=== PATIENT | male | born 1960 | race Caucasian/White ===

== ENCOUNTER 2024-10-01 15:05 | Emergency (ER) | payer BC, SELFPAY ==
--- NOTE | ~2024-10-01 | CT_ITS ---
EXAMINATION: CTA chest PE protocol DATE: 10/01/2024 17:08 INDICATION: shortness of breath, tachycardia TECHNIQUE: Computed tomography angiography (CTA) of the chest was performed with intravenous contrast timed to evaluate the pulmonary arteries. Coronal maximum intensity projection 3D-reconstructions we re created by the technologist. The dose-length product (DLP) was 363.64 mGy-cm. Automated exposure c ontrol and iterative reconstruction technique were employed. COMPARISON: None. FINDINGS: Lung parenchyma and airways: Clear. Secretions in the mid trachea. Pleura: Unremarkable. Thoracic inlet, axillae and chest wall: Unremarkable. Thoracic aorta: No significant dilation. No dissection. Mediastinum: Normal. Heart and pericardium: Normal. Coronary artery calcifications: . Upper abdomen: No significant finding. Bones: No acute osseous finding. Pulmonary arteries: Study quality: Adequate. No pulmonary emboli detected. IMPRESSION: No CT evidence of acute pulmonary embolus. Tracheal secretions, otherwise no acute process detected in the chest. Reviewed, dictated and finalized at location K.
--- NOTE | ~2024-10-01 | CT_ITS ---
EXAMINATION: CT soft tissue neck wo con DATE: 10/01/2024 17:10 INDICATION: History of throat cancer, shortness of breath, tachycardia, increased swelling. TECHNIQUE: Computed tomography (CT) of the neck was performed with 75 mL Omnipaque-350 intravenous co ntrast. Automated exposure control and iterative reconstruction technique were employed. The dose-loki gth product was 550.00 mGy-cm. COMPARISON: None FINDINGS: Mucosal thickening and edema involving the subglottis airway, greater on the left, and to lesser exte nt the epiglottis. There is mild airway narrowing at the level of the glottis. Fluid present at the g lottic airway and debris is present in the trachea. Lobulations of soft tissue protruding posteriorly from the base of the tongue. The thyroid gland is unremarkable. The submandibular and parotid glan ds are symmetric. There is no cervical lymphadenopathy. There are no masses identified. The sup erior mediastinum is unremarkable. Subcutaneous stranding of the anterior neck and along the parapha ryngeal spaces. Mild atherosclerotic calcifications at the bilateral carotid bifurcations. The orbit s are unremarkable. Visualized sinuses and mastoid air cells are well aerated. Lung parenchyma is clear. There is cervical spondylosis. IMPRESSION: Lobular soft tissue lesions posterior to the base of the tongue, with associated thickening and edema of the supraglottis airway and epiglottis. Mild airway narrowing at the level of the glottis. Subcut aneous stranding in the anterior neck and parapharyngeal spaces. These findings may represent a combi nation of primary tumor and treatment related change. Comparison to outside studies would be helpful. Minimal glottic and endotracheal fluid/debris. Reviewed, dictated and finalized at location K. IMPRESSION: Lobular soft tissue lesions posterior to the base of the tongue, with associate d thickening and edema of the supraglottis airway and epiglottis. Mild airway n arrowing at the level of the glottis. Subcutaneous stranding in the anterior ne ck and parapharyngeal spaces. These findings may represent a combination of javy tracy tumor and treatment related change. Comparison to outside studies would be helpful. Minimal glottic and endotracheal fluid/debris.
--- OUTSIDE RECORDS SUMMARY | 2024-10-01 15:09 | XMS_ITS | Clinical Summary ---
Author Organization [facility] Address [address] [place] [address] Care Team Providers Care Ham Stripper Name Role Phone Michelle Handy RN Unavailable UnavailNoemí Rea SALES SERVICE TECHNICIAN Unavailable Unavaila Pro Forbes MD Unavailable [phone] Francis Tuttle MD Unavailable [phone] Wilma Groves MD Unavailable [phone] Gia Foss MD Primary Care Provider [phone] Allergies Active Allergy Reactions Criticality Noted Date Comments Penicillin Rash Medium 01/30/2024 Medications amLODIPine (NORVASC) 5 mg tablet Administer per tube 1 tablet (5 mg total) daily 30 tablet 1 06/13/19 25 026 Active polyethylene glycol (MIRALAX) 17 gram/dose bulk powder Administer per tube 17 g daily as needed (constipation) 289 g 1 08/30/19 25 Active senna 1.76 mg/mL syrup Administer 10 mL (17.6 mg total) per feeding tube nightly as needed Active esomeprazole DR (NexIUM) 40 mg granule packet for oral suspension Take 40 mg by mouth 2 (two) times a day as needed (indegestion) 90 packet 08/30/19 25 025 Active scopolamine 1 mg over 3 days patch 3 dayIndications:Mot ion Sickness Place 1 patch on the skin every third day for 72 hours 5 patch 09/18/19 25 Active HYDROcodone-acetam inophen (NORCO) 5-325 mg per tabletIndications: Pain Take 1 tablet by mouth every 8 (eight) hours as needed for pain 90 tablet 09/18/19 25 Active ondansetron ODT (ZOFRAN-ODT) 4 mg disintegrating tabletIndications: nausea and vomiting Take 1 tablet (4 mg total) by mouth every 6 (six) hours as needed for nausea or vomiting 120 tablet 08/14/19 25 025 HYDROcodone-acetam inophen (NORCO) 7.5-325 mg per tabletIndications: Pain Administer per tube 1 tablet every 6 (six) hours as needed for pain (cancer related post radiation throat pain) 120 tablet 08/14/19 25 025 scopolamine 1 mg over 3 days patch 3 dayIndications:Mot ion Sickness Place 1 patch on the skin every third day for 72 hours 5 patch 09/04/19 25 025 Discontinu ed(Reorder ) Active Problems Problem Noted Date Diagnosed Date Hypophosphatemia 08/27/2024 Hypokalemia 08/25/2024 Primary hypertension 08/25/2024 Intractable nausea and vomiting 08/22/2024 Dehydration 08/13/2024 Dislodged gastrostomy tube 07/22/2024 Thrush 07/22/2024 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 Hypertension, essential 07/08/2024 Assessment & Plan (07/08/2024 12:06 PM CDT): Patient takes Amlodipine 5mg a day Alteration in nutrition 07/08/2024 Assessment & Plan (07/08/2024 12:11 PM CDT): Patient to continue protein supplements Encounter for follow-up exam ination after completed treatment for malignant neoplasm 06/20/2024 Personal history of irradiation 06/20/2024 Encounter for feeding tube placement 05/24/2024 Severe malnutrition 05/15/2024 Intractable vomiting with nausea 05/14/2024 Hypotension, unspecified hypotension type 2023 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 Patient to continue Hydrocodone. 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 09/17/2024 11:30 AM CDT Office Visit [facility] Radiation Oncology [address] [place] [phone] Shayna Valencia NP Oropharyngeal cancer (HCC) (Primary Dx) 09/17/2024 Orders Only [facility] Radiation Oncology [address] [place] [phone] Corbin Early MD PhD Oropharyngeal cancer (HCC) (Primary Dx); 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; Dysphagia, unspecified type 09/17/2024 Documentation [facility] [address] [place] [address] [place] [address] 09/12/2024 8:30 AM CDT [address] [place] [address] Oropharyngeal cancer (HCC) (Primary Dx) 09/12/2024 Documentation [facility] [address] [place] [address] [place] [address] 09/12/2024 Orders Only [facility] [address] [place] [phone] Homa Melendez RN 09/05/2024 10:00 AM CDT Infusion [address] [place] [phone] Oropharyngeal cancer (HCC) (Primary Dx) 09/05/2024 Documentation [facility] [address] [place] [phone] 09/05/2024 Orders Only [facility] Radiation Oncology [address] [place] [phone] Corbin Early MD PhD Nausea (Primary Dx); Oropharyngeal cancer (HCC); Severe protein-calorie malnutrition 09/05/2024 Telephone [facility] [address] [place] [phone] Michelle Handy, tube balancer Follow Up 2024 11:15 AM CDT Office Visit [facility] [address] [facility] [address] [place] [phone] Pro Gama MD Oropharyngeal cancer (HCC) (Primary Dx) 09/03/2024 10:30 AM CDT Infusion [address] [phone] Oropharyngeal cancer (HCC) (Primary Dx); Dehydration 09/03/2024 9:00 AM CDT Office Visit [facility] Radiation Oncology [address] [place] [phone] Shayna Valencia NP Oropharyngeal cancer (HCC) (Primary Dx); Nausea; 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; Lymphedema; Odynophagia; Dysphagia, unspecified type 09/03/2024 Documentation [facility] [address] [place] [phone] Leticia Queen, TOBIAS 09/03/2024 Orders Only [facility] [address] [place], [place] [address] [phone] Shayna Valencia NP Dehydration (Primary Dx) 08/31/2024 Telephone [facility] [address] [place] [address] [address] Leticia Queen, TOBIAS 08/22/2024 6:58 PM CDT - 08/29/2024 6:50 PM CDT Hospital Encounter [facility] [address] [place] [address] Cristina Mora MD Brother, Michele, MD Hultgren, Britt Richard, MD Rao, Katie Emery MD Intractable nausea and vomiting (Primary Dx); Dehydration; Hypokalemia; Primary hypertension; Hypophosphatemia; Severe malnutrition; Radiation esophagitis Discharge Disposition: Discharge to home or self care 08/22/2024 Telephone [facility] [place] [phone] Leticia Queen, TOBIAS 08/21/2024 7:53 AM CDT - 08/21/2024 11:59 PM CDT Hospital Encounter [facility] [address] [place] [phone] Oropharyngeal cancer (HCC) Discharge Disposition: Discharge to home or self care 08/21/2024 Telephone [facility] [address] [place] [phone] Homa Melendez RN 08/20/2024 Telephone [facility] [address] [place], [place] [address], [place] [phone] Leticia Queen, TOBIAS 08/16/2024 Telephone [facility] [address] [place], [place] [address] [address] Leticia Queen, TOBIAS 08/16/2024 Orders Only [facility] Radiation [facility]cology [address] [place] [phone] Francis Tuttle MD Personal history of irradiation (Primary Dx); Radiation esophagitis; Encounter for follow-up examination after completed treatment for malignant neoplasm; Severe protein-calorie malnutrition 08/15/2024 Telephone [facility] [place] [address] Leticia Queen, RD 08/14/2024 Telephone [facility] [address] [place] [address] [place] [address] Leticia Queen, RD 08/14/2024 Telephone [facility] [address] [place] [address] Homa Melnedez, KRISTY Reschedule 08/13/2024 1:30 PM CDT Clinical Support [facility] at [address] [place] [phone] Oropharyngeal cancer (HCC) (Primary Dx); Dehydration 08/13/2024 11:00 AM CDT Office Visit [facility] Radiation Oncology [address] [place] [phone] Francis Tuttle MD Oropharyngeal cancer (HCC) (Primary Dx); Personal history of irradiation; Cancer-related pain 08/13/2024 Documentation [facility] [address] [place] [address] [address] Leticia Queen, TOBIAS 08/13/2024 Orders Only [facility] [address] [place] [phone] Francis Tuttle MD 08/13/2024 Orders Only [facility] [address] [place] [phone] Francis Tuttle MD Dehydration (Primary Dx); Intractable vomiting with nausea; Oropharyngeal cancer (HCC) 08/13/2024 Results Follow-Up [facility] - [address] [place] [address] [place] [phone] Gia Foss MD CBC with auto differential, Comprehensive metabolic panel, Differential, auto, Additional followed-up results: 2 08/10/2024 5:39 PM CDT - 08/10/2024 9:35 PM CDT Emergency [facility] Emergency Department [address] [place] [address] Shahbaz Earl MD Nausea and vomiting, unspecified vomiting type (Primary Dx) Discharge Disposition: Discharge to home or self care 08/10/2024 Telephone [facility] [address] [place] [phone] Leticia Queen, TOBIAS 08/09/2024 Telephone [facility] [address] [place] [phone] Leticia Queen, TOBIAS 08/08/2024 Telephone [facility] Radiation Oncology [address] [place] [phone] Yamila Kam RN 07/31/2024 [facility] Post Discharge [place] [address] Tiffany Hernandez, KRISTY 07/30/2024 [facility] Post Discharge Follow up phone call [address] [address] Tiffany Hernandez, KRISTY 07/26/2024 [facility] Post Discharge Follow up phone call [address] [address] Tiffany Hernandez, KRISTY 07/23/2024 Telephone [facility] - [address] [place] [phone] Gia Foss MD MARY Questions 07/22/2024 Results Follow-Up [facility] - [address] [place] [phone] Gia Foss MD CBC with auto differential, Basic metabolic panel, Type and screen, Additional followed-up results: 4 07/21/2024 10:36 PM CDT - 07/23/2024 3:35 PM CDT Hospital Encounter [facility] [address] [place] [address] Eber Dumont MD [place], MD Karina Rosenberg, Henrik Aguirre MD Dislodged gastrostomy tube (Primary Dx) Discharge Disposition: Discharge to home or self care 07/13/2024 11:00 AM CDT Office Visit [facility] Radiation Oncology [address] [place] [phone] Renee Shipman NP Oropharyngeal cancer (HCC) (Primary Dx); Encounter for follow-up examination after completed treatment for malignant neoplasm; Personal history of irradiation 07/13/2024 Telephone [facility] [address] [facility] 7th [address], [place] [address] Aditi Dougherty B.A. 07/11/2024 Telephone [facility] [address] [place] [phone] 07/06/2024 Telephone [facility] [address] [place] [phone] 07/03/2024 Telephone [facility] [address] [facility] 4th [place] [address] Michelle Handy RN Navigator Follow Up; Navigator Treatment End Check In from Last 3 Months Immunizations Immunization Administration Dates Next Due Influenza, Unspecified 06/22/2024(Deferred: Reina ent Refused) Pfizer SARS-CoV-2 Monovalent Vaccination (12+ Yrs) PURPLE 08/24/2020,07/19/2020 Surgical History Surgery Date Site/Laterality Comments US GUIDED BIOPSY LYMPH NODE SUPERFICIAL LEFT 4 N/A NG TUBE PLACEMENT 05/25/2024 N/A IR G TUBE PLACEMENT PERCUTANEOUS 05/25/2024 N/A CHOLECYSTECTOMY TONSILLECTOMY CHANGE G TUBE 07/23/2024 N/A Medical History Medical History Date Comments Primary squamous cell carcinoma of throat (HCC) Hypertension Family History Medical History Relation Name Comments No Known Problems Father No Known Problems Mother Relation Name Status Comments Father Mother Social History Tobacco Use Types Packs/Day Years Used Date Smoking Tobacco: Never Smokeless Tobacco: Never Tobacco Cessation:Counseling Given: Not Answered Alcohol Use Standard Drinks/Week Comments Not Currently 0 (1 standard drink = 0.6 oz pur e alcohol) [facility] Utilities Answer Date Recorded In the past 12 months has th e [employer], gas, oil, or water [employer] threatened to shut off services in your home? No 08/24/2024 Humiliation, Afraid, Rape, and Kick questionnair e Answer Date Recorded Within the last year, have y ou been afraid of your partner or ex-partner? No 08/24/2024 Emotionally Abused Not on file 08/24/2024 Physically Abused Not on file 08/24/2024 Sexually Abused Not on file 08/24/2024 Social Connection and Isolat ion Panel [NHANES] Answer Date Recorded In a typical week, how many times do you talk on the phone with family, friends, or neighbors? More than three times a week 08/24/2024 How often do you get togethe r with friends or relatives? Once a week 08/24/2024 How often do you attend chur ch or mosque services? Never 08/24/2024 Do you belong to any clubs o r organizations such as roman catholic groups, unions, fraternal or athletic groups, or school groups? No 08/24/2024 How often do you attend meet ings of the clubs or organizations you belong to? Never 08/24/2024 Are you , , di vorced, , never , or living with a partner? 08/24/2024 AUDIT-C Answer Date Recorded Q1: How often do you have a drink containing alcohol? Monthly or less 07/22/2024 Q2: How many drinks containi ng alcohol do you have on a typical day when you are drinking? Patient does not drink Q3: How often do you have si x or more drinks on one occasion? Less than monthly 07/22/2024 Overall Financial Resource Strain (CARDIA) Answe r Date Recorded How hard is it for you to pa y for the very basics like food, housing, medical care, and heating? Not hard at all 08/24/2024 PHQ-2 Answer Date Recorded PHQ-2 Total Score (If total score is 3 or more points, staff should administer the PHQ-9) 0 06/22/2024 Hunger Vital Sign Answer Date Recorded Within the past 12 months, y ou worried that your food would run out before you got the money to buy more. Never true 08/25/19 25 Within the past 12 months, t he food you bought just didn't last and you didn't have money to get more. Never true 08/24/2024 PRAPARE - Transportation Answer Date Re corded In the past 12 months, has l ack of transportation kept you from medical appointments or from getting medications? No 08/03 In the past 12 months, has l ack of transportation kept you from meetings, work, or from getting things needed for daily living? No 08/24/2024 Housing Stability Vital Sign Answer Cole e Recorded In the last 12 months, was t here a time when you were not able to pay the mortgage or rent on time? No 08/24/2024 In the past 12 months, how m any times have you moved where you were living? 0 08/24/2024 At any time in the past 12 m [facility], were you homeless or living in a group home (including now)? No 08/24/2024 Personal Safety Answer Date Recorded Have you ever been in or are you currently in a harmful physical or emotional relationship or is someone making you feel afraid or unsafe? 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 file Not on file N ot on file Obstetrics History Last Filed Vital Signs Vital Sign Reading Time Taken Comments Blood Pressure 133/89 09/17/2024 11:45 AM CDT Pulse 113 09/17/2024 11:45 AM CDT Temperature 36.6 C (97.8 F) 09/17/2024 11:45 AM CDT Respiratory Rate 18 09/17/2024 11:45 AM CDT Oxygen Saturation 100% 09/17/2024 11:45 AM CDT Inhaled Oxygen Concentration - - Weight 74.9 kg (165 lb 1.6 oz) 09/17/2024 11:45 AM CDT Height 182.9 cm (6') 08/23/2024 2:07 AM CDT Body Mass Index 22.39 08/23/2024 2:07 AM CDT Plan of Treatment Health Maintenance Due Date Last Done Comments Colon Cancer Screening-Colonoscopy 1960 Hepatitis C Screening 1960 Prostate Cancer Screening-PSA 1960 DTaP/Tdap/Td Vaccine (1 - Tdap) 09/05/1971 Hepatitis B Screening 1978 Pneumococcal vaccine <65 (1 of 2 - PCV) 09/05/1979 Zoster Vaccine (1 of 2) 09/05/1979 Covid-19 Vaccine (3 - Pfizer risk series) 09/21/2020 08/24/2020, 07/19/2020 Influenza Vaccine (Season Ended) 2024 Depression Screening 06/22/2025 06/22/2024, 02/14/20 24 Regular Well Visit/Exam 18-64 06/22/2025 06/22/2024 Procedures Procedure Name Priority Date/Time Associated Diagnosis Comments EGFR Routine 08/29/2024 3:54 AM CDT BASIC METABOLIC PANEL Routine 08/29/2024 3:54 AM CDT PHOSPHORUS Routine 08/29/2024 3:54 AM CDT MAGNESIUM Routine 08/29/2024 3:54 AM CDT EGFR Routine 08/28/2024 4:35 AM CDT BASIC METABOLIC PANEL Routine 08/28/2024 4:35 AM CDT PHOSPHORUS Routine 08/28/2024 4:35 AM CDT MAGNESIUM Routine 08/28/2024 4:35 AM CDT EGFR Routine 08/27/2024 4:13 AM CDT DIFFERENTIAL AUTO Routine 08/27/2024 4:1 3 AM CDT PHOSPHORUS Routine 08/27/2024 4:13 AM CDT MAGNESIUM Routine 08/27/2024 4:13 AM CDT COMPREHENSIVE METABOLIC PANEL Routine 08/27/2024 4:13 AM CDT CBC WITH AUTO DIFFERENTIAL Routine 08/27/2024 4:13 AM CDT POTASSIUM LEVEL Routine 08/26/2024 1:12 PM CDT EGFR Routine 08/26/2024 4:14 AM CDT DIFFERENTIAL AUTO Routine 08/26/2024 4:1 4 AM CDT PHOSPHORUS Routine 08/26/2024 4:14 AM CDT MAGNESIUM Routine 08/26/2024 4:14 AM CDT COMPREHENSIVE METABOLIC PANEL Routine 08/26/2024 4:14 AM CDT CBC WITH AUTO DIFFERENTIAL Routine 08/26/2024 4:14 AM CDT POTASSIUM LEVEL Timed 08/25/2024 11:29 AM CDT EGFR Routine 08/25/2024 4:11 AM CDT DIFFERENTIAL AUTO Routine 08/25/2024 4:1 1 AM CDT PHOSPHORUS Routine 08/25/2024 4:11 AM CDT MAGNESIUM Routine 08/25/2024 4:11 AM CDT COMPREHENSIVE METABOLIC PANEL Routine 08/25/2024 4:11 AM CDT CBC WITH AUTO DIFFERENTIAL Routine 08/25/2024 4:11 AM CDT EGFR Routine 08/24/2024 5:12 AM CDT DIFFERENTIAL AUTO Routine 08/24/2024 5:1 2 AM CDT COMPREHENSIVE METABOLIC PANEL Routine 08/24/2024 5:12 AM CDT CBC WITH AUTO DIFFERENTIAL Routine 08/24/2024 5:12 AM CDT EGFR Routine 08/23/2024 3:55 AM CDT PHOSPHORUS Routine 08/23/2024 3:55 AM CDT MAGNESIUM Routine 08/23/2024 3:55 AM CDT BASIC METABOLIC PANEL Routine 08/23/2024 3:55 AM CDT URINALYSIS AND REFLEX TO MICROSCOPIC AND CULTURE STAT 08/22/2024 9:45 PM CDT XR ABD AP W GASTO INJ 1V ED 08/22/2024 8:23 PM CDT EGFR STAT 08/22/2024 8:09 PM CDT DIFFERENTIAL AUTO STAT 08/22/2024 8:0 9 PM CDT PHOSPHORUS Add-On 08/22/2024 8:09 PM CDT MAGNESIUM Routine 08/22/2024 8:09 PM CDT LIPASE STAT 08/22/2024 8:09 PM CDT COMPREHENSIVE METABOLIC PANEL STAT 08/22/2024 8:09 PM CDT CBC WITH AUTO DIFFERENTIAL STAT 08/22/2024 8:[address] CHEST W CONTRAST Schedule Routine, Read Routine (OP Routine) 08/21/2024 9:04 AM CDT Oropharyngeal cancer (HCC) CT SOFT TISSUE NECK W CONTRAST Schedule Routine, Read Routine (OP Routine) 08/21/2024 9:04 AM CDT Oropharyngeal cancer (HCC) CT ABDOMEN PELVIS W CONTRAST ED 08/10/2024 7:43 PM CDT EGFR STAT 08/10/2024 5:58 PM CDT DIFFERENTIAL AUTO STAT 08/10/2024 5:5 8 PM CDT COMPREHENSIVE METABOLIC PANEL STAT 08/10/2024 5:58 PM CDT CBC WITH AUTO DIFFERENTIAL STAT 08/10/2024 5:58 PM CDT ECG 12-LEAD STAT 08/10/2024 5:22 PM CDT CHANGE G TUBE IP Routine 07/23/2024 10:22 AM CDT EGFR Routine 07/23/2024 3:47 AM CDT DIFFERENTIAL AUTO Routine 07/23/2024 3:4 7 AM CDT PROTIME-INR Routine 07/23/2024 3:47 AM CDT CBC WITH AUTO DIFFERENTIAL Routine 07/23/2024 3:47 AM CDT BASIC METABOLIC PANEL Routine 07/23/2024 3:47 AM CDT B CHECK SAMPLE Routine 07/22/2024 4:14 AM CDT MI PERQ REPLACEMENT GTUBE NOT REQ REVJ GSTRST TRC Routine 07/22/2024 2:55 AM CDT TYPE AND SCREEN STAT 07/22/2024 2:26 AM CDT EGFR STAT 07/21/2024 11:50 PM CDT DIFFERENTIAL AUTO STAT 07/21/2024 11: 50 PM CDT PROTIME-INR STAT 07/21/2024 11:50 PM CDT BASIC METABOLIC PANEL STAT 07/21/2024 11:50 PM CDT CBC WITH AUTO DIFFERENTIAL STAT 07/21/2024 11:50 PM CDT from Last 3 Months Results * eGFR (08/29/2024 3:54 AM CDT) eGFR >90 >=60 mL/min/1. 73 m2 Comment: Interpretive Data Reference Interval Normal >/= 90 mL/min/1.73m2 Mildly decreased* 60 - 89 mL/min/1.73m2 Mildly to moderately decreased 45 - 59 mL/min/1.73m2 Moderately to severely decreased 30 - 44 mL/min/1.73m2 Severely decreased 15 - 29 mL/min/1.73m2 Kidney Failure < 15 mL/min/1.73m2 *Relative to young adult level Estimated glomerular filtration rate is determined by the 2020 CKD-EPI equation recommended by the National Kid[employer] (A Unifying Approach to GFR Estimation: Recommendations of the NKF-ASK Task Force on Reassessing the Inclusion of Race in Diagnosing Kidney Disease, JASN 2020). The CKD-EPI equation should not be used for patients with unstable renal function and has not been validated in children and those over 70. Current interpretive data was last reviewed 2021. Blood 08/29/2024 3:54 AM CDT 08/29/2024 5:46 AM CDT us Katie Mckeon MD LAB BLOOD ORDERABLE S Final Result [facility] [id number] [facility] [place] [address] * Phosphorus (08/29/2024 3:54 AM CDT) Pathologist [facility] Phosphorus, pl 3.3 2.3 - 4.5 mg/dL Blood 08/29/2024 3:54 AM CDT 08/29/2024 5:46 AM CDT Daly Villela MD LAB BLOOD ORDERABLES F inal Result [facility] [place] [address] [facility] [place] [address] * Magnesium (08/29/2024 3:54 AM CDT) Pathologist [facility] Magnesium 2.4 1.4 - 2.5 mg/dL Blood 08/29/2024 3:54 AM CDT 08/29/2024 5:46 AM CDT Daly Villela MD LAB BLOOD ORDERABLES F inal Result Performing Organization Address City/[facility]/ZIP Co de Phone Number [facility] [address] [facility] [place] [address] * (ABNORMAL) Basic metabolic panel (08/29/2024 3:54 AM CDT) Pathologist [facility] Sodium 134(L) 135 - 145 mmol/L Potassium, pl 4.1 3.3 - 4.9 mmol/L [facility] Chloride 95(L) 97 - 110 mmol/L [facility] CO2 31 22 - 32 mmol/L [facility] Anion gap 8 2 - 15 mmol/L [facility] BUN 15 6 - 25 mg/dL [facility] Creatinine 0.63(L) 0.80 - 1.30 mg/dL [facility] Glucose 112 70 - 199 mg/dL [facility] Comment: Interpretive Data Fasting glucose >/= 126 mg/dl is diagnostic for diabetes. Fasting is defined as no caloric intake for at least 8 hours. Fasting glucose between 100 mg/dl to 125 mg/dl is diagnostic of prediabetes. In a patient with classic symptoms of hyperglycemia or hyperglycemic crisis, a random glucose >/= 200 mg/dl is diagnostic for diabetes. In the absence of unequivocal hyperglycemia, results should be confirmed by repeat testing. The classification and Diagnosis of Diabetes Diabetes Care 2021; 46: S19-S40. Current interpretive data was last revised 2022. Calcium 9.6 8.5 - 10.3 mg/dL [facility] Blood 08/29/2024 3:54 AM CDT 08/29/2024 5:46 AM CDT Katie Mckeon MD LAB BLOOD ORDERABLE S Final Result [facility] [place] [address] [facility] [place] [address] * eGFR (08/28/2024 4:35 AM CDT) eGFR >90 >=60 mL/min/1. 73 m2 Comment: Interpretive Data Reference Interval Normal >/= 90 mL/min/1.73m2 Mildly decreased* 60 - 89 mL/min/1.73m2 Mildly to moderately decreased 45 - 59 mL/min/1.73m2 Moderately to severely decreased 30 - 44 mL/min/1.73m2 Severely decreased 15 - 29 mL/min/1.73m2 Kidney Failure < 15 mL/min/1.73m2 *Relative to young adult level Estimated glomerular filtration rate is determined by the 2020 CKD-EPI equation recommended by the National Kidney Foundation (A Unifying Approach to GFR Estimation: Recommendations of the NKF-ASK Task Force on Reassessing the Inclusion of Race in Diagnosing Kidney Disease, JASN 2020). The CKD-EPI equation should not be used for patients with unstable renal function and has not been validated in children and those over 70. Current interpretive data was last reviewed 2021. Blood 08/28/2024 4:35 AM CDT 08/28/2024 4:59 AM CDT Katie Mckeon MD LAB BLOOD ORDERABLE S Final Result Performing Organization Address City/[facility]/ZIP Co de Phone Number [facility] [address] [address] [facility] [employer] [place] [address] * Phosphorus (08/28/2024 4:35 AM CDT) Pathologist [facility] Phosphorus, pl 4.2 2.3 - 4.5 mg/dL Blood 08/28/2024 4:35 AM CDT 08/28/2024 4:59 AM CDT Daly Villela MD LAB BLOOD ORDERABLES F inal Result Performing Organization Address [facility] Co de Phone Number [facility] [address] [address] Department [place] [address] * Magnesium (08/28/2024 4:35 AM CDT) [facility] Magnesium 2.4 1.4 - 2.5 mg/dL Blood 08/28/2024 4:35 AM CDT 08/28/2024 4:59 AM CDT Daly Villela MD LAB BLOOD ORDERABLES F inal Result Performing Organization Address [facility] de Phone Number [place] [address] [address] Department [place] [address] * (ABNORMAL) Basic metabolic panel (08/28/2024 4:35 AM CDT) [facility] Sodium 137 135 - 145 mmol/L Potassium, pl 3.8 3.3 - 4.9 mmol/L [facility] Chloride 98 97 - 110 mmol/L [facility] CO2 31 22 - 32 mmol/L [facility] Anion gap 8 2 - 15 mmol/L [facility] BUN 14 6 - 25 mg/dL [facility] Creatinine 0.57(L) 0.80 - 1.30 mg/dL [facility] Glucose 137 70 - 199 mg/dL [facility] Comment: Interpretive Data Fasting glucose >/= 126 mg/dl is diagnostic for diabetes. Fasting is defined as no caloric intake for at least 8 hours. Fasting glucose between 100 mg/dl to 125 mg/dl is diagnostic of prediabetes. In a patient with classic symptoms of hyperglycemia or hyperglycemic crisis, a random glucose >/= 200 mg/dl is diagnostic for diabetes. In the absence of unequivocal hyperglycemia, results should be confirmed by repeat testing. The classification and Diagnosis of Diabetes Diabetes Care 2021; 46: S19-S40. Current interpretive data was last revised 2022. Calcium 9.6 8.5 - 10.3 mg/dL [facility] Blood 08/28/2024 4:35 AM CDT 08/28/2024 4:59 AM CDT us Katie Mckeon MD LAB BLOOD ORDERABLE S Final Result [facility] [address] [address] Department [place] [address] * eGFR (08/27/2024 4:13 AM CDT) eGFR >90 >=60 mL/min/1. 73 m2 Comment: Interpretive Data Reference Interval Normal >/= 90 mL/min/1.73m2 Mildly decreased* 60 - 89 mL/min/1.73m2 Mildly to moderately decreased 45 - 59 mL/min/1.73m2 Moderately to severely decreased 30 - 44 mL/min/1.73m2 Severely decreased 15 - 29 mL/min/1.73m2 Kidney Failure < 15 mL/min/1.73m2 *Relative to young adult level Estimated glomerular filtration rate is determined by the 2020 CKD-EPI equation recommended by the National Kidney Foundation (A Unifying Approach to GFR Estimation: Recommendations of the NKF-ASK Task Force on Reassessing the Inclusion of Race in Diagnosing Kidney Disease, JASN 202). The CKD-EPI equation should not be used for patients with unstable renal function and has not been validated in children and those over 70. Current interpretive data was last reviewed 2021. Blood 08/27/2024 4:13 AM CDT 08/27/2024 5:01 AM CDT us Daly Villela MD LAB BLOOD ORDERABLES F inal Result [facility] [address] Department [place] [address] * (ABNORMAL) Differential, auto (08/27/2024 4:13 AM CDT) Neutrophil abs 4.64 1.50 - 6.50 K/cumm Imm gran abs 0.01 0.00 - 0.10 K/cumm [facility] Lymphocyte abs 0.53(L) 0.80 - 3.30 K/cumm [facility] Monocyte abs 0.80 0.20 - 0.80 K/cumm [facility] Eosinophil abs 0.04 0.00 - 0.50 K/cumm [facility] Basophil abs 0.02 0.00 - 0.10 K/cumm [facility] Neutrophil pct 76.8 % [facility] Comment: Interpretive Data Percent cell count reference ranges are not reported, since discordance with absolute values may lead to misinterpretation of CBC data. Current Interpretive Data was last revised on 2017. Imm gran pct 0.2 % [facility] Comment: Interpretive Data Percent cell count reference ranges are not reported, since discordance with absolute values may lead to misinterpretation of CBC data. Current Interpretive Data was last revised on 2017. Lymphocyte pct 8.8 % [facility] Comment: Interpretive Data Percent cell count reference ranges are not reported, since discordance with absolute values may lead to misinterpretation of CBC data. Current Interpretive Data was last revised on 2017. Monocyte pct 13.2 % [facility] Comment: Interpretive Data Percent cell count reference ranges are not reported, since discordance with absolute values may lead to misinterpretation of CBC data. Current Interpretive Data was last revised on 2017. Eosinophil pct 0.7 % [facility] Comment: Interpretive Data Percent cell count reference ranges are not reported, since discordance with absolute values may lead to misinterpretation of CBC data. Current Interpretive Data was last revised on 2017. Basophil pct 0.3 % [facility] Comment: Interpretive Data Percent cell count reference ranges are not reported, since discordance with absolute values may lead to misinterpretation of CBC data. Current Interpretive Data was last revised on 2017. Blood 08/27/2024 4:13 AM CDT 08/27/2024 5:01 AM CDT Daly Villela MD LAB BLOOD ORDERABLES F inal Result Performing Organization Address [facility] Co de Phone Number [place]AY [place] [address] [address] [employer] [place] [address] * (ABNORMAL) CBC with auto differential (08/27/2024 4:13 AM CDT) WBC 6.04 3.80 - 9.90 K/cumm Hgb 12.3(L) 13.0 - 17.5 g/dL [facility] Hct 36.6(L) 38.9 - 50.3 % [facility] Plt 302 150 - 400 K/cumm [facility] MPV 10.2 9.1 - 12.3 fL [facility] RBC 3.86(L) 4.30 - 5.80 M/cumm [facility] MCV 94.8 81.3 - 96.4 fL [facility] MCH 31.9 27.1 - 33.3 pg [facility] MCHC 33.6 32.3 - 35.7 g/dL [facility] RDW CV 12.4 11.1 - 14.9 % [facility] RDW SD 42.9 35.7 - 48.1 fL [facility] NRBC abs 0.00 0.00 - 0.01 K/cumm [facility] Blood 08/27/2024 4:13 AM CDT 08/27/2024 5:01 AM CDT Daly Villela MD LAB BLOOD ORDERABLES F inal Result Performing Organization Address [facility] Co de Phone Number [place] [address] [address] Department [place] [address] * (ABNORMAL) Phosphorus (08/27/2024 4:13 AM CDT) Phosphorus, pl 2.1(L) 2.3 - 4.5 mg/dL Blood 08/27/2024 4:13 AM CDT 08/27/2024 5:01 AM CDT us Daly Villela MD LAB BLOOD ORDERABLES F inal Result [facility] [address] [address] [place] [address] * Magnesium (08/27/2024 4:13 AM CDT) Pathologist [facility] Magnesium 2.3 1.4 - 2.5 mg/dL Blood 08/27/2024 4:13 AM CDT 08/27/2024 5:01 AM CDT Daly Villela MD LAB BLOOD ORDERABLES F inal Result Performing Organization Address [facility] Co de Phone Number [facility] [address] [address] [place] [address] * (ABNORMAL) Comprehensive metabolic panel (08/27/2024 4:13 AM CDT) Sodium 136 135 - 145 mmol/L Potassium, pl 3.3 3.3 - 4.9 mmol/L [facility] Chloride 98 97 - 110 mmol/L [facility] CO2 30 22 - 32 mmol/L [facility] Anion gap 8 2 - 15 mmol/L [facility] BUN 11 6 - 25 mg/dL [facility] Creatinine 0.53(L) 0.80 - 1.30 mg/dL [facility] Glucose 153 70 - 199 mg/dL [facility] Comment: Interpretive Data Fasting glucose >/= 126 mg/dl is diagnostic for diabetes. Fasting is defined as no caloric intake for at least 8 hours. Fasting glucose between 100 mg/dl to 125 mg/dl is diagnostic of prediabetes. In a patient with classic symptoms of hyperglycemia or hyperglycemic crisis, a random glucose >/= 200 mg/dl is diagnostic for diabetes. In the absence of unequivocal hyperglycemia, results should be confirmed by repeat testing. The classification and Diagnosis of Diabetes Diabetes Care 2021; 46: S19-S40. Current interpretive data was last revised 2022. Calcium 9.6 8.5 - 10.3 mg/dL [facility] Bilirubin, total 0.3 0.1 - 1.2 mg/dL [facility] Protein, pl 7.0 6.5 - 8.5 g/dL [facility] Albumin 3.4(L) 3.5 - 5.0 g/dL [facility] Alk phos 59 40 - 130 Units/L [facility] ALT 8 7 - 55 Units/L [facility] AST 16 10 - 50 Units/L [facility] Blood 08/27/2024 4:1 3 AM CDT 08/27/2024 5:01 AM CDT Daly Villela MD LAB BLOOD ORDERABLES F inal Result [facility] [address] [address] Department [employer] [place], [place] [id number] * (ABNORMAL) Potassium (08/26/2024 1:12 PM CDT) Pathologist [facility] Potassium, pl 3.0(L) 3.3 - 4.9 mmol/L Blood 08/26/2024 1:12 PM CDT 08/26/2024 1:20 PM CDT Katie Mckeon MD LAB BLOOD ORDERABLE S Final Result Performing Organization Address City/[facility]/ZIP Co de Phone Number [facility] [address] [address] [employer] [place], [place] [id number] * eGFR (08/26/2024 4:14 AM CDT) eGFR >90 >=60 mL/min/1. 73 m2 Comment: Interpretive Data Reference Interval Normal >/= 90 mL/min/1.73m2 Mildly decreased* 60 - 89 mL/min/1.73m2 Mildly to moderately decreased 45 - 59 mL/min/1.73m2 Moderately to severely decreased 30 - 44 mL/min/1.73m2 Severely decreased 15 - 29 mL/min/1.73m2 Kidney Failure < 15 mL/min/1.73m2 *Relative to young adult level Estimated glomerular filtration rate is determined by the 2020 CKD-EPI equation recommended by the National Kidney Foundation (A Unifying Approach to GFR Estimation: Recommendations of the NKF-ASK Task Force on Reassessing the Inclusion of Race in Diagnosing Kidney Disease, JASN 2020). The CKD-EPI equation should not be used for patients with unstable renal function and has not been validated in children and those over 70. Current interpretive data was last reviewed 2021. Blood 08/26/2024 4:14 AM CDT 08/26/2024 5:02 AM CDT us Daly Villela MD LAB BLOOD ORDERABLES F inal Result [facility] [address] [address] Department [place] [address] * (ABNORMAL) Differential, auto (08/26/2024 4:14 AM CDT) Neutrophil abs 3.07 1.50 - 6.50 K/cumm Imm gran abs 0.02 0.00 - 0.10 K/cumm [facility] Lymphocyte abs 0.49(L) 0.80 - 3.30 K/cumm [facility] Monocyte abs 0.73 0.20 - 0.80 K/cumm [facility] Eosinophil abs 0.07 0.00 - 0.50 K/cumm [facility] Basophil abs 0.02 0.00 - 0.10 K/cumm [facility] Neutrophil pct 69.7 % [facility] Comment: Interpretive Data Percent cell count reference ranges are not reported, since discordance with absolute values may lead to misinterpretation of CBC data. Current Interpretive Data was last revised on 2017. Imm gran pct 0.5 % [facility] Comment: Interpretive Data Percent cell count reference ranges are not reported, since discordance with absolute values may lead to misinterpretation of CBC data. Current Interpretive Data was last revised on 2017. Lymphocyte pct 11.1 % [facility] Comment: Interpretive Data Percent cell count reference ranges are not reported, since discordance with absolute values may lead to misinterpretation of CBC data. Current Interpretive Data was last revised on 2017. Monocyte pct 16.6 % [facility] Comment: Interpretive Data Percent cell count reference ranges are not reported, since discordance with absolute values may lead to misinterpretation of CBC data. Current Interpretive Data was last revised on 2017. Eosinophil pct 1.6 % [facility] Comment: Interpretive Data Percent cell count reference ranges are not reported, since discordance with absolute values may lead to misinterpretation of CBC data. Current Interpretive Data was last revised on 2017. Basophil pct 0.5 % [facility] Comment: Interpretive Data Percent cell count reference ranges are not reported, since discordance with absolute values may lead to misinterpretation of CBC data. Current Interpretive Data was last revised on 2017. Blood 08/26/2024 4:14 AM CDT 08/26/2024 5:00 AM CDT Daly Villela MD LAB BLOOD ORDERABLES F inal Result [facility] [address] [address] Department [place] [address] * (ABNORMAL) CBC with auto differential (08/26/2024 4:14 AM CDT) WBC 4.40 3.80 - 9.90 K/cumm Hgb 11.9(L) 13.0 - 17.5 g/dL [facility] Hct 34.8(L) 38.9 - 50.3 % [facility] Plt 302 150 - 400 K/cumm [facility] MPV 10.2 9.1 - 12.[address] [facility] RBC 3.75(L) 4.30 - 5.80 M/cumm [facility] MCV 92.8 81.3 - 96.[address] [facility] MCH 31.7 27.1 - 33.[address] [facility] MCHC 34.2 32.3 - 35.7 g/dL [facility] RDW CV 12.2 11.1 - 14.9 % [facility] RDW SD 41.8 35.7 - 48.[address] [facility] NRBC abs 0.00 0.00 - 0.01 K/cumm [facility] Blood 08/26/2024 4:14 AM CDT 08/26/2024 5:00 AM CDT Daly Villela MD LAB BLOOD ORDERABLES F inal Result Performing Organization Address [facility] de Phone Number [facility]AY [facility] [address] [address] [facility] [place] [address] * Phosphorus (08/26/2024 4:14 AM CDT) Pathologist [facility] Phosphorus, pl 2.8 2.3 - 4.5 mg/dL Blood 08/26/2024 4:14 AM CDT 08/26/2024 5:02 AM CDT Daly Villela MD LAB BLOOD ORDERABLES F inal Result Performing Organization Address [facility] de Phone Number [facility] [address] [address] [place] [address] * Magnesium (08/26/2024 4:14 AM CDT) [facility] Magnesium 2.1 1.4 - 2.5 mg/dL Blood 08/26/2024 4:14 AM CDT 08/26/2024 5:02 AM CDT Daly Villela MD LAB BLOOD ORDERABLES F inal Result Performing Organization Address [facility] de Phone Number [facility] [place] [address] [address] [place] [address] * (ABNORMAL) Comprehensive metabolic panel (08/26/2024 4:14 AM CDT) Pathologist [facility] Sodium 138 135 - 145 mmol/L Potassium, pl 3.0(L) 3.3 - 4.9 mmol/L [facility] Chloride 97 97 - 110 mmol/L [facility] CO2 32 22 - 32 mmol/L [facility] Anion gap 9 2 - 15 mmol/L [facility] BUN 6 6 - 25 mg/dL [facility] Creatinine 0.52(L) 0.80 - 1.30 mg/dL [facility] Glucose 129 70 - 199 mg/dL [facility] Comment: Interpretive Data Fasting glucose >/= 126 mg/dl is diagnostic for diabetes. Fasting is defined as no caloric intake for at least 8 hours. Fasting glucose between 100 mg/dl to 125 mg/dl is diagnostic of prediabetes. In a patient with classic symptoms of hyperglycemia or hyperglycemic crisis, a random glucose >/= 200 mg/dl is diagnostic for diabetes. In the absence of unequivocal hyperglycemia, results should be confirmed by repeat testing. The classification and Diagnosis of Diabetes Diabetes Care 2021; 46: S19-S40. Current interpretive data was last revised 2022. Calcium 9.8 8.5 - 10.3 mg/dL [facility] Bilirubin, total 0.4 0.1 - 1.2 mg/dL [facility] Protein, pl 7.0 6.5 - 8.5 g/dL [facility] Albumin 3.6 3.5 - 5.0 g/dL [facility] Alk phos 57 40 - 130 Units/L [facility] ALT 7 7 - 55 Units/L [facility] AST 15 10 - 50 Units/L [facility] Blood 08/26/2024 4:14 AM CDT 08/26/2024 5:02 AM CDT Daly Villela MD LAB BLOOD ORDERABLES F inal Result Performing Organization Address City/[facility]/ZIP Co de Phone Number [facility] [address] Department [place] [address] * (ABNORMAL) Potassium (08/25/2024 11:29 AM CDT) [facility] Potassium, pl 3.1(L) 3.3 - 4.9 mmol/L Blood 08/25/2024 11:2 9 AM CDT 08/25/2024 12:06 PM CDT Ginna Graves NP LAB BLOOD ORDERABLES Cathie l Result [facility] [address] Department [place] [address] * eGFR (08/25/2024 4:11 AM CDT) eGFR >90 >=60 mL/min/1. 73 m2 Comment: Interpretive Data Reference Interval Normal >/= 90 mL/min/1.73m2 Mildly decreased* 60 - 89 mL/min/1.73m2 Mildly to moderately decreased 45 - 59 mL/min/1.73m2 Moderately to severely decreased 30 - 44 mL/min/1.73m2 Severely decreased 15 - 29 mL/min/1.73m2 Kidney Failure < 15 mL/min/1.73m2 *Relative to young adult level Estimated glomerular filtration rate is determined by the 2020 CKD-EPI equation recommended by the National Kidney Foundation (A Unifying Approach to GFR Estimation: Recommendations of the NKF-ASK Task Force on Reassessing the Inclusion of Race in Diagnosing Kidney Disease, JASN 2020). The CKD-EPI equation should not be used for patients with unstable renal function and has not been validated in children and those over 70. Current interpretive data was last reviewed 2021. Blood 08/25/2024 4:11 AM CDT 08/25/2024 5:24 AM CDT us Daly Villela MD LAB BLOOD ORDERABLES F inal Result [facility] [address] [address] Department [place] [address] * (ABNORMAL) Differential, auto (08/25/2024 4:11 AM CDT) Neutrophil abs 4.49 1.50 - 6.50 K/cumm Imm gran abs 0.02 0.00 - 0.10 K/cumm [facility] Lymphocyte abs 0.63(L) 0.80 - 3.30 K/cumm [facility] Monocyte abs 0.87(H) 0.20 - 0.80 K/cumm [facility] Eosinophil abs 0.02 0.00 - 0.50 K/cumm [facility] Basophil abs 0.02 0.00 - 0.10 K/cumm [facility] Neutrophil pct 74.3 % [facility] Comment: Interpretive Data Percent cell count reference ranges are not reported, since discordance with absolute values may lead to misinterpretation of CBC data. Current Interpretive Data was last revised on 2017. Imm gran pct 0.3 % [facility] Comment: Interpretive Data Percent cell count reference ranges are not reported, since discordance with absolute values may lead to misinterpretation of CBC data. Current Interpretive Data was last revised on 2017. Lymphocyte pct 10.4 % [facility] Comment: Interpretive Data Percent cell count reference ranges are not reported, since discordance with absolute values may lead to misinterpretation of CBC data. Current Interpretive Data was last revised on 2017. Monocyte pct 14.4 % [facility] Comment: Interpretive Data Percent cell count reference ranges are not reported, since discordance with absolute values may lead to misinterpretation of CBC data. Current Interpretive Data was last revised on 2017. Eosinophil pct 0.3 % [facility] Comment: Interpretive Data Percent cell count reference ranges are not reported, since discordance with absolute values may lead to misinterpretation of CBC data. Current Interpretive Data was last revised on 2017. Basophil pct 0.3 % [facility] Comment: Interpretive Data Percent cell count reference ranges are not reported, since discordance with absolute values may lead to misinterpretation of CBC data. Current Interpretive Data was last revised on 2017. Blood 08/25/2024 4:11 AM CDT 08/25/2024 5:26 AM CDT us Daly Villela MD LAB BLOOD ORDERABLES F inal Result [facility] [address] [address] Department [place] [address] * (ABNORMAL) CBC with auto differential (08/25/2024 4:11 AM CDT) WBC 6.05 3.80 - 9.90 K/cumm Hgb 12.0(L) 13.0 - 17.5 g/dL [facility] Hct 35.0(L) 38.9 - 50.3 % [facility] Plt 299 150 - 400 K/cumm [facility] MPV 10.3 9.1 - 12.[address] [facility] RBC 3.80(L) 4.30 - 5.80 M/cumm [facility] MCV 92.1 81.3 - 96.[address] [facility] MCH 31.6 27.1 - 33.[address] [facility] MCHC 34.3 32.3 - 35.7 g/dL [facility] RDW CV 12.2 11.1 - 14.9 % [facility] RDW SD 41.1 35.7 - 48.[address] [facility] NRBC abs 0.00 0.00 - 0.01 K/cumm [facility] Blood 08/25/2024 4:11 AM CDT 08/25/2024 5:26 AM CDT Daly Villela MD LAB BLOOD ORDERABLES F inal Result Performing Organization Address [facility] de Phone Number [facility] [address] [place] [address] * Phosphorus (08/25/2024 4:11 AM CDT) Pathologist [facility] Phosphorus, pl 3.0 2.3 - 4.5 mg/dL Blood 08/25/2024 4:11 AM CDT 08/25/2024 5:24 AM CDT Daly Villela MD LAB BLOOD ORDERABLES F inal Result Performing Organization Address [facility] Co de Phone Number [facility] [address] [address] [place] [address] * Magnesium (08/25/2024 4:11 AM CDT) Pathologist [facility] Magnesium 1.7 1.4 - 2.5 mg/dL Blood 08/25/2024 4:11 AM CDT 08/25/2024 5:24 AM CDT Daly Villela MD LAB BLOOD ORDERABLES F inal Result [facility] [address] [address] Department [place] [address] * (ABNORMAL) Comprehensive metabolic panel (08/25/2024 4:11 AM CDT) Sodium 137 135 - 145 mmol/L Potassium, pl 2.7(C) 3.3 - 4.9 mmol/L [facility] Comment:Critical Result call ed to and read back by rosey vazquez, DATE: 2024-08-25 06:27:08 BY: petty cerentano Chloride 93(L) 97 - 110 mmol/L [facility] CO2 29 22 - 32 mmol/L [facility] Anion gap 15 2 - 15 mmol/L [facility] BUN 4(L) 6 - 25 mg/dL [facility] Creatinine 0.48(L) 0.80 - 1.30 mg/dL [facility] Glucose 113 70 - 199 mg/dL [facility] Comment: Interpretive Data Fasting glucose >/= 126 mg/dl is diagnostic for diabetes. Fasting is defined as no caloric intake for at least 8 hours. Fasting glucose between 100 mg/dl to 125 mg/dl is diagnostic of prediabetes. In a patient with classic symptoms of hyperglycemia or hyperglycemic crisis, a random glucose >/= 200 mg/dl is diagnostic for diabetes. In the absence of unequivocal hyperglycemia, results should be confirmed by repeat testing. The classification and Diagnosis of Diabetes Diabetes Care 2021; 46: S19-S40. Current interpretive data was last revised 2022. Calcium 9.6 8.5 - 10.3 mg/dL [facility] Bilirubin, total 0.5 0.1 - 1.2 mg/dL [facility] Protein, pl 7.2 6.5 - 8.5 g/dL [facility] Albumin 3.6 3.5 - 5.0 g/dL [facility] Alk phos 60 40 - 130 Units/L [facility] ALT 9 7 - 55 Units/L [facility] AST 19 10 - 50 Units/L [facility] Blood 08/25/2024 4:11 AM CDT 08/25/2024 5:24 AM CDT Daly Villela MD LAB BLOOD ORDERABLES F inal Result Performing Organization Address [facility] Co de Phone Number [facility] [address] Department [place] [address] * eGFR (08/24/2024 5:12 AM CDT) eGFR >90 >=60 mL/min/1. 73 m2 Comment: Interpretive Data Reference Interval Normal >/= 90 mL/min/1.73m2 Mildly decreased* 60 - 89 mL/min/1.73m2 Mildly to moderately decreased 45 - 59 mL/min/1.73m2 Moderately to severely decreased 30 - 44 mL/min/1.73m2 Severely decreased 15 - 29 mL/min/1.73m2 Kidney Failure < 15 mL/min/1.73m2 *Relative to young adult level Estimated glomerular filtration rate is determined by the 2020 CKD-EPI equation recommended by the National Kidney [employer] (A Unifying Approach to GFR Estimation: Recommendations of the NKF-ASK Task Force on Reassessing the Inclusion of Race in Diagnosing Kidney Disease, JASN 2020). The CKD-EPI equation should not be used for patients with unstable renal function and has not been validated in children and those over 70. Current interpretive data was last reviewed 2021. Blood 08/24/2024 5:12 AM CDT 08/24/2024 5:47 AM CDT Daly Villela MD LAB BLOOD ORDERABLES F inal Result Performing Organization Address City/[facility]/ZIP Co de Phone Number [place] [address] Department [place] [address] * (ABNORMAL) Differential, auto (08/24/2024 5:12 AM CDT) Neutrophil abs 3.00 1.50 - 6.50 K/cumm Imm gran abs 0.02 0.00 - 0.10 K/cumm [facility] Lymphocyte abs 0.61(L) 0.80 - 3.30 K/cumm [facility] Monocyte abs 0.76 0.20 - 0.80 K/cumm [facility] Eosinophil abs 0.04 0.00 - 0.50 K/cumm [facility] Basophil abs 0.02 0.00 - 0.10 K/cumm [facility] Neutrophil pct 67.5 % [facility] Comment: Interpretive Data Percent cell count reference ranges are not reported, since discordance with absolute values may lead to misinterpretation of CBC data. Current Interpretive Data was last revised on 2017. Imm gran pct 0.4 % [facility] Comment: Interpretive Data Percent cell count reference ranges are not reported, since discordance with absolute values may lead to misinterpretation of CBC data. Current Interpretive Data was last revised on 2017. Lymphocyte pct 13.7 % [facility] Comment: Interpretive Data Percent cell count reference ranges are not reported, since discordance with absolute values may lead to misinterpretation of CBC data. Current Interpretive Data was last revised on 2017. Monocyte pct 17.1 % [facility] Comment: Interpretive Data Percent cell count reference ranges are not reported, since discordance with absolute values may lead to misinterpretation of CBC data. Current Interpretive Data was last revised on 2017. Eosinophil pct 0.9 % [facility] Comment: Interpretive Data Percent cell count reference ranges are not reported, since discordance with absolute values may lead to misinterpretation of CBC data. Current Interpretive Data was last revised on 2017. Basophil pct 0.4 % [facility] Comment: Interpretive Data Percent cell count reference ranges are not reported, since discordance with absolute values may lead to misinterpretation of CBC data. Current Interpretive Data was last revised on 2017. Blood 08/24/2024 5:12 AM CDT 08/24/2024 5:50 AM CDT us Daly Villela MD LAB BLOOD ORDERABLES F inal Result [place] [address] Department [place] [address] * (ABNORMAL) CBC with auto differential (08/24/2024 5:12 AM CDT) [facility] WBC 4.45 3.80 - 9.90 K/cumm Hgb 11.3(L) 13.0 - 17.5 g/dL [facility] Hct 33.7(L) 38.9 - 50.3 % [facility] Plt 291 150 - 400 K/cumm [facility] MPV 10.3 9.1 - 12.[address] [facility] RBC 3.58(L) 4.30 - 5.80 M/cumm [facility] MCV 94.1 81.3 - 96.4 fL [facility] MCH 31.6 27.1 - 33.3 pg [facility] MCHC 33.5 32.3 - 35.7 g/dL [facility] RDW CV 12.0 11.1 - 14.9 % [facility] RDW SD 41.8 35.7 - 48.[address] [facility] NRBC abs 0.00 0.00 - 0.01 K/cumm [facility] Blood 08/24/2024 5:12 AM CDT 08/24/2024 5:50 AM CDT us Daly Villela MD LAB BLOOD ORDERABLES F inal Result [facility] [address] Department of Laboratories [place], [place] [id number] * (ABNORMAL) Comprehensive metabolic panel (08/24/2024 5:12 AM CDT) Pathologist [facility] Sodium 138 135 - 145 mmol/L Potassium, pl 2.8(L) 3.3 - 4.9 mmol/L [facility] Chloride 97 97 - 110 mmol/L [facility] CO2 27 22 - 32 mmol/L [facility] Anion gap 14 2 - 15 mmol/L [facility] BUN 8 6 - 25 mg/dL [facility] Creatinine 0.52(L) 0.80 - 1.30 mg/dL [facility] Glucose 115 70 - 199 mg/dL [facility] Comment: Interpretive Data Fasting glucose >/= 126 mg/dl is diagnostic for diabetes. Fasting is defined as no caloric intake for at least 8 hours. Fasting glucose between 100 mg/dl to 125 mg/dl is diagnostic of prediabetes. In a patient with classic symptoms of hyperglycemia or hyperglycemic crisis, a random glucose >/= 200 mg/dl is diagnostic for diabetes. In the absence of unequivocal hyperglycemia, results should be confirmed by repeat testing. The classification and Diagnosis of Diabetes Diabetes Care 202; 46: S19-S40. Current interpretive data was last revised 2022. Calcium 9.6 8.5 - 10.3 mg/dL [facility] Bilirubin, total 0.5 0.1 - 1.2 mg/dL [facility] Protein, pl 6.9 6.5 - 8.5 g/dL [facility] Albumin 3.5 3.5 - 5.0 g/dL [facility] Alk phos 55 40 - 130 Units/L [facility] ALT 8 7 - 55 Units/L [facility] AST 16 10 - 50 Units/L [facility] Blood 08/24/2024 5:12 AM CDT 08/24/2024 5:47 AM CDT Daly Villela MD LAB BLOOD ORDERABLES F inal Result [facility] [address] Department [place] [address] * eGFR (08/23/2024 3:55 AM CDT) eGFR >90 >=60 mL/min/1. 73 m2 Comment: Interpretive Data Reference Interval Normal >/= 90 mL/min/1.73m2 Mildly decreased* 60 - 89 mL/min/1.73m2 Mildly to moderately decreased 45 - 59 mL/min/1.73m2 Moderately to severely decreased 30 - 44 mL/min/1.73m2 Severely decreased 15 - 29 mL/min/1.73m2 Kidney Failure < 15 mL/min/1.73m2 *Relative to young adult level Estimated glomerular filtration rate is determined by the 2020 CKD-EPI equation recommended by the National Kidney Foundation (A Unifying Approach to GFR Estimation: Recommendations of the NKF-ASK Task Force on Reassessing the Inclusion of Race in Diagnosing Kidney Disease, JASN 2020). The CKD-EPI equation should not be used for patients with unstable renal function and has not been validated in children and those over 70. Current interpretive data was last reviewed 2021. Blood 08/23/2024 3:55 AM CDT 08/23/2024 5:35 AM CDT Wisam Huerta MD LAB BLOOD ORDERABLES Final Re sult Performing Organization Address [facility] Co de Phone Number [place] [address] [facility] [employer] [place] [address] * Phosphorus (08/23/2024 3:55 AM CDT) Pathologist [facility] Phosphorus, pl 2.9 2.3 - 4.5 mg/dL Blood 08/23/2024 3:55 AM CDT 08/23/2024 5:35 AM CDT Wisam Huerta MD LAB BLOOD ORDERABLES Final Re sult Performing Organization Address [facility] Co de Phone Number [place] [address] [facility] [place] [address] * Magnesium (08/23/2024 3:55 AM CDT) Pathologist [facility] Magnesium 1.8 1.4 - 2.5 mg/dL Blood 08/23/2024 3:55 AM CDT 08/23/2024 5:35 AM CDT Wisam Huerta MD LAB BLOOD ORDERABLES Final Re sult Performing Organization Address [facility] Co de Phone Number [place] [address] [place] [address] * (ABNORMAL) Basic metabolic panel (08/23/2024 3:55 AM CDT) Pathologist [facility] Sodium 138 135 - 145 mmol/L Potassium, pl 3.4 3.3 - 4.9 mmol/L [facility] Chloride 97 97 - 110 mmol/L [facility] CO2 24 22 - 32 mmol/L [facility] Anion gap 17(H) 2 - 15 mmol/L [facility] BUN 11 6 - 25 mg/dL [facility] Creatinine 0.55(L) 0.80 - 1.30 mg/dL [facility] Glucose 86 70 - 199 mg/dL [facility] Comment: Interpretive Data Fasting glucose >/= 126 mg/dl is diagnostic for diabetes. Fasting is defined as no caloric intake for at least 8 hours. Fasting glucose between 100 mg/dl to 125 mg/dl is diagnostic of prediabetes. In a patient with classic symptoms of hyperglycemia or hyperglycemic crisis, a random glucose >/= 200 mg/dl is diagnostic for diabetes. In the absence of unequivocal hyperglycemia, results should be confirmed by repeat testing. The classification and Diagnosis of Diabetes Diabetes Care 2021; 46: S19-S40. Current interpretive data was last revised 2022. Calcium 9.8 8.5 - 10.3 mg/dL [facility] Blood 08/23/2024 3:55 AM CDT 08/23/2024 5:35 AM CDT us Wisam Huerta MD LAB BLOOD ORDERABLES Final Re sult [facility] [address] Department [place] [address] * (ABNORMAL) Urinalysis reflex to microscopic and culture Urine (08/22/2024 9:45 PM CDT) Color, ur Yellow Yellow Clarity, ur Clear Clear [facility] Specific gravity, ur 1.012 1.003 - 1.030 [facility] pH, urine 5.5 [facility] Comment: Interpretive Data U rine pH is affected by diet, medications, systemic acid-base disturbances, and renal tubular function. pH may affect urinary stone formation. For example, urine pH below 6.0 may help reduce the tendency for calcium phosphate stones and pH greater than 6.0 may reduce the tendency for uric acid stone formation. Source: [facility] [employer] Current Interpretive Data was last revised on 2017 Protein, ur ql Negative Negative [facility] Glucose, ur ql Negative Negative [facility] Ketones, ur 4+(A) Negative [facility] Bilirubin, ur Negative Negative [facility] Blood, ur Negative Negative [facility] Urobilinogen, ur <2.0 <2.0 mg/dL [facility] Nitrite, ur Negative Negative [facility] Leukocyte esterase, ur Negative Negative [facility] UA reflex comment Reflex conditions for microscopic UA and culture not met. [facility] Urine 08/22/2024 9:45 PM CDT 08/22/2024 10:09 PM CDT Cristina Mora MD LAB MICROBIOLOGY - GEN ERAL ORDERABLES Final Result [place] [address] Department [place] [address] * XR ABD AP WATER SOLUBLE INJ 1V (08/22/2024 8:23 PM CDT) Anatomical Region Laterality Modality Body, Abdomen N/A Computed Radiogr aphy 08/22/2024 10:4 7 PM CDT Impressions 08/22/2024 10:47 PM CDT The G-tube tip is in the stomach lumen. Electronically signed by: Rafael Rodriguez M.D. Narrative 08/22/2024 10:47 PM CDT EXAMINATION: XR ABD AP W GASTRO INJ 1V HISTORY: The patient is a 63-year-old male who is having a G-tube check. TECHNIQUE: Following the instillation of 30 mL Gastroview through the indwelling G-tube, a single portable view of the abdomen was obtained FINDINGS: There is opacification of the fundus of the stomach confirming that the tip of the G-tube is in the stomach lumen. No extravasation. Nonspecific bowel gas pattern. Procedure Note Rafael Rodriguez MD - 08/22/2024 EXAMINATION: XR ABD AP W GASTRO INJ 1V HISTORY: The patient is a 63-year-old male who is having a G-tube check. TECHNIQUE: Following the instillation of 30 mL Gastroview through the indwelling G-tube, a single portable view of the abdomen was obtained FINDINGS: There is opacification of the fundus of the stomach confirming that the tip of the G-tube is in the stomach lumen. No extravasation. Nonspecific bowel gas pattern. IMPRESSION: The G-tube tip is in the stomach lumen. Electronically signed by: Rafael Rodriguez M.D. Cristina Mora MD IMG XR PROCEDURES Cathie l Result * eGFR (08/22/2024 8:09 PM CDT) eGFR >90 >=60 mL/min/1. 73 m2 Comment: Interpretive Data Reference Interval Normal >/= 90 mL/min/1.73m2 Mildly decreased* 60 - 89 mL/min/1.73m2 Mildly to moderately decreased 45 - 59 mL/min/1.73m2 Moderately to severely decreased 30 - 44 mL/min/1.73m2 Severely decreased 15 - 29 mL/min/1.73m2 Kidney Failure < 15 mL/min/1.73m2 *Relative to young adult level Estimated glomerular filtration rate is determined by the 2020 CKD-EPI equation recommended by the National Kidney Foundation (A Unifying Approach to GFR Estimation: Recommendations of the NKF-ASK Task Force on Reassessing the Inclusion of Race in Diagnosing Kidney Disease, JASN 2020). The CKD-EPI equation should not be used for patients with unstable renal function and has not been validated in children and those over 70. Current interpretive data was last reviewed 2021. Blood 08/22/2024 8:09 PM CDT 08/22/2024 8:11 PM CDT Puneet CORNELL LAB BLOOD ORDERABLES Final Result [place] [address] Department [place] [address] * (ABNORMAL) Differential, auto (08/22/2024 8:09 PM CDT) Neutrophil abs 5.80 1.50 - 6.50 K/cumm Imm gran abs 0.02 0.00 - 0.10 K/cumm [facility] Lymphocyte abs 0.59(L) 0.80 - 3.30 K/cumm [facility] Monocyte abs 0.81(H) 0.20 - 0.80 K/cumm [facility] Eosinophil abs 0.01 0.00 - 0.50 K/cumm [facility] Basophil abs 0.02 0.00 - 0.10 K/cumm [facility] Neutrophil pct 80.0 % [facility] Comment: Interpretive Data Percent cell count reference ranges are not reported, since discordance with absolute values may lead to misinterpretation of CBC data. Current Interpretive Data was last revised on 2017. Imm gran pct 0.3 % [facility] Comment: Interpretive Data Percent cell count reference ranges are not reported, since discordance with absolute values may lead to misinterpretation of CBC data. Current Interpretive Data was last revised on 2017. Lymphocyte pct 8.1 % [facility] Comment: Interpretive Data Percent cell count reference ranges are not reported, since discordance with absolute values may lead to misinterpretation of CBC data. Current Interpretive Data was last revised on 2017. Monocyte pct 11.2 % [facility] Comment: Interpretive Data Percent cell count reference ranges are not reported, since discordance with absolute values may lead to misinterpretation of CBC data. Current Interpretive Data was last revised on 2017. Eosinophil pct 0.1 % [facility] Comment: Interpretive Data Percent cell count reference ranges are not reported, since discordance with absolute values may lead to misinterpretation of CBC data. Current Interpretive Data was last revised on 2017. Basophil pct 0.3 % [facility] Comment: Interpretive Data Percent cell count reference ranges are not reported, since discordance with absolute values may lead to misinterpretation of CBC data. Current Interpretive Data was last revised on 2017. Blood 08/22/2024 8:09 PM CDT 08/22/2024 8:11 PM CDT us Puneet CORNELL LAB BLOOD ORDERABLES Final Result [place] [address] Department [place] [address] * (ABNORMAL) CBC with auto differential (08/22/2024 8:09 PM CDT) WBC 7.25 3.80 - 9.90 K/cumm Hgb 13.3 13.0 - 17.5 g/dL [facility] Hct 39.0 38.9 - 50.3 % [facility] Plt 321 150 - 400 K/cumm [facility] MPV 10.2 9.1 - 12.[address] [facility] RBC 4.20(L) 4.30 - 5.80 M/cumm [facility] MCV 92.9 81.3 - 96.[address] [facility] MCH 31.7 27.1 - 33.[address] [facility] MCHC 34.1 32.3 - 35.7 g/dL [facility] RDW CV 12.0 11.1 - 14.9 % [facility] RDW SD 41.1 35.7 - 48.[address] [facility] NRBC abs 0.00 0.00 - 0.01 K/cumm [facility] Blood Venous blood specimen / Unknown 08/22/2024 8:09 PM CDT 08/22/2024 8:11 PM CDT Puneet CORNELL LAB BLOOD ORDERABLES Final Result [place] [address] [facility] [place] [address] * Phosphorus (08/22/2024 8:09 PM CDT) [facility] Phosphorus, pl 3.0 2.3 - 4.5 mg/dL Blood 08/22/2024 8:09 PM CDT 08/22/2024 8:11 PM CDT Puneet CORNELL LAB BLOOD ORDERABLES Final Result [facility] [address] [facility] [employer] [place], [place] [id number] * Magnesium (08/22/2024 8:09 PM CDT) [facility] Magnesium 1.9 1.4 - 2.5 mg/dL Blood 08/22/2024 8:09 PM CDT 08/22/2024 8:11 PM CDT Puneet CORNELL LAB BLOOD ORDERABLES Final Result Performing Organization Address City/[facility]/ZIP Co de Phone Number [place] [address] [facility] [place] [address] * Lipase (08/22/2024 8:09 PM CDT) Lipase 14 10 - 99 Units/L Blood 08/22/2024 8:09 PM CDT 08/22/2024 8:11 PM CDT Puneet CORNELL LAB BLOOD ORDERABLES Final Result Performing Organization Address [facility] Co de Phone Number [place] [address] [address] [facility] [place] [address] * (ABNORMAL) Comprehensive metabolic panel (08/22/2024 8:09 PM CDT) Pathologist [facility] Sodium 135 135 - 145 mmol/L Potassium, pl 3.3 3.3 - 4.9 mmol/L [facility] Chloride 88(L) 97 - 110 mmol/L [facility] CO2 26 22 - 32 mmol/L [facility] Anion gap 21(H) 2 - 15 mmol/L [facility] BUN 13 6 - 25 mg/dL [facility] Creatinine 0.64(L) 0.80 - 1.30 mg/dL [facility] Glucose 100 70 - 199 mg/dL [facility] Comment: Interpretive Data Fasting glucose >/= 126 mg/dl is diagnostic for diabetes. Fasting is defined as no caloric intake for at least 8 hours. Fasting glucose between 100 mg/dl to 125 mg/dl is diagnostic of prediabetes. In a patient with classic symptoms of hyperglycemia or hyperglycemic crisis, a random glucose >/= 200 mg/dl is diagnostic for diabetes. In the absence of unequivocal hyperglycemia, results should be confirmed by repeat testing. The classification and Diagnosis of Diabetes Diabetes Care 2021; 46: S19-S40. Current interpretive data was last revised 2022. Calcium 10.4(H) 8.5 - 10.3 mg/dL [facility] Bilirubin, total 0.6 0.1 - 1.2 mg/dL [facility] Protein, pl 7.9 6.5 - 8.5 g/dL [facility] Albumin 4.0 3.5 - 5.0 g/dL [facility] Alk phos 66 40 - 130 Units/L [facility] ALT 12 7 - 55 Units/L [facility] AST 20 10 - 50 Units/L [facility] Blood 08/22/2024 8:09 PM CDT 08/22/2024 8:11 PM CDT us Puneet CORNELL LAB BLOOD ORDERABLES Final Result [address] Department [place] [address] * CT Chest W Contrast (08/21/2024 9:04 AM CDT) Anatomical Region Laterality Modality Body N/A Computed Tomogra phy 08/21/2024 9:31 AM CDT Impressions 08/21/2024 9:31 AM CDT No evidence of metastatic disease in the chest. Electronically signed by: Sixto Torres M.D. Narrative 08/21/2024 9:31 AM CDT EXAMINATION: Computed tomography of the chest with intravenous contrast HISTORY: Head and neck cancer TECHNIQUE: Transaxial computed tomographic images of the chest were obtained with intravenous contrast according to the standard protocol after the uneventful administration of 71 mL Opti-Ray 350 intravenous contrast. COMPARISON: 01/30/2024 FINDINGS: Trachea is normal caliber. No pericardial effusion. There are no pathologically enlarged axillary, mediastinal, or hilar lymph nodes. Percutaneous gastrostomy tube noted. The imaged upper abdomen is unremarkable. No aggressive bone lesion. No pleural effusion or pneumothorax. No consolidation or groundglass. No suspicious pulmonary nodule. Procedure Note Sixto Torres MD - 08/21/2024 EXAMINATION: Computed tomography of the chest with intravenous contrast HISTORY: Head and neck cancer TECHNIQUE: Transaxial computed tomographic images of the chest were obtained with intravenous contrast according to the standard protocol after the uneventful administration of 71 mL Opti-Ray 350 intravenous contrast. COMPARISON: 01/30/2024 FINDINGS: Trachea is normal caliber. No pericardial effusion. There are no pathologically enlarged axillary, mediastinal, or hilar lymph nodes. Percutaneous gastrostomy tube noted. The imaged upper abdomen is unremarkable. No aggressive bone lesion. No pleural effusion or pneumothorax. No consolidation or groundglass. No suspicious pulmonary nodule. IMPRESSION: No evidence of metastatic disease in the chest. Electronically signed by: Sixto Torres M.D. Pro Gama MD IMG CT PROCEDURES Final Res ult * CT Neck Soft Tissue W Contrast (08/21/2024 9:04 AM CDT) Anatomical Region Laterality Modality Head and Neck N/A Computed Tomogra phy 08/21/2024 1:32 PM CDT Impressions 08/21/2024 1:32 PM CDT Marked interval decrease in size of infiltrative left supraglottic mass with near complete resolution of metastatic lymphadenopathy in the bilateral cervical nodes and left supraclavicular region. No discrete CT evidence of disease progression. Electronically signed by: Ermias Cook MD Narrative 08/21/2024 1:32 PM CDT EXAMINATION: CT of the neck with contrast HISTORY: head and neck cancer monitor. TECHNIQUE: CT of the neck was performed according to standard protocol after the uneventful administration of intravenous contrast. Contrast information: 71 mL Optiray-350 COMPARISON: 02/10/2024, 01/10/2024. FINDINGS: Diffuse postradiation changes are noted in the left ventral soft tissues of the neck with marked interval decrease in size of the left supraglottic mass and bilateral cervical and left supraclavicular metastatic lymphadenopathy. A few scattered mildly prominent nodes in the left level 2 juan francisco station are noted without substantial internal necrosis. For reference, the largest node in this region appears to measure up to 0.9 cm in short axis (series 2, image 73). No new suspicious cervical lymphadenopathy is seen by CT size criteria. There is persistent mild narrowing of the supraglottic airway secondary to the presence of the residual mass. The major arterial vessels of the neck demonstrate normal course and caliber. Fascial planes are preserved and the deep spaces of the neck are normal. The base of the skull and the temporal bones are normal. Limited views of the brain including the cerebellum and brainstem are normal. The visualized portions of the orbits are normal. The visualized portions of the mastoids are normal. The visualized portions of the paranasal sinuses are normal. Unremarkable thyroid gland. Multilevel degenerative disc/facet/uncovertebral disease is present. Varying levels of up to mild spinal canal stenosis are noted. Varying levels of up to mild foraminal stenoses are noted. Findings in the upper thorax are detailed in the report for the concurrently acquired CT of the chest. Procedure Note Ermias Cook MD - 08/21/2024 EXAMINATION: CT of the neck with contrast HISTORY: head and neck cancer monitor. TECHNIQUE: CT of the neck was performed according to standard protocol after the uneventful administration of intravenous contrast. Contrast information: 71 mL Optiray-350 COMPARISON: 02/10/2024, 01/10/2024. FINDINGS: Diffuse postradiation changes are noted in the left ventral soft tissues of the neck with marked interval decrease in size of the left supraglottic mass and bilateral cervical and left supraclavicular metastatic lymphadenopathy. A few scattered mildly prominent nodes in the left level 2 juan francisco station are noted without substantial internal necrosis. For reference, the largest node in this region appears to measure up to 0.9 cm in short axis (series 2, image 73). No new suspicious cervical lymphadenopathy is seen by CT size criteria. There is persistent mild narrowing of the supraglottic airway secondary to the presence of the residual mass. The major arterial vessels of the neck demonstrate normal course and caliber. Fascial planes are preserved and the deep spaces of the neck are normal. The base of the skull and the temporal bones are normal. Limited views of the brain including the cerebellum and brainstem are normal. The visualized portions of the orbits are normal. The visualized portions of the mastoids are normal. The visualized portions of the paranasal sinuses are normal. Unremarkable thyroid gland. Multilevel degenerative disc/facet/uncovertebral disease is present. Varying levels of up to mild spinal canal stenosis are noted. Varying levels of up to mild foraminal stenoses are noted. Findings in the upper thorax are detailed in the report for the concurrently acquired CT of the chest. IMPRESSION: Marked interval decrease in size of infiltrative left supraglottic mass with near complete resolution of metastatic lymphadenopathy in the bilateral cervical nodes and left supraclavicular region. No discrete CT evidence of disease progression. Electronically signed by: Ermias Cook MD Pro Gama MD IMG CT PROCEDURES Final Res ult * CT Abdomen Pelvis W Contrast (08/10/2024 7:43 PM CDT) Anatomical Region Laterality Modality Body N/A Computed Tomogra phy 08/10/2024 7:40 PM CDT Impressions 08/11/2024 6:24 AM CDT No acute intra-abdominal abnormality. Electronically signed by: Jase Mcgee M.D. Narrative 08/11/2024 6:24 AM CDT EXAMINATION: CT ABDOMEN PELVIS W CONTRAST DATE: 08/10/2024 7:25 PM HISTORY: Intractable vomiting, recent gastric tube placement TECHNIQUE: Images through the abdomen and pelvis were obtained following intravenous contrast administration. FINDINGS: The lung bases are clear. Gastrostomy tube ends in the stomach. The patient is status post cholecystectomy. The liver, spleen, pancreas, kidneys and adrenal glands are normal. 19 mm right lower pole renal cyst is present. 8 mm cortical calcification is noted in the lower pole of the left kidney. There is no hydronephrosis, hydroureter, free intraperitoneal air or fluid. There is no bowel obstruction. The appendix is normal. The abdominal aorta enhances normally. There is no adenopathy. Procedure Note Jase Mcgee MD - 08/11/2024 EXAMINATION: CT ABDOMEN PELVIS W CONTRAST DATE: 08/10/2024 7:25 PM HISTORY: Intractable vomiting, recent gastric tube placement TECHNIQUE: Images through the abdomen and pelvis were obtained following intravenous contrast administration. FINDINGS: The lung bases are clear. Gastrostomy tube ends in the stomach. The patient is status post cholecystectomy. The liver, spleen, pancreas, kidneys and adrenal glands are normal. 19 mm right lower pole renal cyst is present. 8 mm cortical calcification is noted in the lower pole of the left kidney. There is no hydronephrosis, hydroureter, free intraperitoneal air or fluid. There is no bowel obstruction. The appendix is normal. The abdominal aorta enhances normally. There is no adenopathy. IMPRESSION: No acute intra-abdominal abnormality. Electronically signed by: Jase Mcgee M.D. us Shahbaz Earl MD IMG CT PROCEDURES Final Result * eGFR (08/10/2024 5:58 PM CDT) eGFR >90 >=60 mL/min/1. 73 m2 Comment: Interpretive Data Reference Interval Normal >/= 90 mL/min/1.73m2 Mildly decreased* 60 - 89 mL/min/1.73m2 Mildly to moderately decreased 45 - 59 mL/min/1.73m2 Moderately to severely decreased 30 - 44 mL/min/1.73m2 Severely decreased 15 - 29 mL/min/1.73m2 Kidney Failure < 15 mL/min/1.73m2 *Relative to young adult level Estimated glomerular filtration rate is determined by the 2020 CKD-EPI equation recommended by the National Kidney Foundation (A Unifying Approach to GFR Estimation: Recommendations of the NKF-ASK Task Force on Reassessing the Inclusion of Race in Diagnosing Kidney Disease, JASN 2020). The CKD-EPI equation should not be used for patients with unstable renal function and has not been validated in children and those over 70. Current interpretive data was last reviewed 2021. Blood 08/10/2024 5:58 PM CDT 08/10/2024 6:04 PM CDT Cm CORNELL LAB BLOOD ORDERA BLES Final Result [facility] [address] Department [place] [address] * (ABNORMAL) Differential, auto (08/10/2024 5:58 PM CDT) Neutrophil abs 4.49 1.50 - 6.50 K/cumm Imm gran abs 0.02 0.00 - 0.10 K/cumm [facility] Lymphocyte abs 0.79(L) 0.80 - 3.30 K/cumm [facility] Monocyte abs 0.71 0.20 - 0.80 K/cumm [facility] Eosinophil abs 0.01 0.00 - 0.50 K/cumm [facility] Basophil abs 0.02 0.00 - 0.10 K/cumm [facility] Neutrophil pct 74.3 % [facility] Comment: Interpretive Data Percent cell count reference ranges are not reported, since discordance with absolute values may lead to misinterpretation of CBC data. Current Interpretive Data was last revised on 2017. Imm gran pct 0.3 % [facility] Comment: Interpretive Data Percent cell count reference ranges are not reported, since discordance with absolute values may lead to misinterpretation of CBC data. Current Interpretive Data was last revised on 2017. Lymphocyte pct 13.1 % [facility] Comment: Interpretive Data Percent cell count reference ranges are not reported, since discordance with absolute values may lead to misinterpretation of CBC data. Current Interpretive Data was last revised on 2017. Monocyte pct 11.8 % [facility] Comment: Interpretive Data Percent cell count reference ranges are not reported, since discordance with absolute values may lead to misinterpretation of CBC data. Current Interpretive Data was last revised on 2017. Eosinophil pct 0.2 % [facility] Comment: Interpretive Data Percent cell count reference ranges are not reported, since discordance with absolute values may lead to misinterpretation of CBC data. Current Interpretive Data was last revised on 2017. Basophil pct 0.3 % [facility] Comment: Interpretive Data Percent cell count reference ranges are not reported, since discordance with absolute values may lead to misinterpretation of CBC data. Current Interpretive Data was last revised on 2017. Blood 08/10/2024 5:58 PM CDT 08/10/2024 6:04 PM CDT Cm CORNELL LAB BLOOD ORDERA BLES Final Result [facility] [address] Department [place] [address] * (ABNORMAL) CBC with auto differential (08/10/2024 5:58 PM CDT) WBC 6.04 3.80 - 9.90 K/cumm Hgb 13.8 13.0 - 17.5 g/dL [facility] Hct 41.6 38.9 - 50.3 % [facility] Plt 332 150 - 400 K/cumm [facility] MPV 9.8 9.1 - 12.3 fL [facility] RBC 4.31 4.30 - 5.80 M/cumm [facility] MCV 96.5(H) 81.3 - 96.[address] [facility] MCH 32.0 27.1 - 33.3 pg [facility] MCHC 33.2 32.3 - 35.7 g/dL [facility] RDW CV 11.9 11.1 - 14.9 % [facility] RDW SD 42.6 35.7 - 48.[address] [facility] NRBC abs 0.00 0.00 - 0.01 K/cumm [facility] Blood Venous blood specimen / Unknown 08/10/2024 5:58 PM CDT 08/10/2024 6:04 PM CDT us Shahbaz Delgado Earl MD LAB BLOOD ORDERABLES Fin al Result [facility] [address] Department [place] [address] * (ABNORMAL) Comprehensive metabolic panel (08/10/2024 5:58 PM CDT) Sodium 136 135 - 145 mmol/L Potassium, pl 3.8 3.3 - 4.9 mmol/L [facility] Chloride 93(L) 97 - 110 mmol/L [facility] CO2 32 22 - 32 mmol/L [facility] Anion gap 11 2 - 15 mmol/L [facility] BUN 21 6 - 25 mg/dL [facility] Creatinine 0.84 0.80 - 1.30 mg/dL [facility] Glucose 125 70 - 199 mg/dL [facility] Comment: Interpretive Data Fasting glucose >/= 126 mg/dl is diagnostic for diabetes. Fasting is defined as no caloric intake for at least 8 hours. Fasting glucose between 100 mg/dl to 125 mg/dl is diagnostic of prediabetes. In a patient with classic symptoms of hyperglycemia or hyperglycemic crisis, a random glucose >/= 200 mg/dl is diagnostic for diabetes. In the absence of unequivocal hyperglycemia, results should be confirmed by repeat testing. The classification and Diagnosis of Diabetes Diabetes Care 2021; 46: S19-S40. Current interpretive data was last revised 2022. Calcium 10.6(H) 8.5 - 10.3 mg/dL [facility] Bilirubin, total 0.5 0.1 - 1.2 mg/dL [facility] Protein, pl 8.5 6.5 - 8.5 g/dL [facility] Albumin 4.3 3.5 - 5.0 g/dL [facility] Alk phos 72 40 - 130 Units/L [facility] ALT 19 7 - 55 Units/L [facility] AST 28 10 - 50 Units/L [facility] Blood Venous blood specimen / Unknown 08/10/2024 5:58 PM CDT 08/10/2024 6:04 PM CDT Shahbaz Earl MD LAB BLOOD ORDERABLES Fin al Result Performing Organization Address City/[facility] Co de Phone Number [facility] [address] Department [place] [address] * ECG 12 lead (08/10/2024 5:22 PM CDT) 08/10/2024 5:22 PM CDT Narrative [facility] [employer] - 08/12/2024 9:25 PM CDT Vent Rate: 116 bpm RR Interval: 514 msec MI Interval: 186 msec QRS Duration: 89 msec QT Interval: 324 msec QTC Interval: 393 msec P-R-T Galt: 78 - 63 - 54 degrees IMPRESSION: SINUS TACHYCARDIA WITH OCCASIONAL SUPRAVENTRICULAR PREMATURE COMPLEXES Electronically Signed By: Bill Terrazas MD, [facility] Shahbaz Earl MD ECG ORDERABLES Final Re sult Performing Organization Address [facility] Co de Phone Number [facility] [employer] [facility] * IR Change G Tube (07/23/2024 10:22 AM CDT) Anatomical Region Laterality Modality Body N/A X-Ray Angiograph y 07/23/2024 11:0 1 AM CDT Impressions 07/23/2024 11:01 AM CDT Successful gastrostomy tube placement through existing tract. Electronically signed by: Demetrius Mccullough 07/23/2024 11:01 AM CDT EXAMINATION: IR CHANGE G TUBE DATE: 07/23/2024 9:15 AM HISTORY: His G-tube came out TECHNIQUE: Risks and benefits of the procedure were discussed with the patient and informed consent was obtained. The patient was placed on the fluoroscopy table in the supine position. The patient's anterior abdominal wall was prepped and draped in the usual sterile fashion. Under fluoroscopic guidance, guidewire was advanced through the existing gastrostomy tract into the stomach. Lidocaine was used to anesthetize the skin and subcutaneous tissues. Over the guidewire, the skin and subcutaneous tissues were dilated to 22-Wallisian. Over the guidewire, a new 18-Wallisian gastrostomy tube was advanced into the stomach. The balloon was inflated with 10 mL of sterile water. Contrast was injected to verify and document appropriate placement. The gastrostomy tube was flushed with saline and a dressing was applied. The patient tolerated the procedure well with no immediate complications. Procedure Note Jase Mcgee MD - 07/23/2024 EXAMINATION: IR CHANGE G TUBE DATE: 07/23/2024 9:15 AM HISTORY: His G-tube came out TECHNIQUE: Risks and benefits of the procedure were discussed with the patient and informed consent was obtained. The patient was placed on the fluoroscopy table in the supine position. The patient's anterior abdominal wall was prepped and draped in the usual sterile fashion. Under fluoroscopic guidance, guidewire was advanced through the existing gastrostomy tract into the stomach. Lidocaine was used to anesthetize the skin and subcutaneous tissues. Over the guidewire, the skin and subcutaneous tissues were dilated to 22-Wallisian. Over the guidewire, a new 18-Wallisian gastrostomy tube was advanced into the stomach. The balloon was inflated with 10 mL of sterile water. Contrast was injected to verify and document appropriate placement. The gastrostomy tube was flushed with saline and a dressing was applied. The patient tolerated the procedure well with no immediate complications. IMPRESSION: Successful gastrostomy tube placement through existing tract. Electronically signed by: Jase Mcgee M.D. us Sushil Merritt MD IMG IR PROCEDURES Cathie l Result * eGFR (07/23/2024 3:47 AM CDT) eGFR >90 >=60 mL/min/1. 73 m2 Comment: Interpretive Data Reference Interval Normal >/= 90 mL/min/1.73m2 Mildly decreased* 60 - 89 mL/min/1.73m2 Mildly to moderately decreased 45 - 59 mL/min/1.73m2 Moderately to severely decreased 30 - 44 mL/min/1.73m2 Severely decreased 15 - 29 mL/min/1.73m2 Kidney Failure < 15 mL/min/1.73m2 *Relative to young adult level Estimated glomerular filtration rate is determined by the 2020 CKD-EPI equation recommended by the National Kidney Foundation (A Unifying Approach to GFR Estimation: Recommendations of the NKF-ASK Task Force on Reassessing the Inclusion of Race in Diagnosing Kidney Disease, JASN 2020). The CKD-EPI equation should not be used for patients with unstable renal function and has not been validated in children and those over 70. Current interpretive data was last reviewed 2021. Blood 07/23/2024 3:47 AM CDT 07/23/2024 5:13 AM CDT Sushil Merritt MD LAB BLOOD ORDERABLES F inal Result [facility] [address] Department [place] [address] * (ABNORMAL) Differential, auto (07/23/2024 3:47 AM CDT) Neutrophil abs 1.97 1.50 - 6.50 K/cumm Imm gran abs 0.01 0.00 - 0.10 K/cumm [facility] Lymphocyte abs 0.66(L) 0.80 - 3.30 K/cumm [facility] Monocyte abs 0.64 0.20 - 0.80 K/cumm [facility] Eosinophil abs 0.09 0.00 - 0.50 K/cumm [facility] Basophil abs 0.02 0.00 - 0.10 K/cumm [facility] Neutrophil pct 58.0 % [facility] Comment: Interpretive Data Percent cell count reference ranges are not reported, since discordance with absolute values may lead to misinterpretation of CBC data. Current Interpretive Data was last revised on 2017. Imm gran pct 0.3 % [facility] Comment: Interpretive Data Percent cell count reference ranges are not reported, since discordance with absolute values may lead to misinterpretation of CBC data. Current Interpretive Data was last revised on 2017. Lymphocyte pct 19.5 % [facility] Comment: Interpretive Data Percent cell count reference ranges are not reported, since discordance with absolute values may lead to misinterpretation of CBC data. Current Interpretive Data was last revised on 2017. Monocyte pct 18.9 % [facility] Comment: Interpretive Data Percent cell count reference ranges are not reported, since discordance with absolute values may lead to misinterpretation of CBC data. Current Interpretive Data was last revised on 2017. Eosinophil pct 2.7 % [facility] Comment: Interpretive Data Percent cell count reference ranges are not reported, since discordance with absolute values may lead to misinterpretation of CBC data. Current Interpretive Data was last revised on 2017. Basophil pct 0.6 % [facility] Comment: Interpretive Data Percent cell count reference ranges are not reported, since discordance with absolute values may lead to misinterpretation of CBC data. Current Interpretive Data was last revised on 2017. Blood 07/23/2024 3:47 AM CDT 07/23/2024 5:13 AM CDT us Sushil Merritt MD LAB BLOOD ORDERABLES F inal Result [facility] [address] Department [place] [address] * (ABNORMAL) CBC with auto differential (07/23/2024 3:47 AM CDT) WBC 3.39(L) 3.80 - 9.90 K/cumm Hgb 10.7(L) 13.0 - 17.5 g/dL [facility] Hct 34.0(L) 38.9 - 50.3 % [facility] Plt 294 150 - 400 K/cumm [facility] MPV 10.7 9.1 - 12.[address] [facility] RBC 3.29(L) 4.30 - 5.80 M/cumm [facility] MCV 103.3(H) 81.3 - 96.[address] [facility] MCH 32.5 27.1 - 33.[address] [facility] MCHC 31.5(L) 32.3 - 35.7 g/dL [facility] RDW CV 12.9 11.1 - 14.9 % [facility] RDW SD 49.0(H) 35.7 - 48.[address] [facility] NRBC abs 0.00 0.00 - 0.01 K/cumm [facility] Blood 07/23/2024 3:47 AM CDT 07/23/2024 5:13 AM CDT Sushil Merritt MD LAB BLOOD ORDERABLES F inal Result [facility] [address] Department [place] [address] * (ABNORMAL) Protime-INR (07/23/2024 3:47 AM CDT) PT 13.3(H) 9.7 - 13.0 sec INR 1.23(H) 0.90 - 1.[address] [facility] Comment: Interpretive data Oral anticoagulant therapeutic ranges: Venous thromboembolism prophylaxis or treatment: 2.0-3.0 CARDIOLOGY Standard range: 2.0-3.0 High-intensity range: 2.5-3.5 Refer to indication-specific guidelines for appropriate target ranges for prosthetic heart valve replacement. Current interpretive data was last revised on 2019. Blood 07/23/2024 3:47 AM CDT 07/23/2024 5:14 AM CDT Henrik Collins MD LAB BLOOD ORDER[place] [address] [address] Department [place] [address] * (ABNORMAL) Basic metabolic panel (07/23/2024 3:47 AM CDT) Sodium 138 135 - 145 mmol/L Potassium, pl 4.1 3.3 - 4.9 mmol/L [facility] Chloride 102 97 - 110 mmol/L [facility] CO2 28 22 - 32 mmol/L [facility] Anion gap 8 2 - 15 mmol/L [facility] BUN 18 6 - 25 mg/dL [facility] Creatinine 0.76(L) 0.80 - 1.30 mg/dL [facility] Glucose 93 70 - 199 mg/dL [facility] Comment: Interpretive Data Fasting glucose >/= 126 mg/dl is diagnostic for diabetes. Fasting is defined as no caloric intake for at least 8 hours. Fasting glucose between 100 mg/dl to 125 mg/dl is diagnostic of prediabetes. In a patient with classic symptoms of hyperglycemia or hyperglycemic crisis, a random glucose >/= 200 mg/dl is diagnostic for diabetes. In the absence of unequivocal hyperglycemia, results should be confirmed by repeat testing. The classification and Diagnosis of Diabetes Diabetes Care 2021; 46: S19-S40. Current interpretive data was last revised 2022. Calcium 9.5 8.5 - 10.3 mg/dL [facility] Blood 07/23/2024 3:47 AM CDT 07/23/2024 5:13 AM CDT Sushil Merritt MD LAB BLOOD ORDERABLES F inal Result Performing Organization Address City/[facility]/[place] [address] [address] Department [place] [address] * Check Sample (07/22/2024 4:14 AM CDT) ABO Rh A Positive [facility] OTHER 07/22/2024 4:14 AM CDT 07/22/2024 4:48 AM CDT us Sushil Merritt MD LAB BLOOD ORDERABLES F inal Result [facility] [address] Department [place] [address] CH * MI PERQ REPLACEMENT GTUBE NOT REQ REVJ GSTRST TRC (07/22/2024 2:55 AM CDT) Narrative Eber Dumont MD - 07/22/2024 2:55 AM CDT Eber Dumont MD 07/22/2024 2:57 AM Gtube/Jtube/Feeding Tube Replacement Date/Time: 07/22/2024 2:55 AM Performed by: Eber Dumont MD Authorized by: Eber Dumont MD Old tube type: Gastrostomy Old tube size: 18 Fr Sedation used: no Anesthesia method: None Patient position: Supine Procedure type: Replacement Tube type: Gastrostomy Tube size: 18 Fr Bleeding: Minimal Patient tolerance of procedure: Tolerated well, no immediate complications Procedure and successful secondary to closure of the gastrostomy site Eber Dumont MD IN CLINIC/BEDSIDE ORDERABL ES Final Result * Type and screen (07/22/2024 2:26 AM CDT) Pathologist [facility] Perico, indirect Negative ABO Rh A Positive [facility] Blood 07/22/2024 2:26 AM CDT 07/22/2024 3:18 AM CDT Narrative [facility] - 07/22/2024 4:05 AM CDT Has the patient had Daratumumab or Isatuximab in the past 6 months?->Unknown us Eber Dumont MD LAB BLOOD BANK TEST ORDERA BLES Final Result [facility] [address] [facility] [place] [address] * eGFR (07/21/2024 11:50 PM CDT) Pathologist [facility] eGFR >90 >=60 mL/min/1. 73 m2 Comment: Interpretive Data Reference Interval Normal >/= 90 mL/min/1.73m2 Mildly decreased* 60 - 89 mL/min/1.73m2 Mildly to moderately decreased 45 - 59 mL/min/1.73m2 Moderately to severely decreased 30 - 44 mL/min/1.73m2 Severely decreased 15 - 29 mL/min/1.73m2 Kidney Failure < 15 mL/min/1.73m2 *Relative to young adult level Estimated glomerular filtration rate is determined by the 2020 CKD-EPI equation recommended by the National Kidney Foundation (A Unifying Approach to GFR Estimation: Recommendations of the NKF-ASK Task Force on Reassessing the Inclusion of Race in Diagnosing Kidney Disease, JASN 202). The CKD-EPI equation should not be used for patients with unstable renal function and has not been validated in children and those over 70. Current interpretive data was last reviewed 2021. Blood 07/21/2024 11:5 0 PM CDT 07/21/2024 11:55 PM CDT us Eber Dumont MD LAB BLOOD ORDERABLES Final Result [facility] [address] Department [place] [address] * (ABNORMAL) Differential, auto (07/21/2024 11:50 PM CDT) Neutrophil abs 4.43 1.50 - 6.50 K/cumm Imm gran abs 0.03 0.00 - 0.10 K/cumm [facility] Lymphocyte abs 0.53(L) 0.80 - 3.30 K/cumm [facility] Monocyte abs 0.67 0.20 - 0.80 K/cumm [facility] Eosinophil abs 0.02 0.00 - 0.50 K/cumm [facility] Basophil abs 0.03 0.00 - 0.10 K/cumm [facility] Neutrophil pct 77.6 % [facility] Comment: Interpretive Data Percent cell count reference ranges are not reported, since discordance with absolute values may lead to misinterpretation of CBC data. Current Interpretive Data was last revised on 2017. Imm gran pct 0.5 % [facility] Comment: Interpretive Data Percent cell count reference ranges are not reported, since discordance with absolute values may lead to misinterpretation of CBC data. Current Interpretive Data was last revised on 2017. Lymphocyte pct 9.3 % [facility] Comment: Interpretive Data Percent cell count reference ranges are not reported, since discordance with absolute values may lead to misinterpretation of CBC data. Current Interpretive Data was last revised on 2017. Monocyte pct 11.7 % [facility] Comment: Interpretive Data Percent cell count reference ranges are not reported, since discordance with absolute values may lead to misinterpretation of CBC data. Current Interpretive Data was last revised on 2017. Eosinophil pct 0.4 % [facility] Comment: Interpretive Data Percent cell count reference ranges are not reported, since discordance with absolute values may lead to misinterpretation of CBC data. Current Interpretive Data was last revised on 2017. Basophil pct 0.5 % [facility] Comment: Interpretive Data Percent cell count reference ranges are not reported, since discordance with absolute values may lead to misinterpretation of CBC data. Current Interpretive Data was last revised on 2017. Blood 07/21/2024 11:5 0 PM CDT 07/21/2024 11:53 PM CDT us Eber Dumont MD LAB BLOOD ORDERABLES Final Result [facility] [address] Department [place] [address] * (ABNORMAL) CBC with auto differential (07/21/2024 11:50 PM CDT) WBC 5.71 3.80 - 9.90 K/cumm Hgb 11.9(L) 13.0 - 17.5 g/dL [facility] Hct 35.8(L) 38.9 - 50.3 % [facility] Plt 309 150 - 400 K/cumm [facility] MPV 9.6 9.1 - 12.[address] [facility] RBC 3.57(L) 4.30 - 5.80 M/cumm [facility] MCV 100.3(H) 81.3 - 96.[address] [facility] MCH 33.3 27.1 - 33.[address] [facility] MCHC 33.2 32.3 - 35.7 g/dL [facility] RDW CV 12.6 11.1 - 14.9 % [facility] RDW SD 46.8 35.7 - 48.[address] [facility] NRBC abs 0.00 0.00 - 0.01 K/cumm [facility] Blood Venous blood specimen / Unknown 07/21/2024 11:50 PM CDT 07/21/2024 11:53 PM CDT Eber Dumont MD LAB BLOOD ORDERABLES Final Result Performing Organization Address [facility] de Phone Number [facility] [place] [address] * Protime-INR (07/21/2024 11:50 PM CDT) PT 12.1 9.7 - 13.0 sec INR 1.12 0.90 - 1.[address] [facility] Comment: Interpretive data Oral anticoagulant therapeutic ranges: Venous thromboembolism prophylaxis or treatment: 2.0-3.0 CARDIOLOGY Standard range: 2.0-3.0 High-intensity range: 2.5-3.5 Refer to indication-specific guidelines for appropriate target ranges for prosthetic heart valve replacement. Current interpretive data was last revised on 2019. Blood 07/21/2024 11:5 0 PM CDT 07/21/2024 11:53 PM CDT Eber Dumont MD LAB BLOOD ORDERABLES Final Result Performing Organization Address City/[facility] Co de Phone Number LAY [address] [address] Department [place] [address] * (ABNORMAL) Basic metabolic panel (07/21/2024 11:50 PM CDT) Sodium 136 135 - 145 mmol/L Potassium, pl 4.3 3.3 - 4.9 mmol/L [facility] Chloride 97 97 - 110 mmol/L [facility] CO2 31 22 - 32 mmol/L [facility] Anion gap 8 2 - 15 mmol/L [facility] BUN 18 6 - 25 mg/dL [facility] Creatinine 0.63(L) 0.80 - 1.30 mg/dL [facility] Glucose 117 70 - 199 mg/dL [facility] Comment: Interpretive Data Fasting glucose >/= 126 mg/dl is diagnostic for diabetes. Fasting is defined as no caloric intake for at least 8 hours. Fasting glucose between 100 mg/dl to 125 mg/dl is diagnostic of prediabetes. In a patient with classic symptoms of hyperglycemia or hyperglycemic crisis, a random glucose >/= 200 mg/dl is diagnostic for diabetes. In the absence of unequivocal hyperglycemia, results should be confirmed by repeat testing. The classification and Diagnosis of Diabetes Diabetes Care 2021; 46: S19-S40. Current interpretive data was last revised 2022. Calcium 9.7 8.5 - 10.3 mg/dL [facility] Blood 07/21/2024 11:5 0 PM CDT 07/21/2024 11:53 PM CDT Eber Dumont MD LAB BLOOD ORDERABLES Final Result LAY [address] Department [place] [address] from Last 3 Months [place] For more information, please contact: [phone] * Full Code (Latest Code Status on File) Date Activated Date Inactivated Comments 08/22/2024 10:32 PM 08/29/2024 10:50 PM * Full Code Date Activated Date Inactivated Comments 07/22/2024 1:19 AM 07/23/2024 7:41 PM * Full Code Date Activated Date Inactivated Comments 05/24/2024 12:42 AM 06/11/2024 10:04 PM * Full Code Date Activated Date Inactivated Comments 05/14/2024 1:09 PM 05/18/2024 7:51 PM * Full Code Date Activated Date Inactivated Comments 03/30/2024 1:04 AM 04/01/2024 9:34 PM Care Teams Ham Stripper Relationship Specialty Start Date End Date Gia Foss MD [address] [place] [address] PCP - General Internal Medicine 06/12/24 Michelle Handy RN Nurse Navigator 02/09/24 Noemí Pitts LCSW Paper Goods Machine Operator 02/10/24 Pro Gama MD [address] [facility] [address] [place] [address] Medical Oncologist/Drain Layer Medical Oncology 02/13/24 Francis Tuttle MD [address] [facility] [address] [place] [address] Consulting Physician Radiation Oncology 02/13/24 Wilma Groves MD [address] [facility] DEPT OTOLARYNGOLOGY, [address] [place] [address] Surgeon Otolaryngology 02/13/24
--- OUTSIDE RECORDS SUMMARY | 2024-10-01 15:09 | XMS_ITS | Patient Health Record ---
Author Organization [facility] Address [address] [place] [address] Care Team Providers Care Skilled Nursing Facility Counselor Name Role Phone [facility] Unavailable [phone] Reason For Referral No Information Plan Of Treatment No Information Insurance Providers Payer Name Payer Address Payer Phone Subscriber Number Group Number Insured Name Patient Relationship to Insured Coverage Start Date Coverage End Date [facility] [address] [place] [phone] [id number] Jesus Dudley Self - patient is the insured
--- OUTSIDE RECORDS SUMMARY | 2024-10-01 15:09 | XMS_ITS ---
Author Organization [facility] Address [address] [place] [address] Care Team Providers Care Sample Wrapper Name Role Phone Michelle Handy RN Unavailable UnavailNoemí ReaW Unavailable Unavaila Pro Forbes MD Unavailable [phone] Francis Tuttle MD Unavailable [phone] Wilma Groves MD Unavailable [phone] Gia Foss MD Primary Care Provider [phone] Active Problems Problem Noted Date Diagnosed Date [...] Mass of left side of neck 02/01/2024 Current Treatment and Therapy Plans Hydration Therapy Plan* Plan Start Date:05/07/2024 Plan Provider:Pro Gama MD Linked Problems Oropharyngeal cancer (HCC) Treatment Medications No medications scheduled. Hydration Therapy Plan* Plan Start Date:08/13/2024 Plan Provider:Francis Tuttle MD Linked Problems DehydrationOropharyngeal can cer (HCC)Personal history of irradiation Treatment Medications No medications scheduled. Past Treatment and Therapy Plans Oncology Chemotherapy Treatment Plan Name Start Date Discontinue Date Treatment Medications Discontinue Reason Plan Provider Cycles CISplatin with Concurrent Radiation 21 Day Cycles - Head and Neck 02/27/20 24 05/22/2024 CISplatin (PLATINOL)CISplati n (PLATINOL) IVPB in 500 mLdexAMETHasone (DECADRON) Patient Preference Pro Gama MD 2 of 3 cycles started Radiation Treatments (No Episode) * Course [id number]/22/2024 - 06/05/2024 Treatment Period Energy Fraction Dose Fractions Total Dose Plans Planned H_N ReScn2 04/11/2024 - 06/05/2024 200 26 / 5,200 H_N ReScn 03/22/2024 - 04/10/2024 200 9 / 7,000 Reference Points Delivered [id number] 03/22/2024 - 06/05/2024 7,000 Lifetime Dose Tracking * Chemical Lifetime Dose Automatic Entry Manual Entr y Fluoro Time 0.91 minutes 0.91 minutes 0 minutes Air kerma at the reference point (Ka,r) 16.6 mGy 1 6.6 mGy 0 mGy DLP 2,188 mGycm 2,188 mGycm 0 mGycm
--- OUTSIDE RECORDS SUMMARY | 2024-10-01 15:09 | XMS_ITS | Encounter Summary ---
Author Organization [facility] Address [address] [place] [address] Phone Care Team Providers Care Marine Underwriter Name Role Phone Michelle Handy RN Unavailable Unavailabl e Noemí PittsW Unavailable Unavaila Pro Forbes MD Unavailable [phone] Francis Tuttle MD Unavailable [phone] Wilma Groves MD Unavailable [phone] Gia Foss MD Primary Care Provider [phone] Encounter Details Date Type Department Care Team (Late st Contact Info) Description 10/01/2024 Telephone [facility] Oncology [address] [place] [address] Social History Tobacco Use Types Packs/Day Years Used Date Smoking Tobacco: Never Smokeless Tobacco: Never Alcohol Use Standard Drinks/Week Comments Not Currently 0 (1 standard drink = 0.6 oz pur e alcohol) [facility] Utilities Answer Date Recorded In the past 12 months has th e electric, gas, oil, or water company threatened to shut off services in your [...] often do you attend chur ch or gnosticism services? Never 08/24/2024 Do you belong to any clubs o r organizations such as confucianism groups, unions, fraternal or athletic groups, or [...] any time in the past 12 m [facility], were you homeless or living in a half-way (including now)? 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 Not on file N ot on file documented as of this encounter Plan of Treatment Not on file documented as of this encounter Visit Diagnoses Not on filedocumented in this encounter Care Teams Marine Underwriter Relationship Specialty Start Date End Date Gia Foss MD [address] [place] [address] [address] PCP - General Internal Medicine 06/12/24 Michelle Handy RN Nurse Navigator 02/09/24 Noemí Pitts LCSW Global Supply Chain Director 02/10/24 Pro Gama MD [address] [facility] [address] [place] [address] Medical Oncologist/Social Media Director Medical Oncology 02/13/24 Francis Tuttle MD [address] [facility] [address] [place] [address] Consulting Physician Radiation Oncology 02/13/24 Wilma Groves MD [address] [facility] DEPT OTOLARYNGOLOGY, [address] [place] [address] Surgeon Otolaryngology 02/13/24 documented as of this encounter
--- OUTSIDE RECORDS SUMMARY | 2024-10-01 15:09 | XMS_ITS | Referral Summary ---
Author Organization [facility] Address [address] [place] [address] Care Team Providers Care Shredding Machine Operator Name Role Phone Michelle Handy RN Unavailable UnavailNoemí ReaW Unavailable Unavaila Pro Forbes MD Unavailable [phone] Francis Tuttle MD Unavailable Wilma Groves MD Unavailable [phone] Gia Foss MD Primary Care Provider [phone] Encounters Date Type Department Care Team Description 10/01/2024 Telephone [facility] Oncology [address] [place] [address] Yoselin Coelho, TOBIAS 09/21/2024 Orders Only [facility] Radiation Oncology [address] [place] [address] Corbin Early MD PhD Oropharyngeal cancer (HCC) (Primary Dx); Lymphedema; 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 09/17/2024 Orders Only [facility] Radiation Oncology [address] [place] [address] Corbin Early MD PhD Oropharyngeal cancer (HCC) (Primary Dx); 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; Dysphagia, unspecified type 09/17/2024 Documentation [facility] Oncology [address] [place], [place] [address] [address] 09/17/2024 11:30 AM CDT Office Visit [facility] Radiation Oncology [address] [place] [phone] Shayna Valencia NP Oropharyngeal cancer (HCC) (Primary Dx) 09/12/2024 Documentation [facility] Oncology [address] [place] [phone] 09/12/2024 Orders Only [facility] Oncology [address] [place] [phone] Homa Melendez RN 09/12/2024 8:30 AM CDT Infusion [address] [phone] Oropharyngeal cancer (HCC) (Primary Dx) 09/05/2024 Documentation [facility] Oncology [address] [place] [phone] 09/05/2024 Orders Only [facility] Radiation Oncology [address] [place] [phone] Corbin Early MD PhD Nausea (Primary Dx); Oropharyngeal cancer (HCC); Severe protein-calorie malnutrition 09/05/2024 Telephone [facility] [address] [address] Michelle Handy, pit inspector Follow Up 09/05/2024 10:00 AM CDT Infusion [address] [place] [address] Oropharyngeal cancer (HCC) (Primary Dx) 2024 11:15 AM CDT Office Visit [facility] Oncology [address] [facility] [address] [place] [address] Pro Gracia MD Oropharyngeal cancer (HCC) (Primary Dx) 09/03/2024 Documentation [facility] Oncology [address] [place], [place] [address] [address] 09/03/2024 10:30 AM CDT Infusion [facility] [address] [place] [address] Oropharyngeal cancer (HCC) (Primary Dx); Dehydration 09/03/2024 Orders Only [facility] Oncology [address] [place] [phone] Shayna Valencia NP Dehydration (Primary Dx) 09/03/2024 9:00 AM CDT Office Visit [facility] Radiation Oncology [address] [place] [phone] Shayna Valencia NP Oropharyngeal cancer (HCC) (Primary Dx); Nausea; 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; Lymphedema; Odynophagia; Dysphagia, unspecified type 08/31/2024 Telephone [facility] Oncology [address] [place] [phone] 08/22/2024 6:58 PM CDT - 08/29/2024 6:50 PM CDT Hospital Encounter [facility] [address] [place] [address] Cristina Mora MD Brother, Michele, MD Hultgren, Britt Richard, MD Rao, Savitha Venkatkrishna, MD Intractable nausea and vomiting (Primary Dx); Dehydration; Hypokalemia; Primary hypertension; Hypophosphatemia; Severe malnutrition; Radiation esophagitis Discharge Disposition: Discharge to home or self care 08/22/2024 Telephone [facility] Oncology [address] [place] [address] [place] [address] 08/21/2024 Telephone [facility] Oncology [facility] [place] [address] Homa Melendez RN 08/21/2024 7:53 AM CDT - 08/21/2024 11:59 PM CDT Hospital Encounter [facility] [place] [address] Oropharyngeal cancer (HCC) Discharge Disposition: Discharge to home or self care 08/20/2024 Telephone [facility] Oncology [address] [place] [address] Leticia Queen, RD 08/16/2024 Telephone [facility] Oncology [address] [place] [address] Leticia Queen, RD 08/16/2024 Orders Only [facility] Radiation Oncology [address] [place] [phone] Francis Tuttle MD Personal history of irradiation (Primary Dx); Radiation esophagitis; Encounter for follow-up examination after completed treatment for malignant neoplasm; Severe protein-calorie malnutrition 08/15/2024 Telephone [facility] Oncology [address] [place] [address] Leticia Queen, RD 08/14/2024 Telephone [facility] Oncology [address] [place] [address] Leticia Queen, RD 08/14/2024 Telephone [facility] Oncology [address] [place] [phone] Homa Melendez, KRISTY Reschedule 08/13/2024 Documentation [facility] Oncology [address] [place] [address] Leticia Queen, RD 08/13/2024 Orders Only [facility] Oncology [address] [place] [place] [address] Francis Tuttle MD 08/13/2024 1:30 PM CDT Clinical Support [facility] [address] [place] [address] Oropharyngeal cancer (HCC) (Primary Dx); Dehydration 08/13/2024 Orders Only [facility] Oncology [address] [place] [phone] Francis Tuttle MD Dehydration (Primary Dx); Intractable vomiting with nausea; Oropharyngeal cancer (HCC) 08/13/2024 Results Follow-Up [facility] Primary Care at [facility] [address] [facility] [address] [place] [phone] Gia Foss MD CBC with auto differential, Comprehensive metabolic panel, Differential, auto, Additional followed-up results: 2 08/13/2024 11:00 AM CDT Office Visit [facility] Radiation Oncology [address] [place] [phone] Francis Tuttle MD Oropharyngeal cancer (HCC) (Primary Dx); Personal history of irradiation; Cancer-related pain 08/10/2024 5:39 PM CDT - 08/10/2024 9:35 PM CDT Emergency [facility] Emergency Department [address] [place] [address] Shahbaz Earl MD Nausea and vomiting, unspecified vomiting type (Primary Dx) Discharge Disposition: Discharge to home or self care 08/10/2024 Telephone [facility] Oncology [address] [place] [phone] Leticia Queen, TOBIAS 08/09/2024 Telephone [facility] Oncology [address] [place] [phone] Leticia Queen, TOBIAS 08/08/2024 Telephone [facility] Radiation Oncology [address] [place] [phone] Yamila Kam RN 07/31/2024 [facility] Post Discharge Follow up phone call [address] [address] Tiffany Hernandez RN 07/30/2024 [facility] Post Discharge Follow up phone call [address] [address] Tiffany Hernandez, KRISTY 07/26/2024 [facility] Post Discharge Follow up phone call [address] [address] Tiffany Hernandez, KRISTY 07/23/2024 Telephone [facility] Medical [facility] Primary Care at [facility] - [address] [place] [phone] Gia Foss MD MARY Questions 07/21/2024 10:36 PM CDT - 07/23/2024 3:35 PM CDT Hospital Encounter [address] [address] Eber Dumont MD [place], MD Karina Rosenberg, Henrik Aguirre MD Dislodged gastrostomy tube (Primary Dx) Discharge Disposition: Discharge to home or self care 07/22/2024 Results Follow-Up [facility] Medical [facility] Primary Care at [facility] - [address] [place] [address] [place] [phone] Gia Foss MD CBC with auto differential, Basic metabolic panel, Type and screen, Additional followed-up results: 4 07/13/2024 Telephone [facility] Bone Marrow Transplant [facility] 7th Floor, [place] [address] Aditi Dougherty, B.AIsra 07/13/2024 11:00 AM CDT Office Visit [facility] Radiation Oncology [address] [place] [phone] Renee Shipman NP Oropharyngeal cancer (HCC) (Primary Dx); Encounter for follow-up examination after completed treatment for malignant neoplasm; Personal history of irradiation 07/11/2024 Telephone [facility] Oncology [address] [place] [address] [place] [phone] 07/06/2024 Telephone [facility] Oncology [address] [place] [address] [place] [phone] 07/03/2024 Telephone [facility] [address] [facility] 4th [place] [address] Michelle Handy, pit inspector Follow Up; Navigator Treatment End Check In from Last 3 Months Allergies Active Allergy Reactions Criticality Noted Date [...] Mass of left side of neck 02/01/2024 Immunizations Immunization Administration Dates Next Due Influenza, Unspecified 06/22/2024(Deferred: Reina ent Refused) Pfizer SARS-CoV-2 Monovalent Vaccination (12+ Yrs) PURPLE 08/24/2020,07/19/2020 Social History Tobacco Use Types Packs/Day Years Used Date Smoking Tobacco: Never Smokeless Tobacco: Never Tobacco Cessation:Counseling Given: Not Answered Alcohol Use Standard Drinks/Week Comments Not Currently 0 (1 standard drink = 0.6 oz pur e alcohol) [facility] Utilities Answer Date Recorded In the past [...] often do you attend chur ch or advent services? Never 08/24/2024 Do you belong to any clubs o r organizations such as tenriism groups, unions, fraternal or athletic groups, or [...] were you homeless or living in a prison (including now)? 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 73 m2 Comment: [...] ORDERABLE S Final Result Performing Organization Address [facility] de Phone Number LAY [address] Department [employer] [place] [phone] * Phosphorus (08/29/2024 3:54 AM CDT) Phosphorus, pl 3.3 2.3 - 4.5 mg/dL Blood 08/29/2024 3:54 AM CDT 08/29/2024 5:46 AM CDT Daly Villela MD LAB BLOOD ORDERABLES F inal Result Performing Organization Address [facility] de Phone Number LAY [address] [place] [address] * Magnesium (08/29/2024 3:54 AM CDT) Magnesium 2.4 1.4 - 2.5 mg/dL Blood 08/29/2024 3:54 AM CDT 08/29/2024 5:46 AM CDT Daly Villela MD LAB BLOOD ORDERABLES F inal Result [facility] [place] [address] [place] [address] * (ABNORMAL) Basic metabolic panel (08/29/2024 3:54 AM CDT) Sodium 134(L) 135 - 145 mmol/L Potassium, pl 4.1 3.3 - 4.9 mmol/L [facility] Chloride 95(L) 97 - 110 mmol/L [facility] CH CO2 31 22 - 32 mmol/L [facility] Anion gap 8 2 - 15 mmol/L [facility] BUN 15 6 - 25 mg/dL [facility] Creatinine 0.63(L) 0.80 - 1.30 mg/dL [facility] Glucose 112 70 - 199 mg/dL [facility] Comment: Interpretive Data Fasting glucose >/= 126 [...] 2022. Calcium 9.6 8.5 - 10.3 mg/dL [facility] Blood 08/29/2024 3:54 AM CDT 08/29/2024 5:46 AM CDT us Katie Mckeon MD LAB BLOOD ORDERABLE S Final Result [facility] [place] [address] Department [place] [address] * eGFR (08/28/2024 4:35 AM CDT) Pathologist [facility] eGFR >90 >=60 mL/min/1. 73 m2 Comment: [...] ORDERABLE S Final Result Performing Organization Address [facility] Co de Phone Number LAY [address] [place] [address] * Phosphorus (08/28/2024 4:35 AM CDT) Phosphorus, pl 4.2 2.3 - 4.5 mg/dL Blood 08/28/2024 4:35 AM CDT 08/28/2024 4:59 AM CDT Daly Villela MD LAB BLOOD ORDERABLES F inal Result Performing Organization Address [facility] [place] [address] [address] [place] [address] * Magnesium (08/28/2024 4:35 AM CDT) Magnesium 2.4 1.4 - 2.5 mg/dL Blood 08/28/2024 4:35 AM CDT 08/28/2024 4:59 AM CDT Daly Villela MD LAB BLOOD ORDERABLES F inal Result [facility] [place] [address] Department [place] [address] * (ABNORMAL) Basic metabolic panel (08/28/2024 4:35 AM CDT) Sodium 137 135 - 145 mmol/L Potassium, pl 3.8 3.3 - 4.9 mmol/L [facility] Chloride 98 97 - 110 mmol/L [facility] CO2 31 22 - 32 mmol/L [facility] Anion gap 8 2 - 15 mmol/L [facility] BUN 14 6 - 25 mg/dL [facility] Creatinine 0.57(L) 0.80 - 1.30 mg/dL [facility] Glucose 137 70 - 199 mg/dL [facility] Comment: [...] 2022. Calcium 9.6 8.5 - 10.3 mg/dL [facility] Blood 08/28/2024 4:35 AM CDT 08/28/2024 4:59 AM CDT us Katie Mckeon MD LAB BLOOD ORDERABLE S Final Result Performing Organization Address City/[facility]/ZIP Co de Phone Number LAY [place] [address] Department [place] [address] * eGFR (08/27/2024 4:13 AM CDT) Pathologist [facility] eGFR >90 >=60 mL/min/1. 73 m2 Comment: [...] MD LAB BLOOD ORDERABLES F inal Result [facility] [address] Department [place] [address] * (ABNORMAL) Differential, auto (08/27/2024 4:13 AM CDT) Neutrophil abs 4.64 1.50 - 6.50 K/cumm Imm gran abs 0.01 0.00 - 0.10 K/cumm [facility] Lymphocyte abs 0.53(L) 0.80 - 3.30 K/cumm [facility] Monocyte abs 0.80 0.20 - 0.80 K/cumm [facility] Eosinophil abs 0.04 0.00 - 0.50 K/cumm [facility] Basophil abs 0.02 0.00 - 0.10 K/cumm [facility] Neutrophil pct 76.8 % [facility] Comment: Interpretive Data Percent cell count reference ranges are not reported, since discordance with absolute values may lead to misinterpretation of CBC data. Current Interpretive Data was last revised on 2017. Imm gran pct 0.2 % LAY Comment: Interpretive Data Percent cell count reference ranges are not reported, since discordance with absolute values may lead to misinterpretation of CBC data. Current Interpretive Data was last revised on 2017. Lymphocyte pct 8.8 % [facility] Comment: Interpretive Data Percent cell count reference ranges are not reported, since discordance with absolute values may lead to misinterpretation of CBC data. Current Interpretive Data was last revised on 2017. Monocyte pct 13.2 % [facility] Comment: Interpretive Data Percent cell count reference ranges are not reported, since discordance with absolute values may lead to misinterpretation of CBC data. Current Interpretive Data was last revised on 2017. Eosinophil pct 0.7 % [facility] Comment: Interpretive Data Percent cell count reference [...] MD LAB BLOOD ORDERABLES F inal Result [facility] [address] Department [place] [address] * (ABNORMAL) CBC with auto differential (08/27/2024 4:13 AM CDT) WBC 6.04 3.80 - 9.90 K/cumm Hgb 12.3(L) 13.0 - 17.5 g/dL [facility] Hct 36.6(L) 38.9 - 50.3 % [facility] Plt 302 150 - 400 K/cumm [facility] MPV 10.2 9.1 - 12.3 fL [facility] RBC 3.86(L) 4.30 - 5.80 M/cumm [facility] MCV 94.8 81.3 - 96.4 fL [facility] MCH 31.9 27.1 - 33.3 pg [facility] MCHC 33.6 32.3 - 35.7 g/dL [facility] RDW CV 12.4 11.1 - 14.9 % [facility] RDW SD 42.9 35.7 - 48.1 fL [facility] NRBC abs 0.00 0.00 - 0.01 K/cumm [facility] Blood 08/27/2024 4:13 AM CDT 08/27/2024 5:01 AM CDT Daly Villela MD LAB BLOOD ORDERABLES F inal Result Performing Organization Address [facility] Co de Phone Number LAY [address] [place] [address] * (ABNORMAL) Phosphorus (08/27/2024 4:13 AM CDT) Phosphorus, pl 2.1(L) 2.3 - 4.5 mg/dL Blood 08/27/2024 4:13 AM CDT 08/27/2024 5:01 AM CDT Daly Villela MD LAB BLOOD ORDERABLES F inal Result Performing Organization Address [facility] Co de Phone Number LAY [address] [address] * Magnesium (08/27/2024 4:13 AM CDT) Magnesium 2.3 1.4 - 2.5 mg/dL Blood 08/27/2024 4:13 AM CDT 08/27/2024 5:01 AM CDT Daly Villela MD LAB BLOOD ORDERABLES F inal Result Performing Organization Address [facility] Co de Phone Number LAY [address] [address] * (ABNORMAL) Comprehensive metabolic panel (08/27/2024 4:13 AM CDT) Sodium 136 135 - 145 mmol/L Potassium, pl 3.3 3.3 - 4.9 mmol/L [facility] Chloride 98 97 - 110 mmol/L [facility] CO2 30 22 - 32 mmol/L [facility] Anion gap 8 2 - 15 mmol/L [facility] BUN 11 6 - 25 mg/dL [facility] Creatinine 0.53(L) 0.80 - 1.30 mg/dL [facility] Glucose 153 70 - 199 mg/dL [facility] Comment: [...] - 50 Units/L [facility] Blood 08/27/2024 4:13 AM CDT 08/27/2024 5:01 AM CDT us Daly Villela MD LAB BLOOD ORDERABLES F inal Result [facility] [address] [address] Department [place] [address] * (ABNORMAL) Potassium (08/26/2024 1:12 PM CDT) Potassium, pl 3.0(L) 3.3 - 4.9 mmol/L Blood 08/26/2024 1:12 PM CDT 08/26/2024 1:20 PM CDT Katie Mckeon MD LAB BLOOD ORDERABLE S Final Result Performing Organization Address [facility] Co de Phone Number LAY [place] [address] [place] [address] * eGFR (08/26/2024 4:14 AM CDT) Pathologist [facility] eGFR >90 >=60 mL/min/1. 73 m2 Comment: [...] ORDERABLES F inal Result Performing Organization Address City/[facility]/ZIP Co de Phone Number LAY [place] [address] Department [place] [address] * (ABNORMAL) Differential, auto (08/26/2024 4:14 AM CDT) Pathologist [facility] Neutrophil abs 3.07 1.50 - 6.50 K/cumm Imm gran abs 0.02 0.00 - 0.10 K/cumm [facility] Lymphocyte abs 0.49(L) 0.80 - 3.30 K/cumm [facility] Monocyte abs 0.73 0.20 - 0.80 K/cumm [facility] Eosinophil abs 0.07 0.00 - 0.50 K/cumm [facility] Basophil abs 0.02 0.00 - 0.10 K/cumm [facility] Neutrophil pct 69.7 % [facility] Comment: Interpretive Data Percent cell count reference ranges are not reported, since discordance with absolute values may lead to misinterpretation of CBC data. Current Interpretive Data was last revised on 2017. Imm gran pct 0.5 % [facility] Comment: Interpretive Data Percent cell count reference ranges are not reported, since discordance with absolute values may lead to misinterpretation of CBC data. Current Interpretive Data was last revised on 2017. Lymphocyte pct 11.1 % [facility] Comment: Interpretive Data Percent cell count reference ranges are not reported, since discordance with absolute values may lead to misinterpretation of CBC data. Current Interpretive Data was last revised on 2017. Monocyte pct 16.6 % [facility] Comment: Interpretive Data Percent cell count reference ranges are not reported, since discordance with absolute values may lead to misinterpretation of CBC data. Current Interpretive Data was last revised on 2017. Eosinophil pct 1.6 % [facility] Comment: Interpretive Data Percent cell count reference ranges are not reported, since discordance with absolute values may lead to misinterpretation of CBC data. Current Interpretive Data was last revised on 2017. Basophil pct 0.5 % [facility] Comment: Interpretive Data Percent cell count reference ranges are not reported, since discordance with absolute values may lead to misinterpretation of CBC data. Current Interpretive Data was last revised on 2017. Blood 08/26/2024 4:14 AM CDT 08/26/2024 5:00 AM CDT us Daly Villela MD LAB BLOOD ORDERABLES F inal Result LAY [address] Department [place] [address] * (ABNORMAL) CBC with auto differential (08/26/2024 4:14 AM CDT) [facility] WBC 4.40 3.80 - 9.90 K/cumm Hgb 11.9(L) 13.0 - 17.5 g/dL [facility] Hct 34.8(L) 38.9 - 50.3 % [facility] Plt 302 150 - 400 K/cumm [facility] MPV 10.2 9.1 - 12.3 fL [facility] RBC 3.75(L) 4.30 - 5.80 M/cumm [facility] MCV 92.8 81.3 - 96.4 fL [facility] MCH 31.7 27.1 - 33.3 pg [facility] MCHC 34.2 32.3 - 35.7 g/dL [facility] RDW CV 12.2 11.1 - 14.9 % [facility] RDW SD 41.8 35.7 - 48.1 fL [facility] NRBC abs 0.00 0.00 - 0.01 K/cumm [facility] Blood 08/26/2024 4:14 AM CDT 08/26/2024 5:00 AM CDT Daly Villela MD LAB BLOOD ORDERABLES F inal Result Performing Organization Address [facility] Co de Phone Number [facility] [address] [facility] [place] [address] * Phosphorus (08/26/2024 4:14 AM CDT) [facility] Phosphorus, pl 2.8 2.3 - 4.5 mg/dL Blood 08/26/2024 4:14 AM CDT 08/26/2024 5:02 AM CDT Daly Villela MD LAB BLOOD ORDERABLES F inal Result Performing Organization Address [facility] Co de Phone Number [facility] [address] [place] [address] * Magnesium (08/26/2024 4:14 AM CDT) Magnesium 2.1 1.4 - 2.5 mg/dL Blood 08/26/2024 4:14 AM CDT 08/26/2024 5:02 AM CDT us Daly Villela MD LAB BLOOD ORDERABLES F inal Result [facility] [address] Department [place] [address] * (ABNORMAL) Comprehensive metabolic panel (08/26/2024 4:14 AM CDT) Sodium 138 135 - 145 mmol/L Potassium, pl 3.0(L) 3.3 - 4.9 mmol/L [facility] Chloride 97 97 - 110 mmol/L [facility] CO2 32 22 - 32 mmol/L [facility] Anion gap 9 2 - 15 mmol/L [facility] BUN 6 6 - 25 mg/dL [facility] Creatinine 0.52(L) 0.80 - 1.30 mg/dL [facility] Glucose 129 70 - 199 mg/dL [facility] Comment: [...] 9.8 8.5 - 10.3 mg/dL [facility] Bilirubin, total 0.4 0.1 - 1.2 mg/dL [facility] Protein, pl 7.0 6.5 - 8.5 g/dL [facility] Albumin 3.6 3.5 - 5.0 g/dL [facility] Alk phos 57 40 - 130 Units/L [facility] ALT 7 7 - 55 Units/L [facility] AST 15 10 - 50 Units/L [facility] Blood 08/26/2024 4:14 AM CDT 08/26/2024 5:02 AM CDT Daly Villela MD LAB BLOOD ORDERABLES F inal Result [facility] [address] [place] [address] * (ABNORMAL) Potassium (08/25/2024 11:29 AM CDT) Potassium, pl 3.1(L) 3.3 - 4.9 mmol/L Blood 08/25/2024 11:2 9 AM CDT 08/25/2024 12:06 PM CDT Ginna Graves PRICING SUPERVISOR LAB BLOOD ORDERABLES Cathie l Result Performing Organization Address City/[facility] Co de Phone Number [place] [place] [place] [address] * eGFR (08/25/2024 4:11 AM CDT) eGFR [...] MD LAB BLOOD ORDERABLES F inal Result [facility] [address] [place] [address] * (ABNORMAL) Differential, auto (08/25/2024 4:11 AM CDT) Neutrophil abs 4.49 1.50 - 6.50 K/cumm Imm gran abs 0.02 0.00 - 0.10 K/cumm [facility] Lymphocyte abs 0.63(L) 0.80 - 3.30 K/cumm [facility] Monocyte abs 0.87(H) 0.20 - 0.80 K/cumm [facility] Eosinophil abs 0.02 0.00 - 0.50 K/cumm [facility] Basophil abs 0.02 0.00 - 0.10 K/cumm [facility] Neutrophil pct 74.3 % [facility] Comment: Interpretive Data Percent cell count reference ranges are not reported, since discordance with absolute values may lead to misinterpretation of CBC data. Current Interpretive Data was last revised on 2017. Imm gran pct 0.3 % [facility] Comment: Interpretive Data Percent cell count reference ranges are not reported, since discordance with absolute values may lead to misinterpretation of CBC data. Current Interpretive Data was last revised on 2017. Lymphocyte pct 10.4 % [facility] Comment: Interpretive Data Percent cell count reference ranges are not reported, since discordance with absolute values may lead to misinterpretation of CBC data. Current Interpretive Data was last revised on 2017. Monocyte pct 14.4 % [facility] Comment: Interpretive Data Percent cell count reference ranges are not reported, since discordance with absolute values may lead to misinterpretation of CBC data. Current Interpretive Data was last revised on 2017. Eosinophil pct 0.3 % [facility] Comment: Interpretive Data Percent cell count reference [...] ORDERABLES F inal Result Performing Organization Address [facility] Co de Phone Number [place] [place] [address] * (ABNORMAL) CBC with auto differential (08/25/2024 4:11 AM CDT) WBC 6.05 3.80 - 9.90 K/cumm Hgb 12.0(L) 13.0 - 17.5 g/dL [facility] Hct 35.0(L) 38.9 - 50.3 % [facility] Plt 299 150 - 400 K/cumm [facility] MPV 10.3 9.1 - 12.3 fL [facility] RBC 3.80(L) 4.30 - 5.80 M/cumm [facility] MCV 92.1 81.3 - 96.4 fL [facility] MCH 31.6 27.1 - 33.3 pg [facility] MCHC 34.3 32.3 - 35.7 g/dL [facility] RDW CV 12.2 11.1 - 14.9 % [facility] RDW SD 41.1 35.7 - 48.1 fL [facility] NRBC abs 0.00 0.00 - 0.01 K/cumm [facility] Blood 08/25/2024 4:11 AM CDT 08/25/2024 5:26 AM CDT Daly Villela MD LAB BLOOD ORDERABLES F inal Result Performing Organization Address [facility] Co de Phone Number [place] [address] [place] [address] * Phosphorus (08/25/2024 4:11 AM CDT) Phosphorus, pl 3.0 2.3 - 4.5 mg/dL Blood 08/25/2024 4:11 AM CDT 08/25/2024 5:24 AM CDT Daly Villela MD LAB BLOOD ORDERABLES F inal Result Performing Organization Address City/[facility]/ZIP Co de Phone Number [address]AY [address] [place] [address] * Magnesium (08/25/2024 4:11 AM CDT) Pathologist [facility] Magnesium 1.7 1.4 - 2.5 mg/dL Blood 08/25/2024 4:11 AM CDT 08/25/2024 5:24 AM CDT Daly Villela MD LAB BLOOD ORDERABLES F inal Result Performing Organization Address [facility] de Phone Number LAY [address] [place] [address] * (ABNORMAL) Comprehensive metabolic panel (08/25/2024 4:11 AM CDT) Pathologist [facility] Sodium 137 135 - 145 mmol/L Potassium, pl 2.7(C) 3.3 - 4.9 mmol/L [facility] Comment:Critical Result call ed to and read back by rosey vazquez, DATE: 2024-08-25 06:27:08 BY: petty cerentano Chloride 93(L) 97 - 110 mmol/L [facility] CO2 29 22 - 32 mmol/L [facility] Anion gap 15 2 - 15 mmol/L [facility] BUN 4(L) 6 - 25 mg/dL [facility] Creatinine 0.48(L) 0.80 - 1.30 mg/dL [facility] Glucose 113 70 - 199 mg/dL [facility] Comment: Interpretive Data Fasting glucose >/= 126 [...] MD LAB BLOOD ORDERABLES F inal Result [facility] [address] Department [place] [address] * eGFR (08/24/2024 5:12 AM CDT) eGFR [...] 5:12 AM CDT 08/24/2024 5:47 AM CDT us Daly Villela MD LAB BLOOD ORDERABLES F inal Result [facility] [address] [place] [address] * (ABNORMAL) Differential, auto (08/24/2024 5:12 AM CDT) Neutrophil abs 3.00 1.50 - 6.50 K/cumm Imm gran abs 0.02 0.00 - 0.10 K/cumm [facility] Lymphocyte abs 0.61(L) 0.80 - 3.30 K/cumm [facility] Monocyte abs 0.76 0.20 - 0.80 K/cumm [facility] Eosinophil abs 0.04 0.00 - 0.50 K/cumm [facility] Basophil abs 0.02 0.00 - 0.10 K/cumm [facility] Neutrophil pct 67.5 % [facility] Comment: Interpretive Data Percent cell count reference ranges are not reported, since discordance with absolute values may lead to misinterpretation of CBC data. Current Interpretive Data was last revised on 2017. Imm gran pct 0.4 % [facility] Comment: Interpretive Data Percent cell count reference ranges are not reported, since discordance with absolute values may lead to misinterpretation of CBC data. Current Interpretive Data was last revised on 2017. Lymphocyte pct 13.7 % [facility] Comment: Interpretive Data Percent cell count reference ranges are not reported, since discordance with absolute values may lead to misinterpretation of CBC data. Current Interpretive Data was last revised on 2017. Monocyte pct 17.1 % [facility] Comment: Interpretive Data Percent cell count reference ranges are not reported, since discordance with absolute values may lead to misinterpretation of CBC data. Current Interpretive Data was last revised on 2017. Eosinophil pct 0.9 % [facility] Comment: Interpretive Data Percent cell count reference ranges are not reported, since discordance with absolute values may lead to misinterpretation of CBC data. Current Interpretive Data was last revised on 2017. Basophil pct 0.4 % [facility] Comment: Interpretive Data Percent cell count reference ranges are not reported, since discordance with absolute values may lead to misinterpretation of CBC data. Current Interpretive Data was last revised on 2017. Blood 08/24/2024 5:12 AM CDT 08/24/2024 5:50 AM CDT Daly Villela MD LAB BLOOD ORDERABLES F inal Result Performing Organization Address City/[facility] Co de Phone Number [facility] [address] Department [place] [address] * (ABNORMAL) CBC with auto differential (08/24/2024 5:12 AM CDT) WBC 4.45 3.80 - 9.90 K/cumm Hgb 11.3(L) 13.0 - 17.5 g/dL [facility] Hct 33.7(L) 38.9 - 50.3 % [facility] Plt 291 150 - 400 K/cumm [facility] MPV 10.3 9.1 - 12.3 fL [facility] RBC 3.58(L) 4.30 - 5.80 M/cumm [facility] MCV 94.1 81.3 - 96.4 fL [facility] MCH 31.6 27.1 - 33.3 pg [facility] MCHC 33.5 32.3 - 35.7 g/dL [facility] RDW CV 12.0 11.1 - 14.9 % [facility] RDW SD 41.8 35.7 - 48.1 fL [facility] NRBC abs 0.00 0.00 - 0.01 K/cumm [facility] Blood 08/24/2024 5:12 AM CDT 08/24/2024 5:50 AM CDT Daly Villela MD LAB BLOOD ORDERABLES F inal Result Performing Organization Address City/[facility]/ZIP Co de Phone Number [facility] [place] [address] Department [place] [address] * (ABNORMAL) Comprehensive metabolic panel (08/24/2024 5:12 AM CDT) Sodium 138 135 - 145 mmol/L Potassium, pl 2.8(L) 3.3 - 4.9 mmol/L [facility] Chloride 97 97 - 110 mmol/L [facility] CO2 27 22 - 32 mmol/L [facility] Anion gap 14 2 - 15 mmol/L [facility] BUN 8 6 - 25 mg/dL [facility] Creatinine 0.52(L) 0.80 - 1.30 mg/dL [facility] Glucose 115 70 - 199 mg/dL [facility] Comment: [...] 5:12 AM CDT 08/24/2024 5:47 AM CDT us Daly Villela MD LAB BLOOD ORDERABLES F inal Result Performing Organization Address City/[facility]/ZIP Co de Phone Number [facility] [place] Department [place] [address] * eGFR (08/23/2024 3:55 AM CDT) eGFR [...] ORDERABLES Final Re sult Performing Organization Address [facility] Co de Phone Number [facility] [address] [place] [address] * Phosphorus (08/23/2024 3:55 AM CDT) Phosphorus, pl 2.9 2.3 - 4.5 mg/dL Blood 08/23/2024 3:55 AM CDT 08/23/2024 5:35 AM CDT Wisam Huerta MD LAB BLOOD ORDERABLES Final Re sult Performing Organization Address [facility] [place] [address] [address] [place] [address] * Magnesium (08/23/2024 3:55 AM CDT) Magnesium 1.8 1.4 - 2.5 mg/dL Blood 08/23/2024 3:55 AM CDT 08/23/2024 5:35 AM CDT Wisam Huerta MD LAB BLOOD ORDERABLES Final Re sult [facility] [address] [place] [address] * (ABNORMAL) Basic metabolic panel (08/23/2024 3:55 AM CDT) Sodium 138 135 - 145 mmol/L Potassium, pl 3.4 3.3 - 4.9 mmol/L [facility] Chloride 97 97 - 110 mmol/L [facility] CO2 24 22 - 32 mmol/L [facility] Anion gap 17(H) 2 - 15 mmol/L [facility] BUN 11 6 - 25 mg/dL [facility] Creatinine 0.55(L) 0.80 - 1.30 mg/dL [facility] Glucose 86 70 - 199 mg/dL [facility] Comment: Interpretive Data Fasting glucose >/= 126 [...] 2022. Calcium 9.8 8.5 - 10.3 mg/dL [facility] Blood 08/23/2024 3:55 AM CDT 08/23/2024 5:35 AM CDT us Wisam Huerta MD LAB BLOOD ORDERABLES Final Re sult [facility] [address] Department [place] [address] * (ABNORMAL) Urinalysis reflex to microscopic and culture Urine (08/22/2024 9:45 PM CDT) Color, ur Yellow Yellow Clarity, ur Clear Clear [facility] Specific gravity, ur 1.012 1.003 - 1.030 [facility] pH, urine 5.5 [facility] Comment: Interpretive Data U rine pH is affected by diet, medications, systemic acid-base disturbances, and renal tubular function. pH may affect urinary stone formation. For example, urine pH below 6.0 may help reduce the tendency for calcium phosphate stones and pH greater than 6.0 may reduce the tendency for uric acid stone formation. Source: [facility] [place] Current Interpretive Data was last revised on [...] 9:45 PM CDT 08/22/2024 10:09 PM CDT us Cristina Mora MD LAB MICROBIOLOGY - GEN ERAL ORDERABLES Final Result [facility] [address] [place] [address] * XR ABD AP WATER SOLUBLE INJ [...] lumen. Electronically signed by: Rafael Rodriguez M.D. us Cristina Mora MD IMG XR PROCEDURES Cathie [...] Puneet CORNELL LAB BLOOD ORDERABLES Final Result [facility] [address] [place] [address] * (ABNORMAL) Differential, auto (08/22/2024 8:09 PM CDT) Neutrophil abs 5.80 1.50 - 6.50 K/cumm Imm gran abs 0.02 0.00 - 0.10 K/cumm [facility] Lymphocyte abs 0.59(L) 0.80 - 3.30 K/cumm [facility] Monocyte abs 0.81(H) 0.20 - 0.80 K/cumm [facility] Eosinophil abs 0.01 0.00 - 0.50 K/cumm [facility] Basophil abs 0.02 0.00 - 0.10 K/cumm [facility] Neutrophil pct 80.0 % [facility] Comment: Interpretive Data Percent cell count reference ranges are not reported, since discordance with absolute values may lead to misinterpretation of CBC data. Current Interpretive Data was last revised on 2017. Imm gran pct 0.3 % [facility] Comment: Interpretive Data Percent cell count reference ranges are not reported, since discordance with absolute values may lead to misinterpretation of CBC data. Current Interpretive Data was last revised on 2017. Lymphocyte pct 8.1 % [facility] Comment: Interpretive Data Percent cell count reference ranges are not reported, since discordance with absolute values may lead to misinterpretation of CBC data. Current Interpretive Data was last revised on 2017. Monocyte pct 11.2 % [facility] Comment: Interpretive Data Percent cell count reference ranges are not reported, since discordance with absolute values may lead to misinterpretation of CBC data. Current Interpretive Data was last revised on 2017. Eosinophil pct 0.1 % [facility] Comment: Interpretive Data Percent cell count reference ranges are not reported, since discordance with absolute values may lead to misinterpretation of CBC data. Current Interpretive Data was last revised on 2017. Basophil pct 0.3 % [facility] Comment: Interpretive Data Percent cell count reference ranges are not reported, since discordance with absolute values may lead to misinterpretation of CBC data. Current Interpretive Data was last revised on 2017. Blood 08/22/2024 8:09 PM CDT 08/22/2024 8:11 PM CDT Puneet CORNELL LAB BLOOD ORDERABLES Final Result Performing Organization Address City/[facility]/ZIP Co de Phone Number [place] [place] [address] * (ABNORMAL) CBC with auto differential (08/22/2024 8:09 PM CDT) WBC 7.25 3.80 - 9.90 K/cumm Hgb 13.3 13.0 - 17.5 g/dL [facility] Hct 39.0 38.9 - 50.3 % [facility] Plt 321 150 - 400 K/cumm [facility] MPV 10.2 9.1 - 12.3 fL [facility] RBC 4.20(L) 4.30 - 5.80 M/cumm [facility] MCV 92.9 81.3 - 96.4 fL [facility] MCH 31.7 27.1 - 33.3 pg [facility] MCHC 34.1 32.3 - 35.7 g/dL [facility] RDW CV 12.0 11.1 - 14.9 % [facility] RDW SD 41.1 35.7 - 48.1 fL [facility] NRBC abs 0.00 0.00 - 0.01 K/cumm [facility] Blood Venous blood specimen / Unknown 08/22/2024 8:09 PM CDT 08/22/2024 8:11 PM CDT Puneet CORNELL LAB BLOOD ORDERABLES Final Result Performing Organization Address City/[facility]/ZIP Co de Phone Number [place] [place] [address] * Phosphorus (08/22/2024 8:09 PM CDT) [facility] Phosphorus, pl 3.0 2.3 - 4.5 mg/dL Blood 08/22/2024 8:09 PM CDT 08/22/2024 8:11 PM CDT Puneet CORNELL LAB BLOOD ORDERABLES Final Result Performing Organization Address City/[facility]/ZIP Co de Phone Number [address] [place] [address] * Magnesium (08/22/2024 8:09 PM CDT) [facility] Magnesium 1.9 1.4 - 2.5 mg/dL Blood 08/22/2024 8:09 PM CDT 08/22/2024 8:11 PM CDT Puneet CORNELL LAB BLOOD ORDERABLES Final Result Performing Organization Address [facility] Co de Phone Number [address] [place] [address] * Lipase (08/22/2024 8:09 PM CDT) [facility] Lipase 14 10 - 99 Units/L Blood 08/22/2024 8:09 PM CDT 08/22/2024 8:11 PM CDT Puneet CORNELL LAB BLOOD ORDERABLES Final Result Performing Organization Address City/[facility] Co de Phone Number [address]AY [address] [place] [address] * (ABNORMAL) Comprehensive metabolic panel (08/22/2024 8:09 PM CDT) [facility] Sodium 135 135 - 145 mmol/L Potassium, pl 3.3 3.3 - 4.9 mmol/L [facility] Chloride 88(L) 97 - 110 mmol/L [facility] CO2 26 22 - 32 mmol/L [facility] Anion gap 21(H) 2 - 15 mmol/L [facility] BUN 13 6 - 25 mg/dL [facility] Creatinine 0.64(L) 0.80 - 1.30 mg/dL [facility] Glucose 100 70 - 199 mg/dL [facility] Comment: [...] Puneet CORNELL LAB BLOOD ORDERABLES Final Result [facility] [address] [place] [address] * CT Chest W Contrast (08/21/2024 9:04 [...] by: Sixto Torres M.D. Pro Gama MD IM CT PROCEDURES Final Res ult * CT [...] CORNELL LAB BLOOD ORDERA BLES Final Result [facility] [address] [place] [address] * (ABNORMAL) Differential, auto (08/10/2024 5:58 PM CDT) Neutrophil abs 4.49 1.50 - 6.50 K/cumm Imm gran abs 0.02 0.00 - 0.10 K/cumm [facility] Lymphocyte abs 0.79(L) 0.80 - 3.30 K/cumm [facility] Monocyte abs 0.71 0.20 - 0.80 K/cumm [facility] Eosinophil abs 0.01 0.00 - 0.50 K/cumm [facility] Basophil abs 0.02 0.00 - 0.10 K/cumm [facility] Neutrophil pct 74.3 % [facility] Comment: Interpretive Data Percent cell count reference ranges are not reported, since discordance with absolute values may lead to misinterpretation of CBC data. Current Interpretive Data was last revised on 2017. Imm gran pct 0.3 % [facility] Comment: Interpretive Data Percent cell count reference ranges are not reported, since discordance with absolute values may lead to misinterpretation of CBC data. Current Interpretive Data was last revised on 2017. Lymphocyte pct 13.1 % [facility] Comment: Interpretive Data Percent cell count reference ranges are not reported, since discordance with absolute values may lead to misinterpretation of CBC data. Current Interpretive Data was last revised on 2017. Monocyte pct 11.8 % [facility] Comment: Interpretive Data Percent cell count reference ranges are not reported, since discordance with absolute values may lead to misinterpretation of CBC data. Current Interpretive Data was last revised on 2017. Eosinophil pct 0.2 % [facility] Comment: Interpretive Data Percent cell count reference ranges are not reported, since discordance with absolute values may lead to misinterpretation of CBC data. Current Interpretive Data was last revised on 2017. Basophil pct 0.3 % [facility] Comment: Interpretive Data Percent cell count reference ranges are not reported, since discordance with absolute values may lead to misinterpretation of CBC data. Current Interpretive Data was last revised on 2017. Blood 08/10/2024 5:58 PM CDT 08/10/2024 6:04 PM CDT Cm CORNELL LAB BLOOD ORDERA BLES Final Result Performing Organization Address City/[facility]/ZIP Co de Phone Number LAY [address] [address] * (ABNORMAL) CBC with auto differential (08/10/2024 5:58 PM CDT) WBC 6.04 3.80 - 9.90 K/cumm Hgb 13.8 13.0 - 17.5 g/dL [facility] Hct 41.6 38.9 - 50.3 % [facility] Plt 332 150 - 400 K/cumm [facility] MPV 9.8 9.1 - 12.3 fL [facility] RBC 4.31 4.30 - 5.80 M/cumm [facility] MCV 96.5(H) 81.3 - 96.4 fL [facility] MCH 32.0 27.1 - 33.3 pg [facility] MCHC 33.2 32.3 - 35.7 g/dL [facility] RDW CV 11.9 11.1 - 14.9 % [facility] RDW SD 42.6 35.7 - 48.1 fL [facility] NRBC abs 0.00 0.00 - 0.01 K/cumm [facility] Blood Venous blood specimen / Unknown 08/10/2024 5:58 PM CDT 08/10/2024 6:04 PM CDT Shahbaz Earl MD LAB BLOOD ORDERABLES Fin al Result Performing Organization Address City/[facility]/ZIP Co de Phone Number [place]AY [address] Department [place] [address] * (ABNORMAL) Comprehensive metabolic panel (08/10/2024 5:58 PM CDT) Sodium 136 135 - 145 mmol/L Potassium, pl 3.8 3.3 - 4.9 mmol/L [facility] Chloride 93(L) 97 - 110 mmol/L [facility] CO2 32 22 - 32 mmol/L [facility] Anion gap 11 2 - 15 mmol/L [facility] BUN 21 6 - 25 mg/dL [facility] Creatinine 0.84 0.80 - 1.30 mg/dL [facility] Glucose 125 70 - 199 mg/dL [facility] Comment: [...] CDT 08/10/2024 6:04 PM CDT us Shahbaz Earl MD LAB BLOOD ORDERABLES Fin al Result [facility] [address] Department [place] [address] * ECG 12 lead (08/10/2024 5:22 PM CDT) 08/10/2024 5:22 PM CDT Narrative [facility] - 08/12/2024 9:25 PM CDT Vent Rate: 116 bpm RR Interval: 514 msec TN Interval: 186 msec QRS Duration: 89 msec QT Interval: 324 msec QTC Interval: 393 msec P-R-T [place]: 78 - 63 - 54 degrees IMPRESSION: SINUS TACHYCARDIA WITH OCCASIONAL SUPRAVENTRICULAR PREMATURE COMPLEXES Electronically Signed By: Bill Terrazas MD, [facility] us Shahbaz Earl MD ECG ORDERABLES Final Re sult [facility] * IR Change G Tube (07/23/2024 10:22 AM CDT) Anatomical Region Laterality Modality Body N/A X-Ray Angiograph y 07/23/2024 11:0 1 AM CDT Impressions 07/23/2024 11:01 AM CDT Successful gastrostomy tube placement through existing tract. Electronically signed by: Jase Mcgee M.D. Narrative 07/23/2024 11:01 AM CDT EXAMINATION: IR CHANGE [...] skin and subcutaneous tissues were dilated to 22-Portuguese. Over the guidewire, a new 18-Portuguese gastrostomy tube was advanced into the stomach. [...] skin and subcutaneous tissues were dilated to 22-Portuguese. Over the guidewire, a new 18-Portuguese gastrostomy tube was advanced into the stomach. The balloon was inflated with 10 mL of sterile water. Contrast was injected to verify and document appropriate placement. The gastrostomy tube was flushed with saline and a dressing was applied. The patient tolerated the procedure well with no immediate complications. IMPRESSION: Successful gastrostomy tube placement through existing tract. Electronically signed by: Jase Mcgee M.D. Sushil Merritt MD IMG IR PROCEDURES Cathie [...] data was last reviewed 2021. Blood 07/23/2024 3:4 7 AM CDT 07/23/2024 5:13 AM CDT us Sushil Merritt MD LAB BLOOD ORDERABLES F inal Result [facility] [address] Department [place] [address] * (ABNORMAL) Differential, auto (07/23/2024 3:47 AM CDT) Neutrophil abs 1.97 1.50 - 6.50 K/cumm Imm gran abs 0.01 0.00 - 0.10 K/cumm [facility] Lymphocyte abs 0.66(L) 0.80 - 3.30 K/cumm [facility] Monocyte abs 0.64 0.20 - 0.80 K/cumm [facility] Eosinophil abs 0.09 0.00 - 0.50 K/cumm [facility] Basophil abs 0.02 0.00 - 0.10 K/cumm [facility] Neutrophil pct 58.0 % [facility] Comment: Interpretive Data Percent cell count reference ranges are not reported, since discordance with absolute values may lead to misinterpretation of CBC data. Current Interpretive Data was last revised on 2017. Imm gran pct 0.3 % [facility] Comment: Interpretive Data Percent cell count reference ranges are not reported, since discordance with absolute values may lead to misinterpretation of CBC data. Current Interpretive Data was last revised on 2017. Lymphocyte pct 19.5 % [facility] Comment: Interpretive Data Percent cell count reference ranges are not reported, since discordance with absolute values may lead to misinterpretation of CBC data. Current Interpretive Data was last revised on 2017. Monocyte pct 18.9 % [facility] Comment: Interpretive Data Percent cell count reference ranges are not reported, since discordance with absolute values may lead to misinterpretation of CBC data. Current Interpretive Data was last revised on 2017. Eosinophil pct 2.7 % [facility] Comment: Interpretive Data Percent cell count reference ranges are not reported, since discordance with absolute values may lead to misinterpretation of CBC data. Current Interpretive Data was last revised on 2017. Basophil pct 0.6 % [facility] Comment: Interpretive Data Percent cell count reference ranges are not reported, since discordance with absolute values may lead to misinterpretation of CBC data. Current Interpretive Data was last revised on 2017. Blood 07/23/2024 3:47 AM CDT 07/23/2024 5:13 AM CDT Sushil Merritt MD LAB BLOOD ORDERABLES F inal Result Performing Organization Address City/[facility]/ZIP Co de Phone Number LAY [id number] [place] [address] * (ABNORMAL) CBC with auto differential (07/23/2024 3:47 AM CDT) WBC 3.39(L) 3.80 - 9.90 K/cumm Hgb 10.7(L) 13.0 - 17.5 g/dL [facility] Hct 34.0(L) 38.9 - 50.3 % [facility] Plt 294 150 - 400 K/cumm [facility] MPV 10.7 9.1 - 12.3 fL [facility] RBC 3.29(L) 4.30 - 5.80 M/cumm [facility] MCV 103.3(H) 81.3 - 96.4 fL [facility] MCH 32.5 27.1 - 33.3 pg [facility] MCHC 31.5(L) 32.3 - 35.7 g/dL [facility] R[facility] CV 12.9 11.1 - 14.9 % [facility] RDW SD 49.0(H) 35.7 - 48.1 fL [facility] NRBC abs 0.00 0.00 - 0.01 K/cumm [facility] Blood 07/23/2024 3:47 AM CDT 07/23/2024 5:13 AM CDT Sushil Merritt MD LAB BLOOD ORDERABLES F inal Result Performing Organization Address City/[facility]/ZIP Co de Phone Number LAY [address] [facility] [place] [address] * (ABNORMAL) Protime-INR (07/23/2024 3:47 AM CDT) PT 13.3(H) 9.7 - 13.0 sec INR 1.23(H) 0.90 - 1.20 [facility] Comment: Interpretive data Oral anticoagulant therapeutic ranges: Venous thromboembolism prophylaxis or treatment: 2.0-3.0 CARDIOLOGY Standard range: 2.0-3.0 High-intensity range: 2.5-3.5 Refer to indication-specific guidelines for appropriate target ranges for prosthetic heart valve replacement. Current interpretive data was last revised on 2019. Blood 07/23/2024 3:47 AM CDT 07/23/2024 5:14 AM CDT Henrik Collins MD LAB BLOOD ORDERABLES F inal Result [facility] [address] Department [place] [address] * (ABNORMAL) Basic metabolic panel (07/23/2024 3:47 AM CDT) Sodium 138 135 - 145 mmol/L Potassium, pl 4.1 3.3 - 4.9 mmol/L [facility] Chloride 102 97 - 110 mmol/L [facility] CO2 28 22 - 32 mmol/L [facility] Anion gap 8 2 - 15 mmol/L [facility] BUN 18 6 - 25 mg/dL [facility] Creatinine 0.76(L) 0.80 - 1.30 mg/dL [facility] Glucose 93 70 - 199 mg/dL [facility] Comment: Interpretive Data Fasting glucose >/= 126 [...] ORDERABLES F inal Result Performing Organization Address City/[facility] Co de Phone Number LAY [address] [facility] [place] [address] * Check Sample (07/22/2024 4:14 AM CDT) ABO Rh A Positive [facility] OTHER 07/22/2024 4:14 AM CDT 07/22/2024 4:48 AM CDT Sushil Merritt MD LAB BLOOD ORDERABLES F inal Result Performing Organization Address [facility] de Phone Number LAY [address] [place] [address] CH * TN PERQ REPLACEMENT GTUBE NOT REQ REVJ GSTRST [...] Type and screen (07/22/2024 2:26 AM CDT) Perico, indirect Negative ABO Rh A Positive LAY Blood 07/22/2024 2:26 AM CDT 07/22/2024 3:18 AM CDT Narrative LAY - 07/22/2024 4:05 AM CDT Has the patient had Daratumumab or Isatuximab in the past 6 months?->Unknown Eber Dumont MD LAB BLOOD BANK TEST ORDERA BLES Final Result [facility] [address] [place] [address] * eGFR (07/21/2024 11:50 PM CDT) eGFR >90 >=60 mL/min/1. 73 [...] 0 PM CDT 07/21/2024 11:55 PM CDT Eber Dumont MD LAB BLOOD ORDERABLES Final Result [facility] [address] [facility] Department [place] [address] * (ABNORMAL) Differential, auto (07/21/2024 11:50 PM CDT) Neutrophil abs 4.43 1.50 - 6.50 K/cumm Imm gran abs 0.03 0.00 - 0.10 K/cumm [facility] Lymphocyte abs 0.53(L) 0.80 - 3.30 K/cumm [facility] Monocyte abs 0.67 0.20 - 0.80 K/cumm [facility] Eosinophil abs 0.02 0.00 - 0.50 K/cumm [facility] Basophil abs 0.03 0.00 - 0.10 K/cumm [facility] Neutrophil pct 77.6 % [facility] Comment: Interpretive Data Percent cell count reference ranges are not reported, since discordance with absolute values may lead to misinterpretation of CBC data. Current Interpretive Data was last revised on 2017. Imm gran pct 0.5 % [facility] Comment: Interpretive Data Percent cell count reference ranges are not reported, since discordance with absolute values may lead to misinterpretation of CBC data. Current Interpretive Data was last revised on 2017. Lymphocyte pct 9.3 % [facility] Comment: Interpretive Data Percent cell count reference ranges are not reported, since discordance with absolute values may lead to misinterpretation of CBC data. Current Interpretive Data was last revised on 2017. Monocyte pct 11.7 % [facility] Comment: Interpretive Data Percent cell count reference ranges are not reported, since discordance with absolute values may lead to misinterpretation of CBC data. Current Interpretive Data was last revised on 2017. Eosinophil pct 0.4 % [facility] Comment: Interpretive Data Percent cell count reference ranges are not reported, since discordance with absolute values may lead to misinterpretation of CBC data. Current Interpretive Data was last revised on 2017. Basophil pct 0.5 % [facility] Comment: Interpretive Data Percent cell count reference ranges are not reported, since discordance with absolute values may lead to misinterpretation of CBC data. Current Interpretive Data was last revised on 2017. Blood 07/21/2024 11:5 0 PM CDT 07/21/2024 11:53 PM CDT Eber Dumont MD LAB BLOOD ORDERABLES Final Result [facility] [address] [place] [address] * (ABNORMAL) CBC with auto differential (07/21/2024 11:50 PM CDT) WBC 5.71 3.80 - 9.90 K/cumm Hgb 11.9(L) 13.0 - 17.5 g/dL [facility] Hct 35.8(L) 38.9 - 50.3 % [facility] Plt 309 150 - 400 K/cumm [facility] MPV 9.6 9.1 - 12.3 fL [facility] RBC 3.57(L) 4.30 - 5.80 M/cumm [facility] MCV 100.3(H) 81.3 - 96.4 fL [facility] CH MCH 33.3 27.1 - 33.3 pg [facility] MCHC 33.2 32.3 - 35.7 g/dL [facility] CH RDW CV 12.6 11.1 - 14.9 % [facility] CH RDW SD 46.8 35.7 - 48.1 fL [facility] NRBC abs 0.00 0.00 - 0.01 K/cumm [facility] Blood Venous blood specimen / Unknown 07/21/2024 11:50 PM CDT 07/21/2024 11:53 PM CDT Eber Dumont MD LAB BLOOD ORDERABLES Final Result [facility] [address] [place] [address] * Protime-INR (07/21/2024 11:50 PM CDT) PT 12.1 9.7 - 13.0 sec INR 1.12 0.90 - 1.20 [facility] Comment: Interpretive data Oral anticoagulant therapeutic ranges: Venous thromboembolism prophylaxis or treatment: 2.0-3.0 CARDIOLOGY Standard range: 2.0-3.0 High-intensity range: 2.5-3.5 Refer to indication-specific guidelines for appropriate target ranges for prosthetic heart valve replacement. Current interpretive data was last revised on 2019. Blood 07/21/2024 11:5 0 PM CDT 07/21/2024 11:53 PM CDT Eber Dumont MD LAB BLOOD ORDERABLES Final Result [facility] [address] [place] [address] * (ABNORMAL) Basic metabolic panel (07/21/2024 11:50 PM CDT) Sodium 136 135 - 145 mmol/L Potassium, pl 4.3 3.3 - 4.9 mmol/L [facility] Chloride 97 97 - 110 mmol/L [facility] CO2 31 22 - 32 mmol/L [facility] Anion gap 8 2 - 15 mmol/L [facility] BUN 18 6 - 25 mg/dL [facility] Creatinine 0.63(L) 0.80 - 1.30 mg/dL [facility] Glucose 117 70 - 199 mg/dL [facility] Comment: Interpretive [...] 2022. 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 [address] [place] [address] Medical Oncologist/Swimming Pool Servicer Medical Oncology 02/13/24 Francis Tuttle MD [address] [facility] [address] [place] [address] Consulting Physician Radiation Oncology 02/13/24 Wilma Groves MD [address] [facility] OTOLARYNGOLOGY, [address] [place] [address] Surgeon Otolaryngology 02/13/24
--- OUTSIDE RECORDS SUMMARY | 2024-10-01 15:10 | XMS_ITS ---
Author Organization [facility] Address [address] [place] [address] Care Team Providers Care Costume Mistress Name Role Phone [facility] Unavailable [phone] REASON FOR VISIT 07:30 am RL TO EM, General Health Encounters Encounter Location Date Provider Diagnosis [facility] [address] [place] [address] 12/06/2023 [facility] Plan Of Treatment No Information Progress Notes * Jesus MENDESDOB: (64 yo M)Acc No.[id number]:12/06/2023 Patient: Jesus BOUDREAUX Provider: Tara WALLACE [facility] :1960 A ge:63 Y S ex:Male Date:12/06/2023 Phone: Address:[address] [place], [place] [id number] Subjective: * Chief Complaints: * 1 . 07:30 am RL TO EM, General Health. * Medical History: Objective: * Vitals: Assessment: Plan: * Treatment: * Billing Information: * Visit Code: * Procedure Codes: * Electronic signature of [facility] on 10/01/2024 at 04:09 PM EDT Sign off status: Pending * Provider: Tara DE LUNA Date: 12/06/2023 Generated for Adiel goodson/Rob/Mary Jo on: 10/01/2024 04:09 PM EDT
[2024-10-01 15:24] VITALS: BP 140/115; PULSE 118; RESP 18; O2SAT 98
--- NOTE | 2024-10-01 15:37 | ECG_ITS ---
Test Date: 2024-10-01 16:18:33 Measurements Intervals [place] Rate: 126 P: 74 NM: 166 QRS: 68 QRSD: 85 T: 19 QT: 305 QTc: 442 Interpretive Statements SINUS TACHYCARDIA MINIMAL Q WAVES- INFERIOR LEADS BORDERLINE ST-T WAVE ABNORMALITY- INFERIOR LEADS BASELINE ARTIFACT- I, II, III, AVR, AVL, AVF, V1-V6 ABNORMAL ECG No previous ECG available for comparison Electronically Signed On 10-01-2024 16:48:10 CDT by Sd Benoit D.O.
--- NOTE | 2024-10-01 15:39 | ED.GENADULT ---
HPI - General Adult General Chief complaint: Unspecified <Tigist Lindsay APRN - Last Filed: 10/01/24 15:46> Stated complaint: Difficulty breathing-Hx throat cancer <Tigist Lindsay APRN - Last Filed: 10/01/24 15:46> Time Seen by Provider: 10/01/24 15:30 <Tigist Lindsay APRN - Last Filed: 10/01/24 15:46> Focused HPI: Patient is a 64-year-old male who presents to the ER with shortness of breath and difficulty swallowing. He reports he was recently diagnosed with throat cancer and has received one treatment of radiation. Patient reports he has been coughing more lately. He reports he is not on steroids at this time. Patient denies any other medical history relevant to this ER visit. He denies any recent fevers, chest pain, or neck stiffness. GENERAL: Ill-appearing, well-nourished, and in mild acute distress. HEAD: Normocephalic, atraumatic. CHEST: Clear to auscultation. + respiratory distress. HEART: Tachycardia.? NEURO: ?Alert and oriented x3. Patient screened in triage and initial orders placed.? ?Additional care and disposition to be based upon?diagnostic testing and treatment. <Tigist Lindsay APRN - Last Filed: 10/01/24 15:46> History of Present Illness HPI narrative: A agree with the HPI as above, patient has his cancer care at [facility] facility at [facility]. Has gone through chemotherapy and radiation therapy, came in with worsening shortness of breath and difficulty tolerating secretions. Cannot lie flat. Uses a G-tube for aspiration. <Cheng Leroy MD - Last Filed: 10/01/24 21:40> Related Data Allergies/adverse reactions: Allergies Allergy/AdvReac Type Severity Reaction Status Date / Time Penicillins Allergy Intermediate Rash Verified 10/01/24 15:06 <Tigist Lindsay APRN - Last Filed: 10/01/24 15:46> Review of Systems Review of Systems: As reviewed above in HPI <Cheng Leroy MD - Last Filed: 10/01/24 21:40> PMFSH Family History Family History: Family History Father Family history of gallbladder disease Family history of Alzheimer's disease Sibling Family history of gallbladder disease Mother Family history of heart disease in male family member before age 55 <Tigist Lindsay APRN - Last Filed: 10/01/24 15:46> Social History Social History: Social History Alcohol intake: current <Tigist Lindsay APRN - Last Filed: 10/01/24 15:46> Exam Narrative: GENERAL: Uncomfortable appearing, sitting upright complaining of shortness of breath with a hoarse voice. HEAD: [Normocephalic, atraumatic.] EYES: [PERRLA and EOMI.] ENT: Nares clear, no rhinorrhea or epistaxis. Mucous membranes moist. NECK: Supple. CHEST: Stridorous upper airway with inspiration, clear to breath sounds bilaterally in the lung nicole, no wheezing or tachypnea. HEART: [Regular rate and rhythm]. No murmur heard. [Normal peripheral pulses.] ABDOMEN: [Soft, nondistended], [nontender], [No rigidity or guarding] EXTREMITIES: Normal range of motion. [No edema.] SKIN: Warm, dry, no rash. NEURO: [No focal deficits]. Alert and oriented [x3.] PSYCH: [Normal mood and affect.] <Cheng Leroy MD - Last Filed: 10/01/24 21:40> Course Vital Signs Vital signs: Vital Signs Pulse Rate 118 H 10/01/24 15:24 Respiratory Rate 18 10/01/24 15:24 Blood Pressure 140/115 H 10/01/24 15:24 Pulse Oximetry 98 10/01/24 15:24 Oxygen Delivery Room Air 10/01/24 15:24 Pulse Rate 110 H 10/01/24 17:18 Respiratory Rate 20 10/01/24 18:58 Blood Pressure 113/94 H 10/01/24 17:18 Pulse Oximetry 98 10/01/24 17:18 Oxygen Delivery Room Air 10/01/24 15:58 <Tigist Lindsay APRN - Last Filed: 10/01/24 15:46> Vital Signs Pulse Rate 118 H 10/01/24 15:24 Respiratory Rate 18 10/01/24 15:24 Blood Pressure 140/115 H 10/01/24 15:24 Pulse Oximetry 98 10/01/24 15:24 Oxygen Delivery Room Air 10/01/24 15:24 Pulse Rate 110 H 10/01/24 17:18 Respiratory Rate 20 10/01/24 18:58 Blood Pressure 113/94 H 10/01/24 17:18 Pulse Oximetry 98 10/01/24 17:18 Oxygen Delivery Room Air 10/01/24 15:58 <Cheng Leroy MD - Last Filed: 10/01/24 21:40> Medical Decision Making MDM Narrative Medical decision making narrative: 64-year-old male with throat cancer currently undergoing radiation and chemotherapy with [facility] group under the [facility]. Patient presents with respiratory complaints including difficulty breathing, inability to lie flat, trouble with his oral secretions and frequent coughing. He is tachycardic with a heart rate in the low 100s to 110s, normal blood pressure, saturating 98% on room air but does appear uncomfortable and can not tolerate lying flat. Coughing infrequently. Posterior oropharyngeal examination is unrevealing, he states he has difficulty breathing and swallowing. Able to converse in the horse sentences and does have some stridor with auscultation of the neck. Patient given racemic epinephrine and Decadron and re-evaluated with improvement. CTs of the thorax and neck were ordered for further evaluation. He is now able to lie flat and tolerating his secretions at this time. Suspicion presently is that his cancer is causing his symptomatology, eroding weight is airway, possibly having some component of aspiration as he is having difficulty swallowing and already has a G-tube for this. Possibility of thromboembolic disease given his tachycardia but less likely. Patient's workup shows no leukocytosis or significant anemia. Platelet count 420. Electrolytes are unremarkable. Normal creatinine, normal glucose and LFTs. Soft tissue of the neck CT shows soft tissue lesions posterior to the base of tongue with thickening edema of the supraglottic airway, epiglottic airway, mild narrowing at the level of the glottis and subcutaneous stranding likely secondary to radiation changes. Minimal glottic and endotracheal fluid and debris is also seen. Tracheal secretions seen otherwise no acute process in the chest on CT angiography and no evidence of a PE. Patient does have improvement in his clinical exam and able tolerate secretions now but given his CT findings and cancerous changes he will have to be transferred to the [facility] group given his concerns and will likely be admitted to a higher level of care for airway monitoring. Discussed the case with the [facility] transfer center and was connected with Dr. Yeager from ear nose and throat at [facility] who recommended emergent ER to ER transfer for school at bedside. Patient is hemodynamically stable at this time and tolerating oral secretions, airway concerns or less than on his arrival and decision was hold off on any kind of mechanical airway intervention such as intubation at this time. Patient felt comfortable with the transfer and ALS ambulance is were arranged to transfer him to [facility] under accepting physician Dr. Garcia in the emergency department at [facility]. There have been numerous delays in patient's transfer at this time including ground ambulance companies that are delaying his transfer by multiple hours. Decision was made to transfer him via helicopter given expedient nature of patient's concerns and need for ear nose and throat evaluation at another facility. Patient was comfortable with transfer and air evac was arranged to transfer him at this time. Patient left the facility without further incident remained hemodynamically stable with a patent airway. <Cheng Leroy MD - Last Filed: 10/01/24 21:40> Medical Records Medical records reviewed: Yes I reviewed the external patient's medical records. <Cheng Leroy MD - Last Filed: 10/01/24 21:40> Vital Signs Vital Signs: Vital Signs Pulse Rate 118 H 10/01/24 15:24 Respiratory Rate 18 10/01/24 15:24 Blood Pressure 140/115 H 10/01/24 15:24 Pulse Oximetry 98 10/01/24 15:24 Oxygen Delivery Room Air 10/01/24 15:24 Pulse Rate 110 H 10/01/24 17:18 Respiratory Rate 20 10/01/24 18:58 Blood Pressure 113/94 H 10/01/24 17:18 Pulse Oximetry 98 10/01/24 17:18 Oxygen Delivery Room Air 10/01/24 15:58 <Tigist Lindsay APRN - Last Filed: 10/01/24 15:46> Vital Signs Pulse Rate 118 H 10/01/24 15:24 Respiratory Rate 18 10/01/24 15:24 Blood Pressure 140/115 H 10/01/24 15:24 Pulse Oximetry 98 10/01/24 15:24 Oxygen Delivery Room Air 10/01/24 15:24 Pulse Rate 110 H 10/01/24 17:18 Respiratory Rate 20 10/01/24 18:58 Blood Pressure 113/94 H 10/01/24 17:18 Pulse Oximetry 98 10/01/24 17:18 Oxygen Delivery Room Air 10/01/24 15:58 <Cheng Leroy MD - Last Filed: 10/01/24 21:40> Lab Data Lab results reviewed: Yes I reviewed the patient's lab results. <Cheng Leroy MD - Last Filed: 10/01/24 21:40> Result diagrams: 10/01/24 16:12 10/01/24 16:12 <Tigist Lindsay APRN - Last Filed: 10/01/24 15:46> Labs: Lab Results 10/01/24 Range/Units 16:12 WBC 8.1 (4.5-10.0) K/mm3 RBC 3.83 L (4.6-6.20) M/mm3 Hgb 11.9 L (14.0-18.0) g/dL Hct 36.9 L (42.0-52.0) % MCV 96.3 (80-100) fl MCH 31.1 (26-34) pg MCHC 32.2 (32-36) g/dl RDW 13.2 (11.5-14.5) % Plt Count 420 H (150-375) k/mm3 MPV 9.6 (7.4-10.4) fl Immature Gran % (Auto) 0.6 H (0-0.5) % Neut % (Auto) 77.2 H (45.5-73.1) % Lymph % (Auto) 8.3 L (18.3-44.2) % [place] % (Auto) 12.9 H (2.6-8.5) % Eos % (Auto) 0.5 (0-4.4) % Baso % (Auto) 0.5 (0.2-1.2) % Lymph # (Auto) 0.67 L (0.9-3.2) K/mm3 [place] # (Auto) 1.0 H (0.1-0.6) K/mm3 Eos # (Auto) 0.0 (0-0.3) K/mm3 Baso # (Auto) 0.0 (0.0-0.1) K/mm3 Abs Immat Gran (auto) 0.05 H (0.00-0.031) K/mm3 Absolute Neuts (auto) 6.2 (1.3-6.7) K/mm3 Absolute Nucleated RBC 0.000 (0.0-0.012) K/mm3 Nucleated RBC % 0.0 (0.0-0.2) % PT 14.5 (11.1-14.7) Seconds INR 1.1 APTT 28.8 (22.3-36.8) Seconds Sodium 134 L (137-145) mmol/L Potassium 4.0 (3.4-5.0) mmol/L Chloride 93 L (98-107) mmol/L Carbon Dioxide 33 H (22-30) mmol/L Anion Gap 8 (4-12) mmol/L BUN 20 (9-20) mg/dL Creatinine 0.59 L (0.7-1.3) mg/dL Estim Creat Clear Calc 103 ml/min Estimated GFR > 60 (59 - ) Glucose 146 H (65-110) mg/dL Calcium 9.9 (8.4-10.2) mg/dL Magnesium 2.2 (1.6-2.3) mg/dL Total Bilirubin 0.5 (0.2-1.3) mg/dL AST 28 (17-59) U/L ALT 15 (6-50) U/L Alkaline Phosphatase 70 (38-126) U/L Total Protein 8.4 H (6.3-8.2) g/dL Albumin 4.0 (3.5-5.1) g/dL <Tigist Lindsay, SENIOR APPLICATIONS ENGINEER - Last Filed: 10/01/24 15:46> Lab Results 10/01/24 Range/Units 16:12 WBC 8.1 (4.5-10.0) K/mm3 RBC 3.83 L (4.6-6.20) M/mm3 Hgb 11.9 L (14.0-18.0) g/dL Hct 36.9 L (42.0-52.0) % MCV 96.3 (80-100) fl MCH 31.1 (26-34) pg MCHC 32.2 (32-36) g/dl RDW 13.2 (11.5-14.5) % Plt Count 420 H (150-375) k/mm3 MPV 9.6 (7.4-10.4) fl Immature Gran % (Auto) 0.6 H (0-0.5) % Neut % (Auto) 77.2 H (45.5-73.1) % Lymph % (Auto) 8.3 L (18.3-44.2) % [place] % (Auto) 12.9 H (2.6-8.5) % Eos % (Auto) 0.5 (0-4.4) % Baso % (Auto) 0.5 (0.2-1.2) % Lymph # (Auto) 0.67 L (0.9-3.2) K/mm3 [place] # (Auto) 1.0 H (0.1-0.6) K/mm3 Eos # (Auto) 0.0 (0-0.3) K/mm3 Baso # (Auto) 0.0 (0.0-0.1) K/mm3 Abs Immat Gran (auto) 0.05 H (0.00-0.031) K/mm3 Absolute Neuts (auto) 6.2 (1.3-6.7) K/mm3 Absolute Nucleated RBC 0.000 (0.0-0.012) K/mm3 Nucleated RBC % 0.0 (0.0-0.2) % PT 14.5 (11.1-14.7) Seconds INR 1.1 APTT 28.8 (22.3-36.8) Seconds Sodium 134 L (137-145) mmol/L Potassium 4.0 (3.4-5.0) mmol/L Chloride 93 L (98-107) mmol/L Carbon Dioxide 33 H (22-30) mmol/L Anion Gap 8 (4-12) mmol/L BUN 20 (9-20) mg/dL Creatinine 0.59 L (0.7-1.3) mg/dL Estim Creat Clear Calc 103 ml/min Estimated GFR > 60 (59 - ) Glucose 146 H (65-110) mg/dL Calcium 9.9 (8.4-10.2) mg/dL Magnesium 2.2 (1.6-2.3) mg/dL Total Bilirubin 0.5 (0.2-1.3) mg/dL AST 28 (17-59) U/L ALT 15 (6-50) U/L Alkaline Phosphatase 70 (38-126) U/L Total Protein 8.4 H (6.3-8.2) g/dL Albumin 4.0 (3.5-5.1) g/dL <Cheng Leroy MD - Last Filed: 10/01/24 21:40> Imaging Data Attestation: I personally reviewed and interpreted this imaging study as follows: <Cheng Leroy MD - Last Filed: 10/01/24 21:40> My impression: Impressions Chest CTA 10/01/24 17:23 IMPRESSION: No CT evidence of acute pulmonary embolus. Tracheal secretions, otherwise no acute process detected in the chest. Soft Tissue Neck CT 10/01/24 17:31 IMPRESSION: Lobular soft tissue lesions posterior to the base of the tongue, with associated thickening and edema of the supraglottis airway and epiglottis. Mild airway narrowing at the level of the glottis. Subcutaneous stranding in the anterior neck and parapharyngeal spaces. These findings may represent a combination of primary tumor and treatment related change. Comparison to outside studies would be helpful. Minimal glottic and endotracheal fluid/debris. <Cheng Leroy MD - Last Filed: 10/01/24 21:40> Critical Care Time Critical Care Time Critical Care Time: Yes <Cheng Leroy MD - Last Filed: 10/01/24 21:40> Total Critical Care Time: 75 <Cheng Leroy MD - Last Filed: 10/01/24 21:40> Discharge Plan Discharge Clinical Impression: Laryngeal stridor, At risk for difficult intubation on pre-intubation airway assessment, Difficulty breathing, Cancer of head and neck, Difficulty clearing secretions <Tigist Lindsay APRN - Last Filed: 10/01/24 15:46> Patient Disposition: Acute Care Hospital <Tigist Lindsay APRN - Last Filed: 10/01/24 15:46> Condition: Serious <Tigist Lindsay APRN - Last Filed: 10/01/24 15:46> Patient Language: Irish <Tigist Lindsay APRN - Last Filed: 10/01/24 15:46> Follow-up/Referrals: Eliseo Muñoz MD [Physician] - <Tigist Lindsay APRN - Last Filed: 10/01/24 15:46> Time of Disposition: 21:40 <Tigist Lindsay APRN - Last Filed: 10/01/24 15:46> 21:40 <Cheng Leroy MD - Last Filed: 10/01/24 21:40>
[2024-10-01 15:58] VITALS: BP 138/88; PULSE 114; RESP 18; O2SAT 96
[2024-10-01] MEDS: dexAMETHasone SOD PHOS INJ 10 MG/ML 1 ML VIAL IV PUSH (16:15)
[2024-10-01 16:23] LABS: Basophils Percent Auto 0.5 % (0.2-1.2); Eosinophils Percent Auto 0.5 % (0-4.4); Hematocrit 36.9 % (42.0-52.0); Hemoglobin 11.9 g/dL (14.0-18.0); Immature Granulocyte Absolute 0.05 K/mm3 (0.00-0.031); Immature Granulocyte Percent A 0.6 % (0-0.5); Lymphocytes Absolute Auto 0.67 K/mm3 (0.9-3.2); Lymphocytes Percent Auto 8.3 % (18.3-44.2); Mean Corpuscular HGB Conc 32.2 g/dl (32-36); Mean Corpuscular Hemoglobin 31.1 pg (26-34); Mean Corpuscular Volume 96.3 fl (80-100); Mean Platelet Volume 9.6 fl (7.4-10.4); Monocytes Percent Auto 12.9 % (2.6-8.5); Neutrophils Absolute Auto 6.2 K/mm3 (1.3-6.7); Neutrophils Percent Auto 77.2 % (45.5-73.1); Platelet Count Result 420 k/mm3 (150-375); Red Blood Count 3.83 M/mm3 (4.6-6.20); Red Cell Distribution Width 13.2 % (11.5-14.5); White Blood Count 8.1 K/mm3 (4.5-10.0)
[2024-10-01 16:33] LABS: Alanine Aminotransferase 15 U/L (6-50); Alkaline Phosphatase 70 U/L (38-126); Anion Gap 8 mmol/L (4-12); Aspartate Amino Transferase 28 U/L (17-59); Bilirubin,Total 0.5 mg/dL (0.2-1.3); Blood Urea Nitrogen 20 mg/dL (9-20); Calcium 9.9 mg/dL (8.4-10.2); Carbon Dioxide 33 mmol/L (22-30); Chloride 93 mmol/L (98-107); Estimated CRCL calculation 103 ml/min; Estimated Glomerular Filt Rate > 60; Glucose 146 mg/dL (65-110); Magnesium 2.2 mg/dL (1.6-2.3); Sodium 134 mmol/L (137-145); Total Protein 8.4 g/dL (6.3-8.2)
[2024-10-01 16:34] LABS: INR 1.1; Prothrombin Time 14.5 Seconds (11.1-14.7)
[2024-10-01 16:35] LABS: Partial Thromboplastin Time 28.8 Seconds (22.3-36.8)
[2024-10-01 17:18] VITALS: BP 113/94; PULSE 110; RESP 18; O2SAT 98
--- OUTSIDE RECORDS SUMMARY | 2024-10-01 18:41 | XMS_ITS ---
Author Organization [facility] Address [address] [place] [address] Care Team Providers Care Kosher Sealer Name Role Phone Michelle Handy RN Unavailable UnavailNoemí ReaW Unavailable Unavaila Pro Forbes MD Unavailable [phone] Francis Tuttle MD Unavailable [phone] Wilma Groves MD Unavailable [phone] Gia Foss MD Primary Care Provider [phone] Active Problems Problem Noted Date Diagnosed Date [...]
--- OUTSIDE RECORDS SUMMARY | 2024-10-01 18:41 | XMS_ITS | Encounter Summary ---
Author Organization [facility] Address [address] [place] [address] Phone Care Team Providers Care Lead Manufacturing Technician Name Role Phone Michelle Handy RN Unavailable Unavailabl e Noemí PittsW Unavailable Unavaila Pro Forbes MD Unavailable [phone] Francis Tuttle MD Unavailable [phone] Wilma Groves MD Unavailable Gia Foss MD Primary Care Provider [phone] Encounter Details Date Type Department Care Team (Late st Contact Info) Description 10/01/2024 Telephone [facility] Oncology [address] [place] [address] Social History Tobacco Use Types Packs/Day Years Used Date Smoking Tobacco: Never Smokeless Tobacco: Never Alcohol Use Standard Drinks/Week Comments Not Currently 0 (1 standard drink = 0.6 oz pur e alcohol) [facility] Utilities Answer Date Recorded In the past [...] often do you attend chur ch or buddhist services? Never 08/24/2024 Do you belong to [...] any time in the past 12 m [facility], were you homeless or living in a penitentiary (including now)? 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 She reports he has been on multiple different formulas and has not tolerated any of them well until TwoCal HN so is not inclined to try a different formula. They offered to send Nutren 2.0, but he has been on that previously and did not tolerate it well. RD contacted dietitian at [facility], who reports they may be able to get ready to hang formula Sending Gruvie Peptide 1.5 samples... 1-2 cases for poultry picker at [facility] if needed documented in this encounter Plan of Treatment Not on file documented as of this encounter Visit Diagnoses Not on filedocumented in this encounter Care Teams Lead Manufacturing Technician Relationship Specialty Start Date End Date Gia Foss MD [address] [facility] [address] [place] [address] PCP - General Internal Medicine 06/12/24 Michelle Handy, RN Nurse Navigator 02/09/24 Noemí Pitts LCSW Logging Specialist 02/10/24 Pro Gama MD [address] [facility] [address] [place] [address] Medical Oncologist/Gas Singer Medical Oncology 02/13/24 Francis Tuttle MD [address] [facility] [address] [place] [address] Consulting Physician Radiation Oncology 02/13/24 [place] [address] [place] [address] DEPT OTOLARYNGOLOGY, [address] [place] [address] Surgeon Otolaryngology 02/13/24 documented as of this encounter
--- OUTSIDE RECORDS SUMMARY | 2024-10-01 18:41 | XMS_ITS | Referral Summary ---
Author Organization [facility] Address [address] [place] [address] Care Team Providers Care Bag Turner Name Role Phone Michelle Handy RN Unavailable UnavailNoemí Rea [facility] Unavailable Unavaila Pro Forbes MD Unavailable [phone] Francis Tuttle MD Unavailable [phone] Wilma Groves MD Unavailable [phone] Gia Foss MD Primary Care Provider [phone] Encounters Date Type Department Care Team Description 10/01/2024 Emergency [facility] Emergency Department [address] [place] [address] 10/01/2024 Telephone [facility] On[facility] [address] [place] [address] Yoselin Coelho, TOBIAS 09/21/[address] 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cology [address] [place] [phone] Shayna Valencia NP Oropharyngeal cancer (HCC) (Primary Dx) 09/12/2024 Documentation [facility] On[facility] [address] [place] [phone] Leticia Queen, TOBIAS 09/12/2024 Orders Only [facility] On[facility] [address] [place] [phone] Homa Melendez RN 09/12/2024 8:30 AM CDT Infusion [address] [address] Oropharyngeal cancer (HCC) (Primary Dx) 09/05/2024 Documentation [facility] On[facility] [address] [place] [phone] Leticia Queen, TOBIAS 09/05/[address] [facility] [address] [place] [address] Corbin Early MD PhD Nausea (Primary Dx); Oropharyngeal cancer (HCC); Severe protein-calorie malnutrition 09/05/2024 Telephone [facility] [address] [phone] Michelle Handy, teacher citizenship Follow Up 09/05/2024 10:00 AM CDT Infusion [address] [address] Oropharyngeal cancer (HCC) (Primary Dx) 2024 11:15 AM CDT Office Visit [facility] On[facility] [address] [facility] [address] [place] [phone] Pro Gama MD Oropharyngeal cancer (HCC) (Primary Dx) 09/03/2024 Documentation [facility] On[facility] [address] [place], [place] [address] [address] Leticia Queen, TOBIAS 09/03/2024 10:30 AM CDT [address] [address] Oropharyngeal cancer (HCC) (Primary Dx); Dehydration 09/03/2024 Orders Only [facility] On[facility] [address] [place] [phone] Shayna Valencia NP Dehydration (Primary Dx) 09/03/2024 9:00 AM CDT Office Visit 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; Lymphedema; Odynophagia; Dysphagia, unspecified type 08/31/2024 Telephone [facility] On[facility] [address] [place], [place] [address] [address] Leticia Queen, TOBIAS 08/22/2024 6:58 PM CDT - 08/29/2024 6:50 PM CDT Hospital Encounter [address] [address] Cristina Mora MD Brother, Michele, MD Hultgren, MD Mike Bowen Savitha Venkatkrishna, MD Intractable nausea and vomiting (Primary Dx); Dehydration; Hypokalemia; Primary hypertension; Hypophosphatemia; Severe malnutrition; Radiation esophagitis Discharge Disposition: Discharge to home or self care 08/22/2024 Telephone [facility] On[facility] [address] [place], [place] [address], [place] [address] Leticia Queen, RD 08/21/2024 Telephone [facility] Oncology [address] [place] [phone] Homa Melendez RN 08/21/2024 7:53 AM CDT - 08/21/2024 11:59 PM CDT Hospital Encounter [facility] [place] [address] Oropharyngeal cancer (HCC) Discharge Disposition: Discharge to home or self care 08/20/2024 Telephone [facility] Oncology [address] [place] [phone] Leticia Queen, RD 08/16/2024 Telephone [facility] On[facility] [address] [place] [address] [phone] Leticia Queen, RD 08/16/[address] [facility] [address] [place] [phone] Francis Tuttle MD Personal history of irradiation (Primary Dx); Radiation esophagitis; Encounter for follow-up examination after completed treatment for malignant neoplasm; Severe protein-calorie malnutrition 08/15/2024 Telephone [facility] [address] [facility] [place] [phone] Leticia Queen, RD 08/14/2024 Telephone [facility] On[facility] [address] [place], [place] [address] [place] [phone] Leticia Queen, RD 08/14/2024 Telephone [facility] Oncology [address] [place] [phone] Homa Melendez, KRISTY Reschedule 08/13/2024 Documentation [facility] On[facility] [place] [phone] Leticia Queen, RD 08/13/2024 Orders Only [facility] On[facility] [address] [place], [place] [address]am [facility] [place] [phone] Francis Tuttle MD 08/13/2024 1:30 PM CDT Clinical Support [facility] at [address] [address] Oropharyngeal cancer (HCC) (Primary Dx); Dehydration 08/13/2024 Orders Only [facility] On[facility] [address] [place] [phone] Francis Tuttle MD Dehydration (Primary Dx); Intractable vomiting with nausea; Oropharyngeal cancer (HCC) 08/13/2024 Results Follow-Up [facility] Primary Care at [facility] [address] [phone] Gia Foss MD CBC with auto differential, Comprehensive metabolic panel, Differential, auto, Additional followed-up results: 2 08/13/2024 11:00 AM CDT Office Visit [facility] [address] [place] [phone] Francis Tuttle MD Oropharyngeal cancer (HCC) (Primary Dx); Personal history of irradiation; Cancer-related pain 08/10/2024 5:39 PM CDT - 08/10/2024 9:35 PM CDT Emergency [facility] Emergency Department [address] [place] [address] Shahbaz Earl MD Nausea and vomiting, unspecified vomiting type (Primary Dx) Discharge Disposition: Discharge to home or self care 08/10/2024 Telephone [facility] On[facility] [address] [place] [phone] 08/09/2024 Telephone [facility] On[facility] [address] [place] [phone] 08/08/[address] [facility] [address] [place] [phone] Yamila Kam RN 07/31/2024 [facility] Post Discharge Follow up phone call [facility] [address] [place] [address] Tiffany Hernandez RN 07/30/2024 [facility] Post Discharge Follow up phone call [address] [address] Tiffany Hernandez, KRISTY 07/26/2024 [facility] Post Discharge Follow up phone call [address] [address] Tiffany Hernandez, KRISTY 07/23/2024 Telephone [facility] Medical Group Primary Care at [facility] - [address] [place] [phone] Gia Foss MD MARY Questions 07/21/2024 10:36 PM CDT - 07/23/2024 3:35 PM CDT Hospital Encounter [address] [phone] Eber Dumont MD [place], MD Karina Rosenberg, Henrik Aguirre MD Dislodged gastrostomy tube (Primary Dx) Discharge Disposition: Discharge to home or self care 07/22/2024 Results Follow-Up [facility] Primary Care at [facility] - [address] [place] [phone] Gia Foss MD CBC with auto differential, Basic metabolic panel, Type and screen, Additional followed-up results: 4 07/13/2024 Telephone [facility] Mar[facility] Trans[facility] 7th Floor, [place] [phone] Aditi Dougherty B.A. 07/13/2024 11:00 AM CDT Office Visit [facility] [address] [place] [phone] Renee Shipman NP Oropharyngeal cancer (HCC) (Primary Dx); Encounter for follow-up examination after completed treatment for malignant neoplasm; Personal history of irradiation 07/11/2024 Telephone [facility] Oncology [address] [place] [phone] Leticia Queen, TOBIAS 07/06/2024 Telephone [facility] On[facility] [address] [place] [phone] Leticia Queen, TOBIAS 07/03/2024 Telephone [facility] [address] [facility] 4th [place] [address] Michelle Handy, teacher citizenship Follow Up; Navigator Treatment End Check In [...] drink = 0.6 oz pur e alcohol) [facility] Utilities Answer Date Recorded In the [...] often do you attend chur ch or zoroastrian services? Never 08/24/2024 Do you belong to any clubs o r organizations such as episcopal groups, unions, fraternal or athletic groups, or [...] were you homeless or living in a assisted (including now)? 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 Not on [...] CHECK SAMPLE Routine 07/22/2024 4:14 AM CDT OK PERQ REPLACEMENT GTUBE NOT REQ REVJ GSTRST [...] LAB BLOOD ORDERABLE S Final Result LAY YARITZA [address] Department [place] [address] * Phosphorus (08/29/2024 3:54 AM CDT) Phosphorus, pl 3.3 2.3 - 4.5 mg/dL Blood 08/29/2024 3:54 AM CDT 08/29/2024 5:46 AM CDT us Daly Villela MD LAB [place] [address] [address] [place] [place] [address] * Magnesium (08/29/2024 3:54 AM CDT) Magnesium 2.4 1.4 - 2.5 mg/dL Blood 08/29/2024 3:54 AM CDT 08/29/2024 5:46 AM CDT Daly Villela MD LAB BLOOD ORDERABLES F inal Result LAY VIGIL [address] [address] [place] [address] * (ABNORMAL) Basic metabolic panel (08/29/2024 3:54 AM CDT) Sodium 134(L) 135 - 145 mmol/L Potassium, pl 4.1 3.3 - 4.9 mmol/L [facility] Chloride 95(L) 97 - 110 mmol/L [facility] CO2 31 22 - 32 mmol/L [facility] Anion gap 8 2 - 15 mmol/L [facility] BUN 15 6 - 25 mg/dL [facility] Creatinine 0.63(L) 0.80 - 1.30 mg/dL [facility] Glucose 112 70 - 199 mg/dL [facility] Comment: Interpretive Data Fasting glucose >/= [...] 2022. Calcium 9.6 8.5 - 10.3 mg/dL [facility] Blood 08/29/2024 3:54 AM CDT 08/29/2024 5:46 AM CDT Katie Mckeon MD LAB BLOOD ORDERABLE S Final Result [place]IG[place] [address] [address] [place] [address] * eGFR (08/28/2024 4:35 AM CDT) eGFR [...] LAB BLOOD ORDERABLE S Final Result LAY YARITZA [address] [place] [address] * Phosphorus (08/28/2024 4:35 AM CDT) Phosphorus, pl 4.2 2.3 - 4.5 mg/dL Blood 08/28/2024 4:35 AM CDT 08/28/2024 4:59 AM CDT Daly Villela MD LAB [place]LOOD [place] [address] [address] Department [employer] [place], [place] [id number] * Magnesium (08/28/2024 4:35 AM CDT) Magnesium 2.4 1.4 - 2.5 mg/dL Blood 08/28/2024 4:35 AM CDT 08/28/2024 4:59 AM CDT Daly Villela MD LAB BLOOD ORDERABLES F inal Result [facility]AY [place]IGIL [address] Department [place] [address] * (ABNORMAL) Basic metabolic panel (08/28/2024 4:35 AM CDT) Pathologist [facility] Sodium 137 135 - 145 mmol/L Potassium, pl 3.8 3.3 - 4.9 mmol/L [facility] Chloride 98 97 - 110 mmol/L [facility] CO2 31 22 - 32 mmol/L [facility] Anion gap 8 2 - 15 mmol/L [facility] BUN 14 6 - 25 mg/dL [facility] Creatinine 0.57(L) 0.80 - 1.30 mg/dL [facility] Glucose 137 70 - 199 mg/dL [facility] Comment: Interpretive Data Fasting glucose >/= [...] 2022. Calcium 9.6 8.5 - 10.3 mg/dL [facility] Blood 08/28/2024 4:35 AM CDT 08/28/2024 4:59 AM CDT Katie Mckeon MD LAB BLOOD ORDERABLE S Final Result [place] [address] Department [place] [address] * eGFR (08/27/2024 4:13 AM CDT) Pathologist [facility] eGFR >90 >=60 mL/min/1. 73 m2 Comment: [...] MD LAB BLOOD ORDERABLES F inal Result [facility] [address] Department [place] [address] * (ABNORMAL) Differential, auto (08/27/2024 4:13 AM CDT) Neutrophil abs 4.64 1.50 - 6.50 K/cumm Imm gran abs 0.01 0.00 - 0.10 K/cumm [facility] Lymphocyte abs 0.53(L) 0.80 - 3.30 K/cumm [facility] Monocyte abs 0.80 0.20 - 0.80 K/cumm [facility] Eosinophil abs 0.04 0.00 - 0.50 K/cumm [facility] Basophil abs 0.02 0.00 - 0.10 K/cumm [facility] Neutrophil pct 76.8 % [facility] Comment: Interpretive Data Percent cell count reference ranges are not reported, since discordance with absolute values may lead to misinterpretation of CBC data. Current Interpretive Data was last revised on 2017. Imm gran pct 0.2 % [facility] Comment: Interpretive Data Percent cell count reference ranges are not reported, since discordance with absolute values may lead to misinterpretation of CBC data. Current Interpretive Data was last revised on 2017. Lymphocyte pct 8.8 % [facility] Comment: Interpretive Data Percent cell count reference ranges are not reported, since discordance with absolute values may lead to misinterpretation of CBC data. Current Interpretive Data was last revised on 2017. Monocyte pct 13.2 % [facility] Comment: Interpretive Data Percent cell count reference ranges are not reported, since discordance with absolute values may lead to misinterpretation of CBC data. Current Interpretive Data was last revised on 2017. Eosinophil pct 0.7 % [facility] Comment: Interpretive Data Percent cell count reference ranges are not reported, since discordance with absolute values may lead to misinterpretation of CBC data. Current Interpretive Data was last revised on 2017. Basophil pct 0.3 % [facility] Comment: Interpretive Data Percent cell count reference ranges are not reported, since discordance with absolute values may lead to misinterpretation of CBC data. Current Interpretive Data was last revised on 2017. Blood 08/27/2024 4:13 AM CDT 08/27/2024 5:01 AM CDT us Daly Villela MD LAB BLOOD ORDERABLES F inal Result [facility] [address] [place] [address] * (ABNORMAL) CBC with auto differential (08/27/2024 4:13 AM CDT) WBC 6.04 3.80 - 9.90 K/cumm Hgb 12.3(L) 13.0 - 17.5 g/dL [facility] Hct 36.6(L) 38.9 - 50.3 % [facility] Plt 302 150 - 400 K/cumm [facility] MPV 10.2 9.1 - 12.3 fL [facility] RBC 3.86(L) 4.30 - 5.80 M/cumm [facility] MCV 94.8 81.3 - 96.4 fL [facility] MCH 31.9 27.1 - 33.3 pg [facility] MCHC 33.6 32.3 - 35.7 g/dL [facility] RDW CV 12.4 11.1 - 14.9 % [facility] RDW SD 42.9 35.7 - 48.1 fL [facility] NRBC abs 0.00 0.00 - 0.01 K/cumm [facility] Blood 08/27/2024 4:13 AM CDT 08/27/2024 5:01 AM CDT Daly Villela MD LAB BLOOD ORDERABLES F inal Result Performing Organization Address City/[facility]/ZIP Co de Phone Number [facility] [address] [address] [facility] [place] [address] * (ABNORMAL) Phosphorus (08/27/2024 4:13 AM CDT) Phosphorus, pl 2.1(L) 2.3 - 4.5 mg/dL Blood 08/27/2024 4:13 AM CDT 08/27/2024 5:01 AM CDT Daly Villela MD LAB BLOOD ORDERABLES F inal Result Performing Organization Address City/[facility] Co de Phone Number [facility] [address] [address] [place] [address] * Magnesium (08/27/2024 4:13 AM CDT) Magnesium 2.3 1.4 - 2.5 mg/dL Blood 08/27/2024 4:13 AM CDT 08/27/2024 5:01 AM CDT Daly Villela MD LAB BLOOD ORDERABLES F inal Result [facility] [address] [address] [place] [address] * (ABNORMAL) Comprehensive metabolic panel [...] BLOOD ORDERABLES F inal Result [place] [address] [address] [place] [address] * (ABNORMAL) Potassium (08/26/2024 1:12 PM CDT) Potassium, pl 3.0(L) 3.3 - 4.9 mmol/L Blood 08/26/2024 1:12 PM CDT 08/26/2024 1:20 PM CDT us Katie Mckeon MD LAB BLOOD ORDERABLE S Final Result Performing Organization Address City/[facility]/ZIP Co de Phone Number LAY [place]IG[place] [address] [address] Department [place] [address] * eGFR (08/26/2024 4:14 AM CDT) Pathologist [facility] eGFR >90 >=60 mL/min/1. 73 m2 Comment: [...] ORDERABLES F inal Result Performing Organization Address City/[facility]/[place] [address] [address] Department of [employer] [place], [place] [id number] * (ABNORMAL) Differential, auto (08/26/2024 4:14 AM CDT) Neutrophil abs 3.07 1.50 - 6.50 K/cumm Imm gran abs 0.02 0.00 - 0.10 K/cumm [facility] Lymphocyte abs 0.49(L) 0.80 - 3.30 K/cumm [facility] Monocyte abs 0.73 0.20 - 0.80 K/cumm [facility] Eosinophil abs 0.07 0.00 - 0.50 K/cumm [facility] Basophil abs 0.02 0.00 - 0.10 K/cumm [facility] Neutrophil pct 69.7 % [facility] Comment: Interpretive Data Percent cell count reference ranges are not reported, since discordance with absolute values may lead to misinterpretation of CBC data. Current Interpretive Data was last revised on 2017. Imm gran pct 0.5 % [facility] Comment: Interpretive Data Percent cell count reference ranges are not reported, since discordance with absolute values may lead to misinterpretation of CBC data. Current Interpretive Data was last revised on 2017. Lymphocyte pct 11.1 % [facility] Comment: Interpretive Data Percent cell count reference ranges are not reported, since discordance with absolute values may lead to misinterpretation of CBC data. Current Interpretive Data was last revised on 2017. Monocyte pct 16.6 % [facility] Comment: Interpretive Data Percent cell count reference ranges are not reported, since discordance with absolute values may lead to misinterpretation of CBC data. Current Interpretive Data was last revised on 2017. Eosinophil pct 1.6 % [facility] Comment: Interpretive Data Percent cell count reference ranges are not reported, since discordance with absolute values may lead to misinterpretation of CBC data. Current Interpretive Data was last revised on 2017. Basophil pct 0.5 % [facility] Comment: Interpretive Data Percent cell count reference ranges are not reported, since discordance with absolute values may lead to misinterpretation of CBC data. Current Interpretive Data was last revised on 2017. Blood 08/26/2024 4:14 AM CDT 08/26/2024 5:00 AM CDT Daly Villela MD LAB BLOOD ORDERABLES F inal Result [place] [address] [address] [facility] [place] [address] * (ABNORMAL) CBC with auto differential (08/26/2024 4:14 AM CDT) Pathologist [facility] WBC 4.40 3.80 - 9.90 K/cumm Hgb 11.9(L) 13.0 - 17.5 g/dL [facility] Hct 34.8(L) 38.9 - 50.3 % [facility] Plt 302 150 - 400 K/cumm [facility] MPV 10.2 9.1 - 12.3 fL [facility] RBC 3.75(L) 4.30 - 5.80 M/cumm [facility] MCV 92.8 81.3 - 96.4 fL [facility] MCH 31.7 27.1 - 33.3 pg [facility] MCHC 34.2 32.3 - 35.7 g/dL [facility] RDW CV 12.2 11.1 - 14.9 % [facility] RDW SD 41.8 35.7 - 48.1 fL [facility] NRBC abs 0.00 0.00 - 0.01 K/cumm [facility] Blood 08/26/2024 4:14 AM CDT 08/26/2024 5:00 AM CDT Daly Villela MD LAB BLOOD ORDERABLES F inal Result Performing Organization Address [facility] de Phone Number LAY [place]IG[place] [address] [address] [facility] [place] [address] * Phosphorus (08/26/2024 4:14 AM CDT) [facility] Phosphorus, pl 2.8 2.3 - 4.5 mg/dL Blood 08/26/2024 4:14 AM CDT 08/26/2024 5:02 AM CDT Daly Villela MD LAB BLOOD ORDERABLES F inal Result Performing Organization Address [facility] Co de Phone Number [facility] [address] [address] [place] [address] * Magnesium (08/26/2024 4:14 AM CDT) Magnesium 2.1 1.4 - 2.5 mg/dL Blood 08/26/2024 4:14 AM CDT 08/26/2024 5:02 AM CDT Daly Villela MD LAB BLOOD ORDERABLES F inal Result [facility] [address] [address] [place] [address] * (ABNORMAL) Comprehensive metabolic panel (08/26/2024 4:14 AM CDT) Pathologist [facility] Sodium 138 135 - 145 mmol/L Potassium, [...] ORDERABLES F inal Result Performing Organization Address City/[facility]/ZIP Co de Phone Number [facility] [address] [address] [place] [address] * (ABNORMAL) Potassium (08/25/2024 11:29 AM CDT) Potassium, pl 3.1(L) 3.3 - 4.9 mmol/L Blood 08/25/2024 11:2 9 AM CDT 08/25/2024 12:06 PM CDT Ginna Graves NP LAB BLOOD ORDERABLES Cathie l Result Performing Organization Address [facility] Co de Phone Number [facility] [address] [address] [place] [address] * eGFR (08/25/2024 4:11 AM CDT) eGFR [...] MD LAB BLOOD ORDERABLES F inal Result [facility] [address] [address] [place] [address] * (ABNORMAL) Differential, auto (08/25/2024 4:11 AM CDT) Neutrophil abs 4.49 1.50 - 6.50 K/cumm Imm gran abs 0.02 0.00 - 0.10 K/cumm [facility] Lymphocyte abs 0.63(L) 0.80 - 3.30 K/cumm [facility] Monocyte abs 0.87(H) 0.20 - 0.80 K/cumm [facility] Eosinophil abs 0.02 0.00 - 0.50 K/cumm [facility] Basophil abs 0.02 0.00 - 0.10 K/cumm [facility] Neutrophil pct 74.3 % [facility] Comment: Interpretive Data Percent cell count reference ranges are not reported, since discordance with absolute values may lead to misinterpretation of CBC data. Current Interpretive Data was last revised on 2017. Imm gran pct 0.3 % [facility] Comment: Interpretive Data Percent cell count reference ranges are not reported, since discordance with absolute values may lead to misinterpretation of CBC data. Current Interpretive Data was last revised on 2017. Lymphocyte pct 10.4 % [facility] Comment: Interpretive Data Percent cell count reference ranges are not reported, since discordance with absolute values may lead to misinterpretation of CBC data. Current Interpretive Data was last revised on 2017. Monocyte pct 14.4 % [facility] Comment: Interpretive Data Percent cell count reference ranges are not reported, since discordance with absolute values may lead to misinterpretation of CBC data. Current Interpretive Data was last revised on 2017. Eosinophil pct 0.3 % [facility] Comment: Interpretive Data Percent cell count reference ranges are not reported, since discordance with absolute values may lead to misinterpretation of CBC data. Current Interpretive Data was last revised on 2017. Basophil pct 0.3 % [facility] Comment: Interpretive Data Percent cell count reference ranges are not reported, since discordance with absolute values may lead to misinterpretation of CBC data. Current Interpretive Data was last revised on 2017. Blood 08/25/2024 4:11 AM CDT 08/25/2024 5:26 AM CDT Daly Villela MD LAB BLOOD ORDERABLES F inal Result Performing Organization Address City/[facility]/ZIP Co de Phone Number [facility] [address] [place] [address] * (ABNORMAL) CBC with auto differential (08/25/2024 4:11 AM CDT) WBC 6.05 3.80 - 9.90 K/cumm Hgb 12.0(L) 13.0 - 17.5 g/dL [facility] Hct 35.0(L) 38.9 - 50.3 % [facility] Plt 299 150 - 400 K/cumm [facility] MPV 10.3 9.1 - 12.3 fL [facility] RBC 3.80(L) 4.30 - 5.80 M/cumm [facility] MCV 92.1 81.3 - 96.4 fL [facility] MCH 31.6 27.1 - 33.3 pg [facility] MCHC 34.3 32.3 - 35.7 g/dL [facility] RDW CV 12.2 11.1 - 14.9 % [facility] RDW SD 41.1 35.7 - 48.1 fL [facility] NRBC abs 0.00 0.00 - 0.01 K/cumm [facility] Blood 08/25/2024 4:11 AM CDT 08/25/2024 5:26 AM CDT Daly Villela MD LAB BLOOD ORDERABLES F inal Result [facility] [address] [facility] [place] [address] * Phosphorus (08/25/2024 4:11 AM CDT) Pathologist [facility] Phosphorus, pl 3.0 2.3 - 4.5 mg/dL Blood 08/25/2024 4:11 AM CDT 08/25/2024 5:24 AM CDT Daly Villela MD LAB BLOOD ORDERABLES F inal Result Performing Organization Address [facility] Co de Phone Number [place] [address] [place] [address] * Magnesium (08/25/2024 4:11 AM CDT) [facility] Magnesium 1.7 1.4 - 2.5 mg/dL Blood 08/25/2024 4:11 AM CDT 08/25/2024 5:24 AM CDT Daly Villela MD LAB BLOOD ORDERABLES F inal Result Performing Organization Address City/[facility] Co de Phone Number [place] [address] [facility] [place] [address] * (ABNORMAL) Comprehensive metabolic panel (08/25/2024 4:11 AM CDT) [facility] Sodium 137 135 - 145 mmol/L Potassium, pl 2.7(C) 3.3 - 4.9 mmol/L [facility] Comment:Critical Result call ed to and read back by rosey vazquez, DATE: 2024-08-25 06:27:08 BY: petty cerentano Chloride 93(L) 97 - 110 mmol/L [facility] CO2 29 22 - 32 mmol/L [facility] Anion gap 15 2 - 15 mmol/L [facility] BUN 4(L) 6 - 25 mg/dL [facility] Creatinine 0.48(L) 0.80 - 1.30 mg/dL [facility] Glucose 113 70 - 199 mg/dL [facility] Comment: Interpretive Data Fasting glucose >/= [...] BLOOD ORDERABLES F inal Result [place] [place] [address] * eGFR (08/24/2024 5:12 AM CDT) eGFR [...] MD LAB BLOOD ORDERABLES F inal Result [facility] [address] [place] [address] * (ABNORMAL) Differential, auto (08/24/2024 5:12 AM CDT) Neutrophil abs 3.00 1.50 - 6.50 K/cumm Imm gran abs 0.02 0.00 - 0.10 K/cumm [facility] Lymphocyte abs 0.61(L) 0.80 - 3.30 K/cumm [facility] Monocyte abs 0.76 0.20 - 0.80 K/cumm [facility] Eosinophil abs 0.04 0.00 - 0.50 K/cumm [facility] Basophil abs 0.02 0.00 - 0.10 K/cumm [facility] Neutrophil pct 67.5 % [facility] Comment: Interpretive Data Percent cell count reference ranges are not reported, since discordance with absolute values may lead to misinterpretation of CBC data. Current Interpretive Data was last revised on 2017. Imm gran pct 0.4 % [facility] Comment: Interpretive Data Percent cell count reference ranges are not reported, since discordance with absolute values may lead to misinterpretation of CBC data. Current Interpretive Data was last revised on 2017. Lymphocyte pct 13.7 % [facility] Comment: Interpretive Data Percent cell count reference ranges are not reported, since discordance with absolute values may lead to misinterpretation of CBC data. Current Interpretive Data was last revised on 2017. Monocyte pct 17.1 % [facility] Comment: Interpretive Data Percent cell count reference ranges are not reported, since discordance with absolute values may lead to misinterpretation of CBC data. Current Interpretive Data was last revised on 2017. Eosinophil pct 0.9 % [facility] Comment: Interpretive Data Percent cell count reference ranges are not reported, since discordance with absolute values may lead to misinterpretation of CBC data. Current Interpretive Data was last revised on 2017. Basophil pct 0.4 % [facility] Comment: Interpretive Data Percent cell count reference ranges are not reported, since discordance with absolute values may lead to misinterpretation of CBC data. Current Interpretive Data was last revised on 2017. Blood 08/24/2024 5:12 AM CDT 08/24/2024 5:50 AM CDT Daly Villela MD LAB BLOOD ORDERABLES F inal Result [facility] [address] [place] [address] * (ABNORMAL) CBC with auto differential (08/24/2024 5:12 AM CDT) WBC 4.45 3.80 - 9.90 K/cumm Hgb 11.3(L) 13.0 - 17.5 g/dL [facility] Hct 33.7(L) 38.9 - 50.3 % [facility] Plt 291 150 - 400 K/cumm [facility] MPV 10.3 9.1 - 12.3 fL [facility] RBC 3.58(L) 4.30 - 5.80 M/cumm [facility] MCV 94.1 81.3 - 96.4 fL [facility] MCH 31.6 27.1 - 33.3 pg [facility] MCHC 33.5 32.3 - 35.7 g/dL [facility] RDW CV 12.0 11.1 - 14.9 % [facility] RDW SD 41.8 35.7 - 48.1 fL [facility] NRBC abs 0.00 0.00 - 0.01 K/cumm [facility] Blood 08/24/2024 5:12 AM CDT 08/24/2024 5:50 AM CDT Daly Villela MD LAB BLOOD ORDERABLES F inal Result [facility] [address] [place] [address] * (ABNORMAL) Comprehensive metabolic panel (08/24/2024 5:12 [...] ORDERABLES F inal Result Performing Organization Address [facility] de Phone Number [place] [place] [address] [place] [address] * eGFR (08/23/2024 3:55 AM CDT) eGFR [...] ORDERABLES Final Re sult Performing Organization Address [facility] Co de Phone Number [place] [address] [place] [address] * Phosphorus (08/23/2024 3:55 AM CDT) Phosphorus, pl 2.9 2.3 - 4.5 mg/dL Blood 08/23/2024 3:55 AM CDT 08/23/2024 5:35 AM CDT Wisam Huerta MD LAB BLOOD ORDERABLES Final Re sult Performing Organization Address [facility] Co de Phone Number [place] [address] [place] [address] * Magnesium (08/23/2024 3:55 AM CDT) Magnesium 1.8 1.4 - 2.5 mg/dL Blood 08/23/2024 3:55 AM CDT 08/23/2024 5:35 AM CDT us Wisam Huerta MD LAB BLOOD ORDERABLES Final Re sult [facility] [place] [address] [place] [address] * (ABNORMAL) Basic metabolic panel (08/23/2024 3:55 AM CDT) Sodium 138 135 - 145 mmol/L Potassium, pl 3.4 3.3 - 4.9 mmol/L [facility] Chloride 97 97 - 110 mmol/L [facility] CO2 24 22 - 32 mmol/L [facility] Anion gap 17(H) 2 - 15 mmol/L [facility] BUN 11 6 - 25 mg/dL [facility] Creatinine 0.55(L) 0.80 - 1.30 mg/dL [facility] Glucose 86 70 - 199 mg/dL [facility] Comment: Interpretive Data Fasting glucose >/= [...] 2022. Calcium 9.8 8.5 - 10.3 mg/dL [facility] Blood 08/23/2024 3:55 AM CDT 08/23/2024 5:35 AM CDT us Wisam Huerta MD LAB BLOOD ORDERABLES Final Re sult [facility] [address] [place] [address] * (ABNORMAL) Urinalysis reflex to microscopic and [...] tendency for uric acid stone formation. Source: [facility] [employer] Current Interpretive Data was last revised on [...] - GEN ERAL ORDERABLES Final Result [facility] [address] [place] [address] * XR ABD AP WATER SOLUBLE INJ [...] Inclusion of Race in Diagnosing Kidney Disease, MARCO 2020). The CKD-EPI equation should not be used for patients with unstable renal function and has not been validated in children and those over 70. Current interpretive data was last reviewed 2021. Blood 08/22/2024 8:09 PM CDT 08/22/2024 8:11 PM CDT Puneet CORNELL LAB BLOOD ORDERABLES Final Result [facility] [address] [place] [address] * (ABNORMAL) Differential, auto (08/22/2024 8:09 PM CDT) Neutrophil abs 5.80 1.50 - 6.50 K/cumm Imm gran abs 0.02 0.00 - 0.10 K/cumm [facility] Lymphocyte abs 0.59(L) 0.80 - 3.30 K/cumm [facility] Monocyte abs 0.81(H) 0.20 - 0.80 K/cumm [facility] Eosinophil abs 0.01 0.00 - 0.50 K/cumm [facility] Basophil abs 0.02 0.00 - 0.10 K/cumm [facility] Neutrophil pct 80.0 % [facility] Comment: Interpretive Data Percent cell count reference ranges are not reported, since discordance with absolute values may lead to misinterpretation of CBC data. Current Interpretive Data was last revised on 2017. Imm gran pct 0.3 % [facility] Comment: Interpretive Data Percent cell count reference ranges are not reported, since discordance with absolute values may lead to misinterpretation of CBC data. Current Interpretive Data was last revised on 2017. Lymphocyte pct 8.1 % [facility] Comment: Interpretive Data Percent cell count reference ranges are not reported, since discordance with absolute values may lead to misinterpretation of CBC data. Current Interpretive Data was last revised on 2017. Monocyte pct 11.2 % [facility] Comment: Interpretive Data Percent cell count reference ranges are not reported, since discordance with absolute values may lead to misinterpretation of CBC data. Current Interpretive Data was last revised on 2017. Eosinophil pct 0.1 % [facility] Comment: Interpretive Data Percent cell count reference ranges are not reported, since discordance with absolute values may lead to misinterpretation of CBC data. Current Interpretive Data was last revised on 2017. Basophil pct 0.3 % [facility] Comment: Interpretive Data Percent cell count reference ranges are not reported, since discordance with absolute values may lead to misinterpretation of CBC data. Current Interpretive Data was last revised on 2017. Blood 08/22/2024 8:09 PM CDT 08/22/2024 8:11 PM CDT Puneet CORNELL LAB BLOOD ORDERABLES Final Result [facility] [address] [place] [address] * (ABNORMAL) CBC with auto differential (08/22/2024 8:09 PM CDT) WBC 7.25 3.80 - 9.90 K/cumm Hgb 13.3 13.0 - 17.5 g/dL [facility] Hct 39.0 38.9 - 50.3 % [facility] Plt 321 150 - 400 K/cumm [facility] MPV 10.2 9.1 - 12.3 fL [facility] RBC 4.20(L) 4.30 - 5.80 M/cumm [facility] MCV 92.9 81.3 - 96.4 fL [facility] MCH 31.7 27.1 - 33.3 pg [facility] MCHC 34.1 32.3 - 35.7 g/dL [facility] RDW CV 12.0 11.1 - 14.9 % [facility] RDW SD 41.1 35.7 - 48.1 fL [facility] NRBC abs 0.00 0.00 - 0.01 K/cumm [facility] Blood Venous blood specimen / Unknown 08/22/2024 8:09 PM CDT 08/22/2024 8:11 PM CDT Puneet CORNELL LAB BLOOD ORDERABLES Final Result [address] [place] [facility][1] [place] [address] * Phosphorus (08/22/2024 8:09 PM CDT) Phosphorus, pl 3.0 2.3 - 4.5 mg/dL Blood 08/22/2024 8:09 PM CDT 08/22/2024 8:11 PM CDT Puneet CORNELL LAB BLOOD ORDERABLES Final Result Performing Organization Address City/[facility]/ZIP Co de Phone Number [facility] [address] [facility][1] [place] [address] * Magnesium (08/22/2024 8:09 PM CDT) Pathologist [facility] Magnesium 1.9 1.4 - 2.5 mg/dL Blood 08/22/2024 8:09 PM CDT 08/22/2024 8:11 PM CDT Puneet CORNELL LAB BLOOD ORDERABLES Final Result Performing Organization Address City/[facility]/ZIP Co de Phone Number [place] [address] [facility] [place] [address] * Lipase (08/22/2024 8:09 PM CDT) Pathologist [facility] Lipase 14 10 - 99 Units/L Blood 08/22/2024 8:09 PM CDT 08/22/2024 8:11 PM CDT Puneet CORNELL LAB BLOOD ORDERABLES Final Result [place] [address] [facility][1] [place] [address] * (ABNORMAL) Comprehensive metabolic panel (08/22/2024 8:09 PM CDT) Pathologist [facility] Sodium 135 135 - 145 mmol/L Potassium, pl 3.3 3.3 - 4.9 mmol/L [facility] Chloride 88(L) 97 - 110 mmol/L [facility] [...] Puneet CORNELL LAB BLOOD ORDERABLES Final Result [facility] [address] [place] [address] * CT Chest W Contrast [...] by: Ermias Cook MD Pro Gama MD IM CT PROCEDURES Final [...] abnormality. Electronically signed by: Jase Mcgee M.D. Shahbaz Earl MD IM CT PROCEDURES Final Result * eGFR (08/10/2024 [...] PM CDT 08/10/2024 6:04 PM CDT us Cm CORNELL LAB BLOOD ORDERA BLES Final Result [facility] [address] [place] [address] * (ABNORMAL) Differential, auto (08/10/2024 5:58 PM CDT) Neutrophil abs 4.49 1.50 - 6.50 K/cumm Imm gran abs 0.02 0.00 - 0.10 K/cumm [facility] Lymphocyte abs 0.79(L) 0.80 - 3.30 K/cumm [facility] Monocyte abs 0.71 0.20 - 0.80 K/cumm [facility] Eosinophil abs 0.01 0.00 - 0.50 K/cumm [facility] Basophil abs 0.02 0.00 - 0.10 K/cumm [facility] Neutrophil pct 74.3 % [facility] Comment: Interpretive Data Percent cell count reference ranges are not reported, since discordance with absolute values may lead to misinterpretation of CBC data. Current Interpretive Data was last revised on 2017. Imm gran pct 0.3 % [facility] Comment: Interpretive Data Percent cell count reference ranges are not reported, since discordance with absolute values may lead to misinterpretation of CBC data. Current Interpretive Data was last revised on 2017. Lymphocyte pct 13.1 % [facility] Comment: Interpretive Data Percent cell count reference ranges are not reported, since discordance with absolute values may lead to misinterpretation of CBC data. Current Interpretive Data was last revised on 2017. Monocyte pct 11.8 % [facility] Comment: Interpretive Data Percent cell count reference ranges are not reported, since discordance with absolute values may lead to misinterpretation of CBC data. Current Interpretive Data was last revised on 2017. Eosinophil pct 0.2 % [facility] Comment: Interpretive Data Percent cell count reference ranges are not reported, since discordance with absolute values may lead to misinterpretation of CBC data. Current Interpretive Data was last revised on 2017. Basophil pct 0.3 % [facility] Comment: Interpretive Data Percent cell count reference ranges are not reported, since discordance with absolute values may lead to misinterpretation of CBC data. Current Interpretive Data was last revised on 2017. Blood 08/10/2024 5:58 PM CDT 08/10/2024 6:04 PM CDT us Cm CORNELL LAB BLOOD ORDERA BLES Final Result [facility] [address] [place] [address] * (ABNORMAL) CBC with auto differential (08/10/2024 5:58 PM CDT) WBC 6.04 3.80 - 9.90 K/cumm Hgb 13.8 13.0 - 17.5 g/dL [facility] Hct 41.6 38.9 - 50.3 % [facility] Plt 332 150 - 400 K/cumm [facility] MPV 9.8 9.1 - 12.3 fL [facility] RBC 4.31 4.30 - 5.80 M/cumm [facility] MCV 96.5(H) 81.3 - 96.4 fL [facility] MCH 32.0 27.1 - 33.3 pg [facility] MCHC 33.2 32.3 - 35.7 g/dL [facility] RDW CV 11.9 11.1 - 14.9 % [facility] RDW SD 42.6 35.7 - 48.1 fL [facility] NRBC abs 0.00 0.00 - 0.01 K/cumm [facility] Blood Venous blood specimen / Unknown 08/10/2024 5:58 PM CDT 08/10/2024 6:04 PM CDT us Shahbaz Earl MD LAB BLOOD ORDERABLES Fin al Result Performing Organization Address City/[facility]/ZIP Co de Phone Number [facility] [address] [place] [address] * (ABNORMAL) Comprehensive metabolic panel (08/10/2024 5:58 [...] MD LAB BLOOD ORDERABLES Fin al Result [facility] [place] [address] [place] [address] * ECG 12 lead (08/10/2024 5:22 PM CDT) 08/10/2024 5:22 PM CDT Narrative [facility] - 08/12/2024 9:25 PM CDT Vent Rate: 116 bpm RR Interval: 514 msec OK Interval: 186 msec QRS Duration: 89 msec QT Interval: 324 msec QTC Interval: 393 msec P-R-T [place]: 78 - 63 - 54 degrees IMPRESSION: SINUS TACHYCARDIA WITH OCCASIONAL SUPRAVENTRICULAR PREMATURE COMPLEXES Electronically Signed By: Bill Terrazas MD, [facility] us Shahbaz Earl MD ECG ORDERABLES Final Re sult [facility] * IR Change G Tube (07/23/2024 10:22 AM CDT) Anatomical Region Laterality Modality Body N/A X-Ray Angiograph y 07/23/2024 11:0 1 AM CDT Impressions 07/23/2024 11:01 AM CDT Successful gastrostomy tube placement through existing tract. Electronically signed by: Jaes Mcgee M.D. Narrative 07/23/2024 11:01 AM CDT [...] skin and subcutaneous tissues were dilated to 22-Panamanian. Over the guidewire, a new 18-Panamanian gastrostomy tube was advanced into the stomach. [...] skin and subcutaneous tissues were dilated to 22-Panamanian. Over the guidewire, a new 18-Panamanian gastrostomy tube was advanced into the stomach. [...] MD LAB BLOOD ORDERABLES F inal Result [facility] [address] [place] [address] * (ABNORMAL) Differential, auto (07/23/2024 3:47 AM CDT) Neutrophil abs 1.97 1.50 - 6.50 K/cumm Imm gran abs 0.01 0.00 - 0.10 K/cumm [facility] Lymphocyte abs 0.66(L) 0.80 - 3.30 K/cumm [facility] Monocyte abs 0.64 0.20 - 0.80 K/cumm [facility] Eosinophil abs 0.09 0.00 - 0.50 K/cumm [facility] Basophil abs 0.02 0.00 - 0.10 K/cumm [facility] Neutrophil pct 58.0 % [facility] Comment: Interpretive Data Percent cell count reference ranges are not reported, since discordance with absolute values may lead to misinterpretation of CBC data. Current Interpretive Data was last revised on 2017. Imm gran pct 0.3 % [facility] Comment: Interpretive Data Percent cell count reference ranges are not reported, since discordance with absolute values may lead to misinterpretation of CBC data. Current Interpretive Data was last revised on 2017. Lymphocyte pct 19.5 % [facility] Comment: Interpretive Data Percent cell count reference ranges are not reported, since discordance with absolute values may lead to misinterpretation of CBC data. Current Interpretive Data was last revised on 2017. Monocyte pct 18.9 % [facility] Comment: Interpretive Data Percent cell count reference ranges are not reported, since discordance with absolute values may lead to misinterpretation of CBC data. Current Interpretive Data was last revised on 2017. Eosinophil pct 2.7 % [facility] Comment: Interpretive Data Percent cell count reference ranges are not reported, since discordance with absolute values may lead to misinterpretation of CBC data. Current Interpretive Data was last revised on 2017. Basophil pct 0.6 % [facility] Comment: Interpretive Data Percent cell count reference ranges are not reported, since discordance with absolute values may lead to misinterpretation of CBC data. Current Interpretive Data was last revised on 2017. Blood 07/23/2024 3:47 AM CDT 07/23/2024 5:13 AM CDT Sushil Merritt MD LAB BLOOD ORDERABLES F inal Result [facility] [address] [place] [address] * (ABNORMAL) CBC with auto differential (07/23/2024 3:47 AM CDT) WBC 3.39(L) 3.80 - 9.90 K/cumm Hgb 10.7(L) 13.0 - 17.5 g/dL [facility] Hct 34.0(L) 38.9 - 50.3 % [facility] Plt 294 150 - 400 K/cumm [facility] MPV 10.7 9.1 - 12.3 fL [facility] RBC 3.29(L) 4.30 - 5.80 M/cumm [facility] MCV 103.3(H) 81.3 - 96.4 fL [facility] MCH 32.5 27.1 - 33.3 pg [facility] MCHC 31.5(L) 32.3 - 35.7 g/dL [facility] RDW CV 12.9 11.1 - 14.9 % [facility] RDW SD 49.0(H) 35.7 - 48.1 fL [facility] NRBC abs 0.00 0.00 - 0.01 K/cumm [facility] Blood 07/23/2024 3:47 AM CDT 07/23/2024 5:13 AM CDT Sushil Merritt MD LAB BLOOD ORDERABLES F inal Result Performing Organization Address [facility] Co de Phone Number [facility] [place] [address] [place] [address] * (ABNORMAL) Protime-INR (07/23/2024 3:47 AM CDT) PT 13.3(H) 9.7 - 13.0 sec INR 1.23(H) 0.90 - 1.20 [facility] Comment: Interpretive data Oral anticoagulant therapeutic ranges: Venous thromboembolism prophylaxis or treatment: 2.0-3.0 CARDIOLOGY Standard range: 2.0-3.0 High-intensity range: 2.5-3.5 Refer to indication-specific guidelines for appropriate target ranges for prosthetic heart valve replacement. Current interpretive data was last revised on 2019. Blood 07/23/2024 3:47 AM CDT 07/23/2024 5:14 AM CDT Henrik Collins MD LAB BLOOD ORDERABLES F inal Result Performing Organization Address [facility] Co de Phone Number [facility] [address] [place] [address] * (ABNORMAL) Basic metabolic panel (07/23/2024 3:47 AM CDT) Sodium 138 135 - 145 mmol/L Potassium, pl 4.1 3.3 - 4.9 mmol/L [facility] Chloride 102 97 - 110 mmol/L [facility] CO2 28 22 - 32 mmol/L [facility] Anion gap 8 2 - 15 mmol/L [facility] BUN 18 6 - 25 mg/dL [facility] Creatinine 0.76(L) 0.80 - 1.30 mg/dL [facility] Glucose 93 70 - 199 mg/dL [facility] Comment: Interpretive Data Fasting glucose >/= [...] 2022. Calcium 9.5 8.5 - 10.3 mg/dL [facility] Blood 07/23/2024 3:47 AM CDT 07/23/2024 5:13 AM CDT Sushil Merritt MD LAB BLOOD ORDERABLES F inal Result Performing Organization Address [facility] Co de Phone Number [place] [place] [address] [place] [address] * Check Sample (07/22/2024 4:14 AM CDT) ABO Rh A Positive [facility] OTHER 07/22/2024 4:14 AM CDT 07/22/2024 4:48 AM CDT Sushil Merritt MD LAB BLOOD ORDERABLES F inal Result Performing Organization Address [facility] Co de Phone Number [place] [place] [address] [place] [address] CH * OK PERQ REPLACEMENT GTUBE NOT REQ REVJ GSTRST [...] indirect Negative ABO Rh A Positive [facility] Blood 07/22/2024 2:26 AM CDT 07/22/2024 3:18 AM CDT Narrative [facility] - 07/22/2024 4:05 AM CDT Has the patient had Daratumumab or Isatuximab in the past 6 months?->Unknown Eber Dumont MD LAB BLOOD BANK TEST ORDERA BLES Final Result [address] [place] [address] * eGFR (07/21/2024 11:50 PM CDT) eGFR [...] Dumont MD LAB BLOOD ORDERABLES Final Result [facility] [address] [place] [address] * (ABNORMAL) Differential, auto (07/21/2024 11:50 PM CDT) Neutrophil abs 4.43 1.50 - 6.50 K/cumm Imm gran abs 0.03 0.00 - 0.10 K/cumm [facility] Lymphocyte abs 0.53(L) 0.80 - 3.30 K/cumm [facility] Monocyte abs 0.67 0.20 - 0.80 K/cumm [facility] Eosinophil abs 0.02 0.00 - 0.50 K/cumm [facility] Basophil abs 0.03 0.00 - 0.10 K/cumm [facility] Neutrophil pct 77.6 % [facility] Comment: Interpretive Data Percent cell count reference ranges are not reported, since discordance with absolute values may lead to misinterpretation of CBC data. Current Interpretive Data was last revised on 2017. Imm gran pct 0.5 % [facility] Comment: Interpretive Data Percent cell count reference ranges are not reported, since discordance with absolute values may lead to misinterpretation of CBC data. Current Interpretive Data was last revised on 2017. Lymphocyte pct 9.3 % [facility] Comment: Interpretive Data Percent cell count reference ranges are not reported, since discordance with absolute values may lead to misinterpretation of CBC data. Current Interpretive Data was last revised on 2017. Monocyte pct 11.7 % [facility] Comment: Interpretive Data Percent cell count reference ranges are not reported, since discordance with absolute values may lead to misinterpretation of CBC data. Current Interpretive Data was last revised on 2017. Eosinophil pct 0.4 % [facility] Comment: Interpretive Data Percent cell count reference ranges are not reported, since discordance with absolute values may lead to misinterpretation of CBC data. Current Interpretive Data was last revised on 2017. Basophil pct 0.5 % [facility] Comment: Interpretive Data Percent cell count reference ranges are not reported, since discordance with absolute values may lead to misinterpretation of CBC data. Current Interpretive Data was last revised on 2017. Blood 07/21/2024 11:5 0 PM CDT 07/21/2024 11:53 PM CDT Eber Dumont MD LAB BLOOD ORDERABLES Final Result Performing Organization Address City/[facility]/ZIP Co de Phone Number [address] [place] [address] * (ABNORMAL) CBC with auto differential (07/21/2024 11:50 PM CDT) Pathologist [facility] WBC 5.71 3.80 - 9.90 K/cumm Hgb 11.9(L) 13.0 - 17.5 g/dL [facility] Hct 35.8(L) 38.9 - 50.3 % [facility] Plt 309 150 - 400 K/cumm [facility] MPV 9.6 9.1 - 12.3 fL [facility] RBC 3.57(L) 4.30 - 5.80 M/cumm [facility] CH MCV 100.3(H) 81.3 - 96.4 fL [facility] MCH 33.3 27.1 - 33.3 pg [facility] MCHC 33.2 32.3 - 35.7 g/dL [facility] RDW CV 12.6 11.1 - 14.9 % [facility] CH RDW SD 46.8 35.7 - 48.1 fL [facility] NRBC abs 0.00 0.00 - 0.01 K/cumm [facility] Blood Venous blood specimen / Unknown 07/21/2024 11:50 PM CDT 07/21/2024 11:53 PM CDT Eber Dumont MD LAB BLOOD ORDERABLES Final Result [facility] [address] Department of [employer] [place], [place] [id number] * Protime-INR (07/21/2024 11:50 PM CDT) Pathologist [facility] PT 12.1 9.7 - 13.0 sec INR 1.12 0.90 - 1.20 [facility] Comment: Interpretive data Oral anticoagulant therapeutic ranges: Venous thromboembolism prophylaxis or treatment: 2.0-3.0 CARDIOLOGY Standard range: 2.0-3.0 High-intensity range: 2.5-3.5 Refer to indication-specific guidelines for appropriate target ranges for prosthetic heart valve replacement. Current interpretive data was last revised on 2019. Blood 07/21/2024 11:5 0 PM CDT 07/21/2024 11:53 PM CDT Eebr Dumont MD LAB BLOOD ORDERABLES Final Result [facility] [address] [place] [address] * (ABNORMAL) Basic metabolic panel (07/21/2024 11:50 PM CDT) Pathologist [facility] Sodium 136 135 - 145 mmol/L Potassium, pl 4.3 3.3 - 4.9 mmol/L [facility] Chloride 97 97 - 110 mmol/L [facility] CO2 31 22 - 32 mmol/L [facility] Anion gap 8 2 - 15 mmol/L [facility] BUN 18 6 - 25 mg/dL [facility] Creatinine 0.63(L) 0.80 - 1.30 mg/dL [facility] Glucose 117 70 - 199 mg/dL [facility] Comment: Interpretive Data Fasting glucose >/= [...] 2022. Calcium 9.7 8.5 - 10.3 mg/dL [facility] Blood 07/21/2024 11:5 0 PM CDT 07/21/2024 11:53 PM CDT Eber Dumont MD LAB [place]LOOD [place] [address] [address] [place] [address] from Last 3 Months Insurance [place] For more information, please contact: [phone] * Full Code (Latest Code Status on [...] 1:04 AM 04/01/2024 9:34 PM Care Teams Bag Turner Relationship Specialty Start Date End Date Gia Foss MD [facility] [address] [place] [address] PCP - General Internal Medicine 06/12/24 Michelle Handy, RN Nurse Navigator 02/09/24 Noemí Pitts LCSW Subject Scientific Research 02/10/24 Pro Gama MD [address] [facility] [address] [place] [address] Medical Oncologist/Finisher Hot Strip Medical Oncology 02/13/24 Francis Tuttle MD [address] [facility] [address] [place] [address] Consulting Physician Radiation Oncology 02/13/[address] [facility]0 [facility]PT OTOLARYNGOLOGY, [address] [place] [address] Surgeon Otolaryngology 02/13/24
--- OUTSIDE RECORDS SUMMARY | 2024-10-01 18:42 | XMS_ITS | Encounter Summary ---
Author Organization [facility] Healthcare Address [address] [place] [address] Care Team Providers Care Rug Designer Name Role Phone Michelle Handy RN Unavailable UnavailNoemí Rea [facility] Unavailable Unavaila Pro Forbes MD Unavailable [phone] Francis Tuttle MD Unavailable [phone] Wilma Groves MD Unavailable [phone] Gia Foss MD Primary Care Provider [phone] Encounter Details Date Type Department Care Team (Late st Contact Info) Description 10/01/[address] [facility] Emergency Department [address] [place] [id number] Social History Tobacco Use Types Packs/Day Years Used Date Smoking Tobacco: Never Smokeless Tobacco: Never Alcohol Use Standard Drinks/Week Comments Not Currently 0 (1 standard drink = 0.6 oz pur e alcohol) [facility] Utilities Answer Date Recorded In the past 12 months has e electric, gas, oil, or water company [...] often do you attend chur ch or zoroastrianism services? Never 08/24/2024 Do you belong to any clubs o r organizations such as sikhism groups, unions, fraternal or athletic groups, or [...] any time in the past 12 m [facility], were you homeless or living in a fci (including now)? 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 Not on file N ot on file documented as of this encounter Plan of Treatment Not on file documented as of this encounter Visit Diagnoses Not on filedocumented in this encounter Care Teams Rug Designer Relationship Specialty Start Date End Date Gia Foss MD [address] [place] [address] [address], [place] [address] PCP - General Internal Medicine 06/12/24 Michelle Handy RN Nurse Navigator 02/09/24 Noemí Pitts LCSW Homicide Investigator 02/10/24 Pro Gama MD [address] [facility] [address] [place] [address] Medical Oncologist/Manager Analytical Medical Oncology 02/13/24 Francis Tuttle MD [address] [facility] [address] [place] [address] Consulting Physician Radiation Oncology 02/13/24 Wilma Groves MD [address] [facility] DEPT OTOLARYNGOLOGY, [address] [place] [address] Surgeon Otolaryngology 02/13/24 documented as of this encounter
--- OUTSIDE RECORDS SUMMARY | 2024-10-01 18:42 | XMS_ITS | Clinical Summary ---
Author Organization [facility] Address [address] [place] [address] Care Team Providers Care Operations Controller Name Role Phone Michelle Handy RN Unavailable UnavailNoemí Rea [employer] Unavailable Unavaila Pro Forbes MD Unavailable [phone] Francis Tuttle MD Unavailable [phone] Wilma Groves MD Unavailable [phone] Gia Foss MD Primary Care Provider [phone] Allergies Active Allergy Reactions Criticality Noted Date [...] Type Department Care Team Description 10/01/2024 Emergency [facility] Emergency Department [address] [place] [phone] 10/01/2024 Telephone [facility] Oncology [address] [place] [address] 09/21/2024 Orders Only [facility] Radiation Oncology [address] [place] [phone] Corbin Early MD PhD Oropharyngeal cancer (HCC) (Primary Dx); Lymphedema; 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 09/17/2024 11:30 AM CDT Office Visit [facility] Radiation Oncology [address] [place] [phone] Shayna Valencia NP Oropharyngeal cancer (HCC) (Primary Dx) 09/17/2024 Orders Only [facility] Radiation Oncology [address] [place] [phone] Corbin Early MD PhD Oropharyngeal cancer (HCC) (Primary Dx); 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; Dysphagia, unspecified type 09/17/2024 Documentation [facility] Oncology [address] [place] [phone] 09/12/2024 8:30 AM CDT [address] [phone] Oropharyngeal cancer (HCC) (Primary Dx) 09/12/2024 Documentation [facility] Oncology [address] [place] [address] 09/12/2024 Orders Only [facility] Oncology [address] [place] [phone] Homa Melendez RN 09/05/2024 10:00 AM CDT Infusion [address] [place] [address] Oropharyngeal cancer (HCC) (Primary Dx) 09/05/2024 Documentation [facility] Oncology [address] [place] [address] [address] 09/05/2024 Orders Only [facility] Radiation Oncology [address] [place] [phone] Corbin Early MD PhD Nausea (Primary Dx); Oropharyngeal cancer (HCC); Severe protein-calorie malnutrition 09/05/2024 Telephone [facility] [address] [phone] Michelle Handy, hi lo driver Follow Up 2024 11:15 AM CDT Office Visit [facility] Oncology [address] [facility] [address] [place] [address] Pro Gama MD Oropharyngeal cancer (HCC) (Primary Dx) 09/03/2024 10:30 AM CDT Infusion [address] [phone] Oropharyngeal cancer (HCC) (Primary Dx); Dehydration 09/03/2024 9:00 AM CDT Office Visit [facility] Radiation Oncology [address] [place] [phone] Shayna Valencia NP Oropharyngeal cancer (HCC) (Primary Dx); Nausea; 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; Lymphedema; Odynophagia; Dysphagia, unspecified type 09/03/2024 Documentation [facility] Oncology [facility] [place] [address] Leticia Queen, RD 09/03/2024 Orders Only [facility] Oncology [facility] [place] [address] Shayna Valencia NP Dehydration (Primary Dx) 08/31/2024 Telephone [facility] Oncology [place] [address] Leticia Queen, RD 08/22/2024 6:58 PM CDT - 08/29/2024 6:50 PM CDT Hospital Encounter [id number] [place] [address] Cristina Mora MD Brother, Michele, MD Hultgren, Britt Richard, MD Rao, Katie Emery MD Intractable nausea and vomiting (Primary Dx); Dehydration; Hypokalemia; Primary hypertension; Hypophosphatemia; Severe malnutrition; Radiation esophagitis Discharge Disposition: Discharge to home or self care 08/22/2024 Telephone [facility] Oncology [facility] [place] [phone] Leticia Queen, TOBIAS 08/21/2024 7:53 AM CDT - 08/21/2024 11:59 PM CDT Hospital Encounter [facility] Rad[facility] [address] [place] [phone] Oropharyngeal cancer (HCC) Discharge Disposition: Discharge to home or self care 08/21/2024 Telephone [facility] Oncology [address] [place] [address] Homa Melendez RN 08/20/2024 Telephone [facility] Oncology [facility] [place] [phone] Leticia Queen, TOBIAS 08/16/2024 Telephone [facility] Oncology [facility] [place] [phone] Leticia Queen, RD 08/16/2024 Orders Only [facility] Radiation Oncology [address] [place] [phone] Francis Tuttle MD Personal history of irradiation (Primary Dx); Radiation esophagitis; Encounter for follow-up examination after completed treatment for malignant neoplasm; Severe protein-calorie malnutrition 08/15/2024 Telephone [facility] Oncology [address] [place] [address] [place] [address] Leticia Queen, RD 08/14/2024 Telephone [facility] Oncology [address] [place], [place] [address] [address] Leticia Queen, RD 08/14/2024 Telephone [facility] Oncology [address] [place] [phone] Homa Melendez RN Reschedule 08/13/2024 1:30 PM CDT Clinical Support [facility] at [address] [phone] Oropharyngeal cancer (HCC) (Primary Dx); Dehydration 08/13/2024 11:00 AM CDT Office Visit [facility] Radiation Oncology [address] [place] [phone] Francis Tuttle MD Oropharyngeal cancer (HCC) (Primary Dx); Personal history of irradiation; Cancer-related pain 08/13/2024 Documentation [facility] Oncology [address] [place] [address] [place] [phone] Leticia Queen, RD 08/13/2024 Orders Only [facility] Oncology [address] [place] [address] [place] [address] Francis Tuttle MD 08/13/2024 Orders Only [facility] Oncology [address] [place] [address] [place] [phone] Francis Tuttle MD Dehydration (Primary Dx); Intractable vomiting with nausea; Oropharyngeal cancer (HCC) 08/13/2024 Results Follow-Up [facility] Primary Care at [facility] - [address] [place] [phone] Gia Foss MD CBC with auto differential, Comprehensive metabolic panel, Differential, auto, Additional followed-up results: 2 08/10/2024 5:39 PM CDT - 08/10/2024 9:35 PM CDT Emergency [facility] Emergency Department [address] [place] [address] Shahbaz Earl MD Nausea and vomiting, unspecified vomiting type (Primary Dx) Discharge Disposition: Discharge to home or self care 08/10/2024 Telephone [facility] Oncology [address] [place] [phone] Leticia Queen, TOBIAS 08/09/2024 Telephone [facility] Oncology [address] [place] [phone] Leticia Queen, TOBIAS 08/08/2024 Telephone [facility]cology [address] [place] [phone] Yamila Kam RN 07/31/2024 [facility] Post Discharge Follow up phone call [address] [address] Tiffany Hernandez, KRISTY 07/30/2024 [facility] Post Discharge Follow up phone call [address] [address] Tiffany Hernandez, RN 07/26/2024 [facility] Post Discharge Follow up phone call [address] [address] Tiffany Hernandez, RN 07/23/2024 Telephone [facility] Medical Group Primary Care at [facility] - [address] [place] [phone] Gia Foss MD MARY Questions 07/22/2024 Results Follow-Up [facility] Medical Group Primary Care at [address] [address] Gia Foss MD CBC with auto differential, Basic metabolic panel, Type and screen, Additional followed-up results: 4 07/21/2024 10:36 PM CDT - 07/23/2024 3:35 PM CDT Hospital Encounter [facility] [address] [place] [address] Eber Dumont MD [place], MD Karina Rosenberg, Henrik Aguirre MD Dislodged gastrostomy tube (Primary Dx) Discharge Disposition: Discharge to home or self care 07/13/2024 11:00 AM CDT Office Visit [facility] Radiation Oncology [address] [place] [address] Renee Shipman NP Oropharyngeal cancer (HCC) (Primary Dx); Encounter for follow-up examination after completed treatment for malignant neoplasm; Personal history of irradiation 07/13/2024 Telephone [facility] Marrow Transplant [address] [facility] 7th [address], [place] [address] Aditi Dougherty, B.A. 07/11/2024 Telephone [facility] [address] [place] [phone] Leticia Queen, TOBIAS 07/06/2024 Telephone [facility] [address] [place] [phone] Leticia Queen, TOBIAS 07/03/2024 Telephone [facility] [address] [facility] 4th [place] [address] Michelle Handy, hi lo driver Follow Up; Navigator Treatment End Check In [...] drink = 0.6 oz pur e alcohol) [facility] Utilities Answer Date Recorded In the [...] week 08/24/2024 How often do you attend [facility] or mandaen services? Never 08/24/2024 Do you belong to any clubs o r organizations such as orthodox groups, unions, fraternal or athletic groups, or [...] money to buy more. Never true 08/25/19 Within the past 12 months, t he [...] time in the past 12 m [facility], were you homeless or living in a alf (including now)? 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 Co de Phone Number LAY [address] [place] [place] [address] * Magnesium (08/29/2024 3:54 AM CDT) [facility] Magnesium 2.4 1.4 - 2.5 mg/dL Blood 08/29/2024 3:54 AM CDT 08/29/2024 5:46 AM CDT Daly Villela MD LAB BLOOD ORDERABLES F inal Result Performing Organization Address [facility] Co de Phone Number LAY [address] [place] [address] * (ABNORMAL) Basic metabolic panel (08/29/2024 3:54 AM CDT) Pathologist [facility] Sodium 134(L) 135 - 145 mmol/L Potassium, pl 4.1 3.3 - 4.9 mmol/L [facility] Chloride 95(L) 97 - 110 mmol/L [facility] CO2 31 22 - 32 mmol/L [facility] Anion gap 8 2 - 15 mmol/L [facility] BUN 15 6 - 25 mg/dL [facility] Creatinine 0.63(L) 0.80 - 1.30 mg/dL [facility] Glucose 112 70 - 199 mg/dL [facility] Comment: Interpretive Data Fasting glucose >/= [...] BLOOD ORDERABLE S Final Result LAY VIGIL [address] Department [place] [address] * eGFR (08/28/2024 4:35 AM CDT) eGFR [...] ORDERABLE S Final Result Performing Organization Address City/[facility]/ZIP Co de Phone Number LAY VIGIL [address] [address] [facility] [place] [address] * Phosphorus (08/28/2024 4:35 AM CDT) Phosphorus, pl 4.2 2.3 - 4.5 mg/dL Blood 08/28/2024 4:35 AM CDT 08/28/2024 4:59 AM CDT Daly Villela MD LAB BLOOD ORDERABLES F inal Result Performing Organization Address [facility] Co de Phone Number CHERPARTH VIGIL [address] [address] [place] [address] * Magnesium (08/28/2024 4:35 AM CDT) Pathologist [facility] Magnesium 2.4 1.4 - 2.5 mg/dL Blood 08/28/2024 4:35 AM CDT 08/28/2024 4:59 AM CDT Daly Villela MD LAB BLOOD ORDERABLES F inal Result Performing Organization Address [facility] Co de Phone Number LAY VIGIL [address] [place] [place] [address] * (ABNORMAL) Basic metabolic panel (08/28/2024 4:35 AM CDT) Sodium 137 135 - 145 mmol/L Potassium, pl 3.8 3.3 - 4.9 mmol/L [facility] Chloride 98 97 - 110 mmol/L [facility] CO2 31 22 - 32 mmol/L [facility] Anion gap 8 2 - 15 mmol/L [facility] BUN 14 6 - 25 mg/dL [facility] Creatinine 0.57(L) 0.80 - 1.30 mg/dL [facility] [...] LAB BLOOD ORDERABLE S Final Result LAY [address] [address] Department [place] [address] * eGFR (08/27/2024 4:13 AM CDT) eGFR [...] MD LAB BLOOD ORDERABLES F inal Result [facility] [address] Department [place] [address] * (ABNORMAL) Differential, auto (08/27/2024 4:13 AM CDT) Neutrophil abs 4.64 1.50 - 6.50 K/cumm Imm gran abs 0.01 0.00 - 0.10 K/cumm [facility] Lymphocyte abs 0.53(L) 0.80 - 3.30 K/cumm [facility] Monocyte abs 0.80 0.20 - 0.80 K/cumm [facility] Eosinophil abs 0.04 0.00 - 0.50 K/cumm [facility] Basophil abs 0.02 0.00 - 0.10 K/cumm [facility] Neutrophil pct 76.8 % [facility] Comment: Interpretive Data Percent cell count reference ranges are not reported, since discordance with absolute values may lead to misinterpretation of CBC data. Current Interpretive Data was last revised on 2017. Imm gran pct 0.2 % [facility] Comment: Interpretive Data Percent cell count reference ranges are not reported, since discordance with absolute values may lead to misinterpretation of CBC data. Current Interpretive Data was last revised on 2017. Lymphocyte pct 8.8 % [facility] Comment: Interpretive Data Percent cell count reference ranges are not reported, since discordance with absolute values may lead to misinterpretation of CBC data. Current Interpretive Data was last revised on 2017. Monocyte pct 13.2 % [facility] Comment: Interpretive Data Percent cell count reference ranges are not reported, since discordance with absolute values may lead to misinterpretation of CBC data. Current Interpretive Data was last revised on 2017. Eosinophil pct 0.7 % [facility] Comment: Interpretive Data Percent cell count reference ranges are not reported, since discordance with absolute values may lead to misinterpretation of CBC data. Current Interpretive Data was last revised on 2017. Basophil pct 0.3 % [facility] Comment: Interpretive Data Percent cell count reference ranges are not reported, since discordance with absolute values may lead to misinterpretation of CBC data. Current Interpretive Data was last revised on 2017. Blood 08/27/2024 4:13 AM CDT 08/27/2024 5:01 AM CDT Daly Villela MD LAB BLOOD ORDERABLES F inal Result Performing Organization Address [facility]/ZIP Co de Phone Number LAY VIGIL [address] [place] [address] * (ABNORMAL) CBC with auto differential (08/27/2024 4:13 AM CDT) WBC 6.04 3.80 - 9.90 K/cumm Hgb 12.3(L) 13.0 - 17.5 g/dL [facility] Hct 36.6(L) 38.9 - 50.3 % [facility] Plt 302 150 - 400 K/cumm [facility] MPV 10.2 9.1 - 12.3 fL [facility] RBC 3.86(L) 4.30 - 5.80 M/cumm [facility] MCV 94.8 81.3 - 96.4 fL [facility] MCH 31.9 27.1 - 33.3 pg [facility] MCHC 33.6 32.3 - 35.7 g/dL [facility] RDW CV 12.4 11.1 - 14.9 % [facility] RDW SD 42.9 35.7 - 48.1 fL [facility] NRBC abs 0.00 0.00 - 0.01 K/cumm [facility] Blood 08/27/2024 4:13 AM CDT 08/27/2024 5:01 AM CDT Daly Villela MD LAB BLOOD ORDERABLES F inal Result Performing Organization Address [facility]/ZIP Co de Phone Number LAY [place]IG[address] Department [place] [address] * (ABNORMAL) Phosphorus (08/27/2024 4:13 AM CDT) Pathologist [facility] Phosphorus, pl 2.1(L) 2.3 - 4.5 mg/dL Blood 08/27/2024 4:13 AM CDT 08/27/2024 5:01 AM CDT Daly Villela MD LAB BLOOD ORDERABLES F inal Result Performing Organization Address City/[facility]/ZIP Co de Phone Number LAY [address] [address] [place] [address] * Magnesium (08/27/2024 4:13 AM CDT) Pathologist [facility] Magnesium 2.3 1.4 - 2.5 mg/dL Blood 08/27/2024 4:13 AM CDT 08/27/2024 5:01 AM CDT Daly Villela MD LAB BLOOD ORDERABLES F inal Result Performing Organization Address [facility] de Phone Number [facility] [address] [address] [place] [address] * (ABNORMAL) Comprehensive metabolic panel (08/27/2024 4:13 AM CDT) Pathologist [facility] Sodium 136 135 - 145 mmol/L Potassium, pl 3.3 3.3 - 4.9 mmol/L [facility] Chloride 98 97 - 110 mmol/L [facility] CO2 30 22 - 32 mmol/L [facility] Anion gap 8 2 - 15 mmol/L [facility] BUN 11 6 - 25 mg/dL [facility] Creatinine 0.53(L) 0.80 - 1.30 mg/dL [facility] Glucose 153 70 - 199 mg/dL [facility] Comment: Interpretive Data Fasting glucose >/= [...] ORDERABLES F inal Result Performing Organization Address [facility] Co de Phone Number HCERPARTH VIGIL [address] [address] [place] [address] * (ABNORMAL) Potassium (08/26/2024 1:12 PM CDT) Pathologist [facility] Potassium, pl 3.0(L) 3.3 - 4.9 mmol/L Blood 08/26/2024 1:12 PM CDT 08/26/2024 1:20 PM CDT Katie Mckeon MD LAB BLOOD ORDERABLE S Final Result Performing Organization Address City/[facility]/ZIP Co de Phone Number [facility] [address] [address] [place] [address] * eGFR (08/26/2024 4:14 AM CDT) Pathologist [facility] eGFR >90 >=60 mL/min/1. 73 m2 Comment: [...] MD LAB BLOOD ORDERABLES F inal Result [facility] [address] [address] Department [place] [address] * (ABNORMAL) Differential, auto (08/26/2024 4:14 AM CDT) Neutrophil abs 3.07 1.50 - 6.50 K/cumm Imm gran abs 0.02 0.00 - 0.10 K/cumm [facility] Lymphocyte abs 0.49(L) 0.80 - 3.30 K/cumm [facility] Monocyte abs 0.73 0.20 - 0.80 K/cumm [facility] Eosinophil abs 0.07 0.00 - 0.50 K/cumm [facility] Basophil abs 0.02 0.00 - 0.10 K/cumm [facility] Neutrophil pct 69.7 % [facility] Comment: Interpretive Data Percent cell count reference ranges are not reported, since discordance with absolute values may lead to misinterpretation of CBC data. Current Interpretive Data was last revised on 2017. Imm gran pct 0.5 % [facility] Comment: Interpretive Data Percent cell count reference ranges are not reported, since discordance with absolute values may lead to misinterpretation of CBC data. Current Interpretive Data was last revised on 2017. Lymphocyte pct 11.1 % [facility] Comment: Interpretive Data Percent cell count reference ranges are not reported, since discordance with absolute values may lead to misinterpretation of CBC data. Current Interpretive Data was last revised on 2017. Monocyte pct 16.6 % [facility] Comment: Interpretive Data Percent cell count reference ranges are not reported, since discordance with absolute values may lead to misinterpretation of CBC data. Current Interpretive Data was last revised on 2017. Eosinophil pct 1.6 % [facility] Comment: Interpretive Data Percent cell count reference ranges are not reported, since discordance with absolute values may lead to misinterpretation of CBC data. Current Interpretive Data was last revised on 2017. Basophil pct 0.5 % [facility] Comment: Interpretive Data Percent cell count reference ranges are not reported, since discordance with absolute values may lead to misinterpretation of CBC data. Current Interpretive Data was last revised on 2017. Blood 08/26/2024 4:14 AM CDT 08/26/2024 5:00 AM CDT us Daly Villela MD LAB BLOOD ORDERABLES F inal Result [facility] [address] Department [place] [address] * (ABNORMAL) CBC with auto differential (08/26/2024 4:14 AM CDT) WBC 4.40 3.80 - 9.90 K/cumm Hgb 11.9(L) 13.0 - 17.5 g/dL [facility] Hct 34.8(L) 38.9 - 50.3 % [facility] Plt 302 150 - 400 K/cumm [facility] MPV 10.2 9.1 - 12.3 fL [facility] RBC 3.75(L) 4.30 - 5.80 M/cumm [facility] MCV 92.8 81.3 - 96.4 fL [facility] MCH 31.7 27.1 - 33.3 pg [facility] MCHC 34.2 32.3 - 35.7 g/dL [facility] RDW CV 12.2 11.1 - 14.9 % [facility] RDW SD 41.8 35.7 - 48.1 fL [facility] NRBC abs 0.00 0.00 - 0.01 K/cumm [facility] Blood 08/26/2024 4:14 AM CDT 08/26/2024 5:00 AM CDT Daly Villela MD LAB BLOOD ORDERABLES F inal Result [facility] [address] [address] [facility] [place] [address] * Phosphorus (08/26/2024 4:14 AM CDT) Phosphorus, pl 2.8 2.3 - 4.5 mg/dL Blood 08/26/2024 4:14 AM CDT 08/26/2024 5:02 AM CDT Daly Villela MD LAB BLOOD ORDERABLES F inal Result Performing Organization Address [facility] de Phone Number [facility] [address] [address] [facility] [place] [address] * Magnesium (08/26/2024 4:14 AM CDT) Magnesium 2.1 1.4 - 2.5 mg/dL Blood 08/26/2024 4:14 AM CDT 08/26/2024 5:02 AM CDT Daly Villela MD LAB BLOOD ORDERABLES F inal Result Performing Organization Address City/[facility] Co de Phone Number [facility] [address] [address] [facility] [place] [address] * (ABNORMAL) Comprehensive metabolic panel (08/26/2024 4:14 [...] MD LAB BLOOD ORDERABLES F inal Result [facility] [address] [address] Department [place] [address] * (ABNORMAL) Potassium (08/25/2024 11:29 AM CDT) Pathologist [facility] Potassium, pl 3.1(L) 3.3 - 4.9 mmol/L Blood 08/25/2024 11:2 9 AM CDT 08/25/2024 12:06 PM CDT us Ginnacarlos [facility] LAB BLOOD ORDERABLES Cathie l Result Performing Organization Address City/[facility] Co de Phone Number LAY VIGIL [address] Department of Laboratories [place], [place] [id number] * eGFR (08/25/2024 4:11 AM CDT) eGFR [...] ORDERABLES F inal Result Performing Organization Address City/[facility]/ZIP Co de Phone Number LAY VIGIL [address] Department of Laboratories [place], [place] [id number] * (ABNORMAL) Differential, auto (08/25/2024 4:11 AM CDT) Neutrophil abs 4.49 1.50 - 6.50 K/cumm Imm gran abs 0.02 0.00 - 0.10 K/cumm [facility] Lymphocyte abs 0.63(L) 0.80 - 3.30 K/cumm [facility] Monocyte abs 0.87(H) 0.20 - 0.80 K/cumm [facility] Eosinophil abs 0.02 0.00 - 0.50 K/cumm [facility] Basophil abs 0.02 0.00 - 0.10 K/cumm [facility] Neutrophil pct 74.3 % [facility] Comment: Interpretive Data Percent cell count reference ranges are not reported, since discordance with absolute values may lead to misinterpretation of CBC data. Current Interpretive Data was last revised on 2017. Imm gran pct 0.3 % [facility] Comment: Interpretive Data Percent cell count reference ranges are not reported, since discordance with absolute values may lead to misinterpretation of CBC data. Current Interpretive Data was last revised on 2017. Lymphocyte pct 10.4 % [facility] Comment: Interpretive Data Percent cell count reference ranges are not reported, since discordance with absolute values may lead to misinterpretation of CBC data. Current Interpretive Data was last revised on 2017. Monocyte pct 14.4 % [facility] Comment: Interpretive Data Percent cell count reference ranges are not reported, since discordance with absolute values may lead to misinterpretation of CBC data. Current Interpretive Data was last revised on 2017. Eosinophil pct 0.3 % [facility] Comment: Interpretive Data Percent cell count reference ranges are not reported, since discordance with absolute values may lead to misinterpretation of CBC data. Current Interpretive Data was last revised on 2017. Basophil pct 0.3 % [facility] Comment: Interpretive Data Percent cell count reference ranges are not reported, since discordance with absolute values may lead to misinterpretation of CBC data. Current Interpretive Data was last revised on 2017. Blood 08/25/2024 4:11 AM CDT 08/25/2024 5:26 AM CDT us Daly Villela MD LAB BLOOD ORDERABLES F inal Result LAY VIGIL [address] Department [place] [address] * (ABNORMAL) CBC with auto differential (08/25/2024 4:11 AM CDT) WBC 6.05 3.80 - 9.90 K/cumm Hgb 12.0(L) 13.0 - 17.5 g/dL [facility] Hct 35.0(L) 38.9 - 50.3 % [facility] Plt 299 150 - 400 K/cumm [facility] MPV 10.3 9.1 - 12.3 fL [facility] RBC 3.80(L) 4.30 - 5.80 M/cumm [facility] MCV 92.1 81.3 - 96.4 fL [facility] MCH 31.6 27.1 - 33.3 pg [facility] MCHC 34.3 32.3 - 35.7 g/dL [facility] RDW CV 12.2 11.1 - 14.9 % [facility] RDW SD 41.1 35.7 - 48.1 fL [facility] NRBC abs 0.00 0.00 - 0.01 K/cumm [facility] Blood 08/25/2024 4:11 AM CDT 08/25/2024 5:26 AM CDT Daly Villela MD LAB BLOOD ORDERABLES F inal Result LAY YARITZA [address] [place], [place] [id number] * Phosphorus (08/25/2024 4:11 AM CDT) Pathologist [facility] Phosphorus, pl 3.0 2.3 - 4.5 mg/dL Blood 08/25/2024 4:11 AM CDT 08/25/2024 5:24 AM CDT Daly Villela MD LAB BLOOD ORDERABLES F inal Result [place]ER[place] [address] [facility] [place] [address] * Magnesium (08/25/2024 4:11 AM CDT) [facility] Magnesium 1.7 1.4 - 2.5 mg/dL Blood 08/25/2024 4:11 AM CDT 08/25/2024 5:24 AM CDT us Daly Villela MD LAB BLOOD [place] [address] Department [place] [address] * (ABNORMAL) Comprehensive metabolic panel (08/25/2024 4:11 [...] ORDERABLES F inal Result Performing Organization Address [facility] Co de Phone Number LAY VIGIL [address] Department of [place], [place] [id number] * eGFR (08/24/2024 5:12 AM CDT) eGFR [...] ORDERABLES F inal Result Performing Organization Address [facility]/ZIP Co de Phone Number LAY VIGIL [address] [place] [address] * (ABNORMAL) Differential, auto (08/24/2024 5:12 AM CDT) Neutrophil abs 3.00 1.50 - 6.50 K/cumm Imm gran abs 0.02 0.00 - 0.10 K/cumm [facility] Lymphocyte abs 0.61(L) 0.80 - 3.30 K/cumm [facility] Monocyte abs 0.76 0.20 - 0.80 K/cumm [facility] Eosinophil abs 0.04 0.00 - 0.50 K/cumm [facility] Basophil abs 0.02 0.00 - 0.10 K/cumm [facility] Neutrophil pct 67.5 % [facility] Comment: Interpretive Data Percent cell count reference ranges are not reported, since discordance with absolute values may lead to misinterpretation of CBC data. Current Interpretive Data was last revised on 2017. Imm gran pct 0.4 % [facility] Comment: Interpretive Data Percent cell count reference ranges are not reported, since discordance with absolute values may lead to misinterpretation of CBC data. Current Interpretive Data was last revised on 2017. Lymphocyte pct 13.7 % [facility] Comment: Interpretive Data Percent cell count reference ranges are not reported, since discordance with absolute values may lead to misinterpretation of CBC data. Current Interpretive Data was last revised on 2017. Monocyte pct 17.1 % [facility] Comment: Interpretive Data Percent cell count reference ranges are not reported, since discordance with absolute values may lead to misinterpretation of CBC data. Current Interpretive Data was last revised on 2017. Eosinophil pct 0.9 % [facility] Comment: Interpretive Data Percent cell count reference ranges are not reported, since discordance with absolute values may lead to misinterpretation of CBC data. Current Interpretive Data was last revised on 2017. Basophil pct 0.4 % [facility] Comment: Interpretive Data Percent cell count reference ranges are not reported, since discordance with absolute values may lead to misinterpretation of CBC data. Current Interpretive Data was last revised on 2017. Blood 08/24/2024 5:12 AM CDT 08/24/2024 5:50 AM CDT us Daly Villela MD LAB BLOOD ORDERABLES F inal Result LAY [address] Department [place] [address] * (ABNORMAL) CBC with auto differential (08/24/2024 5:12 AM CDT) Pathologist [facility] WBC 4.45 3.80 - 9.90 K/cumm Hgb 11.3(L) 13.0 - 17.5 g/dL [facility] Hct 33.7(L) 38.9 - 50.3 % [facility] Plt 291 150 - 400 K/cumm [facility] MPV 10.3 9.1 - 12.3 fL [facility] RBC 3.58(L) 4.30 - 5.80 M/cumm [facility] MCV 94.1 81.3 - 96.4 fL [facility] MCH 31.6 27.1 - 33.3 pg [facility] MCHC 33.5 32.3 - 35.7 g/dL [facility] RDW CV 12.0 11.1 - 14.9 % [facility] RDW SD 41.8 35.7 - 48.1 fL [facility] NRBC abs 0.00 0.00 - 0.01 K/cumm [facility] Blood 08/24/2024 5:12 AM CDT 08/24/2024 5:50 AM CDT Daly Villela MD LAB BLOOD ORDERABLES F inal Result [facility] [address] Department [place] [address] * (ABNORMAL) Comprehensive metabolic panel (08/24/2024 5:12 AM CDT) Pathologist [facility] Sodium 138 135 - 145 mmol/L Potassium, pl 2.8(L) 3.3 - 4.9 mmol/L [facility] Chloride 97 [...] LAB BLOOD ORDERABLES F inal Result LAY [address] Department [place] [address] * eGFR (08/23/2024 3:55 AM CDT) eGFR [...] LAB BLOOD ORDERABLES Final Re sult LAY [address] [place] [address] * Phosphorus (08/23/2024 3:55 AM CDT) Phosphorus, pl 2.9 2.3 - 4.5 mg/dL Blood 08/23/2024 3:55 AM CDT 08/23/2024 5:35 AM CDT Wisam Huerta MD LAB BLOOD ORDERABLES Final Re sult Performing Organization Address [facility] Co de Phone Number LAY [address] [place] [address] * Magnesium (08/23/2024 3:55 AM CDT) Magnesium 1.8 1.4 - 2.5 mg/dL Blood 08/23/2024 3:55 AM CDT 08/23/2024 5:35 AM CDT Wisam Huerta MD LAB BLOOD ORDERABLES Final Re sult Performing Organization Address City/[facility] Co de Phone Number [facility] [address] [facility] [place] [address] * (ABNORMAL) Basic metabolic panel (08/23/2024 3:55 AM CDT) Sodium 138 135 - 145 mmol/L Potassium, pl 3.4 3.3 - 4.9 mmol/L LAY Chloride 97 97 - 110 mmol/L [facility] CO2 24 22 - 32 mmol/L [facility] Anion gap 17(H) 2 - 15 mmol/L [facility] BUN 11 6 - 25 mg/dL [facility] Creatinine 0.55(L) 0.80 - 1.30 mg/dL [facility] Glucose 86 70 - 199 mg/dL [facility] Comment: Interpretive Data Fasting glucose >/= [...] 2022. Calcium 9.8 8.5 - 10.3 mg/dL [facility] Blood 08/23/2024 3:55 AM CDT 08/23/2024 5:35 AM CDT us Wisam Huerta MD LAB BLOOD ORDERABLES Final Re sult [facility] [address] Department [place] [address] * (ABNORMAL) Urinalysis reflex to microscopic and culture Urine (08/22/2024 9:45 PM CDT) Color, ur Yellow Yellow Clarity, ur Clear Clear [facility] Specific gravity, ur 1.012 1.003 - 1.[address] [facility] [facility] pH, urine 5.5 [facility] Comment: Interpretive Data U rine pH is affected by diet, medications, systemic acid-base disturbances, and renal tubular function. pH may affect urinary stone formation. For example, urine pH below 6.0 may help reduce the tendency for calcium phosphate stones and pH greater than 6.0 may reduce the tendency for uric acid stone formation. Source: [facility] [place] Current Interpretive Data was last revised on [...] GEN ERAL ORDERABLES Final Result LAY VIGIL [address] Department [place] [address] * XR ABD AP WATER SOLUBLE INJ [...] LAB BLOOD ORDERABLES Final Result LAY VIGIL [address] Department [place] [address] * (ABNORMAL) Differential, auto (08/22/2024 8:09 PM CDT) Neutrophil abs 5.80 1.50 - 6.50 K/cumm Imm gran abs 0.02 0.00 - 0.10 K/cumm LAY VIGIL Lymphocyte abs 0.59(L) 0.80 - 3.30 K/cumm [facility] Monocyte abs 0.81(H) 0.20 - 0.80 K/cumm [facility] Eosinophil abs 0.01 0.00 - 0.50 K/cumm [facility] Basophil abs 0.02 0.00 - 0.10 K/cumm [facility] Neutrophil pct 80.0 % [facility] Comment: Interpretive Data Percent cell count reference ranges are not reported, since discordance with absolute values may lead to misinterpretation of CBC data. Current Interpretive Data was last revised on 2017. Imm gran pct 0.3 % [facility] Comment: Interpretive Data Percent cell count reference ranges are not reported, since discordance with absolute values may lead to misinterpretation of CBC data. Current Interpretive Data was last revised on 2017. Lymphocyte pct 8.1 % [facility] Comment: Interpretive Data Percent cell count reference ranges are not reported, since discordance with absolute values may lead to misinterpretation of CBC data. Current Interpretive Data was last revised on 2017. Monocyte pct 11.2 % [facility] Comment: Interpretive Data Percent cell count reference ranges are not reported, since discordance with absolute values may lead to misinterpretation of CBC data. Current Interpretive Data was last revised on 2017. Eosinophil pct 0.1 % [facility] Comment: Interpretive Data Percent cell count reference ranges are not reported, since discordance with absolute values may lead to misinterpretation of CBC data. Current Interpretive Data was last revised on 2017. Basophil pct 0.3 % [facility] Comment: Interpretive Data Percent cell count reference ranges are not reported, since discordance with absolute values may lead to misinterpretation of CBC data. Current Interpretive Data was last revised on 2017. Blood 08/22/2024 8:09 PM CDT 08/22/2024 8:11 PM CDT Puneet CORNELL LAB BLOOD ORDERABLES Final Result LAY [address] Department [place] [address] * (ABNORMAL) CBC with auto differential (08/22/2024 8:09 PM CDT) [facility] WBC 7.25 3.80 - 9.90 K/cumm Hgb 13.3 13.0 - 17.5 g/dL [facility] Hct 39.0 38.9 - 50.3 % [facility] Plt 321 150 - 400 K/cumm [facility] MPV 10.2 9.1 - 12.3 fL [facility] RBC 4.20(L) 4.30 - 5.80 M/cumm [facility] MCV 92.9 81.3 - 96.4 fL [facility] MCH 31.7 27.1 - 33.3 pg [facility] MCHC 34.1 32.3 - 35.7 g/dL [facility] RDW CV 12.0 11.1 - 14.9 % [facility] RDW SD 41.1 35.7 - 48.1 fL [facility] NRBC abs 0.00 0.00 - 0.01 K/cumm [facility] Blood Venous blood specimen / Unknown 08/22/2024 8:09 PM CDT 08/22/2024 8:11 PM CDT Puneet CORNELL LAB BLOOD ORDERABLES Final Result Performing Organization Address City/[facility] Co de Phone Number LAY [address] [place] [address] * Phosphorus (08/22/2024 8:09 PM CDT) [facility] Phosphorus, pl 3.0 2.3 - 4.5 mg/dL Blood 08/22/2024 8:09 PM CDT 08/22/2024 8:11 PM CDT Puneet CORNELL LAB BLOOD ORDERABLES Final Result LAY [address] [facility] [place], [place] [id number] * Magnesium (08/22/2024 8:09 PM CDT) [facility] Magnesium 1.9 1.4 - 2.5 mg/dL Blood 08/22/2024 8:09 PM CDT 08/22/2024 8:11 PM CDT Puneet CORNELL LAB BLOOD ORDERABLES Final Result Performing Organization Address City/[facility]/ZIP Co de Phone Number LAY [address] [facility] [place] [address] * Lipase (08/22/2024 8:09 PM CDT) Pathologist [facility] Lipase 14 10 - 99 Units/L Blood 08/22/2024 8:09 PM CDT 08/22/2024 8:11 PM CDT Puneet CORNELL LAB BLOOD ORDERABLES Final Result Performing Organization Address [facility] de Phone Number [facility] [address] [facility] [place] [address] * (ABNORMAL) Comprehensive metabolic panel (08/22/2024 8:09 PM CDT) Pathologist [facility] Sodium 135 135 - 145 mmol/L Potassium, pl 3.3 3.3 - 4.9 mmol/L [facility] Chloride 88(L) 97 - 110 mmol/L [facility] CO2 26 22 - 32 mmol/L [facility] Anion gap 21(H) 2 - 15 mmol/L [facility] BUN 13 6 - 25 mg/dL [facility] Creatinine 0.64(L) 0.80 - 1.30 mg/dL [facility] Glucose 100 70 - 199 mg/dL [facility] Comment: Interpretive Data Fasting glucose >/= [...] LAB BLOOD ORDERABLES Final Result LAY VIGIL [address] Department [place] [address] * CT Chest W Contrast (08/21/2024 9:04 [...] No suspicious pulmonary nodule. Procedure Note Sixto Trores MD - 08/21/2024 EXAMINATION: Computed tomography of [...] chest. Electronically signed by: Sixto Torres M.D. us Pro Gama MD IMG CT PROCEDURES Final [...] by: Jase Mcgee M.D. Shahbaz Earl MD IMG CT PROCEDURES Final [...] LAB BLOOD ORDERA BLES Final Result LAY [address] Department [place] [address] * (ABNORMAL) Differential, auto (08/10/2024 5:58 PM CDT) Neutrophil abs 4.49 1.50 - 6.50 K/cumm Imm gran abs 0.02 0.00 - 0.10 K/cumm LAY Lymphocyte abs 0.79(L) 0.80 - 3.30 K/cumm [facility] Monocyte abs 0.71 0.20 - 0.80 K/cumm [facility] Eosinophil abs 0.01 0.00 - 0.50 K/cumm [facility] Basophil abs 0.02 0.00 - 0.10 K/cumm [facility] Neutrophil pct 74.3 % [facility] Comment: Interpretive Data Percent cell count reference ranges are not reported, since discordance with absolute values may lead to misinterpretation of CBC data. Current Interpretive Data was last revised on 2017. Imm gran pct 0.3 % [facility] Comment: Interpretive Data Percent cell count reference ranges are not reported, since discordance with absolute values may lead to misinterpretation of CBC data. Current Interpretive Data was last revised on 2017. Lymphocyte pct 13.1 % [facility] Comment: Interpretive Data Percent cell count reference ranges are not reported, since discordance with absolute values may lead to misinterpretation of CBC data. Current Interpretive Data was last revised on 2017. Monocyte pct 11.8 % [facility] Comment: Interpretive Data Percent cell count reference ranges are not reported, since discordance with absolute values may lead to misinterpretation of CBC data. Current Interpretive Data was last revised on 2017. Eosinophil pct 0.2 % [facility] Comment: Interpretive Data Percent cell count reference ranges are not reported, since discordance with absolute values may lead to misinterpretation of CBC data. Current Interpretive Data was last revised on 2017. Basophil pct 0.3 % [facility] Comment: Interpretive Data Percent cell count reference ranges are not reported, since discordance with absolute values may lead to misinterpretation of CBC data. Current Interpretive Data was last revised on 2017. Blood 08/10/2024 5:58 PM CDT 08/10/2024 6:04 PM CDT Cm CORNELL LAB BLOOD ORDERA BLES Final Result LAY [address] Department [place] [address] * (ABNORMAL) CBC with auto differential (08/10/2024 5:58 PM CDT) Pathologist [facility] WBC 6.04 3.80 - 9.90 K/cumm Hgb 13.8 13.0 - 17.5 g/dL [facility] Hct 41.6 38.9 - 50.3 % [facility] Plt 332 150 - 400 K/cumm [facility] CH MPV 9.8 9.1 - 12.3 fL [facility] RBC 4.31 4.30 - 5.80 M/cumm [facility] MCV 96.5(H) 81.3 - 96.4 fL [facility] MCH 32.0 27.1 - 33.3 pg [facility] MCHC 33.2 32.3 - 35.7 g/dL [facility] RDW CV 11.9 11.1 - 14.9 % [facility] RDW SD 42.6 35.7 - 48.1 fL [facility] NRBC abs 0.00 0.00 - 0.01 K/cumm [facility] Blood Venous blood specimen / Unknown 08/10/2024 5:58 PM CDT 08/10/2024 6:04 PM CDT us Shahbaz Earl MD LAB BLOOD ORDERABLES Fin al Result [facility] [address] Department [place] [address] * (ABNORMAL) Comprehensive metabolic panel (08/10/2024 5:58 PM CDT) Pathologist [facility] Sodium 136 135 - 145 mmol/L Potassium, pl 3.8 3.3 - 4.9 mmol/L [facility] Chloride 93(L) 97 - 110 mmol/L [facility] CO2 32 22 - 32 mmol/L [facility] Anion gap 11 2 - 15 mmol/L [facility] BUN 21 6 - 25 mg/dL [facility] Creatinine 0.84 0.80 - 1.30 mg/dL [facility] Glucose 125 70 - 199 mg/dL [facility] Comment: Interpretive Data Fasting glucose >/= [...] ORDERABLES Fin al Result Performing Organization Address City/[facility]/ZIP Co de Phone Number [facility] [address] Department [place] [address] * ECG 12 lead (08/10/2024 5:22 PM CDT) 08/10/2024 5:22 PM CDT Narrative [facility] - 08/12/2024 9:25 PM CDT Vent Rate: 116 bpm RR Interval: 514 msec DE Interval: 186 msec QRS Duration: 89 msec QT Interval: 324 msec QTC Interval: 393 msec P-R-T [place]: 78 - 63 - 54 degrees IMPRESSION: SINUS TACHYCARDIA WITH OCCASIONAL SUPRAVENTRICULAR PREMATURE COMPLEXES Electronically Signed By: Bill Terrazas MD, [facility] Shahbaz Earl MD ECG ORDERABLES Final Re sult Performing Organization Address City/[facility]/ZIP Co de Phone Number [facility] [employer] [facility] * IR Change G Tube (07/23/2024 [...] skin and subcutaneous tissues were dilated to 22-[place]. Over the guidewire, a new 18-[place] gastrostomy tube was advanced into the stomach. [...] skin and subcutaneous tissues were dilated to 22-[place]. Over the guidewire, a new 18-[place] gastrostomy tube was advanced into the stomach. [...] BLOOD ORDERABLES F inal Result LAY VIGIL [address] Department [place] [address] * (ABNORMAL) Differential, auto (07/23/2024 3:47 AM CDT) Neutrophil abs 1.97 1.50 - 6.50 K/cumm Imm gran abs 0.01 0.00 - 0.10 K/cumm LAY Lymphocyte abs 0.66(L) 0.80 - 3.30 K/cumm [facility] Monocyte abs 0.64 0.20 - 0.80 K/cumm [facility] Eosinophil abs 0.09 0.00 - 0.50 K/cumm [facility] Basophil abs 0.02 0.00 - 0.10 K/cumm [facility] Neutrophil pct 58.0 % [facility] Comment: Interpretive Data Percent cell count reference ranges are not reported, since discordance with absolute values may lead to misinterpretation of CBC data. Current Interpretive Data was last revised on 2017. Imm gran pct 0.3 % [facility] Comment: Interpretive Data Percent cell count reference ranges are not reported, since discordance with absolute values may lead to misinterpretation of CBC data. Current Interpretive Data was last revised on 2017. Lymphocyte pct 19.5 % [facility] Comment: Interpretive Data Percent cell count reference ranges are not reported, since discordance with absolute values may lead to misinterpretation of CBC data. Current Interpretive Data was last revised on 2017. Monocyte pct 18.9 % [facility] Comment: Interpretive Data Percent cell count reference ranges are not reported, since discordance with absolute values may lead to misinterpretation of CBC data. Current Interpretive Data was last revised on 2017. Eosinophil pct 2.7 % [facility] Comment: Interpretive Data Percent cell count reference ranges are not reported, since discordance with absolute values may lead to misinterpretation of CBC data. Current Interpretive Data was last revised on 2017. Basophil pct 0.6 % [facility] Comment: Interpretive Data Percent cell count reference ranges are not reported, since discordance with absolute values may lead to misinterpretation of CBC data. Current Interpretive Data was last revised on 2017. Blood 07/23/2024 3:47 AM CDT 07/23/2024 5:13 AM CDT us Sushil Merritt MD LAB BLOOD ORDERABLES F inal Result LAY VIG[address] Department of Laboratories [place], [place] [id number] * (ABNORMAL) CBC with auto differential (07/23/2024 3:47 AM CDT) WBC 3.39(L) 3.80 - 9.90 K/cumm Hgb 10.7(L) 13.0 - 17.5 g/dL [facility] Hct 34.0(L) 38.9 - 50.3 % [facility] Plt 294 150 - 400 K/cumm [facility] MPV 10.7 9.1 - 12.3 fL [facility] RBC 3.29(L) 4.30 - 5.80 M/cumm [facility] MCV 103.3(H) 81.3 - 96.4 fL [facility] MCH 32.5 27.1 - 33.3 pg [facility] MCHC 31.5(L) 32.3 - 35.7 g/dL [facility] RDW CV 12.9 11.1 - 14.9 % [facility] RDW SD 49.0(H) 35.7 - 48.1 fL [facility] NRBC abs 0.00 0.00 - 0.01 K/cumm [facility] Blood 07/23/2024 3:47 AM CDT 07/23/2024 5:13 AM CDT us Sushil Merritt MD LAB BLOOD ORDERABLES F inal Result [facility] [address] Department [place] [address] * (ABNORMAL) Protime-INR (07/23/2024 3:47 AM CDT) PT 13.3(H) 9.7 - 13.0 sec INR 1.23(H) 0.90 - 1.20 [facility] Comment: Interpretive data Oral anticoagulant therapeutic ranges: Venous thromboembolism prophylaxis or treatment: 2.0-3.0 CARDIOLOGY Standard range: 2.0-3.0 High-intensity range: 2.5-3.5 Refer to indication-specific guidelines for appropriate target ranges for prosthetic heart valve replacement. Current interpretive data was last revised on 2019. Blood 07/23/2024 3:47 AM CDT 07/23/2024 5:14 AM CDT Henrik Collins MD LAB BLOOD ORDERABLES F inal Result [facility] [address] Department [place] [address] * (ABNORMAL) Basic metabolic panel (07/23/2024 3:47 [...] Calcium 9.5 8.5 - 10.3 mg/dL [facility] Blood 07/23/2024 3:47 AM CDT 07/23/2024 5:13 AM CDT Sushil Merritt MD LAB BLOOD ORDERABLES F inal Result [facility] [address] Department [place] [address] * Check Sample (07/22/2024 4:14 AM CDT) ABO Rh A Positive CH HCLL OTHER 07/22/2024 4:14 AM CDT 07/22/2024 4:48 AM CDT Sushil Merritt MD LAB BLOOD ORDERABLES F inal Result [facility] [address] [place] [address] CH * DE PERQ REPLACEMENT GTUBE NOT REQ REVJ GSTRST [...] BLOOD BANK TEST ORDERA BLES Final Result Performing Organization Address [facility]/ZIP Co de Phone Number [place] [place] [address] [place] [address] * eGFR (07/21/2024 11:50 PM CDT) Pathologist [facility] eGFR >90 >=60 mL/min/1. 73 m2 Comment: [...] Dumont MD LAB BLOOD ORDERABLES Final Result [facility] [address] Department [place] [address] * (ABNORMAL) Differential, auto (07/21/2024 11:50 PM CDT) Pathologist [facility] Neutrophil abs 4.43 1.50 - 6.50 K/cumm Imm gran abs 0.03 0.00 - 0.10 K/cumm [facility] Lymphocyte abs 0.53(L) 0.80 - 3.30 K/cumm [facility] Monocyte abs 0.67 0.20 - 0.80 K/cumm [facility] Eosinophil abs 0.02 0.00 - 0.50 K/cumm [facility] Basophil abs 0.03 0.00 - 0.10 K/cumm [facility] Neutrophil pct 77.6 % [facility] Comment: Interpretive Data Percent cell count reference ranges are not reported, since discordance with absolute values may lead to misinterpretation of CBC data. Current Interpretive Data was last revised on 2017. Imm gran pct 0.5 % [facility] Comment: Interpretive Data Percent cell count reference ranges are not reported, since discordance with absolute values may lead to misinterpretation of CBC data. Current Interpretive Data was last revised on 2017. Lymphocyte pct 9.3 % [facility] Comment: Interpretive Data Percent cell count reference ranges are not reported, since discordance with absolute values may lead to misinterpretation of CBC data. Current Interpretive Data was last revised on 2017. Monocyte pct 11.7 % [facility] Comment: Interpretive Data Percent cell count reference ranges are not reported, since discordance with absolute values may lead to misinterpretation of CBC data. Current Interpretive Data was last revised on 2017. Eosinophil pct 0.4 % [facility] Comment: Interpretive Data Percent cell count reference ranges are not reported, since discordance with absolute values may lead to misinterpretation of CBC data. Current Interpretive Data was last revised on 2017. Basophil pct 0.5 % [facility] Comment: Interpretive Data Percent cell count reference ranges are not reported, since discordance with absolute values may lead to misinterpretation of CBC data. Current Interpretive Data was last revised on 2017. Blood 07/21/2024 11:5 0 PM CDT 07/21/2024 11:53 PM CDT Eber Dumont MD LAB BLOOD ORDERABLES Final Result [facility] [address] Department of Laboratories [place], [place] [id number] * (ABNORMAL) CBC with auto differential (07/21/2024 11:50 PM CDT) WBC 5.71 3.80 - 9.90 K/cumm Hgb 11.9(L) 13.0 - 17.5 g/dL [facility] Hct 35.8(L) 38.9 - 50.3 % [facility] Plt 309 150 - 400 K/cumm [facility] MPV 9.6 9.1 - 12.3 fL [facility] RBC 3.57(L) 4.30 - 5.80 M/cumm [facility] MCV 100.3(H) 81.3 - 96.4 fL [facility] MCH 33.3 27.1 - 33.3 pg [facility] MCHC 33.2 32.3 - 35.7 g/dL [facility] RDW CV 12.6 11.1 - 14.9 % [facility] RDW SD 46.8 35.7 - 48.1 fL [facility] NRBC abs 0.00 0.00 - 0.01 K/cumm [facility] Blood Venous blood specimen / Unknown 07/21/2024 11:50 PM CDT 07/21/2024 11:53 PM CDT Eber Dumont MD LAB BLOOD ORDERABLES Final Result Performing Organization Address [facility] de Phone Number [facility] [address] [place] [address] * Protime-INR (07/21/2024 11:50 PM CDT) PT 12.1 9.7 - 13.0 sec INR 1.12 0.90 - 1.20 [facility] Comment: Interpretive data Oral anticoagulant therapeutic ranges: Venous thromboembolism prophylaxis or treatment: 2.0-3.0 CARDIOLOGY Standard range: 2.0-3.0 High-intensity range: 2.5-3.5 Refer to indication-specific guidelines for appropriate target ranges for prosthetic heart valve replacement. Current interpretive data was last revised on 2019. Blood 07/21/2024 11:5 0 PM CDT 07/21/2024 11:53 PM CDT Eber Dumont MD LAB BLOOD ORDERABLES Final Result Performing Organization Address [facility] Co de Phone Number [facility] [address] [employer] [place], [place] [id number] * (ABNORMAL) Basic metabolic panel (07/21/2024 11:50 [...] CH Glucose 117 70 - 199 mg/dL [facility] Comment: [...] 2022. Calcium 9.7 8.5 - 10.3 mg/dL [facility] Blood 07/21/2024 11:5 0 PM CDT 07/21/2024 11:53 PM CDT us Eber Dumont MD LAB BLOOD ORDERABLES Final Result [facility] [address] Department [place] [address] from Last 3 Months Insurance [place] Direct[place] For more information, please contact: [phone] * Full Code (Latest Code Status on [...] 1:04 AM 04/01/2024 9:34 PM Care Teams Operations Controller Relationship Specialty Start Date End Date Gia Foss MD [address] [address] PCP - General Internal Medicine 06/12/24 Michelle Handy RN Nurse Navigator 02/09/24 Noemí Pitts LCSW Manager Maintenance 02/10/24 Pro Gama MD [address] [facility] [address] [place] [address] Medical Oncologist/Central Office Repairer Medical Oncology 02/13/24 Francis Tuttle MD [address] [facility] [address] [place] [address] Consulting Physician Radiation Oncology 02/13/24 Wilma Groves MD [facility] DEPT OTOLARYNGOLOGY, [address] [place] [address] Surgeon Otolaryngology 02/13/24
[2024-10-01] MEDS: racEPINEPHrine 2.25% NEBU SOLN 0.5 ML VIAL.NEB INHALATION (18:55)
[2024-10-01 18:58] VITALS: RESP 20
[2024-10-01] MEDS: MORPHINE SULFATE (*CRX) 4 MG/ML INJ IV PUSH (19:35)
== END 2024-10-01 21:38 | disposition short-term general hospital (02) ==
PROVIDERS: Registered Nurse; Emergency Provider Student in an Organized Health Care Education/Training Program; PCP Hospitalist
DX: R06.1 Stridor (principal); R06.02 Shortness of breath; C76.0 Malignant neoplasm of head, face and neck
CPT/HCPCS: 36415; 70490; 71275; 80053; 83735; 85025; 85610; 85730; 93005; 94640; 96374; 96375; 96376; 99285; J1100; J2270; Q9967

== ENCOUNTER 2024-10-04 09:39 | Inpatient (IN) | payer BC, SELFPAY ==
[2024-10-04] VITALS (25 sets, daily range): BP systolic 91–154; BP diastolic 68–89; PULSE 99–135; RESP 17–26; TEMP 37–37.7; O2SAT 93–100; BMI 21.7
--- NOTE | ~2024-10-04 | XR_ITS ---
CHEST RADIOGRAPH CLINICAL HISTORY: SOB . COMPARISON: 10/04/2024 TECHNIQUE: Single portable view of the chest. FINDINGS The cardiomediastinal silhouette is enlarged, unchanged. The lungs are clear. Dextroscoliotic curvature of the thoracic spine is present, distorting the cardiac mediastinal silhou ette. IMPRESSION: Cardiomegaly, without focal infiltrate or effusion. Reviewed, dictated and finalized at location A.
--- NOTE | ~2024-10-04 | XR_ITS ---
CHEST RADIOGRAPH CLINICAL HISTORY: SOB . COMPARISON: 10/05/2024 TECHNIQUE: Single portable view of the chest. FINDINGS Redemonstration of dextroscoliotic curvature of the thoracic spine, markedly distorting the cardiomed iastinal silhouette. Bibasilar platelike atelectasis is now identified, an interval change from prior. Increased interstitial markings are identified bilaterally, findings suggesting mild pulmonary vascul ar congestion. The remainder of the lungs are clear. IMPRESSION: Bibasilar platelike atelectasis with mild pulmonary vascular congestion, an interval change. If clinical suspicion persists, cross-sectional imaging (noncontrast enhanced CT examination of the c hest) is suggested for further evaluation. Reviewed, dictated and finalized at location A. IMPRESSION: Bibasilar platelike atelectasis with mild pulmonary vascular congestion, an int erval change. If clinical suspicion persists, cross-sectional imaging (noncontrast enhanced C T examination of the chest) is suggested for further evaluation.
--- NOTE | ~2024-10-04 | XR_ITS ---
CHEST RADIOGRAPH CLINICAL HISTORY: resp failure . COMPARISON: 10/06/2024 at 1:40 PM TECHNIQUE: Single portable view of the chest. FINDINGS endotracheal tube identified with its tip approximately 4.5 cm above the base of the clau. The remainder of the cardiomediastinal silhouette is otherwise unremarkable. Percutaneous gastrostomy tube identified below the left hemidiaphragm, with gaseous distention of the proximal stomach. Persistent dense opacification of the left hemidiaphragm suggesting a left-sided infiltrate. Redemonstration of patchy opacification of the bilateral lung nicole, right greater than left. Blunting of the RIGHT costophrenic sulcus suggesting a small left-sided pleural effusion. The remainder of the lungs are clear. IMPRESSION: Left-sided pleural effusion with persistent patchy opacification of the bilateral lung nicole and den se opacification of the mid left diaphragm, for which a left basilar infiltrate is suspected. Endotracheal tube in good position. Percutaneous gastrostomy tube is likely not on suction. Reviewed, dictated and finalized at location A. IMPRESSION: Left-sided pleural effusion with persistent patchy opacification of the bilater al lung nicole and dense opacification of the mid left diaphragm, for which a l eft basilar infiltrate is suspected. Endotracheal tube in good position. Percutaneous gastrostomy tube is likely not on suction.
--- NOTE | ~2024-10-04 | XR_ITS ---
CHEST RADIOGRAPH CLINICAL HISTORY: intubation . COMPARISON: 10/06/2024 approximately 1 hour earlier and dating back to 10/04/2024 TECHNIQUE: Single portable view of the chest. FINDINGS Endotracheal tube is identified with its tip projecting approximately 5cm above the base of the farideh a. The remainder of the cardiomediastinal silhouette is otherwise unremarkable. Dense opacification of the medial left hemidiaphragm for which a left medial basilar infiltrate is farrell spected. Interstitial thickening is detected throughout the remainder of the bilateral lung nicole. A reticulonodular pattern is also noted, an interval change from previous examinations. The remainder of the lungs are clear. IMPRESSION: Endotracheal tube in good radiographic position. Findings suggesting a left medial basilar infiltrate now with a diffuse reticulonodular pattern, an i nterval change. Reviewed, dictated and finalized at location A. IMPRESSION: Endotracheal tube in good radiographic position. Findings suggesting a left medial basilar infiltrate now with a diffuse reticul onodular pattern, an interval change.
--- NOTE | ~2024-10-04 | XR_ITS ---
EXAMINATION: XR chest 2V DATE: 10/04/2024 11:01 INDICATION: Shortness of breath TECHNIQUE: AP and lateral views of the chest were obtained. COMPARISON: PET/CT dated 10/04/2024 FINDINGS: Opacities in the bilateral lower lung zones consistent with pneumonia. No pleural effusion or pneumot horax. Heart size is normal. Moderate thoracic dextro scoliosis. Cholecystectomy clips in right upper quadrant. Percutaneous gastrostomy tube in the body the stomach. IMPRESSION: 1. Opacities in the bilateral lower lungs with appearance on prior CT most consistent with multifocal pneumonia. Reviewed, dictated and finalized at location B. IMPRESSION: 1. Opacities in the bilateral lower lungs with appearance on prior CT most cons istent with multifocal pneumonia.
--- NOTE | ~2024-10-04 | CT_ITS ---
EXAMINATION: CTA chest PE protocol DATE: 10/04/2024 10:49 INDICATION: Shortness of breath and hypoxia TECHNIQUE: Computed tomography (CT) pulmonary angiogram of the chest was performed with 100 mL Omnipa que-350 intravenous contrast. Additional 3D reconstructions utilizing coronal maximum intensity proje ction (MIP) were performed. Automated exposure control and iterative reconstruction technique were em ployed. The dose-length product was 503.13 mGy-cm. COMPARISON: 10/01/2024 FINDINGS: No pulmonary embolism. Mild tree-in-bud opacities and small centrilobular groundglass opacities scatt ered throughout both lungs as well as more dense patchy consolidation in the bilateral lower lobes co nsistent with diffuse multifocal pneumonia. There is mucous plugging in the bilateral lower lobes mos t prominent in the posterior and medial basilar segments of the left lower lobe also likely related t o pneumonia. No pulmonary edema, pleural effusion or pneumothorax. Calcified left lower lobe nodule c onsistent with old granulomatous disease. Heart size is normal. No pericardial effusion. Thoracic aor ta is normal in caliber with no dissection. No pathologically enlarged thoracic lymphadenopathy. Visu alized upper abdomen is unremarkable. 30 degrees thoracic dextroscoliosis with mild spondylosis and b ridging osteophytes at multiple levels consistent with diffuse idiopathic skeletal hyperostosis (DISH ). IMPRESSION: 1. No pulmonary embolism. 2. Diffuse multifocal pneumonia throughout both lungs most prominent in the left lower lobe. Reviewed, dictated and finalized at location B. IMPRESSION: 1. No pulmonary embolism. 2. Diffuse multifocal pneumonia throughout both lungs most prominent in the lef t lower lobe.
--- NOTE | ~2024-10-04 | CT_ITS ---
EXAMINATION: CT soft tissue neck wo con DATE: 10/06/2024 16:24 INDICATION: Peritoneal cancer, acute respiratory failure. TECHNIQUE: Computed tomography (CT) of the neck was performed without intravenous contrast. Automated exposure control and iterative reconstruction technique were employed. The dose-length product was 5 06.25 mGy-cm. COMPARISON: 10/01/2024; CTA chest 10/06/2024 FINDINGS: Endotracheal tube, tip in the lower thoracic trachea, 3.4 cm above the clau. Upper neck soft tissue s involving the nasopharyngeal, oropharyngeal, and hypopharyngeal soft tissues are collapsed about th e endotracheal tube, with aerated secretions. The thyroid gland is unremarkable. The submandibular and parotid glands are symmetric. There is no cervical lymphadenopathy. The superior mediastinum i s unremarkable. Parapharyngeal and pre-glottic fat planes are preserved. Decreased subcutaneous st randing in the anterior neck. The orbits are unremarkable. Visualized sinuses and mastoid air cell s are well aerated. Centrilobular groundglass nodular opacities in the right upper lobe. There is cervical spondylosis. Periodontal disease. IMPRESSION: Endotracheal tube is positioned within the airway, 3.4 cm above the clau. Collapse of the nasopharyngeal, oropharyngeal, and hypopharyngeal soft tissues about the endotracheal tube, making evaluation for masses difficult in this noncontrast examination. Right upper lobe groundglass nodules may represent hypersensitivity pneumonitis, respiratory bronchio litis or infectious airways disease. Reviewed, dictated and finalized at [facility]. IMPRESSION: Endotracheal tube is positioned within the airway, 3.4 cm above the clau. Collapse of the nasopharyngeal, oropharyngeal, and hypopharyngeal soft tissues about the endotracheal tube, making evaluation for masses difficult in this non contrast examination. Right upper lobe groundglass nodules may represent hypersensitivity pneumonitis , respiratory bronchiolitis or infectious airways disease.
--- NOTE | 2024-10-04 09:50 | ECG_ITS ---
Test Date: 2024-10-04 09:53:18 Measurements Intervals [place] Rate: 127 P: 77 NM: 166 QRS: 64 QRSD: 91 T: 37 QT: 304 QTc: 442 Interpretive Statements SINUS TACHYCARDIA NONSPECIFIC T-WAVE ABNORMALITY ABNORMAL RHYTHM ECG Compared to ECG 10/01/2024 16:18:33 T-wave abnormality now present Electronically Signed On 10-04-2024 16:50:26 CDT by Edel Frank
--- NOTE | 2024-10-04 10:01 | ED.SOB ---
HPI - SOB/Dyspnea General Chief Complaint: Shortness of Breath/Dyspnea Stated Complaint: SOB Time Seen by Provider: 10/04/24 10:00 Source: patient and EMS Mode of arrival: EMS Limitations: no limitations History of Present Illness HPI Narrative: Patient is a 64 y/o male, with PMH of throat CA, G-tube, HTN, who presents to the ED via EMS with report of SOB. Patient reports he began feeling increasingly short of breath this morning when he woke up. EMS was contacted. Upon EMS's arrival, patient was hypoxic down to 85%. He was placed on non-rebreather at 15L, transitioned down to 6 L nasal cannula. He denies any previous oxygen requirement. Denies recent cough, fevers, chest pain, swelling of lower extremities. Patient reports he recently finished radiation therapy for his throat cancer. He is in after care now. Sees Dr. Gama with [facility]. Related Data Allergies Allergy/AdvReac Type Severity Reaction Status Date / Time Penicillins Allergy Intermediate Rash Verified 10/04/24 09:50 Review of Systems Review of Systems: All systems reviewed & are unremarkable except as noted in HPI. All systems reviewed & are unremarkable except as noted in HPI and below PMFSH Past Medical History Medical History Gastrojejunal tube present Throat cancer Hypertension Family History Family History Father Family history of gallbladder disease Family history of Alzheimer's disease Sibling Family history of gallbladder disease Mother Family history of heart disease in male family member before age 55 Social History Social History Alcohol intake: current Exam Narrative: GENERAL: Ill appearing, thin, non-toxic, in mild respiratory distress. HEAD: Normocephalic, atraumatic. ENT: MMs very dry. Crusting to lips. RESPIRATORY: Airway patent, respirations tachypneic and slightly labored. Conversational dyspnea. Only able to speak in 1-2 word sentences. Hoarse raspy voice. Lung sounds are coarse bilaterally with diffuse rhonchi. No wheezing. CARDIOVASCULAR: Tachycardic with regular rhythm without murmurs, rubs, or gallops. Peripheral pulses are intact ABDOMINAL: Soft, nontender, nondistended. Normoactive BS. MUSCULOSKELETAL: Moves all extremities. No gross deformities. No peripheral edema. No calf tenderness. SKIN: Warm, dry, normal color. NEURO: A&O X3. Speech clear. Cranial nerves II-XII grossly intact. Steady gait. No ataxic movements. PSYCHIATRIC: Appropriate mood and affect. Normal interaction. Course Vital Signs Vital signs: Vital Signs Temperature 98.6 F 10/04/24 09:39 Pulse Rate 135 H 10/04/24 09:39 Respiratory Rate 24 H 10/04/24 09:39 Blood Pressure 131/85 10/04/24 09:39 Pulse Oximetry 94 10/04/24 09:39 Oxygen Delivery Nasal Cannula 10/04/24 09:39 Oxygen Flow Rate 6 10/04/24 09:39 Temperature 98.6 F 10/04/24 09:39 Pulse Rate 109 H 10/04/24 12:30 Respiratory Rate 17 10/04/24 12:30 Blood Pressure 114/81 10/04/24 12:30 Pulse Oximetry 97 10/04/24 12:30 Oxygen Delivery Nasal Cannula 10/04/24 12:21 Oxygen Flow Rate 4 10/04/24 12:21 MDM - SOB/Dyspnea MDM Narrative Medical decision making narrative: Patient presented with shortness of breath, onset this morning. History of throat cancer. Patient found be hypoxic by EMS. Currently on 6 L nasal cannula. Oxygen saturations 94%. No previous oxygen requirement. Patient tachycardic and tachypneic upon arrival. Afebrile here. Denies fevers at home. Laboratory studies with leukocytosis of 15.9. This appears new from recent records. Neutrophil predominance. No bandemia. H&H is stable. CMP with sodium 136. Bicarb 32. Creatinine is stable. Blood glucose 134. Lactic acid minimally elevated 2.1. Pain is meeting sepsis criteria. 30 cc/kg fluid bolus was ordered. Blood cultures were obtained. ABG without significant CO2 retention. Mildly alkalotic. EKG with sinus tachycardia, nonspecific ST changes. Denies chest pain. BNP 790. Troponin undetectable. Patient does not appear fluid overloaded. Viral swabs negative. CTA of chest was obtained and without evidence of PE. Does show multifocal pneumonia. Patient meeting sepsis criteria. Started on Rocephin and azithromycin for CAP. Will be admitted for further evaluation. Heart rate has improved into the low 110s, O2 able to be weaned down to 4L. Discussed case with Denise Lyon, [employer] hospitalist, accepted patient for admission. Will place to IMU status given patient is immunocompromised. Medical Records Attestation: I reviewed the patient's medical records. Lab Data Attestation: I reviewed the patient's lab results. 10/04/24 10:09 10/04/24 10:09 Labs: Lab Results 10/04/24 10/04/24 10/04/24 Range/Units 10:09 10:17 11:08 WBC 15.9 H (4.5-10.0) K/mm3 RBC 3.79 L (4.6-6.20) M/mm3 Hgb 11.8 L (14.0-18.0) g/dL Hct 36.5 L (42.0-52.0) % MCV 96.3 (80-100) fl MCH 31.1 (26-34) pg MCHC 32.3 (32-36) g/dl RDW 13.5 (11.5-14.5) % Plt Count 381 H (150-375) k/mm3 MPV 9.7 (7.4-10.4) fl Immature Gran % (Auto) 0.7 H (0-0.5) % Neut % (Auto) 86.4 H (45.5-73.1) % Lymph % (Auto) 1.8 L (18.3-44.2) % [place] % (Auto) 9.0 H (2.6-8.5) % Eos % (Auto) 1.8 (0-4.4) % Baso % (Auto) 0.3 (0.2-1.2) % Lymph # (Auto) 0.28 L (0.9-3.2) K/mm3 [place] # (Auto) 1.4 H (0.1-0.6) K/mm3 Eos # (Auto) 0.3 (0-0.3) K/mm3 Baso # (Auto) 0.0 (0.0-0.1) K/mm3 Abs Immat Gran (auto) 0.11 H (0.00-0.031) K/mm3 Absolute Neuts (auto) 13.7 H (1.3-6.7) K/mm3 Absolute Nucleated RBC 0.000 (0.0-0.012) K/mm3 Nucleated RBC % 0.0 (0.0-0.2) % PT 14.7 (11.1-14.7) Seconds INR 1.1 APTT 24.2 (22.3-36.8) Seconds Methemoglobin 0.3 (0-1.5) %THb Sodium 136 L (137-145) mmol/L Potassium 3.6 (3.4-5.0) mmol/L Chloride 95 L (98-107) mmol/L Carbon Dioxide 32 H (22-30) mmol/L Anion Gap 9 (4-12) mmol/L BUN 30 H D (9-20) mg/dL Creatinine 0.58 L (0.7-1.3) mg/dL Estim Creat Clear Calc 110 ml/min Estimated GFR > 60 (59 - ) Glucose 134 H (65-110) mg/dL Lactic Acid 2.1 H (0.7-2.0) mmol/L Calcium 9.8 (8.4-10.2) mg/dL Magnesium 2.1 (1.6-2.3) mg/dL Total Bilirubin 0.4 (0.2-1.3) mg/dL AST 32 (17-59) U/L ALT 23 (6-50) U/L Alkaline Phosphatase 72 (38-126) U/L Troponin I < 0.012 (0.000-0.034) ng/mL NT-Pro-B Natriuret Pep 790 H (19.9-100) pg/mL Total Protein 8.0 (6.3-8.2) g/dL Albumin 4.0 (3.5-5.1) g/dL Urine Color Yellow (Yellow) Urine Appearance Clear (Clear) Urine pH 8.0 (5.0-9.0) Ur Specific [place] 1.039 H (1.001-1.035) Urine Protein Negative (Negative) mg/dL Urine Glucose (UA) Negative (Negative) mg/dL Urine Ketones Negative (Negative) mg/dL Ur Blood (Man) Negative (Negative) Urine Nitrate Negative (Negative) Urine Bilirubin Negative (Negative) Urine Urobilinogen 1.0 (<2.0) mg/dL Leukocyte Esterase Rfl Negative (Negative) TERESA/UL Influenza A (RT-PCR) Negative (Negative) Influenza B (RT-PCR) Negative (Negative) RSV (RT-PCR) Negative (Negative) SARS-CoV-2 RNA (RT-PCR) Negative (Negative) 10/04/24 Range/Units 13:01 WBC (4.5-10.0) K/mm3 RBC (4.6-6.20) M/mm3 Hgb (14.0-18.0) g/dL Hct (42.0-52.0) % MCV (80-100) fl MCH (26-34) pg MCHC (32-36) g/dl RDW (11.5-14.5) % Plt Count (150-375) k/mm3 MPV (7.4-10.4) fl Immature Gran % (Auto) (0-0.5) % Neut % (Auto) (45.5-73.1) % Lymph % (Auto) (18.3-44.2) % [place] % (Auto) (2.6-8.5) % Eos % (Auto) (0-4.4) % Baso % (Auto) (0.2-1.2) % Lymph # (Auto) (0.9-3.2) K/mm3 [place] # (Auto) (0.1-0.6) K/mm3 Eos # (Auto) (0-0.3) K/mm3 Baso # (Auto) (0.0-0.1) K/mm3 Abs Immat Gran (auto) (0.00-0.031) K/mm3 Absolute Neuts (auto) (1.3-6.7) K/mm3 Absolute Nucleated RBC (0.0-0.012) K/mm3 Nucleated RBC % (0.0-0.2) % PT (11.1-14.7) Seconds INR APTT (22.3-36.8) Seconds Methemoglobin (0-1.5) %THb Sodium (137-145) mmol/L Potassium (3.4-5.0) mmol/L Chloride (98-107) mmol/L Carbon Dioxide (22-30) mmol/L Anion Gap (4-12) mmol/L BUN (9-20) mg/dL Creatinine (0.7-1.3) mg/dL Estim Creat Clear Calc ml/min Estimated GFR (59 - ) Glucose (65-110) mg/dL Lactic Acid Pending (0.7-2.0) mmol/L Calcium (8.4-10.2) mg/dL Magnesium (1.6-2.3) mg/dL Total Bilirubin (0.2-1.3) mg/dL AST (17-59) U/L ALT (6-50) U/L Alkaline Phosphatase (38-126) U/L Troponin I (0.000-0.034) ng/mL NT-Pro-B Natriuret Pep (19.9-100) pg/mL Total Protein (6.3-8.2) g/dL Albumin (3.5-5.1) g/dL Urine Color (Yellow) Urine Appearance (Clear) Urine pH (5.0-9.0) Ur Specific [place] (1.001-1.035) Urine Protein (Negative) mg/dL Urine Glucose (UA) (Negative) mg/dL Urine Ketones (Negative) mg/dL Ur Blood (Man) (Negative) Urine Nitrate (Negative) Urine Bilirubin (Negative) Urine Urobilinogen (<2.0) mg/dL Leukocyte Esterase Rfl (Negative) TERESA/UL Influenza A (RT-PCR) (Negative) Influenza B (RT-PCR) (Negative) RSV (RT-PCR) (Negative) SARS-CoV-2 RNA (RT-PCR) (Negative) ABG Data ABG results: 10/04/24 10:17 Puncture Site Right radial ABG pH 7.492 H ABG pCO2 43.2 ABG pO2 69.4 L ABG PO2/FiO2 Ratio 1.58 ABG HCO3 32.3 H ABG O2 Saturation 95.1 ABG O2 Content 16.5 ABG Base Excess 8.2 A-a Gradient 195.1 Oxyhemoglobin 93.2 Carboxyhemoglobin 1.0 Reduced Hemoglobin 5.5 H Total Hemoglobin 12.6 O2 Delivery Device Nasal cannula O2 Liters/Min 6.0 FiO2 44 Attestation: I personally reviewed and interpreted this ABG as follows: Imaging Data Attestation: I personally reviewed and interpreted this imaging study as follows: Radiologist's impression: ITS Impressions Chest CTA 10/04/24 11:11 IMPRESSION: 1. No pulmonary embolism. 2. Diffuse multifocal pneumonia throughout both lungs most prominent in the left lower lobe. Chest X-Ray 10/04/24 11:25 IMPRESSION: 1. Opacities in the bilateral lower lungs with appearance on prior CT most consistent with multifocal pneumonia. ECG Data EKG #1: Attestation: I personally reviewed and interpreted this ECG as follows: ECG completion date: 10/04/24 ECG completion time: 09:53 EKG Interpretation: tachycardia (127), sinus rhythm and non-specific ST changes Discharge Plan Discharge Clinical Impression: Multifocal pneumonia, Acute hypoxic respiratory failure Sepsis Qualifiers: Sepsis type: sepsis due to unspecified organism Sepsis acute organ dysfunction status: unspecified Qualified Code(s): A41.9 - Sepsis, unspecified organism Patient Disposition: Still a Patient Condition: Stable Patient Language: [place] Citizen Follow-up/Referrals: Pipo,MD Gia [Primary Care Provider] -
[2024-10-04 10:18] LABS: Hematocrit 36.5 % (42.0-52.0); Hemoglobin 11.8 g/dL (14.0-18.0); Immature Granulocyte Percent A 0.7 % (0-0.5); Lymphocytes Absolute Auto 0.28 K/mm3 (0.9-3.2); Mean Corpuscular HGB Conc 32.3 g/dl (32-36); Mean Corpuscular Hemoglobin 31.1 pg (26-34); Mean Corpuscular Volume 96.3 fl (80-100); Nucleated Red Blood Cells Absolute Auto 0.000 K/mm3 (0.0-0.012); Nucleated Red Blood Cells Perc 0.0 % (0.0-0.2); Platelet Count Result 381 k/mm3 (150-375); Red Blood Count 3.79 M/mm3 (4.6-6.20); White Blood Count 15.9 K/mm3 (4.5-10.0)
[2024-10-04 10:20] LABS: Alveolar/Arterial O2 Gradient 195.1 mmHg; Carboxyhemoglobin 1.0 % THb (0-2.0); Fractional Inspired Oxygen 44 %; HCO3 ABG 32.3 mEq/l (22.0-26.0); Methemoglobin ABG 0.3 %THb (0-1.5); Oxygen Content ABG 16.5 %vol (16.0-22.0); Oxygen Saturation ABG 95.1 % (95.0-100.0); PCO2 ABG 43.2 mmHg (35.0-45.0); PO2 ABG 69.4 mmHg (80.0-100.0); PO2 FiO2 Ratio Arterial Blood 1.58 %; Reduced Hemoglobin 5.5 %THb (0-5.0)
[2024-10-04 10:22] LABS: Liters per Minute 6.0 LPM; Modified Allen's Test Pass; Site Drawn RIGHT RADIAL
[2024-10-04] MEDS: SODIUM CHLORIDE 0.9% IV 1,000 ML 999 ML IV CONT ×2 (10:24→11:04)
[2024-10-04 10:27] LABS: Alanine Aminotransferase 23 U/L (6-50); Albumin Level 4.0 g/dL (3.5-5.1); Alkaline Phosphatase 72 U/L (38-126); Anion Gap 9 mmol/L (4-12); Aspartate Amino Transferase 32 U/L (17-59); Bilirubin,Total 0.4 mg/dL (0.2-1.3); Blood Urea Nitrogen 30 mg/dL (9-20); Calcium 9.8 mg/dL (8.4-10.2); Carbon Dioxide 32 mmol/L (22-30); Chloride 95 mmol/L (98-107); Estimated CRCL calculation 110 ml/min; Estimated Glomerular Filt Rate > 60; Glucose 134 mg/dL (65-110); Potassium 3.6 mmol/L (3.4-5.0); Sodium 136 mmol/L (137-145); Total Protein 8.0 g/dL (6.3-8.2)
[2024-10-04 10:29] LABS: INR 1.1; Prothrombin Time 14.7 Seconds (11.1-14.7)
[2024-10-04 10:30] LABS: Partial Thromboplastin Time 24.2 Seconds (22.3-36.8)
--- OUTSIDE RECORDS SUMMARY | 2024-10-04 10:33 | XMS_ITS ---
Author Organization [facility] Address [address] [place] [address] Care Team Providers Care Refund Clerk Name Role Phone Michelle Handy RN Unavailable UnavailNoemí Rea LCSW Unavailable Unavaila Pro Forbes MD Unavailable [phone] Francis Tuttle MD Unavailable [phone] Wilma Groves MD Unavailable [phone] Gia Foss MD Primary Care Provider [phone] Active Problems Problem Noted Date Diagnosed Date Shortness of breath 10/01/2024 Assessment & Plan (10/03/2024 12:23 PM CDT): Presented with dyspnea, evaluated by ENT, most likely related to postradiation changes. Admitted for monitoring. - S/P dexamethasone 8 mg Q 8 for 24 hours -ENT consulted and evaluated him through the hospital course. -Patient reports that his pain and gonzalez improved since admission. He still has intermittent pain. -ENT evaluated him today and recommended that he is stable for discharge. ENT discussed treatment option for him in the future. Assessment & Plan (10/02/2024 12:33 PM CDT): Presented with dyspnea, evaluated by ENT, most likely related to postradiation changes. Admitted for monitoring. - Continue dexamethasone 8 mg Q 8 for 24 hours - Telemetry and pulse ox - ENT follow-up tomorrow - Monitor electrolytes Assessment & Plan (10/02/2024 1:14 AM CDT): Presented with dyspnea, evaluated by ENT, most likely related to postradiation changes. Admitted for monitoring. - Continue dexamethasone 8 mg Q 8 for 24 hours - Telemetry and pulse ox - ENT follow-up in a.m. - Monitor electrolytes Hypophosphatemia 08/27/2024 Hypokalemia 08/25/2024 HTN (hypertension) 08/25/2024 Assessment & Plan (10/03/2024 12:23 PM CDT): History of hypertension: Continue home amlodipine Assessment & Plan (10/02/2024 8:57 AM CDT): History of hypertension: Continue home amlodipine Assessment & Plan (10/02/2024 1:14 AM CDT): History of hypertension: Continue home amlodipine Intractable nausea and vomiting 08/22/2024 Dehydration 08/13/2024 [...] Encounter for feeding tube placement 05/24/2024 Severe protein-calorie malnutrition 05/15/2024 Intractable vomiting with nausea 05/14/2024 Hypotension, unspecified hypotension type 2023 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 Patient to continue Hydrocodone. 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 CT 5 Marked interval decrease in size of infiltrative left supraglottic mass with near complete resolution of metastatic lymphadenopathy in the bilateral cervical nodes and left supraclavicular region. 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 CT 520 Marked interval decrease in size of infiltrative left supraglottic mass with near complete resolution of metastatic lymphadenopathy in the bilateral cervical nodes and left supraclavicular region. 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 CT 5 Marked interval decrease in size of infiltrative left supraglottic mass with near complete resolution of metastatic lymphadenopathy in the bilateral cervical nodes and left supraclavicular region. - Oncology follow-up Oropharyngeal mass 02/01/2024 Mass of left side [...]
--- OUTSIDE RECORDS SUMMARY | 2024-10-04 10:34 | XMS_ITS | Encounter Summary ---
Author Organization [facility] Healthcare Address [address] [place] [address] Care Team Providers Care It Assistant Name Role Phone Michelle Handy RN Unavailable Unavailabl Noemí Carr [facility] Unavailable Unavaila ble Pro Gama MD Unavailable [phone] Francis Tuttle MD Unavailable Wilma Groves MD Unavailable [phone] Gia Foss MD Primary Care Provider [phone] Reason for Visit * Reason Comments Shortness of Breath * Auth/Cert (Routine) Specialty Diagnoses / Procedures Referred By Contac t Referred To Contact Diagnoses Shortness of breath Voice hoarseness Threatened Airway Procedures na Referral ID Status Reason Start Date Expiration Date Visits Re quested Visits Authorized [id number] 1 1 Encounter Details Date Type Department Care Team (Latest Contact Info) Description 10/01/2024 10:03 PM CDT - 10/03/2024 2:01 PM CDT Hospital Encounter [address] [phone] Nu Tejeda MD [address] [facility] [address] [place] [address] Pro Gama MD [address] [facility] [address] [place] [address] Yamila Mitchell MD [address] [place] [address] Gurvinder Campoverde MD [address] [place] [address] Shortness of breath (Primary Dx); Voice hoarseness Discharge Disposition: Discharge to home or self care Social History Tobacco Use Types Packs/Day Years Used Date Smoking Tobacco: Never Smokeless Tobacco: Never Alcohol Use Standard Drinks/Week Comments Not Currently 0 (1 standard drink = 0.6 oz pur e alcohol) [facility] Utilities Answer Date Recorded In the past 12 months has e electric, gas, oil, or water Fleksy threatened to shut off services in your home? No 10/02/2024 Humiliation, Afraid, Rape, and Kick questionnair e [...] neighbors? More than three times a week 10/02/2024 How often do you get togethe r with friends or relatives? Twice a week 10/02/2024 How often do you attend chur ch or confucianism services? Never 10/02/2024 Do you belong to any clubs o r organizations such as restoration groups, unions, fraternal or athletic groups, or school groups? No 10/02/2024 How often do you attend meet ings of the clubs or organizations you belong to? Never 10/02/2024 Are you , , di vorced, , never , or living with a partner? 10/02/2024 AUDIT-C Answer Date Recorded Q1: How often [...] food, housing, medical care, and heating? Not very hard 10/02/2024 PHQ-2 Answer Date Recorded PHQ-2 Total Score 0 10/02/2024 Hunger Vital Sign Answer Date Recorded Within the past 12 months, y ou worried that your food would run out before you got the money to buy more. Never true 10/03/19 Within the past 12 months, t he food you bought just didn't last and you didn't have money to get more. Never true 10/02/2024 PRAPARE - Transportation Answer Date Re corded In the past 12 months, has l ack of transportation kept you from medical appointments or from getting medications? No 04/2024 In the past 12 months, has l ack of transportation kept you from meetings, work, or from getting things needed for daily living? No 10/02/2024 Housing Stability Vital Sign Answer Cole e Recorded In the last 12 months, was t here a time when you were not able to pay the mortgage or rent on time? No 10/02/2024 In the past 12 months, how m any times have you moved where you were living? 0 10/02/2024 At any time in the past 12 m [facility], were you homeless or living in a fdc (including now)? No 10/02/2024 Personal Safety Answer Date Recorded Have you ever been in or are you currently in a harmful physical or emotional relationship or is someone making you feel afraid or unsafe? 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 Not on file Not on file N ot on file documented as of this encounter Last Filed Vital Signs Vital Sign Reading Time Taken Comments Blood Pressure 115/65 10/03/2024 7:15 AM CDT Pulse 82 10/03/2024 7:15 AM CDT Temperature 36.5 C (97.7 F) 10/03/2024 7:15 AM CDT Respiratory Rate 16 10/03/2024 7:15 AM CDT Oxygen Saturation 92% 10/03/2024 7:15 AM CDT Inhaled Oxygen Concentration - - Weight 74.4 kg (164 lb 0.4 oz) 10/02/2024 7:41 P M CDT Height 177.8 cm (5' 10) 10/02/2024 2:08 AM CDT Body Mass Index 23.53 10/02/2024 2:08 AM CDT documented in this encounter Discharge Summaries * Gurvinder Campoverde MD - 10/03/2024 12:27 PM CDT Inpatient Discharge Summary BRIEF OVERVIEW Admitting Provider: Nu Tejeda MD Discharge Provider: Gurvinder Campoverde MD Primary Care Physician at Discharge: Gia Foss MD [phone] Admission Date: 10/01/2024 Discharge Date: 10/03/2024 Admission Location: [facility] Problems/Diagnoses: Principal Problem: Shortness of breath Active Problems: Oropharyngeal cancer (HCC) Severe protein-calorie malnutrition HTN (hypertension) Resolved Problems: No resolved hospital problems. DETAILS OF HOSPITAL STAY Presenting Problem/History of Present Illness: Jesus Dudley is a 64 y.o. 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 Pt initially presented to OSH due to concern for dyspnea, drooling, and difficulty tolerating secretions. He received racemic epinephrine and dexamethasone, with reported improvement. Transferred to [place] for ENT evaluation. On arrival, patient endorsed SOB and hoarseness but was tolerating secretions and appeared clinically stable without distress; airway was patent. Denies CP, fever, throat pain, nausea, vomiting, or positional dyspnea. ENT bedside flexible laryngoscopy with minimal true vocal cord abduction, edematous epiglottis and arytenoids, mildly thick secretions, and a mass at the right base of tongue (known from prior per documentation), findings attributed to post-radiation changes but acute process not excluded. CT at OSH with moderate supraglottic soft tissue t hickening per ENT review. Hospital Course: Shortness of breath Presented with dyspnea, evaluated by ENT, most likely related to postradiation changes. - S/P dexamethasone 8 mg Q 8 for 24 hours -Patient reports that his pain and gonzalez improved since admission. He still has intermittent pain. -ENT evaluated him today and recommended that he is stable for discharge. ENT discussed treatment option for him in the future. 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 CT 08/21 Marked interval decrease in size of infiltrative left supraglottic mass with near complete resolution of metastatic lymphadenopathy in the bilateral cervical nodes and left supraclavicular region. - Oncology follow-up HTN (hypertension) History of hypertension: Continue home amlodipine Active Issues Requiring Follow-up: Throat pain Test Results Pending at Discharge: none Operative Procedures Performed: none Other Procedures: None Pertinent Test Results: As above Discharge Details Physical Exam at Discharge: Discharge Condition: good Pulse: 82 Resp: 16 BP: 115/65 Temp: 36.5 ??C (97.7 ??F) Weight: 74.4 kg (164 lb 0.4 oz) Pertinent Exam Findings at Discharge: none Discharge Disposition: Patient will be discharged to:home Code Status at Discharge: full code Discharge Instructions: Other Instructions Low Income Home Energy Assistance Program Applications are currently being taken on a first-come, first-served basis through November 16, 2024,or until funding is exhausted. The Low-Income Home Energy Assistance Program, administered by [facility] Pricing Assistant, assists income-eligible households with their natural gas, propane and/or electric bills and furnace assistance for inoperable heating systems. Households must be at or below 200% of the federal poverty level to receive a benefit from LIHEAP. The 30-day income guidelines for LIHEAP are based on Federal Poverty Guidelines, State Median Incomeand the number of persons living in the household. [place], [place] LIHEAP Intake Locations [facility]: [address] [place] [address] ~ Applications Taken: Tuesday - 8:30 - 11:30 [facility]: [address] [place] [address] ~ Applications Taken: Tuesday - 9:00 - 11:30 and 1:00 - 3:30 [facility] Only [facility]: [address] [place] [address] ~ Applications Taken: Tuesday - 9:00 -11:30 and :30 - 3:30 [facility]: [address] [place] [address] ~ Applications Taken: Tuesday 2:00 - 4:00, Tuesday 9:00 - 11:00 9:00 - 4:00 [facility]: [address] [place] [address] ~ or [phone] Applications by appointment only [facility] [employer]: [address] [place] [address] ~ Applications Taken: Tuesday & 12:00 - 3:00 and Tuesday 10:00 - 2:00 Serving the [facility] Only [facility]: [address] [facility], [address] ~ Applications Taken: Tuesday - 8:30 - 12:30 [facility]: [address] [place] [address] ~ [phone] Applications Taken: Tuesday - Tuesday 8:00 - 4:00 [facility]: [address] [place] [address] ~ Applications Taken: Tuesday - 8:00 - 4:00 [facility]: [address] [place] [address] ~ Applications Taken: Tuesday - Tuesday 8:00 - 4:00 Serving only households with a member 60 years old or over [facility] Crisis Assistance When individuals are in crisis and cannot find their way, we provide basic necessities and help them find the path to self-sufficiency. We work with families to help map out solutions to their problems so that they can regain their dignity. We provide guidance, case management, referral and advocacy. When available, we may also provide food, clothing and household vouchers, rent and utility assistance. Special Holiday programs are available. People in crisis need the Lord's spiritual and materialhelp and we hope to provide it according to His holy will. This program generates no client fees for support, so donations are always appreciated. [place] Office: ext. [phone] Hours: Tuesday, Tuesday & from 8:30 a.m. - 4:30 p.m. Discharge Medications: Current Medications TAKE these medications amLODIPine 5 mg tablet Administer per tube 1 tablet (5 mg total) daily Commonly known as: NORVASC esomeprazole DR 40 mg granule packet for oral suspension Take 40 mg by mouth 2 (two) times a day as needed (indegestion) Commonly known as: NexIUM HYDROcodone-acetaminophen 5-325 mg per tablet Take 1 tablet by mouth every 8 (eight) hours as needed for pain For: pain Commonly known as: NORCO polyethylene glycol 17 gram/dose bulk powder Administer per tube 17 g daily as needed (constipation) Commonly known as: MIRALAX scopolamine 1 mg over 3 days patch [address] 1 patch on the skin every third day for 72 hours For: motion sickness senna 1.76 mg/mL syrup Administer 10 mL (17.6 mg total) per feeding tube nightly as needed Outpatient Follow-Up: Future Appointments Date Time Provider Department Center 10/11/2024 9:00 AM [id number] 10/15/2024 5:30 PM Leticia Lu, PT [facility] OP PT [facility] 10/16/2024 9:00 AM Pro Gama MD ONC [facility] Oncology 10/22/2024 11:00 AM Shayna Valencia, EDMUND [facility] 10/25/2024 10:45 AM Gia Foss MD [facility] [address] documented in this encounter Discharge Instructions * Discharge Instr - Other Orders* Nu Ha, CALL CENTER TEAM LEADER - 10/02/2024 1:15 PM CDT Low Income Home Energy Assistance Program Applications are currently being taken on a first-come, first-served basis through November 16, 2024,or until funding is exhausted. The Low-Income Home Energy Assistance Program, administered by [facility], assists income-eligible households with their natural gas, propane and/or electric bills and furnace assistance for inoperable heating systems. Households must be at or below 200% of the federal poverty level to receive a benefit from LIHEAP. The 30-day income guidelines for LIHEAP are based on Federal Poverty Guidelines, State Median Incomeand the number of persons living in the household. [place], [place] LIHEAP Intake Locations [facility]: [address] [place] [address] ~ Applications Taken: Tuesday - 8:30 - 11:30 [facility]: [address] [place] [address] ~ Applications Taken: Tuesday - 9:00 - 11:30 and 1:00 - 3:30 [facility] Only [facility]: [address] [place] [address] ~ Applications Taken: Tuesday - 9:00 -11:30 and 1:30 - 3:30 [facility]: [address] [place] [address] ~ Applications Taken: Tuesday 2:00 - 4:00, Tuesday 9:00 - 11:00 9:00 - 4:00 [facility]: [address] [place] [address] ~ or [phone] Applications by appointment only [facility] [employer]: [address] [place] [address] ~ Applications Taken: Tuesday & 12:00 - 3:00 and Tuesday 10:00 - 2:00 Serving the [facility] Only [facility]: [address] [facility], [address] ~ Applications Taken: Tuesday - 8:30 - 12:30 [facility]: [address] [place] [address] ~ [phone] Applications Taken: Tuesday - Tuesday 8:00 - 4:00 [facility]: [address] [place] [address] ~ Applications Taken: Tuesday - 8: - 4:00 [facility]: [address] [place] [address] ~ Applications Taken: Tuesday - Tuesday 8: - 4:00 Serving only households with a member 60 years old or over [facility] Crisis Assistance When individuals are in crisis and cannot find their way, we provide basic necessities and help them find the path to self-sufficiency. We work with families to help map out solutions to their problems so that they can regain their dignity. We provide guidance, case management, referral and advocacy. When available, we may also provide food, clothing and household vouchers, rent and utility assistance. Special Holiday programs are available. People in crisis need the Lord's spiritual and materialhelp and we hope to provide it according to His holy will. This program generates no client fees for support, so donations are always appreciated. [place] Office: ext. [phone] Hours: Tuesday, Tuesday & from 8:30 a.m. - 4:30 p.m. documented in this encounter Medications at Time of Discharge amLODIPine (NORVASC) 5 mg tablet Administer per tube 1 tablet (5 mg total) daily 30 tablet 1 06/12/[address] (NexIUM) 40 mg granule packet for oral suspension Take 40 mg by mouth 2 (two) times a day as needed (indegestion) 90 packet 08/29/2024 5 HYDROcodone-acet aminophen (NORCO) 5-325 mg per tabletIndication s:Pain Take 1 tablet by mouth every 8 (eight) hours as needed for pain 90 tablet 09/17/2024 polyethylene glycol (MIRALAX) 17 gram/dose bulk powder Administer per tube 17 g daily as needed (constipation) 289 g 1 08/29/2024 scopolamine 1 mg over 3 days patch 3 dayIndications:M otion Sickness Place 1 patch on the skin every third day for 72 hours 5 patch 09/17/2024 senna 1.76 mg/mL syrup Administer 10 mL (17.6 mg total) per feeding tube nightly as needed documented as of this encounter Discharge Disposition Disposition Code Departure Means Destination Comment s Discharge to home or self care documented in this encounter Progress Notes * Lucina Rodriguez RN - 10/03/2024 2:01 PM CDT 10/03/24 1300 Discharge Summary Discharge Disposition Private residence Recommended Discharge Level of Care Private residence Actual Discharge Level of Care Private residence Does Actual Level of Care Match Care Team Recommendation? Yes Post Acute Care Plan Post Acute Care Needs Identified No Discharge Additional Assistance Does the patient need discharge transport arranged? No Post Discharge Care Provider Post Discharge Care Plan Next level of care provider has access to complete EMR Per medical team, patient is medically stable for discharge at this time. Follow up appointment hasbeen scheduled by coordinator. Marydel has reached out to sister regarding tube feeds and extras provided in house prior to discharge. Transportation will be provided by sister. Patient and family are agreeable with the plan. If any further discharge needs arise, please contact the covering behavioral health case manager. * Gurvinder Campoverde MD - 10/03/2024 12:20 PM CDT Oncology Daily Progress Note Division of Hospital Medicine Name: Jesus Dudley : 1960 Today's Date: October 03, 2024 Age: 64 y.o. male Admission: 10/01/2024 Bed: [id number] LOS: 2 days Subjective Chief complaint: Shortness of Breath Interval History Patient reports that his pain and gonzalez improved since admission. He still has intermittent pain. ENT evaluated him today and recommended that he is stable for discharge. ENT discussed treatment option for him in the future. Status post steroids Objective Scheduled Meds PRN Meds Infusions amLODIPine, 5 mg, gastrostomy tube, Daily heparin flush (porcine), 5 mL, intra-catheter, BID sodium chloride 0.9%, 0.5-20 mL, intra-catheter, Q8H CHIQUIS sodium chloride 0.9%, 10-40 mL, intra-catheter, Q12H CHIQUIS acetaminophen, 1,000 mg, oral, Q6H PRN sodium chloride 0.9%, 0-250 mL, intravenous, PRN sodium chloride 0.9%, 30 mL, intravenous, PRN heparin flush (porcine), 2-5 mL, intra-catheter, PRN heparin flush (porcine), 5 mL, intra-catheter, Once PRN ketorolac, 15 mg, intravenous, Q6H PRN magnesium sulfate, 4 g, intravenous, Q4H PRN magnesium sulfate, 6 g, intravenous, Q4H PRN ondansetron, 8 mg, intravenous, Q6H PRN ondansetron, 8 mg, oral, Q6H PRN oxyCODONE, 5 mg, oral, Q4H PRN polyethylene glycol, 17 g, oral, BID PRN potassium chloride, 40 mEq, intravenous, Q4H PRN potassium chloride ER, 40 mEq, oral, Q2H PRN prochlorperazine, 10 mg, intravenous, Q6H PRN prochlorperazine, 5 mg, oral, Q6H PRN sodium chloride 0.9%, 0.5-20 mL, intra-catheter, PRN sodium chloride 0.9%, 10 mL, intra-catheter, Once PRN sodium chloride 0.9%, 10-20 mL, intra-catheter, PRN sodium chloride 0.9%, 30 mL/hr, intravenous, Continuous PRN sodium phosphate - potassium phosphate, 500 mg, oral, Daily PRN sodium chloride 0.9%, 30 mL/hr Vitals Most Recent Vitals: T 36.5 ??C (97.7 ??F), HR 82, BP 115/65, RR 16, SpO2 92 %. 24hr Min/Max: Temp Min: 36.2 ??C (97.1 ??F) Max: 37 ??C (98.6 ??F) Pulse Min: 69 Max: 102 BP Min: 105/57 Max: 119/75 Resp Min: 14 Max: 16 SpO2 Min: 92 % Max: 95 % Intake/Output Summary (Last 24 hours) at 10/03/2024 1220 Last data filed at 10/03/2024 1204 Gross per 24 hour Intake 1500 ml Output -- Net 1500 ml Physical Exam Constitutional: NAD, sitting up on side of bed, nasal cannula on HEENT: NCAT. EOMI, sclera anicteric. Lungs: Unlabored, no wheezing, no crackles, normal lung sounds Cardiovascular: RRR, normal S1 and S2, no murmurs, no JVD. GI: Soft, non-tender, non-distended, bowel sounds positive, no organomegaly. Skin: No new rashes, lesions or bruises Extremities: no edema in BLE, no cyanosis Neurologic: AOx4, no focal deficits, moves all limbs spontaneously Psychiatric: Normal affect and mood. Lines, Drains, Airways Peripheral IV 10/01/24 20 G Left;Posterior Hand (Active) Peripheral IV 10/01/24 20 G Anterior;Distal;Right;Upper Arm (Active) Gastrostomy/Enterostomy Percutaneous endoscopic gastrostomy (PEG) 18 Fr. LUQ (Active) Labs/Diagnostic Review CBC: Recent Labs Lab Units 10/02/24 0331 WBC K/cumm 5.53 HEMOGLOBIN g/dL 11.2* HEMATOCRIT % 33.6* MCV fL 94.4 MCH pg 31.5 MCHC g/dL 33.3 RDW CV % 13.2 RDWSD fL 45.0 MPV fL 9.9 NEUTROS ABS K/cumm 5.08 LYMPHS PCT % 6.5 CMP: Recent Labs Lab Units 10/02/24 0331 SODIUM mmol/L 136 POTASSIUM PLASMA mmol/L 4.6 CO2 mmol/L 32 BUN SERUM mg/dL 20 GLUCOSE mg/dL 160 CREATININE mg/dL 0.65* CALCIUM mg/dL 10.1 CHLORIDE mmol/L 96* ALBUMIN g/dL 3.7 AST Units/L 17 ALT Units/L 9 ALK PHOS Units/L 72 BILIRUBIN TOTAL mg/dL 0.4 TOTAL PROTEIN g/dL 8.0 ANIONGAP mmol/L 8 LDH: Recent Labs Lab Units 10/02/24 0331 LACTATE DEHYDROGENASE (LDH) Units/L 154 INR 1.33 Uric Acid:4.5 (Labs above are the most recent result obtained in the last 24 hours unless otherwise specified. For additional labs/trends, see Epic.) I have reviewed the laboratory results. Imaging Review No results found. Assessment & Plan Shortness of breath Presented with dyspnea, evaluated by ENT, most [...] treatment option for him in the future. 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 CT 08/21 Marked interval decrease in size of infiltrative left supraglottic mass with near complete resolution of metastatic lymphadenopathy in the bilateral cervical nodes and left supraclavicular region. - Oncology follow-up HTN (hypertension) History of hypertension: Continue home amlodipine Severe protein-calorie malnutrition Severe protein calorie malnutrition, as per chrome polisher. Code status : Full Code Diet : Adult Diet Regular PT/OT Dispo Rec : / Supplementary Attestation My total encounter time on this service date was 60 minutes which was spent performing a [id number]-kk-sabg encounter and personally completing the provider-level activities documented in the note. This includes time spent prior to the visit and after the visit in direct care of the patient. This time does not include time spent in any separately reportable services. Gurvinder Campoverde MD * Leighton Kimble MD - 10/03/2024 8:40 AM CDT Otolaryngology - Head & Neck Surgery Daily Progress Subjective Chief complaint: Chief Complaint Patient presents with Shortness of Breath Interval History: 10/03 AVSS, hgb, 11.2 . Discuss with Trach goals this morning and understood risks and benefits Objective VITALS, 24HR MIN/MAX: Temp Min: 36.2 ??C (97.1 ??F) Max: 37 ??C (98.6 ??F) Pulse Min: 69 Max: 102 BP Min: 105/57 Max: 119/75 Resp Min: 14 Max: 18 SpO2 Min: 92 % Max: 97 % I&O I/O last 2 completed shifts: In: 750 [NG/GT:750] Out: - Net IO Since Admission: 750 mL [10/03/24 0842] Output by Drain (mL) 10/01/24699 - 10/01/24185810/01/241899 - 10/02/24 0659 10/02/24699 - 10/02/24 1859 10/02/24 190 - 10/03/24 0659 10/03/24 07 - 10/03/24 0842 Requested LDAs do not have output data documented. Scheduled Continuous As needed amLODIPine, 5 mg, gastrostomy tube, Daily heparin flush (porcine), 5 mL, intra-catheter, BID sodium chloride 0.9%, 0.5-20 mL, intra-catheter, Q8H CHIQUIS sodium chloride 0.9%, 10-40 mL, intra-catheter, Q12H CHIQUIS sodium chloride 0.9%, 30 mL/hr acetaminophen, 1,000 mg sodium chloride 0.9%, 0-250 mL sodium chloride 0.9%, 30 mL heparin flush (porcine), 2-5 mL heparin flush (porcine), 5 mL ketorolac, 15 mg, 15 mg at 10/02/24 1502 magnesium sulfate, 4 g magnesium sulfate, 6 g ondansetron, 8 mg ondansetron, 8 mg oxyCODONE, 5 mg, 5 mg at 10/03/24 0603 polyethylene glycol, 17 g potassium chloride, 40 mEq potassium chloride ER, 40 mEq prochlorperazine, 10 mg prochlorperazine, 5 mg sodium chloride 0.9%, 0.5-20 mL sodium chloride 0.9%, 10 mL sodium chloride 0.9%, 10-20 mL sodium chloride 0.9%, 30 mL/hr sodium phosphate - potassium phosphate, 500 mg Physical Exam: Vitals: 10/02/24 1941 10/02/24 2125 10/03/24 0439 10/03/24 0715 BP: 116/74 105/57 115/65 BP Location: Right arm Right arm Right arm Patient Position: HOB 30 degrees Pulse: 83 83 69 82 Resp: 16 Temp: 36.8 ??C (98.2 ??F) 36.2 ??C (97.1 ??F) 36.5 ??C (97.7 ??F) TempSrc: Oral Axillary Oral SpO2: 94% 92% 92% Weight: 74.4 kg (164 lb 0.4 oz) Height: General: awake, NAD. Appropriate affect. Head and Face: NC, AT. Face symmetric. Eyes: Sclera white, no injection or chemosis, no periorbital edema Ears: Normal external ears. No drainage Nose: Dorsum midline, no drainage Mouth: No visible mucosal lesions. No OC/OP bleeding, tolerating secretions, MMM Neck: Soft and flat, incision c/d/i, drains CV: Extremities warm and well-perfused Pulm: Normal quiet breathing. No respiratory distress, stridor, or wheeze. Neuro: Regards, follows commands. AOx3. CN grossly intact; moving all extremities Lab/Radiology/Diagnostic Review: LABS 24 HOURS: Lab Results Component Value Date WBC 5.53 10/02/2024 HGB 11.2 (L) 10/02/2024 HCT 33.6 (L) 10/02/2024 LABPLAT 360 10/02/2024 ALT 9 10/02/2024 AST 17 10/02/2024 SODIUM 136 10/02/2024 POTASSIUM 4.6 10/02/2024 CHLORIDE 96 (L) 10/02/2024 BUNSER 20 10/02/2024 CO2 32 10/02/2024 CREATININE 0.65 (L) 10/02/2024 GLUCOSE 160 10/02/2024 CALCIUM 10.1 10/02/2024 PHOS 4.4 10/02/2024 MAGNESIUM 2.3 10/02/2024 PT 14.5 (H) 10/02/2024 INR 1.33 (H) 10/02/2024 Lab Results Component Value Date MICROBIOLOGY Final Report: No growth 03/29/2024 MICROBIOLOGY Final Report: No growth 03/29/2024 ECG 12 lead Nu Tejeda MD 10/01/2024 11:24 PM ECG 12 lead Date/Time: 10/01/2024 11:22 PM Performed by: Nu Tejeda MD Authorized by: Christina Burnette MD Rate: ECG rate: 103 ECG rate assessment: tachycardic Rhythm: Rhythm: sinus tachycardia Ectopy: Ectopy: none QRS: QRS axis: Normal Conduction: Conduction: normal ST segments: ST segments: Normal T waves: T waves: non-specific, flattening and inverted Flattening: AVL Inverted: AVR and V1 Previous ECG: Previous ECG: Compared to current Date of previous EC08/10/2024 Similarity: No change Interpretation: Interpretation: No acute injury pattern Recommended Follow-up: Recommended follow up: further workup in the ED Assessment/Plan Principal Problem: Shortness of breath Active Problems: Oropharyngeal cancer (HCC) Severe protein-calorie malnutrition HTN (hypertension) Assessment: Jesus Dudley is a 64 y.o. male with HTN, [id number] p16+ SCC of L OP s/p definitive ELECTRICAL TROUBLESHOOTER (COT 06/2024) p/w dyspnea. At the time of examination, he states that his breathing is at baseline without anydiscomfort. Flexible laryngoscopy revealed a moderate amount of supraglottic edema. Given his stability in symptoms, these changes are most likely postradiation changes but can not rule out an acute process. Plan: discussed with patient on trach goals at bedside. Pt is stable from ENT perspective. We discussed with medicine, we recommend to d/c steriods. C/W with medicine recs. Stable to D/C please call ENT for any worsening of symptoms [x] FOE 7/1 AM Leighton Kimble MD Otolaryngology - Head & Neck Surgery QUESTIONS: Weekdays daytime: [facility] Otolaryngology [facility] Consult New consults, after-hours & weekends: [facility] Otolaryngology [facility] Resident Primary/Night Float ENT scheduling line: [phone] (please include in discharge paperwork as needed) Cosigned by Wilma Groves MD at 10/03/2024 2:50 PM CDT * Leighton Kimble MD - 10/03/2024 8:30 AM CDT Otolaryngology - Head & Neck Surgery Daily Progress Subjective Chief complaint: Chief Complaint Patient presents with Shortness of Breath Interval History: 10/03 AVSS, hgb, 11.2. Discussed with trach goals at bedside. Objective VITALS, 24HR MIN/MAX: Temp Min: 36.2 ??C (97.1 ??F) Max: 37 ??C (98.6 ??F) Pulse Min: 69 Max: 102 BP Min: 105/57 Max: 119/75 Resp Min: 14 Max: 18 SpO2 Min: 92 % Max: 97 % I&O I/O last 2 completed shifts: In: 750 [NG/GT:750] Out: - Net IO Since Admission: 750 mL [10/03/24 0831] Output by Drain (mL) 10/01/24699 - 10/01/24185810/01/241899 - 10/02/24 0659 10/02/24699 - 10/02/24 18510/02/241899 - 10/03/24 0659 10/03/24 07 - 10/03/24 0831 Requested LDAs do not have output data documented. Scheduled Continuous As needed amLODIPine, 5 mg, gastrostomy tube, Daily heparin flush (porcine), 5 mL, intra-catheter, BID sodium chloride 0.9%, 0.5-20 mL, intra-catheter, Q8H CHIQUIS sodium chloride 0.9%, 10-40 mL, intra-catheter, Q12H CHIQUIS sodium chloride 0.9%, 30 mL/hr acetaminophen, 1,000 mg sodium chloride 0.9%, 0-250 mL sodium chloride 0.9%, 30 mL heparin flush (porcine), 2-5 mL heparin flush (porcine), 5 mL ketorolac, 15 mg, 15 mg at 10/02/24 1502 magnesium sulfate, 4 g magnesium sulfate, 6 g ondansetron, 8 mg ondansetron, 8 mg oxyCODONE, 5 mg, 5 mg at 10/03/24 0603 polyethylene glycol, 17 g potassium chloride, 40 mEq potassium chloride ER, 40 mEq prochlorperazine, 10 mg prochlorperazine, 5 mg sodium chloride 0.9%, 0.5-20 mL sodium chloride 0.9%, 10 mL sodium chloride 0.9%, 10-20 mL sodium chloride 0.9%, 30 mL/hr sodium phosphate - potassium phosphate, 500 mg Physical Exam: Vitals: 10/02/24 1941 10/02/24 2125 10/03/24 0439 10/03/24 0715 BP: 116/74 105/57 115/65 BP Location: Right arm Right arm Right arm Patient Position: HOB 30 degrees Pulse: 83 83 69 82 Resp: 16 Temp: 36.8 ??C (98.2 ??F) 36.2 ??C (97.1 ??F) 36.5 ??C (97.7 ??F) TempSrc: Oral Axillary Oral SpO2: 94% 92% 92% Weight: 74.4 kg (164 lb 0.4 oz) Height: General: awake, NAD. Appropriate affect. Head and Face: NC, AT. Face symmetric. Eyes: Sclera white, no injection or chemosis, no periorbital edema Ears: Normal external ears. No drainage Nose: Dorsum midline, no drainage Mouth: No visible mucosal lesions. No OC/OP bleeding, tolerating secretions, MMM Neck: Soft and flat, incision c/d/i, drains CV: Extremities warm and well-perfused Pulm: Normal quiet breathing. No respiratory distress, stridor, or wheeze. Neuro: Regards, follows commands. AOx3. CN grossly intact; moving all extremities Lab/Radiology/Diagnostic Review: LABS 24 HOURS: Lab Results Component Value Date WBC 5.53 10/02/2024 HGB 11.2 (L) 10/02/2024 HCT 33.6 (L) 10/02/2024 LABPLAT 360 10/02/2024 ALT 9 10/02/2024 AST 17 10/02/2024 SODIUM 136 10/02/2024 POTASSIUM 4.6 10/02/2024 CHLORIDE 96 (L) 10/02/2024 BUNSER 20 10/02/2024 CO2 32 10/02/2024 CREATININE 0.65 (L) 10/02/2024 GLUCOSE 160 10/02/2024 CALCIUM 10.1 10/02/2024 PHOS 4.4 10/02/2024 MAGNESIUM 2.3 10/02/2024 PT 14.5 (H) 10/02/2024 INR 1.33 (H) 10/02/2024 Lab Results Component Value Date MICROBIOLOGY Final Report: No growth 03/29/2024 MICROBIOLOGY Final Report: No growth 03/29/2024 ECG 12 lead Nu Tejeda MD 10/01/2024 11:24 PM ECG 12 lead Date/Time: 10/01/2024 11:22 PM Performed by: Nu Tejeda MD Authorized by: Christina Burnette MD Rate: ECG rate: 103 ECG rate assessment: tachycardic Rhythm: Rhythm: sinus tachycardia Ectopy: Ectopy: none QRS: QRS axis: Normal Conduction: Conduction: normal ST segments: ST segments: Normal T waves: T waves: non-specific, flattening and inverted Flattening: AVL Inverted: AVR and V1 Previous ECG: Previous ECG: Compared to current Date of previous EC08/10/2024 Similarity: No change Interpretation: Interpretation: No acute injury pattern Recommended Follow-up: Recommended follow up: further workup in the ED Assessment/Plan Principal Problem: Shortness of breath Active Problems: Oropharyngeal cancer (HCC) Severe protein-calorie malnutrition HTN (hypertension) Assessment: Plan: - discussed with patient on trach goals at bedside. Pt is stable from ENT perspective. We discussedwith medicine, we recommend to d/c steriods. C/W with medicine recs. Stable to D/C please call ENT for any worsening of symptoms [x] FOE 10/02 AM Leighton Kimble MD Otolaryngology - Head & Neck Surgery QUESTIONS: Weekdays daytime: [facility] Otolaryngology [facility] Consult New consults, after-hours & weekends: [facility] Otolaryngology [facility] Resident Primary/Night Float ENT scheduling line: [phone] (please include in discharge paperwork as needed) Cosigned by Wilma Groves MD at 10/03/2024 2:50 PM CDT * Leighton Kimble MD - 10/02/2024 10:55 AM CDT Otolaryngology - Head & Neck Surgery Daily Progress Subjective Chief complaint: Chief Complaint Patient presents with Shortness of Breath Interval History: 7/:1 AVSS, hg, 11.2 FOE w/ R BOT mass, supraglottic edema, thick secretions, VC minimally mobile. Objective VITALS, 24HR MIN/MAX: Temp Min: 36.6 ??C (97.9 ??F) Max: 36.7 ??C (98.1 ??F) Pulse Min: 77 Max: 117 BP Min: 113/87 Max: 139/80 Resp Min: 11 Max: 21 SpO2 Min: 90 % Max: 98 % I&O No intake/output data recorded. Net IO Since Admission: No IO data has been entered for this period [10/02/24 1056] Output by Drain (mL) 09/30/24 07 - 09/30/24 1859 09/30/24 190 - 10/01/24 0659 10/01/24699 - 10/01/24 1859 10/01/24 190 - 10/02/24 0659 10/02/24 07 - 10/02/24 1056 Requested LDAs do not have output data documented. Scheduled Continuous As needed amLODIPine, 5 mg, gastrostomy tube, Daily dexAMETHasone, 8 mg, intravenous, Q8H CHIQUIS heparin flush (porcine), 5 mL, intra-catheter, BID sodium chloride 0.9%, 0.5-20 mL, intra-catheter, Q8H CHIQUIS sodium chloride 0.9%, 10-40 mL, intra-catheter, Q12H CHIQUIS sodium chloride 0.9%, 30 mL/hr acetaminophen, 1,000 mg sodium chloride 0.9%, 0-250 mL sodium chloride 0.9%, 30 mL heparin flush (porcine), 2-5 mL heparin flush (porcine), 5 mL ketorolac, 15 mg magnesium sulfate, 4 g magnesium sulfate, 6 g ondansetron, 8 mg ondansetron, 8 mg oxyCODONE, 5 mg, 5 mg at 10/02/24 0910 polyethylene glycol, 17 g potassium chloride, 40 mEq potassium chloride ER, 40 mEq prochlorperazine, 10 mg prochlorperazine, 5 mg sodium chloride 0.9%, 0.5-20 mL sodium chloride 0.9%, 10 mL sodium chloride 0.9%, 10-20 mL sodium chloride 0.9%, 30 mL/hr sodium phosphate - potassium phosphate, 500 mg Physical Exam: Vitals: 10/02/24 0120 10/02/24 0208 10/02/24 0217 10/02/24 0845 BP: 133/84 119/81 115/83 BP Location: Right arm Right arm Patient Position: Lying Pulse: 82 110 110 99 Resp: 11 20 18 Temp: 36.6 ??C (97.9 ??F) 36.7 ??C (98.1 ??F) TempSrc: Oral Oral SpO2: 92% 97% 97% Weight: 72.1 kg (159 lb) Height: 177.8 cm (5' 10) General: awake, NAD. Appropriate affect. Head and Face: NC, AT. Face symmetric. Eyes: Sclera white, no injection or chemosis, no periorbital edema Ears: Normal external ears. No drainage Nose: Dorsum midline, no drainage Mouth: No visible mucosal lesions. No OC/OP bleeding, tolerating secretions, MMM Neck: Soft and flat, incision c/d/i, drains CV: Extremities warm and well-perfused Pulm: Normal quiet breathing. No respiratory distress, stridor, or wheeze. Neuro: Regards, follows commands. AOx3. CN grossly intact; moving all extremities Lab/Radiology/Diagnostic Review: LABS 24 HOURS: Lab Results Component Value Date WBC 5.53 10/02/2024 HGB 11.2 (L) 10/02/2024 HCT 33.6 (L) 10/02/2024 LABPLAT 360 10/02/2024 ALT 9 10/02/2024 AST 17 10/02/2024 SODIUM 136 10/02/2024 POTASSIUM 4.6 10/02/2024 CHLORIDE 96 (L) 10/02/2024 BUNSER 20 10/02/2024 CO2 32 10/02/2024 CREATININE 0.65 (L) 10/02/2024 GLUCOSE 160 10/02/2024 CALCIUM 10.1 10/02/2024 PHOS 4.4 10/02/2024 MAGNESIUM 2.3 10/02/2024 PT 14.5 (H) 10/02/2024 INR 1.33 (H) 10/02/2024 Lab Results Component Value Date MICROBIOLOGY Final Report: No growth 03/29/2024 MICROBIOLOGY Final Report: No growth 03/29/2024 ECG 12 lead Nu Tejeda MD 10/01/2024 11:24 PM ECG 12 lead Date/Time: 10/01/2024 11:22 PM Performed by: Nu Tejeda MD Authorized by: Christina Burnette MD Rate: ECG rate: 103 ECG rate assessment: tachycardic Rhythm: Rhythm: sinus tachycardia Ectopy: Ectopy: none QRS: QRS axis: Normal Conduction: Conduction: normal ST segments: ST segments: Normal T waves: T waves: non-specific, flattening and inverted Flattening: AVL Inverted: AVR and V1 Previous ECG: Previous ECG: Compared to current Date of previous EC08/10/2024 Similarity: No change Interpretation: Interpretation: No acute injury pattern Recommended Follow-up: Recommended follow up: further workup in the ED Assessment/Plan Principal Problem: Shortness of breath Active Problems: Oropharyngeal cancer (HCC) HTN (hypertension) .Procedures performed: ENT FLEXIBLE FIBER OPTIC LARYNGOSCOPY EXAM Procedure Performed: The risks and benefits of the exam were discussed with the patient who is in agreement with proceeding. All supplies for the exam were present and available in the room. The nasal cavities were topically anesthetized and decongested with 1% topical lidocaine and oxymetazoline. A flexible fiberoptic endoscope was introduced into the right nasal cavity and advanced to the larynx. No mucopurulence, polyps, ulcers, or lesions were seen. The nasopharynx showed symmetric adenoid pad without any lesions. Posterior and lateral pharyngeal wall were normal in appearance without anylesions. There was a mass at the right base of tongue. The epiglottis and arytenoid were mildly edematous. There were mildly thick secretions. The true vocal cords had minimal abduction. The scope was removed from the patient's nose and he tolerated the procedure well. Assessment: Plan: [ x]t FOE 10/02 AM Admit to Oncology for airway monitoring, airway dose steroids, continuous pulse ox, ENT to repeat laryngoscopy in AM, please call ENT for any worsening of symptoms Leighton Kimble MD Otolaryngology - Head & Neck Surgery QUESTIONS: Weekdays daytime: [facility] Otolaryngology [facility] Consult New consults, after-hours & weekends: [facility] Otolaryngology [facility] Resident Primary/Night Float ENT scheduling line: [phone] (please include in discharge paperwork as needed) Cosigned by Wilma Groves MD at 10/04/2024 9:10 AM CDT * Thelma Johnson SLP - 10/02/2024 10:49 AM CDT Speech Language/Pathology Pt declined swallow evaluation at this time. Pt reports he is g tube dependent/NPO at baseline. He has an appointment this week to begin tx with lymphedema therapist and is hopeful he will be able toparticipate in a swallow evaluation as outpatient following tx. No further acute ST needs indicatedat this time. VENEER JOINTER to sign off. * Gurvinder Campoverde MD - 10/02/2024 8:56 AM CDT Oncology Daily Progress Note Division of Hospital Medicine Name: Jesus Dudley : 1960 Today's Date: October 02, 2024 Age: 64 y.o. male Admission: 10/01/2024 Bed: [id number] LOS: 1 days Subjective Chief complaint: SOB Interval History Patient reports to be doing well. TFs restarted . As per ENT, patient will need to continue IV steroids for today. PLAN -Continue dexamethasone 8 mg Q 8 for 24 hours - ENT follow-up tomorrow Objective Scheduled Meds PRN Meds Infusions amLODIPine, 5 mg, gastrostomy tube, Daily dexAMETHasone, 8 mg, intravenous, Q8H CHIQUIS heparin flush (porcine), 5 mL, intra-catheter, BID sodium chloride 0.9%, 0.5-20 mL, intra-catheter, Q8H CHIQUIS sodium chloride 0.9%, 10-40 mL, intra-catheter, Q12H CHIQUIS acetaminophen, 1,000 mg, oral, Q6H PRN sodium chloride 0.9%, 0-250 mL, intravenous, PRN sodium chloride 0.9%, 30 mL, intravenous, PRN heparin flush (porcine), 2-5 mL, intra-catheter, PRN heparin flush (porcine), 5 mL, intra-catheter, Once PRN ketorolac, 15 mg, intravenous, Q6H PRN magnesium sulfate, 4 g, intravenous, Q4H PRN magnesium sulfate, 6 g, intravenous, Q4H PRN ondansetron, 8 mg, intravenous, Q6H PRN ondansetron, 8 mg, oral, Q6H PRN oxyCODONE, 5 mg, oral, Q4H PRN polyethylene glycol, 17 g, oral, BID PRN potassium chloride, 40 mEq, intravenous, Q4H PRN potassium chloride ER, 40 mEq, oral, Q2H PRN prochlorperazine, 10 mg, intravenous, Q6H PRN prochlorperazine, 5 mg, oral, Q6H PRN sodium chloride 0.9%, 0.5-20 mL, intra-catheter, PRN sodium chloride 0.9%, 10 mL, intra-catheter, Once PRN sodium chloride 0.9%, 10-20 mL, intra-catheter, PRN sodium chloride 0.9%, 30 mL/hr, intravenous, Continuous PRN sodium phosphate - potassium phosphate, 500 mg, oral, Daily PRN sodium chloride 0.9%, 30 mL/hr Vitals Most Recent Vitals: T 36.7 ??C (98.1 ??F), HR 99, BP 115/83, RR 18, SpO2 97 %. 24hr Min/Max: Temp Min: 36.6 ??C (97.9 ??F) Max: 36.7 ??C (98.1 ??F) Pulse Min: 77 Max: 117 BP Min: 113/87 Max: 139/80 Resp Min: 11 Max: 21 SpO2 Min: 90 % Max: 98 % No intake or output data in the 24 hours ending 10/02/24 0856 Physical Exam Constitutional: NAD, sitting up on side of bed, nasal cannula on HEENT: NCAT. EOMI, sclera anicteric. Lungs: Unlabored, no wheezing, no crackles, normal lung sounds Cardiovascular: RRR, normal S1 and S2, no murmurs, no JVD. GI: Soft, non-tender, non-distended, bowel sounds positive, no organomegaly. Skin: No new rashes, lesions or bruises Extremities: no edema in BLE, no cyanosis Neurologic: AOx4, no focal deficits, moves all limbs spontaneously Psychiatric: Normal affect and mood. Lines, Drains, Airways Peripheral IV 10/01/24 20 G Left;Posterior Hand (Active) Peripheral IV 10/01/24 20 G Anterior;Distal;Right;Upper Arm (Active) Gastrostomy/Enterostomy Percutaneous endoscopic gastrostomy (PEG) 18 Fr. LUQ (Active) Labs/Diagnostic Review CBC: Recent Labs Lab Units 10/02/24 0331 WBC K/cumm 5.53 HEMOGLOBIN g/dL 11.2* HEMATOCRIT % 33.6* MCV fL 94.4 MCH pg 31.5 MCHC g/dL 33.3 RDW CV % 13.2 RDWSD fL 45.0 MPV fL 9.9 NEUTROS ABS K/cumm 5.08 LYMPHS PCT % 6.5 CMP: Recent Labs Lab Units 10/02/24 0331 SODIUM mmol/L 136 POTASSIUM PLASMA mmol/L 4.6 CO2 mmol/L 32 BUN SERUM mg/dL 20 GLUCOSE mg/dL 160 CREATININE mg/dL 0.65* CALCIUM mg/dL 10.1 CHLORIDE mmol/L 96* ALBUMIN g/dL 3.7 AST Units/L 17 ALT Units/L 9 ALK PHOS Units/L 72 BILIRUBIN TOTAL mg/dL 0.4 TOTAL PROTEIN g/dL 8.0 ANIONGAP mmol/L 8 LDH: Recent Labs Lab Units 10/02/24 0331 LACTATE DEHYDROGENASE (LDH) Units/L 154 INR 1.33 Uric Acid:4.5 (Labs above are the most recent result obtained in the last 24 hours unless otherwise specified. For additional labs/trends, see Epic.) I have reviewed the laboratory results. Imaging Review No results found. Assessment & Plan Shortness of breath Presented with dyspnea, evaluated by ENT, most likely related to postradiation changes. Admitted for monitoring. 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 CT 08/21 Marked interval decrease in size of infiltrative left supraglottic mass with near complete resolution of metastatic lymphadenopathy in the bilateral cervical nodes and left supraclavicular region. - Oncology follow-up HTN (hypertension) History of hypertension: Continue home amlodipine Code status : Full Code Diet : Adult Diet Regular PT/OT Dispo Rec : / Supplementary Attestation My total encounter time on this service date was 60 minutes which was spent performing a [id number] encounter and personally completing the provider-level activities documented in the note. This includes time spent prior to the visit and after the visit in direct care of the patient. This time does not include time spent in any separately reportable services. Gurvinder Campoverde MD documented in this encounter H&P Notes * Holli Lazar MD - 10/02/2024 12:48 AM CDT History and Physical Division of Hospital Medicine Name: Jesus Dudley : 1960 Today's Date: October 02, 2024 Age: 64 y.o. male Admit Date: 10/01/2024 Bed: [facility] [id number] LOS: 1 days Subjective HPI Jesus Dudley is a 64 y.o. 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 Pt initially presented to OSH due to concern for dyspnea, drooling, and difficulty tolerating secretions. He received racemic epinephrine and dexamethasone, with reported improvement. Transferred to [place] for ENT evaluation. On arrival, patient endorsed SOB and hoarseness but was tolerating secretions and appeared clinically stable without distress; airway was patent. Denies CP, fever, throat pain, nausea, vomiting, or positional dyspnea. ENT bedside flexible laryngoscopy with minimal true vocal cord abduction, edematous epiglottis and arytenoids, mildly thick secretions, and a mass at the right base of tongue (known from prior per documentation), findings attributed to post-radiation changes but acute process not excluded. CT at OSH with moderate supraglottic soft tissue t hickening per ENT review. Laboratory workup with sodium 130, troponin negative. Per ENT admitted for monitoring, steroid therapy, and for ENT follow-up in a.m.. Past Medical History: Diagnosis Date Hypertension Primary squamous cell carcinoma of throat (HCC) Past Surgical History: Procedure Laterality Date CHANGE G TUBE N/A 07/23/2024 CHOLECYSTECTOMY IR G TUBE PLACEMENT PERCUTANEOUS N/A 05/25/2024 NG TUBE PLACEMENT N/A 05/25/2024 TONSILLECTOMY US GUIDED BIOPSY LYMPH NODE SUPERFICIAL LEFT N/A 02/22/2024 No current facility-administered medications on file prior to encounter. Current Outpatient Medications on File Prior to Encounter Medication Sig Dispense Refill amLODIPine (NORVASC) 5 mg tablet Administer per tube 1 tablet (5 mg total) daily 30 [address] (NexIUM) 40 mg granule packet for oral suspension Take 40 mg by mouth 2 (two) timesa day as needed (indegestion) 90 packet 0 HYDROcodone-acetaminophen (NORCO) 5-325 mg per tablet Take 1 tablet by mouth every 8 (eight) hours as needed for pain 90 tablet 0 polyethylene glycol (MIRALAX) 17 gram/dose bulk powder Administer per tube 17 g daily as needed (constipation) 289 g 1 scopolamine 1 mg over 3 days patch [address] 1 patch on the skin every third day for 72 hours 5 patch 0 senna 1.76 mg/mL syrup Administer 10 mL (17.6 mg total) per feeding tube nightly as needed Allergies Allergen Reactions Penicillin Rash Social and Family History Social History Tobacco Use Smoking status: Never Smokeless tobacco: Never Substance and Sexual Activity Drug use: Never Sexual activity: Not on file Alcohol Use: Not At Risk (07/22/2024) AUDIT-C Frequency of Alcohol Consumption: Monthly or less Average Number of Drinks: Patient does not drink Frequency of Binge Drinking: Less than monthly Family History Problem Relation Age of Onset No Known Problems Mother No Known Problems Father Objective Vitals Most Recent Vitals: T 36.7 ??C (98.1 ??F), HR 115, BP 113/87, RR 20, SpO2 97 %. 24hr Min/Max: Temp Min: 36.7 ??C (98.1 ??F) Max: 36.7 ??C (98.1 ??F) Pulse Min: 95 Max: 117 BP Min: 113/87 Max: 138/94 Resp Min: 13 Max: 21 SpO2 Min: 97 % Max: 98 % No intake or output data in the 24 hours ending 10/02/24 0049 Physical Exam Physical Exam Vitals reviewed. Constitutional: Appearance: Normal appearance. HENT: Head: Normocephalic and atraumatic. Mucous membranes are moist. No stridor. Tolerate secretions.hoarse voice that pt report on baseline. Cardiovascular: Rate and Rhythm: Normal rate and regular rhythm. Pulmonary: No respiratory distress. Normal breath sounds. No wheezing. Abdominal: Abdomen is flat. Bowel sounds are normal. There is no distension. Abdomen is soft. Musculoskeletal/Skin:: Normal range of motion. Skin is warm and dry. Neurological: No focal deficit present. Patient is alert and oriented. Mental status is at baseline. Lines, Drains, Airways Peripheral IV 09/05/24 22 G Left;Posterior Forearm (Active) Peripheral IV 10/01/24 20 G Left;Posterior Hand (Active) Peripheral IV 10/01/24 20 G Anterior;Distal;Right;Upper Arm (Active) Gastrostomy/Enterostomy Percutaneous endoscopic gastrostomy (PEG) 18 Fr. LUQ (Active) Labs/Diagnostic Review Na 130 Cl 93 BUN 18 K See Comment CO2 30 Cr 0.54 Mg -, G AST See Comment ALT See Comment Alk Phos See Comment Ca 9.8 TP - Alb 3.5 Total Bili: 0.3 Direct Bili: - \ Hgb 11.7 / WBC 8.89 -------- Plt 400 / MCV 92.5 \ INR 1.33 (Labs above are the most recent result obtained in the last 24 hours. For additional labs/trends, see Epic.) I have reviewed the laboratory results. Imaging Review No results found. Assessment & Plan Shortness of breath Presented with dyspnea, evaluated by ENT, most likely related to postradiation changes. Admitted for monitoring. - Continue dexamethasone 8 mg Q 8 for 24 hours - Telemetry and pulse ox - ENT follow-up in a.m. 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 CT 08/21 Marked interval decrease in size of infiltrative left supraglottic mass with near complete resolution of metastatic lymphadenopathy in the bilateral cervical nodes and left supraclavicular region. - Oncology follow-up HTN (hypertension) History of hypertension: Continue home amlodipine Code status : Prior Diet : No diet orders on file Supplementary Attestation My total encounter time on this service date was 75 minutes which was spent performing a [id number] encounter and personally completing the provider-level activities documented in the note. This includes time spent prior to the visit and after the visit in direct care of the patient. This time does not include time spent in any separately reportable services. Holli Lazar MD documented in this encounter Consult Notes * Shari Moise, TOBIAS - 10/02/2024 1:29 PM CDTAssociated Order(s): IP CONSULT TO NUTRITION SERVICES NUTRITION ASSESSMENT Nutrition Status: Patient meets criteria for severe chronic malnutrition, reference AAIM (ASPEN) guidelines. Present on Admission: Yes REASON FOR ASSESSMENT: Consult/Referral - Tube Feeding Assessment Encounter Date: 10/02/24 1:29 PM Admission Date: 10/01/2024 LOS: 1 days HPI: Patient is a 64 y.o. 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 Objective Past Medical History: Diagnosis Date Hypertension Primary squamous cell carcinoma of throat (HCC) Past Surgical History: Procedure Laterality Date CHANGE G TUBE N/A 07/23/2024 CHOLECYSTECTOMY IR G TUBE PLACEMENT PERCUTANEOUS N/A 05/25/2024 NG TUBE PLACEMENT N/A 05/25/2024 TONSILLECTOMY US GUIDED BIOPSY LYMPH NODE SUPERFICIAL LEFT N/A 02/22/2024 Social History Tobacco Use Smoking status: Never Smokeless tobacco: Never Substance and Sexual Activity Drug use: Never Sexual activity: Not on file Alcohol Use: Not At Risk (07/22/2024) AUDIT-C Frequency of Alcohol Consumption: Monthly or less Average Number of Drinks: Patient does not drink Frequency of Binge Drinking: Less than monthly MEDICATION/LAB REVIEW: Scheduled Meds: amLODIPine, 5 mg, gastrostomy tube, Daily dexAMETHasone, 8 mg, intravenous, Q8H CHIQUIS heparin flush (porcine), 5 mL, intra-catheter, BID sodium chloride 0.9%, 0.5-20 mL, intra-catheter, Q8H CHIQUIS sodium chloride 0.9%, 10-40 mL, intra-catheter, Q12H CHIQUIS Continuous Infusions: sodium chloride 0.9%, 30 mL/hr PRN Meds: acetaminophen sodium chloride 0.9% sodium chloride 0.9% heparin flush (porcine) heparin flush (porcine) ketorolac magnesium sulfate magnesium sulfate ondansetron ondansetron oxyCODONE polyethylene glycol potassium chloride potassium chloride ER prochlorperazine prochlorperazine sodium chloride 0.9% sodium chloride 0.9% sodium chloride 0.9% sodium chloride 0.9% sodium phosphate - potassium phosphate Recent Labs Lab Units 10/02/24 0331 SODIUM mmol/L 136 POTASSIUM PLASMA mmol/L 4.6 CHLORIDE mmol/L 96* CO2 mmol/L 32 BUN SERUM mg/dL 20 CREATININE mg/dL 0.65* [id number] mL/min/1.73 m2 >90 CALCIUM mg/dL 10.1 ALBUMIN g/dL 3.7 PHOSPHORUS PLASMA mg/dL 4.4 MAGNESIUM mg/dL 2.3 Recent Labs Lab Units 10/02/24 0331 10/01/24 2211 GLUCOSE mg/dL 160 152 ALT Date Value Ref Range Status 10/02/2024 9 7 - 55 Units/L Final Comment: Reviewed AST Date Value Ref Range Status 10/02/2024 17 10 - 50 Units/L Final Alk phos Date Value Ref Range Status 10/02/2024 72 40 - 130 Units/L Final Comment: Reviewed No results found for: HGBA1C, HDL, LDLCALC, CHOL, TRIG NURSING ASSESSMENT: Last BM Date: 10/01/24 Bowel Sounds (All Quadrants): Active Dinesh Scale Score: 22 Skin Integrity: Surgical incision Vital Signs BP: 115/83 Temp: 36.7 ??C (98.1 ??F) Pulse: 99 Resp: 18 SpO2: 97 % No intake or output data in the 24 hours ending 10/02/24 1329 Adult Malnutrition Scoring Tool (MST) What diet do you follow at home?: tube feeds Have You Recently Lost Weight Without Trying?: No Have you been eating poorly because of a decreased appetite?: No Malnutrition Screening Tool (MST) Score: 0 Within the past 12 months, you worried that your food would run out before you got the money to buymore.: Never true Within the past 12 months, the food you bought just didn't last and you didn't have money to get more.: Never true Anthropometrics Weight: 72.1 kg (159 lb) Admission Weight : 72.1 kg Weight Change: -0.45 kg (-1.00 lbs) IBW/kg (Calculated) : 75.3 kg Height: 177.8 cm (5' 10) Weight in (lb) to have BMI = 25: 173.9 BMI (Calculated): 22.8 Wt Readings from Last 10 Encounters: 10/02/24 72.1 kg (159 lb) 09/17/24 74.9 kg (165 lb 1.6 oz) 09/12/24 73 kg (161 lb) 09/05/24 71.7 kg (158 lb) 09/04/24 72.7 kg (160 lb 3.2 oz) 09/03/24 73.6 kg (162 lb 3.2 oz) 08/25/24 74.4 kg (164 lb 0.4 oz) 08/13/24 76 kg (167 lb 9.6 oz) 08/10/24 75.8 kg (167 lb) 07/21/24 79.4 kg (175 lb) ESTIMATED NEEDS: Total Kcal/kg Estimated Needs : 2163.66 Kcal/k. Type of Weight Used for Estimated Kcals: Current Total Protein Estimated Needs (gm): 86.55 Protein Needs Based on g/k.2 Type of Weight Used for Estimated Protein : Current Total Fluid Estimated Needs: 2163.66 Fluid Needs Based on : 1 ml/kcal Type of Weight Used for Estimated Fluid Needs: Current Dietary Orders (From admission, onward) Start Ordered 10/02/24 1106 Tube Feeding Diet Bolus; Two Jamel HN; 240; Gastrostomy tube (G- tube); 5 times a day; 240; Water; With each bolus (Tube Feeding Diet Panel) Diet effective now Question Answer Comment Tube feeding type: Bolus ([facility]) Tube Feeding Formula: Two Jamel HN Tube Feeding Bolus (mL): 240 Per Tube: Gastrostomy tube (G-tube) Tube Feeding Bolus Frequency: 5 times a day Tube Feeding Flush (mL): 240 Flush Type: Water Flush Frequency: With each bolus 10/02/24 1105 10/02/24 0316 Adult Diet Regular Diet effective now Question: ([facility]) Diet type Answer: Regular 10/02/24314 Allergies: Reviewed. IMPRESSION: Patient reports he takes nothing by mouth at home. He is on tube feedings of Two Jamel HN 1 carton 5 times per day. He gives himself a 240 ml FWF with each feeding. Labs/Meds: reviewed and noted. AAIM ([place]) MALNUTRITION ASSESSMENT: Date of completion: 10/02 ASPEN/AND Malnutrition Screening: Chronic illness or injury severe Energy Intake: < 75% energy intake compared to estimated energy needs > (or equal to) 1 month Weight Loss: > 10% in 6 months (25% in 6 months) Subcutaneous Fat Loss Severity: (moderate) Muscle Mass Loss Severity: (moderate) Patient Meets Criteria for Severe Malnutrition: Yes NUTRITION FOCUSED PHYSICAL EXAM: Completed, physical findings below. Subcutaneous Fat Loss Orbital Region - Surrounding the Eye: Hollow look Cheek Region - Buccal Fat: Flat cheeks Muscle Loss Nondenominational Region - Temporalis Muscle: Slight depression Clavicle Bone Region - Pectoralis Major, Deltoid, Trapezius Muscles: Visible in male, some protrusion in female Clavicle and Acromion Bone Region - Deltoid Muscle: Acromion process may slightly protrude Posterior Calf Region - Gastrocnemius Muscle: Not well developed NUTRITION DIAGNOSIS: Nutrition Diagnosis 1: Protein-Calorie Malnutrition - Severe Related to: Chronic illness/injury Evidenced by: Inadequate energy intake, Muscle loss, Subcutaneous fat loss, Weight loss, Need for full tube feeding INTERVENTION(S): Summary: Enteral nutrition administration Two Jamel HN 1 carton (240 ml) 5 times per day via gastrostomy tube Flush with 240 mL water with each bolus, adjust per hydration status. Nutrition Additives: N/A Enteral regimen provides 2400 calories (33 calories / kg), 100 g protein (1.4 g/kg ), 262 g carbohydrate, 840 mL free water. Monitor electrolytes replete PRN. Follow aspiration precautions. GOAL(S): Tolerance of enteral feeding at goal rate MONITORING/EVALUATION: TF tolerance Shari Moise MS, RD, CNSC, LD Cell * Lenora Contreras MD - 10/01/2024 10:19 PM CDTAssociated Order(s): IP CONSULT TO ENT Otolaryngology - Head & Neck Surgery Consult Attending Physician: Dr. Gutiérrez Reason for Consult: post radiation sob Requesting Provider: Nu Tejeda, * Subjective Jesus Dudley is a 64 y.o. male with a history of HTN, [id number] p16+ SCC of L OP s/p definitive ELECTRICAL TROUBLESHOOTER (COT 06/2024) presenting with shortness of breath. He states that starting yesterday, he started feeling short of breath along with his heart racing. He states that he thought he was having a heart attack and was worried about being left alone in that state. He later states that he thinks he was having a panic attack. He went to an OSH where he received rac epi and steroids and was sent to [place] for further evaluation. He states that his breathing feels that it is at his baseline. He reports improvement in his breathing both before and after receiving the steroids at OSH. He denies any difficulty with breathing. Hestates that his stridor and voice are both at baseline without any recent changes. He denies any throat pain or difficulty managing his secretions. He denies any difficulty breathing when lying flat.His last radiation treatment was in June. Past Medical History: Diagnosis Date Hypertension Primary squamous cell carcinoma of throat (HCC) Patient Active Problem List Diagnosis Oropharyngeal mass Mass of left side of neck Oropharyngeal cancer (HCC) Squamous cell carcinoma of neck Hypotension, unspecified hypotension type Intractable vomiting with nausea Severe malnutrition Encounter for feeding tube placement Encounter for follow-up examination after completed treatment for malignant neoplasm Personal history of irradiation Hypertension, essential Alteration in nutrition Dislodged gastrostomy tube Thrush Gastrostomy complication (HCC) Dehydration Intractable nausea and vomiting Hypokalemia Primary hypertension Hypophosphatemia Past Surgical History: Procedure Laterality Date CHANGE G TUBE N/A 07/23/2024 CHOLECYSTECTOMY IR G TUBE PLACEMENT PERCUTANEOUS N/A 05/25/2024 NG TUBE PLACEMENT N/A 05/25/2024 TONSILLECTOMY US GUIDED BIOPSY LYMPH NODE SUPERFICIAL LEFT N/A 02/22/2024 Social History Tobacco Use Smoking status: Never Smokeless tobacco: Never Substance and Sexual Activity Drug use: Never Sexual activity: Not on file Alcohol Use: Not At Risk (07/22/2024) AUDIT-C Frequency of Alcohol Consumption: Monthly or less Average Number of Drinks: Patient does not drink Frequency of Binge Drinking: Less than monthly Family History Problem Relation Age of Onset No Known Problems Mother No Known Problems Father Allergies Allergen Reactions Penicillin Rash (Not in a hospital admission) Review of Systems: A full review of systems was completed and was negative unless otherwise stated in the HPI. Objective Physical Exam: Vitals: 10/01/24 2205 10/01/24 2210 10/01/24 2212 10/01/24 2215 BP: 125/81 126/88 138/94 Pulse: 111 109 109 Resp: 21 15 15 Temp: 36.7 ??C (98.1 ??F) TempSrc: Temporal SpO2: 97% 98% 97% Weight: 72.6 kg (160 lb) General: Awake, NAD, able to carry on 30 minutes a conversation without voice changes or appearing winded Head: NC, AT Eyes: Sclera white, no injection or chemosis, no periorbital edema Ears: Normal set, no drainage Nose: No nasal bleeding, no flaring Mouth: No OC/OP bleeding, tolerating secretions, MMM, palate elevates symmetrically Neck: Lincoln CV: RRR Pulm: NLB on room air, mild intermittent inspiratory stridor, no stertor, tolerates lying flat, severely rough and breathy voice Skin: WWP Neuro: OE, R, FC; AOx3; CN grossly intact; MAEWx4 Lab/Radiology/Diagnostic Review: Lab Results Component Value Date WBC 6.04 08/27/2024 HGB 12.3 (L) 08/27/2024 HCT 36.6 (L) 08/27/2024 LABPLAT 302 08/27/2024 ALT 8 08/27/2024 AST 16 08/27/2024 SODIUM 134 (L) 08/29/2024 POTASSIUM 4.1 08/29/2024 CHLORIDE 95 (L) 08/29/2024 BUNSER 15 08/29/2024 CO2 31 08/29/2024 CREATININE 0.63 (L) 08/29/2024 GLUCOSE 112 08/29/2024 CALCIUM 9.6 08/29/2024 PHOS 3.3 08/29/2024 MAGNESIUM 2.4 08/29/2024 PT 13.3 (H) 07/23/2024 INR 1.23 (H) 07/23/2024 No results found. Imaging review: I have independently examined the CT neck image(s) from 10/01/24, which appears to reveal moderate supraglottic soft tissue thickening Procedures performed: ENT FLEXIBLE FIBER OPTIC LARYNGOSCOPY EXAM Procedure Performed: The risks and benefits of the exam were discussed with the patient who is in agreement with proceeding. All supplies for the exam were present and available in the room. The nasal cavities were topically anesthetized and decongested with 1% topical lidocaine and oxymetazoline. A flexible fiberoptic endoscope was introduced into the right nasal cavity and advanced to the larynx. No mucopurulence, polyps, ulcers, or lesions were seen. The nasopharynx showed symmetric adenoid pad without any lesions. Posterior and lateral pharyngeal wall were normal in appearance without anylesions. There was a mass at the right base of tongue. The epiglottis and arytenoid were edematous. There were mildly thick secretions. The true vocal cords had minimal abduction. The scope was removed from the patient's nose and he tolerated the procedure well. Assessment/Plan Jesus Dudley is a 64 y.o. male with HTN, [id number] p16+ SCC of L OP s/p definitive ELECTRICAL TROUBLESHOOTER (COT 06/2024) p/w dyspnea. At the time of examination, he states that his breathing is at baseline without anydiscomfort. Flexible laryngoscopy revealed a moderate amount of supraglottic edema. Given his stability in symptoms, these changes are most likely postradiation changes but can not rule out an acute process. - Recommend admission to oncology for airway monitoring - Airway dose steroids. May do dexamethasone 8 mg Q 8 hours for 24 hours. - Continuous pulse ox - ENT will plan to re-evaluate the patient's airway in the morning - Please reach out to ENT with any worsening in the patient's symptoms Please call if you have further questions or concerns. This case has been discussed with senior resident hyperion developer Dr. Yeager who is in agreement with the plan. Lenora Contreras MD Department of Otolaryngology, Head & Neck Surgery Weekdays Daytime for Established Consults: [employer] ([email or web address]) secure chat or phone call: [facility]>Otolaryngology> Existing Consults Week Daytime for New Consults: Phone call: [facility]>Otolaryngology>[facility] Resident Primary (NewConsults) Weekends or After Hours M-F: [facility]>Otolaryngology>[phone] Cosigned by Wilma Groves MD at 10/04/2024 9:10 AM CDT documented in this encounter Nursing Notes * Selma Ricks - 10/03/2024 1:10 PM CDT RN educated patient regarding tube feedings, PEG tube cleaning, pain control, daily medications, and discharge. Patient stated he had no questions regarding his pain control. Patient remained AOx4, remains free from falls, and has small complaints of pain. * Jolly Haque RN - 10/03/2024 12:40 PM CDT Checked in with the patient prior to discharge today, cancer care clinic option discussed, flyer provided. Appointment reminders given. Jolly Haque MSN OCN RN Inpatient Nurse Coordinator [phone] Medical Oncology documented in this encounter ED Notes * Nikki Morales RN - 10/01/2024 10:04 PM CDT {Pt from [facility]. 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 Pt having difficulty managing secretions and osh ct showed narrowing of airway. Gcs 15. Vss per ems * Radha Carmen RN - 10/01/2024 10:03 PM CDT Bed: [facility] Expected date: Expected time: Means of arrival: Comments: Air Evac Radha Carmen RN 10/01/242202 documented in this encounter Miscellaneous Notes * Hospital Course - Gurvinder Campoverde MD - 10/03/2024 12:23 PM CDT Shortness of breath Presented with dyspnea, evaluated by ENT, most likely related to postradiation changes. - S/P dexamethasone 8 mg Q 8 for 24 hours -Patient reports that his pain and gonzalez improved since admission. He still has intermittent pain. -ENT evaluated him today and recommended that he is stable for discharge. ENT discussed treatment option for him in the future. 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 CT 5/20 Marked interval decrease in size of infiltrative left supraglottic mass with near complete resolution of metastatic lymphadenopathy in the bilateral cervical nodes and left supraclavicular region. - Oncology follow-up HTN (hypertension) History of hypertension: Continue home amlodipine * Assessment & Plan Note - Gurvinder Campoverde MD - 10/03/2024 12:23 PM CDT Associated Problem(s): Shortness of breath Presented with dyspnea, evaluated by ENT, most [...] treatment option for him in the future. 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 CT 5/20 Marked interval decrease in size of infiltrative left supraglottic mass with near complete resolution of metastatic lymphadenopathy in the bilateral cervical nodes and left supraclavicular region. - Oncology follow-up * Assessment & Plan Note - Gurvinder Campoverde MD - 10/03/2024 12:23 PM CDT Associated Problem(s): HTN (hypertension) History of hypertension: Continue home amlodipine * Initial Assessments - Lucina Rodriguez RN - 10/03/2024 8:53 AM CDT CM Initial Assessment Interview Note Information Obtained From: Patient (10/03/24848) Admission Source: OSH ([facility]) (Home) Impression: 64yr old male with hx of oropharyngeal cancer transferred from OSH for ENT evaluation. Shortness of breath worsening, finished radiation. Patient resides with roommate (Yamila). Independent with ADLs and manages his own bolus feeds ([employer] NH 2.0 through [employer]). Denies having additional DME or HH. Was supposed to start lymphedema therapy today outpatient and had to reschedule. Sister, Lucina ([phone]), will provide transport home. Plan Includes: At this time CM team anticipates patient will dc home with support from girlfriend and sister. CM to continue to follow for progression of care and dc planning. Please reach out to CM team with additional needs. Additional Information: CM met with patient at bedside to introduce CM and explain role. Verified demographics. Patient hoping to go home today. States his tube feeds are on back order and he is concerned about having enough supply. Sister is picking up a different formula today, but he would like to talk to [facility] randolph about it. CM informed Yoshi with Jose J that patient is requesting a bedside visit. Primary Source of Transportation: Does the patient need discharge transport arranged?: No (10/03/24848) Health Insurance Coverage: BCBS Prescription Coverage: Yes Pharmacy: [id number] - [place], [place] - [address] [facility] [address] [facility] [phone] [facility] [place] [address] [address] [facility] [phone] [facility] ([facility]) - [place], [place] - [address] [facility] [address] Primary Care Provider: Gia Foss MD Prior to Admission: Functional Status: Independent with ADLs Primary Caregiver: Self Support System: Spouse/Significant Other, Family members, Other (Comment) (Girlfriend, two sisters (Lucina lives locally), and roommate) When was the last time you have seen your PCP?: Within last 6 months (3 months ago, has appt at [facility] the month) Home Care Services: No Outpatient Services: Yes Type of Service: Therapy Type of Therapy: (Lymphedema) Therapy Location: [facility] Durable Medical Equipment: Tube feeding supplies DME Name and Contact Number: Jose [facility] Living Arrangements: Other (Comment) (Roommate ([place])) Type of Residence: Private residence Steps in home?: Yes, Outside of home Number of steps outside: 3 steps Medication management: Independent (10/03/24848) Behavioral Health Services: Behavioral Health Services: (Unknown) (10/03/24848) Anticipated Level of Care: Anticipated discharge level of care: Private residence Pt/Family agrees with Anticipated Level of Care: Yes (10/03/24848) Patient expects to be Discharged to: Private residence, (10/03/24848) Patient's Identified Problem/Goal Problem: Ensure acute medical needs are met and that patient has a safe discharge plan. Goal: Secure a discharge plan that patient/family are agreeable with and ensure patient has continuum of care. Case management will follow for discharge planning and send referrals as needed. Lucina Rodriguez RN Case Manager * Plan of Care - Yadira Demarco RN - 10/03/2024 6:44 AM CDT Goals: Clinical Goals for the Shift: VSS, labs, pain control, tube feeds, safety Summary: VSS, telemetry monitored. Alert and oriented x4. Tube feedings continued per patients timing request. Pain controlled with current pain regimen, gave oxy x3. Fall precautions in place. Call light in reach. Problem: Discharge Planning Goal: Understanding discharge needs will improve Outcome: Ongoing Problem: Lack of Knowledge Goal: Ability to develop a pain control plan will improve Outcome: Ongoing Problem: Medication Goal: Satisfaction with pain management medication regimen will improve Outcome: Ongoing Problem: Sensory Goal: Ability to identify factors that increase pain levels will improve while working to decrease the patient's pain levels Outcome: Ongoing Problem: Coping Goal: Ability to cope will improve Outcome: Ongoing Problem: Health Behavior Goal: Identification of resources available to assist in meeting health care needs will improve Outcome: Ongoing Problem: Respiratory Goal: Achieves optimal ventilation and oxygenation Outcome: Ongoing Goal: Ability to maintain a clear airway will improve Outcome: Ongoing Goal: Mechanical Ventilation will be safely managed Outcome: Ongoing Problem: Cardiovascular Goal: Maintains optimal cardiac output and hemodynamic stability Outcome: Ongoing Goal: Absence of cardiac dysrhythmias or at baseline Outcome: Ongoing Goal: Cardiovascular status will improve Outcome: Ongoing Problem: Metabolic/Fluid and Electrolytes Goal: Electrolytes maintained within normal limits Outcome: Ongoing Goal: Hemodynamic stability and optimal renal function maintained Outcome: Ongoing Goal: Glucose maintained within prescribed range Outcome: Ongoing Problem: Hematologic Goal: Maintains hematologic stability Outcome: Ongoing * Plan of Care - Irish Short RN - 10/02/2024 5:34 PM CDT Goals: Clinical Goals for the Shift: VSS, pain control Summary: VSS, patient has rested well this shift. Tube feedings started. Pain med given x 3 this shift. * ACP (Advance Care Planning) - Nu Ha LCSW - 10/02/2024 1:33 PM CDT Advance Care Planning Advance Care Planning Conversation The patient and/or family consented to a voluntary Advance Care Planning conversation. Individuals present for the conversation: patient and care juice bar team member(s): Nu Ha LCSW Advance Directive: No Summary of the conversation: Patient does not have an advanced directive on file and declined to verbally nominate a surrogate decision maker in the event that he became unable to make medical decisions for himself. Outcome of the conversation and documents completed (select all that apply): Patient declined advance directives paperwork. The services provided in this conversation and described in this note are non- billable and to be used for ongoing clinical care only. 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 Pt has not had income since March 2024 and is living off of savings. Education Level: Unable to assess How do you Pay for Medication: Insurance Current Transportation: Family/friends What do you do with your Free Time: Stay on the couch (10/02/24 132) Legal History: Legal History Legal Information: No legal issues (10/02/24 132) Support Systems and Spirituality: Support Systems and Spirituality Support System: Other family members, Friends/neighbors Other Family Member Name/Contact Information: SisterLucina cazares ([phone]) and Winnie Young ([phone]/lives in [place]) Friends/Neighbors Name/Contact Information: Yamila Hill ([phone]) Do you have a Islam Preference or Affiliation?: No Are there any Islam Practices that are important to maintain while admitted?: No Do you have Cultural Factors that are important to you?: No History of physical abuse?: Unable to answer History of physically abusing others?: Unable to answer History of sexual abuse?: Unable to answer History of sexually abusing others?: Unable to answer History of Mental/Emotional Abuse?: Unable to answer (10/02/24 1321) Strengths, Assets, Liabilities and Stressors: Strengths, Assets, Liabilities, and Stressors Strengths (Must Choose Two): Assessment of patient optimism that change can occur, Setting and pursuing goals, Managing surrounding demands and opportunities, Knowledge of medications, Access to housing/residential stability, Interpersonal relationships and supports,i.e., family, friends, peers, Exercising self-direction Patient Assets: Home, Insured, MD, Supportive family, Supportive friends, Transportation, Use of Supports Does Pt have access to Employee Assistance Program: No Patient Barriers: Financial difficulties, Poor physical health Current Stressors: Chronic illness, No income, Loss of job/income (10/02/24 1321) SDOH Transportation Needs: No Transportation Needs (10/02/2024) PRAPARE - Transportation Lack of Transportation (Medical): No Lack of Transportation (Non-Medical): No Financial Resource Strain: Low Risk (10/02/2024) Overall Financial Resource Strain (CARDIA) Difficulty of Paying Living Expenses: Not very hard Housing Stability: Low Risk (10/02/2024) Housing Stability Vital Sign Unable to Pay for Housing in the Last Year: No Number of Times Moved in the Last Year: 0 Homeless in the Last Year: No Social Connections: Socially Isolated (10/02/2024) Social Connection and Isolation Panel [NHANES] Frequency of Communication with Friends and Family: More than three times a week Frequency of Social Gatherings with Friends and Family: Twice a week Attends Islam Services: Never Active Member of Clubs or Organizations: No Attends Club or Organization Meetings: Never Marital Status: Food Insecurity: No Food Insecurity (10/02/2024) Hunger Vital Sign Worried About Running Out of Food in the Last Year: Never true Ran Out of Food in the Last Year: Never true Tobacco Use: Low Risk (09/17/2024) Patient History Smoking Tobacco Use: Never Smokeless Tobacco Use: Never Passive Exposure: Not on file Alcohol Use: Not At Risk (07/22/2024) AUDIT-C Frequency of Alcohol Consumption: Monthly or less Average Number of Drinks: Patient does not drink Frequency of Binge Drinking: Less than monthly PHQ Screening Over the last 2 weeks, how often have you been bothered by any of the following problems? Little Interest or Pleasure in Doing Things: Not at all Feeling Down, Depressed, or Hopeless: Not at all PHQ-2 Total Score (If total score is 3 or more points, staff should administer the PHQ-9): 0 Current/Former Smokers - Passive Exposure Questions Responses Current/Former Smoker - passive exposure (e.g., household member smoking)? No E-Cigarette/Vaping Questions Responses E-cigarette/Vaping Use Never User Vaping counseling given No Passive Exposure No E-Cigarette/Vaping Substances Questions Responses Nicotine No THC No CBD No Flavoring No Unknown substances No E-Cigarette/Vaping Devices Questions Responses Disposable No Pre-filled or Refillable Cartridge No Refillable Tank No Pre-filled Pod No Substance Abuse, Mental Health, and Trauma History: Chemical Dependency, Mental Health & Trauma History Chemical Dependency: None Mental Health: None (10/02/24 1321) Risk to Self and Others: Risk to Self and Others Violence risk to self in past 6 months?: No Self Harm/Suicidal Ideation Plan: No Violence risk to others in past 6 months?: No Any lifetime risk of violence to others?: No Current Plans to Harm Another: No (10/02/24 1321) Impressions and Recommendations: Social Work consulted for high risk readmission (34%) and 5 inpatient admissions in the past year. Social Work met with patient at bedside. Social Work discussed SDOH (finances, food, transportation, housing, utilities, social supports, and mental health), and the patient does not have any concerns with SDOH resources at this time. The patient lives at [address] [place] [address] and has support from sisters and roommate. Social Work included resources for utilities on IP instructions as a proactive measure. Patient does not have an advanced directive on file and declined to verbally nominate a surrogate decision maker in the event that he became unable to make medical decisions for himself. There are no further social work needs identified at this time. Social Work to remain available should additional needs arise. [employer] to follow for discharge planning needs. Nu Ha MSW, CALL CENTER TEAM LEADER * Assessment & Plan Note - Gurvinder Campoverde MD - 10/02/2024 12:33 PM CDT Associated Problem(s): Shortness of breath Presented with dyspnea, evaluated by ENT, most likely related to postradiation changes. Admitted for monitoring. 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 CT 08/21 Marked interval decrease in size of infiltrative left supraglottic mass with near complete resolution of metastatic lymphadenopathy in the bilateral cervical nodes and left supraclavicular region. - Oncology follow-up * Assessment & Plan Note - Gurvinder Campoverde MD - 10/02/2024 8:57 AM CDT Associated Problem(s): HTN (hypertension) History of hypertension: Continue home amlodipine * Plan of Care - Yadira Demarco RN - 10/02/2024 6:19 AM CDT Goals: Clinical Goals for the Shift: VSS, labs, pain control, safety Summary: Admission complete. VSS. Telemetry monitoring. Alert and oriented x4. Pain controlled withcurrent regimen. No complaints of difficulty breathing or controlling secretions. Labs drawn, no replacements needed. Fall precautions in place. Call light in reach. Problem: Discharge Planning Goal: Understanding discharge needs will improve Outcome: Ongoing Problem: Lack of Knowledge Goal: Ability to develop a pain control plan will improve Outcome: Ongoing Problem: Medication Goal: Satisfaction with pain management medication regimen will improve Outcome: Ongoing Problem: Sensory Goal: Ability to identify factors that increase pain levels will improve while working to decrease the patient's pain levels Outcome: Ongoing Problem: Coping Goal: Ability to cope will improve Outcome: Ongoing Problem: Health Behavior Goal: Identification of resources available to assist in meeting health care needs will improve Outcome: Ongoing Problem: Respiratory Goal: Achieves optimal ventilation and oxygenation Outcome: Ongoing Goal: Ability to maintain a clear airway will improve Outcome: Ongoing Goal: Mechanical Ventilation will be safely managed Outcome: Ongoing Problem: Cardiovascular Goal: Maintains optimal cardiac output and hemodynamic stability Outcome: Ongoing Goal: Absence of cardiac dysrhythmias or at baseline Outcome: Ongoing Goal: Cardiovascular status will improve Outcome: Ongoing Problem: Metabolic/Fluid and Electrolytes Goal: Electrolytes maintained within normal limits Outcome: Ongoing Goal: Hemodynamic stability and optimal renal function maintained Outcome: Ongoing Goal: Glucose maintained within prescribed range Outcome: Ongoing Problem: Hematologic Goal: Maintains hematologic stability Outcome: Ongoing * Assessment & Plan Note - Holli Lazar MD - 10/02/2024 1:14 AM CDTAssociated Problem(s): Shortness of breath Presented with dyspnea, evaluated by ENT, most likely related to postradiation changes. Admitted for monitoring. - Continue dexamethasone 8 mg Q 8 for 24 hours - Telemetry and pulse ox - ENT follow-up in a.m. 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 CT 08/21 Marked interval decrease in size of infiltrative left supraglottic mass with near complete resolution of metastatic lymphadenopathy in the bilateral cervical nodes and left supraclavicular region. - Oncology follow-up * Assessment & Plan Note - Holli Lazar MD - 10/02/2024 1:14 AM CDTAssociated Problem(s): HTN (hypertension) History of hypertension: Continue home amlodipine * ED Procedure Note - Nu Tejeda MD - 10/01/2024 11:22 PM CDT Associated Order(s): ECG 12 lead Procedure ECG 12 lead Date/Time: 10/01/2024 11:22 PM Performed by: Nu Tejeda MD Authorized by: Christina Burnette MD Rate: ECG rate: 103 ECG rate assessment: tachycardic Rhythm: Rhythm: sinus tachycardia Ectopy: Ectopy: none QRS: QRS axis: Normal Conduction: Conduction: normal ST segments: ST segments: Normal T waves: T waves: non-specific, flattening and inverted Flattening: AVL Inverted: AVR and V1 Previous ECG: Previous ECG: Compared to current Date of previous EC08/10/2024 Similarity: No change Interpretation: Interpretation: No acute injury pattern Recommended Follow-up: Recommended follow up: further workup in the ED Nu Tejeda MD 10/01/242323 * ED Re-evaluation Note - Wisam Wall MD - 10/01/2024 10:49 PM CDT ED Re-evaluation TRANSITION OF CARE: I, Wisam Wall MD, am taking signout from the previous team. I have reviewed all pertinent vital signs, allergies, and history available in the chart. Summary: 64 y.o. male history oropharyngeal cancer, ENT patient, on radiation, presenting with shortness of breath that has been going on for 2 weeks but worsened today. Got dex and rac epi, symptomatically improved Pending: ENT eval Dispo: pending ENT ED Course as of 10/01/242323 Time: 10/01 2240 Comment: ENT coming to assess patient By: Christina Burnette MD Time: 10/015 Comment: ENT recs: onc admit, no airway concerns. Likely post-radiation changes. Continue dex, ENT to scope in AM By: Wisam Wall MD Time: 10/01 4949 Comment: Admit onc Opp[place] By: Christina Burnette MD Yang, Michele Xia, MD Resident 10/02/24 0801 * ED Pre-Arrival Note - Radha Carmen RN - 10/01/2024 6:40 PM CDT Pre-Arrival Note Pt transfer from [facility], report given by Dr. Pettit, accepted by Dr. Yeager ENT and Dr. Garcia ED. Pt has hx of head and neck cancer, presented to OSH ED with shortness of breath and difficulty managing sections after recent radiation. OSH CT showed narrowing of airway. Pt given decadron and was suctioned. Vitals stable at time of report - 113/94, 108HR, 98% on RA. Radha Carmen RN documented in this encounter Plan of Treatment Scheduled Orders Name Type Priority Associated Diagnoses Orde r Schedule ECG 12 lead ECG STAT As needed unt il discontinued starting 10/02/2024 documented as of this encounter Procedures Procedure Name Priority Date/Time Associated Diagnosis Comments EGFR Routine 10/02/2024 3:31 AM CDT DIFFERENTIAL AUTO Routine 10/02/2024 3:3 1 AM CDT CBC WITH AUTO DIFFERENTIAL Routine 10/02/2024 3:31 AM CDT APTT Routine 10/02/2024 3:31 AM CDT PROTIME-INR Routine 10/02/2024 3:31 AM CDT TYPE AND SCREEN Timed 10/02/2024 3:31 AM CDT URIC ACID Routine 10/02/2024 3:31 AM CDT PHOSPHORUS Routine 10/02/2024 3:31 AM CDT MAGNESIUM Routine 10/02/2024 3:31 AM CDT LACTATE DEHYDROGENASE Routine 10/02/2024 3:31 AM CDT COMPREHENSIVE METABOLIC PANEL Routine 10/02/2024 3:31 AM CDT TROPONIN I HIGH-SENSITIVITY 2-HOUR Timed 10/01/2024 11:49 PM CDT ECG 12-LEAD Routine 10/01/2024 11:22 PM CDT B CHECK SAMPLE STAT 10/01/2024 10:55 PM CDT APTT STAT 10/01/2024 10:55 PM CDT PROTIME-INR STAT 10/01/2024 10:55 PM CDT TROPONIN I HIGH-SENSITIVITY SERIES (BASELINE, 2HR, 4HR, 6HR) STAT 10/01/2024 10:11 PM CDT EGFR STAT 10/01/2024 10:11 PM CDT DIFFERENTIAL AUTO STAT 10/01/2024 10: 11 PM CDT CBC WITH AUTO DIFFERENTIAL STAT 10/01/2024 10:11 PM CDT TYPE AND SCREEN STAT 10/01/2024 10:11 PM CDT COMPREHENSIVE METABOLIC PANEL STAT 10/01/2024 10:11 PM CDT documented in this encounter Results * eGFR (10/02/2024 3:31 AM CDT) eGFR >90 >=60 mL/min/1. 73 [...] interpretive data was last reviewed 2021. Blood 10/02/2024 3:31 AM CDT 10/02/2024 3:50 AM CDT Holli Lazar MD LAB BLOOD ORDER ROSA ELENA Final Result [facility] [place] [address] * (ABNORMAL) Differential, auto (10/02/2024 3:31 AM CDT) Neutrophil abs 5.08 1.50 - 6.50 K/cumm Imm gran abs 0.03 0.00 - 0.10 K/cumm [facility] Lymphocyte abs 0.36(L) 0.80 - 3.30 K/cumm [facility] Monocyte abs 0.05(L) 0.20 - 0.80 K/cumm [facility] Eosinophil abs 0.00 0.00 - 0.50 K/cumm [facility] Basophil abs 0.01 0.00 - 0.10 K/cumm [facility] Neutrophil pct 91.9 % [facility] Comment: Interpretive Data Percent cell count reference ranges are not reported, since discordance with absolute values may lead to misinterpretation of CBC data. Current Interpretive Data was last revised on 2017. Imm gran pct 0.5 % [facility] Comment: Interpretive Data Percent cell count reference ranges are not reported, since discordance with absolute values may lead to misinterpretation of CBC data. Current Interpretive Data was last revised on 2017. Lymphocyte pct 6.5 % [facility] Comment: Interpretive Data Percent cell count reference ranges are not reported, since discordance with absolute values may lead to misinterpretation of CBC data. Current Interpretive Data was last revised on 2017. Monocyte pct 0.9 % [facility] Comment: Interpretive Data Percent cell count reference ranges are not reported, since discordance with absolute values may lead to misinterpretation of CBC data. Current Interpretive Data was last revised on 2017. Eosinophil pct 0.0 % [facility] Comment: Interpretive Data Percent cell count reference ranges are not reported, since discordance with absolute values may lead to misinterpretation of CBC data. Current Interpretive Data was last revised on 2017. Basophil pct 0.2 % [facility] Comment: Interpretive Data Percent cell count reference ranges are not reported, since discordance with absolute values may lead to misinterpretation of CBC data. Current Interpretive Data was last revised on 2017. Blood 10/02/2024 3:31 AM CDT 10/02/2024 3:50 AM CDT Holli Lazar MD LAB BLOOD ORDER ROSA ELENA Final Result [facility] [place] [address] * Lactate dehydrogenase (LD) (10/02/2024 3:31 AM CDT) Lactate dehydrogenase (LDH) 154 100 - 250 Units/L Blood 10/02/2024 3:31 AM CDT 10/02/2024 3:50 AM CDT Narrative [facility] - 10/02/2024 4:26 AM CDT Tuesday and only. Morning draw. Holli Lazar MD LAB BLOOD ORDER ROSA ELENA Final Result Performing Organization Address [facility] [place] [address] * Uric acid (10/02/2024 3:31 AM CDT) Uric acid 4.5 3.0 - 8.0 mg/dL Blood 10/02/2024 3:31 AM CDT 10/02/2024 3:50 AM CDT Narrative [facility] - 10/02/2024 4:26 AM CDT Tuesday and only. Morning draw. . Holli Lazar MD LAB BLOOD ORDER ROSA ELENA Final Result Performing Organization Address [facility] [place] [address] * Type and screen (10/02/2024 3:31 AM CDT) Pathologist [facility] ABO Rh A Positive Perico, indirect Negative [facility] Blood 10/02/2024 3:31 AM CDT 10/02/2024 3:44 AM CDT Narrative [facility] - 10/02/2024 5:13 AM CDT Has the patient had Daratumumab or Isatuximab in the past 6 months?->Unknown Holli Lazar MD LAB BLOOD BANK TEST ORDERABLES Final Result Performing Organization Address [facility] [place] [place] [address] * (ABNORMAL) Protime-INR (10/02/2024 3:31 AM CDT) PT 14.5(H) 9.7 - 13.0 sec INR 1.33(H) 0.90 - 1.20 [facility] Comment: Interpretive data Oral anticoagulant therapeutic ranges: Venous thromboembolism prophylaxis or treatment: 2.0-3.0 CARDIOLOGY Standard range: 2.0-3.0 High-intensity range: 2.5-3.5 Refer to indication-specific guidelines for appropriate target ranges for prosthetic heart valve replacement. Current interpretive data was last revised on 2019. Blood 10/02/2024 3:31 AM CDT 10/02/2024 3:45 AM CDT Holli Lazar MD LAB BLOOD ORDER ROSA ELENA Final Result Performing Organization Address [facility] de Phone Number [facility] [place] [address] * aPTT (10/02/2024 3:31 AM CDT) aPTT 29 28 - 38 sec Comment: Interpretive Data Heparin therapeutic range: 66.0 - 100.0 seconds. Range based on correlation with therapeutic heparin activity range of 0.3 - 0.7 Units/mL. Current interpretive data was last revised on 2022. Blood 10/02/2024 3:31 AM CDT 10/02/2024 3:45 AM CDT Holli Lazar MD LAB BLOOD ORDER ROSA ELENA Final Result Performing Organization Address [facility] de Phone Number [facility] [place] [address] * Phosphorus (10/02/2024 3:31 AM CDT) Phosphorus, pl 4.4 2.3 - 4.5 mg/dL Blood 10/02/2024 3:31 AM CDT 10/02/2024 3:50 AM CDT Holli Lazar MD LAB BLOOD ORDER ROSA ELENA Final Result Performing Organization Address City/[facility]/ZIP Co de Phone Number [facility] Department [place] [address] * (ABNORMAL) Comprehensive metabolic panel (10/02/2024 3:31 AM CDT) Sodium 136 135 - 145 mmol/L Potassium, pl 4.6 3.3 - 4.9 mmol/L [facility] Comment:Repeated and Verifie d Chloride 96(L) 97 - 110 mmol/L [facility] CO2 32 22 - 32 mmol/L [facility] Anion gap 8 2 - 15 mmol/L [facility] BUN 20 6 - 25 mg/dL [facility] Creatinine 0.65(L) 0.80 - 1.30 mg/dL [facility] Glucose 160 70 - 199 mg/dL [facility] Comment: Interpretive Data Fasting glucose [...] interpretive data was last revised 2022. Calcium 10.1 8.5 - 10.3 mg/dL [facility] Bilirubin, total 0.4 0.1 - 1.2 mg/dL [facility] Protein, pl 8.0 6.5 - 8.5 g/dL [facility] Albumin 3.7 3.5 - 5.0 g/dL [facility] Alk phos 72 40 - 130 Units/L [facility] Comment:Reviewed ALT 9 7 - 55 Units/L [facility] Comment:Reviewed AST 17 10 - 50 Units/L [facility] Blood 10/02/2024 3:31 AM CDT 10/02/2024 3:50 AM CDT Holli Lazar MD LAB BLOOD ORDER ROSA ELENA Final Result Performing Organization Address City/State/[facility] de Phone Number [facility] Department [place] [address] * (ABNORMAL) CBC with auto differential (10/02/2024 3:31 AM CDT) Pathologist [facility] WBC 5.53 3.80 - 9.90 K/cumm Hgb 11.2(L) 13.0 - 17.5 g/dL [facility] Hct 33.6(L) 38.9 - 50.3 % [facility] Plt 360 150 - 400 K/cumm [facility] MPV 9.9 9.1 - 12.3 fL [facility] RBC 3.56(L) 4.30 - 5.80 M/cumm [facility] MCV 94.4 81.3 - 96.4 fL [facility] MCH 31.5 27.1 - 33.3 pg [facility] MCHC 33.3 32.3 - 35.7 g/dL [facility] RDW CV 13.2 11.1 - 14.9 % [facility] RDW SD 45.0 35.7 - 48.1 fL [facility] NRBC abs 0.00 0.00 - 0.01 K/cumm [facility] Blood 10/02/2024 3:31 AM CDT 10/02/2024 3:50 AM CDT Holli Lazar MD LAB BLOOD ORDER ROSA ELENA Final Result Performing Organization Address City/[facility] Co de Phone Number [facility] Department [place] [address] * Magnesium (10/02/2024 3:31 AM CDT) Pathologist [facility] Magnesium 2.3 1.4 - 2.5 mg/dL Blood 10/02/2024 3:31 AM CDT 10/02/2024 3:50 AM CDT Holli Lazar MD LAB BLOOD ORDER ROSA ELENA Final Result Performing Organization Address [facility] de Phone Number [facility] [place] [address] * Troponin I high-sensitivity 2-hour (10/01/2024 11:49 PM CDT) Trop I hs <4 <=35 ng/L Comment: Interpretive Data For further hscTnI resources including the diagnostic algorithm and an aid in interpretation, copy and paste this link: [email or web address]/[email or web address] Current Interpretive Data last revised 2019. Trop I hs delta 0 ng/L [facility] Trop I hs interp Insignificant [facility] Blood 10/01/2024 11:4 9 PM CDT 10/02/2024 12:05 AM CDT Christina Burnette MD LAB BLOOD ORDERABLES Fi nal Result Performing Organization Address [facility] de Phone Number [facility] [place] [address] * ECG 12-LEAD (10/01/2024 11:22 PM CDT) Narrative [facility] - 10/01/2024 11:22 PM CDT uN Tejeda MD 10/01/2024 11:24 PM ECG 12 lead Date/Time: 10/01/2024 11:22 PM Performed by: Nu Tejeda MD Authorized by: Christina Burnette MD Rate: ECG rate: 103 ECG rate assessment: tachycardic Rhythm: Rhythm: sinus tachycardia Ectopy: Ectopy: none QRS: QRS axis: Normal Conduction: Conduction: normal ST segments: ST segments: Normal T waves: T waves: non-specific, flattening and inverted Flattening: AVL Inverted: AVR and V1 Previous ECG: Previous ECG: Compared to current Date of previous EC08/10/2024 Similarity: No change Interpretation: Interpretation: No acute injury pattern Recommended Follow-up: Recommended follow up: further workup in the ED us Christina Burnette MD ECG ORDERABLES Final R esult [facility] * (ABNORMAL) Protime-INR (10/01/2024 10:55 PM CDT) PT 14.5(H) 9.7 - 13.0 sec INR 1.33(H) 0.90 - 1.20 [facility] Comment: Interpretive data Oral anticoagulant therapeutic ranges: Venous thromboembolism prophylaxis or treatment: 2.0-3.0 CARDIOLOGY Standard range: 2.0-3.0 High-intensity range: 2.5-3.5 Refer to indication-specific guidelines for appropriate target ranges for prosthetic heart valve replacement. Current interpretive data was last revised on 2019. Blood 10/01/2024 10:5 5 PM CDT 10/01/2024 11:10 PM CDT Nu Tejeda MD LAB BLOOD ORDERABLES Fi nal Result Performing Organization Address [facility] Co de Phone Number [facility] [place] [address] * aPTT (10/01/2024 10:55 PM CDT) aPTT 28 28 - 38 sec Comment: Interpretive Data Heparin therapeutic range: 66.0 - 100.0 seconds. Range based on correlation with therapeutic heparin activity range of 0.3 - 0.7 Units/mL. Current interpretive data was last revised on 2022. Blood 10/01/2024 10:5 5 PM CDT 10/01/2024 11:10 PM CDT Nu Tejeda MD LAB BLOOD ORDERABLES nal Result Performing Organization Address City/[facility]/ZIP Co de Phone Number [facility] [place] [address] * Check Sample (10/01/2024 10:55 PM CDT) [facility] [facility] ABO Rh A Positive [facility] HCLL OTHER 10/01/2024 10:5 5 PM CDT 10/01/2024 11:01 PM CDT Nu Tejeda MD LAB BLOOD ORDERABLES Fi nal Result [facility] [place] [address] BJ * eGFR (10/01/2024 10:11 PM CDT) [facility] eGFR >90 >=60 mL/min/1. 73 m2 Comment: [...] interpretive data was last reviewed 2021. Blood 10/01/2024 10:1 1 PM CDT 10/01/2024 10:23 PM CDT us Christina Burnette MD LAB BLOOD ORDERABLES Fi nal Result [facility] [place] [address] * (ABNORMAL) Differential, auto (10/01/2024 10:11 PM CDT) Neutrophil abs 8.42(H) 1.50 - 6.50 K/cumm Imm gran abs 0.05 0.00 - 0.10 K/cumm [facility] Lymphocyte abs 0.35(L) 0.80 - 3.30 K/cumm [facility] Monocyte abs 0.06(L) 0.20 - 0.80 K/cumm [facility] Eosinophil abs 0.00 0.00 - 0.50 K/cumm [facility] Basophil abs 0.01 0.00 - 0.10 K/cumm [facility] Neutrophil pct 94.7 % [facility] Comment: Interpretive Data Percent cell count reference ranges are not reported, since discordance with absolute values may lead to misinterpretation of CBC data. Current Interpretive Data was last revised on 2017. Imm gran pct 0.6 % [facility] Comment: Interpretive Data Percent cell count reference ranges are not reported, since discordance with absolute values may lead to misinterpretation of CBC data. Current Interpretive Data was last revised on 2017. Lymphocyte pct 3.9 % [facility] Comment: Interpretive Data Percent cell count reference ranges are not reported, since discordance with absolute values may lead to misinterpretation of CBC data. Current Interpretive Data was last revised on 2017. Monocyte pct 0.7 % [facility] Comment: Interpretive Data Percent cell count reference ranges are not reported, since discordance with absolute values may lead to misinterpretation of CBC data. Current Interpretive Data was last revised on 2017. Eosinophil pct 0.0 % [facility] Comment: Interpretive Data Percent cell count reference ranges are not reported, since discordance with absolute values may lead to misinterpretation of CBC data. Current Interpretive Data was last revised on 2017. Basophil pct 0.1 % [facility] Comment: Interpretive Data Percent cell count reference ranges are not reported, since discordance with absolute values may lead to misinterpretation of CBC data. Current Interpretive Data was last revised on 2017. Blood 10/01/2024 10:1 1 PM CDT 10/01/2024 10:25 PM CDT Christina Burnette MD LAB BLOOD ORDERABLES Fi nal Result Performing Organization Address [facility] [place] [address] * Type and screen (10/01/2024 10:11 PM CDT) Pathologist [facility] Perico, indirect Negative Blood 10/01/2024 10:1 1 PM CDT 10/01/2024 10:32 PM CDT Narrative [facility] - 10/02/2024 4:23 AM CDT Has the patient had Daratumumab or Isatuximab in the past 6 months?->Unknown Christina Burnette MD LAB BLOOD BANK TEST ORD ERABLES Final Result Performing Organization Address [facility] [place] [address] * Troponin I high-sensitivity series (baseline, 2hr, 4hr, 6hr) (10/01/2024 10:11 PM CDT) [facility] Trop I hs <4 <=35 ng/L Comment: Interpretive Data For further hscTnI resources including the diagnostic algorithm and an aid in interpretation, copy and paste this link: [email or web address] Current Interpretive Data last revised 2019. Blood 10/01/2024 10:1 1 PM CDT 10/01/2024 10:26 PM CDT Christina Burnette MD LAB BLOOD ORDERABLES Fi nal Result Performing Organization Address [facility] [place] [address] * (ABNORMAL) Comprehensive metabolic panel (10/01/2024 10:11 PM CDT) [facility] Sodium 130(L) 135 - 145 mmol/L Potassium, pl See Comment 3.3 - 4.9 mmol/L [facility] Comment:Credited; Hemolyzed Specimen Chloride 93(L) 97 - 110 mmol/L [facility] CO2 30 22 - 32 mmol/L [facility] Comment:Hemolyzed; result ma y be falsely decreased Anion gap 7 2 - 15 mmol/L [facility] BUN 18 6 - 25 mg/dL [facility] Creatinine 0.54(L) 0.80 - 1.30 mg/dL [facility] Glucose 152 70 - 199 mg/dL [facility] Comment: Interpretive Data Fasting glucose [...] 2022. Calcium 9.8 8.5 - 10.3 mg/dL [facility] Bilirubin, total 0.3 0.1 - 1.2 mg/dL [facility] Protein, pl 8.3 6.5 - 8.5 g/dL [facility] Comment:Hemolyzed; result ma y be falsely elevated Albumin 3.5 3.5 - 5.0 g/dL [facility] Alk phos See Comment 40 - 130 Units/L [facility] Comment:Credited; Hemolyzed Specimen ALT See Comment 7 - 55 Units/L [facility] Comment:Credited; Hemolyzed Specimen AST See Comment 10 - 50 Units/L [facility] Comment:Credited; Hemolyzed Specimen Blood 10/01/2024 10:1 1 PM CDT 10/01/2024 10:23 PM CDT us Christina Burnette MD LAB BLOOD ORDERABLES Fi nal Result [facility] Department [place] [address] * (ABNORMAL) CBC with auto differential (10/01/2024 10:11 PM CDT) [facility] Signature WBC 8.89 3.80 - 9.90 K/cumm Hgb 11.7(L) 13.0 - 17.5 g/dL [facility] Hct 34.5(L) 38.9 - 50.3 % [facility] Plt 400 150 - 400 K/cumm [facility] MPV 10.5 9.1 - 12.3 fL [facility] RBC 3.73(L) 4.30 - 5.80 M/cumm [facility] MCV 92.5 81.3 - 96.4 fL [facility] MCH 31.4 27.1 - 33.3 pg [facility] MCHC 33.9 32.3 - 35.7 g/dL [facility] RDW CV 13.5 11.1 - 14.9 % [facility] RDW SD 45.3 35.7 - 48.1 fL [facility] NRBC abs 0.00 0.00 - 0.01 K/cumm [facility] Blood 10/01/2024 10:1 1 PM CDT 10/01/2024 10:25 PM CDT Christina Burnette MD LAB BLOOD ORDERABLES Fi nal Result [facility] [place] [address] documented in this encounter Visit Diagnoses Diagnosis Shortness of breath- Primary Shortness of breath Voice hoarseness Dysphonia 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, unspecified site HTN (hypertension) Unspecified essential hypertension Severe protein-calorie malnutrition Other severe protein-calorie malnutrition documented in this encounter Admitting Diagnoses Diagnosis Shortness of breath documented in this encounter Administered Medications Inactive Administered Medications - up to 3 most recent administrations Medication Order MAR Action Action Date Dose Rate Site acetaminophen (TYLENOL) tablet 1,000 mg 1,000 mg, oral, Every 6 hours PRN, fever, 1st line for pain, Starting on Tue10/02/24 at 0320 amLODIPine (NORVASC) tablet 5 mg 5 mg, gastrostomy tube, Daily, First dose on Tue10/02/24 at 0900 Given 10/03/2024 7:56 AM CDT 5 mg Given 10/02/2024 9:05 AM CDT 5 mg dexAMETHasone (DECADRON) 4 mg/mL injection 6 mg 6 mg, intravenous, Administer over 2 Minutes, Every 6 hours scheduled, First dose on Tue10/01/24 at 2325 Given 10/01/2024 11:42 PM CDT 6 mg dexAMETHasone (DECADRON) 4 mg/mL injection 8 mg 8 mg, intravenous, Administer over 2 Minutes, Every 8 hours scheduled, First dose (after last modification) on Tue10/02/24 at 0600 Given 10/03/2024 6:03 AM CDT 8 m g Given 10/02/2024 9:21 PM CDT 8 mg Given 10/02/2024 1:22 PM CDT 8 mg ketorolac (TORADOL) 15 mg/mL injection 15 mg 15 mg, intravenous, Every 6 hours PRN, 2nd line for pain, Starting on Tue10/02/24 at 0320, For 3 days Given 10/02/2024 3:02 PM CDT 15 mg morphine injection 4 mg 4 mg, intravenous, Administer over 4 Minutes, Once, On Tue10/01/24 at 2340, For 1 dose Given 10/01/2024 11:42 PM CDT 4 mg ondansetron (ZOFRAN) injection 4 mg 4 mg, intravenous, Administer over 2 Minutes, Once as needed, nausea, vomiting, Starting on Tue10/01/24 at 2339, For 1 dose Given 10/01/2024 11:42 PM CDT 4 mg oxyCODONE (ROXICODONE) tablet 5 mg 5 mg, oral, Every 4 hours PRN, 3rd line for pain, Starting on Tue10/02/24 at 0320, Indications: PainIndications:Pain Given 10/03/2024 10:08 AM CDT 5 mg Given 10/03/2024 6:03 AM CDT 5 mg Given 10/03/2024 2:11 AM CDT 5 mg sodium chloride 0.9% flush 0.5-20 mL 0.5-20 mL, intra-catheter, Every 8 hours scheduled, First dose on Tue10/02/24 at 0600, Flush volume based on line type and size. Given 10/03/2024 6:14 AM CDT 10 mL Given 10/02/2024 9:36 PM CDT 10 mL Given 10/02/2024 1:22 PM CDT 10 mL sodium chloride 0.9% flush 10-40 mL 10-40 mL, intra-catheter, Every 12 hours scheduled, First dose on Tue10/02/24 at 0900, To saline lock: Flush with 10mL per lumen. Flush with 20mL after obtaining a blood sample in lumen utilized. Saline flush syringes are single lumen use, do not use same syringe on multiple lumens. Use postive pressure disconnect: pulsitile flush--> clamp--> then disconnect syringe. Given 10/03/2024 7:56 AM CDT 10 mL Given 10/02/2024 9:35 PM CDT 10 mL Given 10/02/2024 9:05 AM CDT 10 mL documented in this encounter Active and Recently Administered Medications Times are shown in CDT. Scheduled Medication Order 10/01/2024 10/02/2024 10/03/2024 amLODIPine (NORVASC) tablet 5 mg 5 mg, gastrostomy tube, Daily, First dose on Tue10/02/24 at 0900 0905 (Given - Provider: Irish Short RN) 0756 (Given - Provider: Selma Ricks) dexAMETHasone (DECADRON) 4 mg/mL injection 6 mg (CANCELED) 6 mg, intravenous, Administer over 2 Minutes, Every 6 hours scheduled, First dose on Tue10/01/24 at 2325 2342 (Given - Provider: Nikki Morales RN) dexAMETHasone (DECADRON) 4 mg/mL injection 8 mg (CANCELED) 8 mg, intravenous, Administer over 2 Minutes, Every 8 hours scheduled, First dose (after last modification) on Tue10/02/24 at 0600 0606 (Given - Provider: Yadira Demarco RN)1322 (Given - Provider: Irish Short RN)2121 (Given - Provider: Yadira Demarco RN) 0603 (Given - Provider: Yadira Demarco RN) heparin 10 unit/mL flush 50 Units 50 Units (5 mL), intra-catheter, 2 times daily, First dose on Tue10/02/24 at 0400, Do not use with Groshong catheter. Do not use with peripheral IV., Indications: Maintain Patency of Indwelling Vascular Catheter 0318 (Not Given - Provider: Yadira Demarco RN - Reason: Order parameters not met)1503 (Not Given - Provider: Irish Short RN - Reason: Order parameters not met) 0316 (Not Given - Provider: Yadira Demarco RN - Reason: Order parameters not met) morphine injection 4 mg (COMPLETED) 4 mg, intravenous, Administer over 4 Minutes, Once, On Tue10/01/24 at 2340, For 1 dose 2342 (Given - Provider: Nikki Morales RN) sodium chloride 0.9% flush 0.5-20 mL 0.5-20 mL, intra-catheter, Every 8 hours scheduled, First dose on Tue10/02/24 at 0600, Flush volume based on line type and size. 0606 (Given - Provider: Yadira Demarco RN)1322 (Given - Provider: Irish Short RN)2136 (Given - Provider: Ydaira Demarco RN) 0614 (Given - Provider: Yadira Demarco RN)1400 (Due) sodium chloride 0.9% flush 10-40 mL 10-40 mL, intra-catheter, Every 12 hours scheduled, First dose on Tue10/02/24 at 0900, To saline lock: Flush with 10mL per lumen. Flush with 20mL after obtaining a blood sample in lumen utilized. Saline flush syringes are single lumen use, do not use same syringe on multiple lumens. Use postive pressure disconnect: pulsitile flush--> clamp--> then disconnect syringe. 0905 (Given - Provider: Irish Short RN)2135 (Given - Provider: Yadira Demarco RN) 0756 (Given - Provider: Selma Ricks) PRN Medication Order 10/01/2024 10/02/2024 10/03/2024 acetaminophen (TYLENOL) tablet 1,000 mg 1,000 mg, oral, Every 6 hours PRN, fever, 1st line for pain, Starting on Tue10/02/24 at 0320 Carrier Fluids for Hazardous Drug Administration - 0.9% Sodium Chloride 0-250 mL, intravenous, As needed, For priming tubing and/or flushing, Starting on Tue10/02/24 at 0315, Infuse 20 mL at the same rate the hazardous drug was infusing to ensure full drug delivery. Carrier Fluids for Secondary Infusion - 0.9% Sodium Chloride 30 mL, intravenous, As needed, For priming tubing and/or flushing, Starting on Tue10/02/24 at 0315, 0-250 ml/hr to flush line after IV infusions when no maintenance IV ordered. Infuse 30mL at the same rate as the secondary infusion. Run as primary IV, not intended for KVO. heparin 10 unit/mL flush 20-50 Units 20-50 Units (2-5 mL), intra-catheter, As needed, line care, with each use, Starting on Tue10/02/24 at 031, Do not use with Groshong catheter. Do not use with peripheral IV Flush volume based on line type, size, and protocol., Indications: Maintain Patency of Indwelling Vascular Catheter heparin 100 unit/mL injection 500 Units 500 Units (5 mL), intra-catheter, Once as needed, line care, Starting on Tue10/02/24 at 0315, For 1 dose, For port decannulation., Indications: Maintain Patency of Indwelling Vascular Catheter ketorolac (TORADOL) 15 mg/mL injection 15 mg 15 mg, intravenous, Every 6 hours PRN, 2nd line for pain, Starting on Tue10/02/24 at 0320, For 3 days 1502 (Given - Provider: Irish Short RN) magnesium sulfate 4 g/100 mL in water (premix) 4 g 4 g, intravenous, at 66.7 mL/hr, Administer over 90 Minutes, Every 4 hours PRN, magnesium replacement, Starting on Tue10/02/24 at 0315, For magnesium level of 1.2-1.5 mg/dL, Indications: hypomagnesemia magnesium sulfate 6 g in sodium chloride 0.9% 250 mL IVPB 6 g, intravenous, at 144 mL/hr, Administer over 120 Minutes, Every 4 hours PRN, magnesium replacement, Starting on Tue10/02/24 at 0315, For magnesium level less than 1.2 mg/dL and call/notify provider., Indications: hypomagnesemia ondansetron (ZOFRAN) injection 4 mg (COMPLETED) 4 mg, intravenous, Administer over 2 Minutes, Once as needed, nausea, vomiting, Starting on Tue10/01/24 at 2339, For 1 dose 2342 (Given - Provider: Nikki Morales RN) ondansetron (ZOFRAN) injection 8 mg 8 mg, intravenous, Administer over 2 Minutes, Every 6 hours PRN, nausea, vomiting, Starting on Tue10/02/24 at 0315, Use if unable to tolerate PO. Proceed to prochlorperazine if no relief within 30 minutes. ondansetron (ZOFRAN) tablet 8 mg 8 mg, oral, Every 6 hours PRN, nausea, vomiting, Starting on Tue10/02/24 at 0315, May administer IV if not tolerating oral. oxyCODONE (ROXICODONE) tablet 5 mg 5 mg, oral, Every 4 hours PRN, 3rd line for pain, Starting on Tue10/02/24 at 0320, Indications: Pain 0910 (Given - Provider: Irish Short RN)1328 (Given - Provider: Irish Short RN)1723 (Given - Provider: Irish Short RN)2121 (Given - Provider: Yadira Demarco RN) 0211 (Given - Provider: Yadira Demarco RN)0603 (Given - Provider: Yadira Demarco RN)1008 (Given - Provider: Selma Ricks) polyethylene glycol (MIRALAX) packet 17 g 17 g, oral, 2 times daily PRN, constipation, Starting on Tue10/02/24 at 0315, Indications: constipation potassium chloride 40 mEq/520 mL in sodium chloride 0.9% (premix) 40 mEq 40 mEq, intravenous, at 130 mL/hr, Administer over 4 Hours, Every 4 hours PRN, potassium replacement, Starting on Tue10/02/24 at 0315, HOLD dose and contact prescriber/provider if any of the following conditions are met: 1. Patient is undergoing any form of dialysis. 2. Serum creatinine is GREATER than 1.5 mg/dL 40 mEq X1 dose for potassium less than 2.6 mmol/L, call prescriber for additional orders; 40 mEq X2 doses for potassium 2.6-2.9 mmol/L, stat potassium level after 2nd dose; 40 mEq X2 doses for potassium 3-3.1 mmol/L; 40 mEq X1 dose for potassium 3.2-3.5 mmol/L (may use oral if tolerated)., Indications: hypokalemia potassium chloride ER (KLOR-CON) extended release tablet 40 mEq 40 mEq, oral, Every 2 hours PRN, potassium replacement, Starting on Tue10/02/24 at 0315, HOLD dose and contact prescriber/provider if any of the following conditions are met: 1. Patient is undergoing any form of dialysis. 2. Serum creatinine is GREATER than 1.5 mg/dL For patients who cannot take oral, contact provider/prescriber for IV potassium. 40 mEq x 1 dose for potassium less than 2.6 mmol/L, call prescriber for additional orders; For potassium 2.6-2.9 mmol/L, give 40 mEq every 2 hours x 2 doses and obtain stat potassium level 2 hours after the 2nd dose; For potassium 3.0-3.1 mmol/L, give 40 mEq every 2 hours x 2 doses; For potassium 3.2-3.5 mmol/L, give 40 mEq x 1 dose. Tablets should not be crushed, chewed, dissolved, or otherwise manipulated. Capsules may be opened and sprinkled on a spoonful of applesauce or pudding, but the contents of the capsule should not be crushed or chewed., Indications: hypokalemia prochlorperazine (COMPAZINE) injection 10 mg 10 mg, intravenous, Administer over 2 Minutes, Every 6 hours PRN, nausea, vomiting, Starting on Tue10/02/24 at 0315, Use if unable to tolerate PO and If not relieved by ondansetron within 30 minutes. prochlorperazine (COMPAZINE) tablet 5 mg 5 mg, oral, Every 6 hours PRN, nausea, vomiting, Starting on Tue10/02/24 at 0315, May administer IV if not tolerating oral and if not relieved by ondansetron within 30 minutes. sodium chloride 0.9% flush 0.5-20 mL 0.5-20 mL, intra-catheter, As needed, line care, Starting on Tue10/02/24 at 0315, Flush volume based on line type and size. Flush before and after each use. sodium chloride 0.9% flush 10 mL 10 mL, intra-catheter, Once as needed, line care, Starting on Tue10/02/24 at 0315, For 1 dose, Prior to heparin to decannulate port. sodium chloride 0.9% flush 10-20 mL 10-20 mL, intra-catheter, As needed, line care, with each use, Starting on Tue10/02/24 at 031, Flush volume based on line type, size, and protocol. sodium chloride 0.9% infusion 30 mL/hr, intravenous, Continuous PRN, KVO for medication administrations, Starting on Tue10/02/24 at 314 sodium phosphate - potassium phosphate (K-PHOS NEUTRAL) tablet 500 mg 500 mg, oral, Daily PRN, phosphorus level 1.5-1.9 mg/dL, Starting on Tue10/02/24 at 031, Contact provider for phosphorus level less than 1.5 mg/dL. Each tablet contains elemental phosphorus 250 mg (8 mmol), potassium 45 mg (1.1 mEq), and sodium 298 mg (13 mEq)., Indications: hypophosphatemia documented in this encounter Orders Medications Ordered That Aguilar ht Not Have Been Administered Count Last Ordered Date First Ordered Date acetaminophen (TYLENOL) tablet 1,000 mg 1 0 10/02/2024 Carrier Fluids for Hazardous Drug Administration - 0.9% Sodium Chloride 10/02/2024 Carrier Fluids for Secondary Infusion - 0.9% Sodium Chloride 10/02/2024 heparin 10 unit/mL flush 20-50 Units 1 04/2024 heparin 10 unit/mL flush 50 Units 025 heparin 100 unit/mL injection 500 Units 1 0 10/02/2024 magnesium sulfate 4 g/100 mL in water (premix) 4 g 10/02/2024 magnesium sulfate 6 g in sod ium chloride 0.9% 250 mL IVPB 10/02/2024 ondansetron (ZOFRAN) injection 8 mg 10/02 ondansetron (ZOFRAN) tablet 8 mg 1 10/03/19 polyethylene glycol (MIRALAX) packet 17 g 1 10/02/2024 potassium chloride 40 mEq/52 0 mL in sodium chloride 0.9% (premix) 40 mEq 1 10/02/2024 potassium chloride ER (KLOR- CON) extended release tablet 40 mEq 1 10/02/2024 prochlorperazine (COMPAZINE) injection 10 mg 1 10/02/2024 prochlorperazine (COMPAZINE) tablet 5 mg 1 10/02/2024 sodium chloride 0.9% flush 0.5-20 mL 04/2024 sodium chloride 0.9% flush 10 mL 1 10/03/19 25 sodium chloride 0.9% flush 10-20 mL 1 10/02 sodium chloride 0.9% infusion 1 10/02/2024 sodium phosphate - potassium phosphate (K-PHOS NEUTRAL) tablet 500 mg 1 10/02/2024 Nursing Count Last Ordered Date First Orde red Date MEASURE HEIGHT AND LENGTH 1 10/02/2024 NURSING COMMUNICATION 1 10/02/2024 ORTHOSTATIC BLOOD PRESSURE 1 10/02/2024 WEIGH PATIENT 1 10/02/2024 Consult Count Last Ordered Date First Orde red Date IP CONSULT TO NUTRITION SERVICES 1 10/03/19 IP CONSULT TO ENT 1 10/01/2024 Admission Count Last Ordered Date First Orde red Date ADMIT TO INPATIENT 1 10/01/2024 Discharge Count Last Ordered Date First Orde red Date DISCHARGE PATIENT 1 10/03/2024 CORE MEASURES Count Last Ordered Date First Ord ered Date REASON FOR NO VTE PROPHYLAXIS AT ADMISSION 1 10/02/2024 documented in this encounter Care Teams It Assistant Relationship Specialty Start Date End Date Gia Foss MD [address] [facility] [address] [place] [address] PCP - General Internal Medicine 06/12/24 Michelle Handy, RN Nurse Navigator 02/09/24 Noemí Pitts LCSW [employer] 02/10/24 OpPro whitlock MD [address] [facility] [address] [place] [id number] Medical Oncologist/Hose Stripper Medical Oncology 02/13/24 Francis Tuttle MD [address] [facility] [address] [place] [address] Consulting Physician Radiation Oncology 02/13/24 Wilma Groves MD [address] [place] [address] DEPT OTOLARYNGOLOGY, [address] [place] [id number] Surgeon Otolaryngology 02/13/24 documented as of this encounter
--- OUTSIDE RECORDS SUMMARY | 2024-10-04 10:34 | XMS_ITS ---
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 Name Role Phone [facility] Unavailable [phone] REASON FOR VISIT 07:30 am RL TO EM, General Health Encounters Encounter Location Date Provider Diagnosis [facility] [address] [place] [address] 12/06/2023 [facility] Plan Of Treatment No Information Progress Notes * Jesus MENDESDOB: (64 yo M)Acc No.[id number]:12/06/2023 Patient: Jesus BOUDREAUX Provider: Tara WALLACE IRVINE :1960 A ge:63 Y S ex:Male Date:12/06/2023 Phone: Address:[address] [place], [place] [id number] Subjective: * Chief Complaints: * 1 . 07:30 am RL TO EM, General Health. * Medical History: Objective: * Vitals: Assessment: Plan: * Treatment: * Billing Information: * Visit Code: * Procedure Codes: * Electronic signature of [facility] on 10/04/2024 at 11:34 AM EDT Sign off status: Pending * Provider: Tara DE LUNA Date: 12/06/2023 Generated for Adiel goodson/Rob/Derrellitting on: 10/04/2024 11:34 AM EDT
--- OUTSIDE RECORDS SUMMARY | 2024-10-04 10:34 | XMS_ITS | Referral Summary ---
Author Organization [facility] Address [address] [place] [address] Care Team Providers Care Personal Protection Specialist Name Role Phone Michelle Handy RN Unavailable Unavailabl Noemí Carr [facility] Unavailable Unavaila Pro Forbes MD Unavailable Francis Tuttle MD Unavailable [phone] Wilma Groves MD Unavailable [phone] Gia Foss MD Primary Care Provider [phone] Encounters Date Type Department Care Team Description 10/01/2024 10:03 PM CDT - 10/03/2024 2:01 PM CDT Hospital Encounter [address] [phone] Nu Tejeda MD Oppelt, MD Stephen Boswell, MD Nirali Montoya Spoorthi, MD Shortness of breath (Primary Dx); Voice hoarseness Discharge Disposition: Discharge to home or self care 10/01/2024 Telephone [facility] On[facility] [address] [place] [address] 09/21/2024 Orders Only [facility] Radiation Oncology [address] [place] [address] Corbin Early MD PhD Oropharyngeal cancer (HCC) (Primary Dx); Lymphedema; 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 09/17/2024 Orders Only [facility] [address] [place] [phone] Corbin Early MD PhD Oropharyngeal cancer (HCC) (Primary Dx); 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; Dysphagia, unspecified type 09/17/2024 Documentation [facility] On[facility] [address] [place] [phone] Leticia Queen, TOBIAS 09/17/2024 11:30 AM CDT Office Visit [facility] [address] [place] [phone] Shayna Valencia NP Oropharyngeal cancer (HCC) (Primary Dx) 09/12/2024 Documentation [facility] On[facility] [address] [place] [phone] Leticia Queen, TOBIAS 09/12/2024 Orders Only [facility] Oncology [address] [place] [phone] Homa Melendez RN 09/12/2024 8:30 AM CDT [facility] at [address] [phone] Oropharyngeal cancer (HCC) (Primary Dx) 09/05/2024 Documentation [facility] [address] [place] [phone] Leticia Queen, TOBIAS 09/05/2024 Orders Only [facility] [address] [place] [phone] Corbin Early MD PhD Nausea (Primary Dx); Oropharyngeal cancer (HCC); Severe protein-calorie malnutrition 09/05/2024 Telephone [facility] [address] [phone] Michelle Handy, community resource officer Follow Up 09/05/2024 10:00 AM CDT [address]fusion [address] [place] [address] Oropharyngeal cancer (HCC) (Primary Dx) 2024 11:15 AM CDT Office Visit [facility] Oncology [address] [facility] [address] [place] [phone] Pro Gama MD Oropharyngeal cancer (HCC) (Primary Dx) 09/03/2024 Documentation [facility] Oncology [address] [place] [address] [address] 09/03/2024 10:30 AM CDT Infusion [address] [place] [address] Oropharyngeal cancer (HCC) (Primary Dx); Dehydration 09/03/2024 Orders Only [facility] [address] [place] [phone] Shayna Valencia, EDMUND Dehydration (Primary Dx) 09/03/2024 9:00 AM CDT Office Visit [facility] [address] [place] [phone] Shayna Valencia NP Oropharyngeal cancer (HCC) (Primary Dx); Nausea; 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; Lymphedema; Odynophagia; Dysphagia, unspecified type 08/31/2024 Telephone [facility] [address] [place] [phone] 08/22/2024 6:58 PM CDT - 08/29/2024 6:50 PM CDT Hospital Encounter [facility] [address] [place], [place] [phone] Cristina Mora MD Brother, Michele, MD Hultgren, Britt Richard, MD Rao, Katie Emery MD Intractable nausea and vomiting (Primary Dx); Dehydration; Hypokalemia; Primary hypertension; Hypophosphatemia; Severe malnutrition; Radiation esophagitis Discharge Disposition: Discharge to home or self care 08/22/2024 Telephone [facility] On[facility] [address] [place] [phone] Leticia Queen, RD 08/21/2024 Telephone [facility] [address] [place] [address] Homa Melendez RN 08/21/2024 7:53 AM CDT - 08/21/2024 11:59 PM CDT Hospital Encounter [facility] [address] [place] [phone] Oropharyngeal cancer (HCC) Discharge Disposition: Discharge to home or self care 08/20/2024 Telephone [facility] [address] [place], [place] [address]am [facility] [place] [phone] Leticia Queen, RD 08/16/2024 Telephone [facility] On[facility] [address] [place] [phone] Leticia Queen, RD 08/16/2024 Orders Only [facility] Rad[facility] [address] [place] [phone] Francis Tuttle MD Personal history of irradiation (Primary Dx); Radiation esophagitis; Encounter for follow-up examination after completed treatment for malignant neoplasm; Severe protein-calorie malnutrition 08/15/2024 Telephone [facility] [address] [place], [place] [address] [address] Leticia Queen, RD 08/14/2024 Telephone [facility] [address] [place], [place] [address] [phone] Leticia Queen, RD 08/14/2024 Telephone [facility] [address] [place] [phone] Homa Melendez, KRISTY Reschedule 08/13/2024 Documentation [facility] [address] [place], [place] [address] [phone] Leticia Queen, TOBIAS 08/13/2024 Orders Only [facility] On[facility] [employer] [place] [address] Francis Tuttle MD 08/13/2024 1:30 PM CDT Clinical Support [facility] at [address] [place] [address] Oropharyngeal cancer (HCC) (Primary Dx); Dehydration 08/13/2024 Orders Only [facility] [employer] [place] [address] Francis Tuttle MD Dehydration (Primary Dx); Intractable vomiting with nausea; Oropharyngeal cancer (HCC) 08/13/2024 Results Follow-Up [facility] [address] [facility] [address] [place] [phone] Gia Foss MD CBC with auto differential, Comprehensive metabolic panel, Differential, auto, Additional followed-up results: 2 08/13/2024 11:00 AM CDT Office Visit [facility] [address] [place] [phone] Francis Tuttle MD Oropharyngeal cancer (HCC) (Primary Dx); Personal history of irradiation; Cancer-related pain 08/10/2024 5:39 PM CDT - 08/10/2024 9:35 PM CDT Emergency [facility] Emergency Department [address] [place] [address] Shahbaz Earl MD Nausea and vomiting, unspecified vomiting type (Primary Dx) Discharge Disposition: Discharge to home or self care 08/10/2024 Telephone [facility] [employer] [place] [address] Leticia Queen, TOBIAS 08/09/2024 Telephone [facility] [address] [place] [address] [place] [phone] 08/08/2024 Telephone [facility] [address] [place] [phone] Yamila Kam RN 07/31/2024 [facility] Post Discharge Follow up phone call [address] [address] Tiffany Hernandez, KRISTY 07/30/2024 [facility] Post Discharge Follow up phone call [address] [address] Tiffany Hernandez, KRISTY 07/26/2024 [facility] Post Discharge Follow up phone call [address] [address] Tiffany Hernandez, KRISTY 07/23/2024 Telephone [facility] Medical [facility] Primary Care at [facility] - [address] [place] [phone] Gia Foss MD MARY Questions 07/21/2024 10:36 PM CDT - 07/23/2024 3:35 PM CDT Hospital Encounter [address] [address] Eber Dumont MD [place], MD Karina Rosenberg, Henrik Aguirre MD Dislodged gastrostomy tube (Primary Dx) Discharge Disposition: Discharge to home or self care 07/22/2024 Results Follow-Up [facility] Medical [facility] Primary Care at [facility] - [address] [place] [address] [place] [phone] Gia Foss MD CBC with auto differential, Basic metabolic panel, Type and screen, Additional followed-up results: 4 07/13/2024 Telephone [facility] Marrow Transplant [address] [place] [address] 7th Floor, [place] [phone] Aditi Dougherty BDmitri 07/13/2024 11:00 AM CDT Office Visit [facility] [address] [place] [phone] Renee Shipman NP Oropharyngeal cancer (HCC) (Primary Dx); Encounter for follow-up examination after completed treatment for malignant neoplasm; Personal history of irradiation 07/11/2024 Telephone [facility] [address] [place] [phone] 07/06/2024 Telephone [facility] [address] [place] [address] from Last 3 Months Allergies Active Allergy [...] Plan (10/03/2024 12:23 PM CDT): 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 CT 08/21 Marked interval decrease in size of infiltrative left supraglottic mass with near complete resolution of metastatic lymphadenopathy in the bilateral cervical nodes and left supraclavicular region. 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 CT 08/21 Marked interval decrease in size of infiltrative left supraglottic mass with near complete resolution of metastatic lymphadenopathy in the bilateral cervical nodes and left supraclavicular region. - Oncology follow-up Assessment & Plan (10/02/2024 1:14 AM CDT): MHx of [id number] p16+ SCC of the L oropharynx s/p [...] drink = 0.6 oz pur e alcohol) [facility] Utilities Answer Date Recorded In the past 12 months has [employer], gas, oil, or water [employer] threatened to shut off services in your [...] week 10/02/2024 How often do you attend [facility] or worship services? Never 10/02/2024 Do you belong to any clubs o r organizations such as bahai groups, unions, fraternal or athletic groups, or [...] money to buy more. Never true 10/03/19 25 Within the past 12 months, t [...] any time in the past 12 m [facility], were you homeless or living in a retirement (including now)? 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 Not on file N [...] Mass Index 23.53 10/02/2024 2:08 AM CDT Plan of Treatment Not on file Procedures Procedure Name Priority Date/Time Associated Diagnosis Comments EGFR Routine 10/02/2024 3:31 AM CDT DIFFERENTIAL AUTO Routine 10/02/2024 3:3 1 AM CDT PROTIME-INR Routine 10/02/2024 3:31 AM CDT APTT Routine 10/02/2024 3:31 AM CDT LACTATE DEHYDROGENASE Routine 10/02/2024 3:31 AM CDT URIC ACID Routine 10/02/2024 3:31 AM CDT TYPE AND SCREEN Timed 10/02/2024 3:31 AM CDT PHOSPHORUS Routine 10/02/2024 3:31 AM CDT COMPREHENSIVE METABOLIC PANEL Routine 10/02/2024 3:31 AM CDT CBC WITH AUTO DIFFERENTIAL Routine 10/02/2024 3:31 AM CDT MAGNESIUM Routine 10/02/2024 3:31 AM CDT TROPONIN I HIGH-SENSITIVITY 2-HOUR Timed 10/01/2024 11:49 PM CDT ECG 12-LEAD Routine 10/01/2024 11:22 PM CDT PROTIME-INR STAT 10/01/2024 10:55 PM CDT APTT STAT 10/01/2024 10:55 PM CDT B CHECK SAMPLE STAT 10/01/2024 10:55 PM CDT EGFR STAT 10/01/2024 10:11 PM CDT DIFFERENTIAL AUTO STAT 10/01/2024 10: 11 PM CDT TYPE AND SCREEN STAT 10/01/2024 10:11 PM CDT TROPONIN I HIGH-SENSITIVITY SERIES (BASELINE, 2HR, 4HR, 6HR) STAT 10/01/2024 10:11 PM CDT COMPREHENSIVE METABOLIC PANEL STAT 10/01/2024 10:11 PM CDT CBC WITH AUTO DIFFERENTIAL STAT 10/01/2024 10:11 PM CDT EGFR Routine 08/29/2024 3:54 AM CDT BASIC [...] CHECK SAMPLE Routine 07/22/2024 4:14 AM CDT NE PERQ REPLACEMENT GTUBE NOT REQ REVJ GSTRST [...] from Last 3 Months Results * eGFR (10/02/2024 3:31 AM CDT) [...] LAB BLOOD ORDER ROSA ELENA Final Result [facility] [place] [address] * (ABNORMAL) Differential, auto (10/02/2024 3:31 AM CDT) Neutrophil abs 5.08 1.50 - 6.50 K/cumm Imm gran abs 0.03 0.00 - 0.10 K/cumm [facility] Lymphocyte abs 0.36(L) 0.80 - 3.30 K/cumm [facility] Monocyte abs 0.05(L) 0.20 - 0.80 K/cumm [facility] Eosinophil abs 0.00 0.00 - 0.50 K/cumm [facility] Basophil abs 0.01 0.00 - 0.10 K/cumm [facility] Neutrophil pct 91.9 % [facility] Comment: Interpretive Data Percent cell count reference ranges are not reported, since discordance with absolute values may lead to misinterpretation of CBC data. Current Interpretive Data was last revised on 2017. Imm gran pct 0.5 % [facility] Comment: Interpretive Data Percent cell count reference ranges are not reported, since discordance with absolute values may lead to misinterpretation of CBC data. Current Interpretive Data was last revised on 2017. Lymphocyte pct 6.5 % [facility] Comment: Interpretive Data Percent cell count reference ranges are not reported, since discordance with absolute values may lead to misinterpretation of CBC data. Current Interpretive Data was last revised on 2017. Monocyte pct 0.9 % [facility] Comment: Interpretive Data Percent cell count reference ranges are not reported, since discordance with absolute values may lead to misinterpretation of CBC data. Current Interpretive Data was last revised on 2017. Eosinophil pct 0.0 % [facility] Comment: Interpretive Data Percent cell count reference ranges are not reported, since discordance with absolute values may lead to misinterpretation of CBC data. Current Interpretive Data was last revised on 2017. Basophil pct 0.2 % [facility] Comment: Interpretive Data Percent cell count reference ranges are not reported, since discordance with absolute values may lead to misinterpretation of CBC data. Current Interpretive Data was last revised on 2017. Blood 10/02/2024 3:31 AM CDT 10/02/2024 3:50 AM CDT Holli Lazar MD LAB BLOOD ORDER ROSA ELENA Final Result [facility] [place] [address] * (ABNORMAL) CBC with auto differential (10/02/2024 3:31 AM CDT) Pathologist [facility] WBC 5.53 3.80 - 9.90 K/cumm Hgb 11.2(L) 13.0 - 17.5 g/dL [facility] Hct 33.6(L) 38.9 - 50.3 % [facility] Plt 360 150 - 400 K/cumm [facility] MPV 9.9 9.1 - 12.3 fL [facility] RBC 3.56(L) 4.30 - 5.80 M/cumm [facility] MCV 94.4 81.3 - 96.4 fL [facility] MCH 31.5 27.1 - 33.3 pg [facility] MCHC 33.3 32.3 - 35.7 g/dL [facility] RDW CV 13.2 11.1 - 14.9 % [facility] RDW SD 45.0 35.7 - 48.1 fL [facility] NRBC abs 0.00 0.00 - 0.01 K/cumm [facility] Blood 10/02/2024 3:31 AM CDT 10/02/2024 3:50 AM CDT Holli Lazar MD LAB BLOOD ORDER ROSA ELENA Final Result Performing Organization Address [facility] de Phone Number [facility] One [facility] [place] [address] * aPTT (10/02/2024 3:31 AM CDT) aPTT [...] ROSA ELENA Final Result Performing Organization Address [facility] Phone Number [facility] [place] [address] * (ABNORMAL) Protime-INR (10/02/2024 3:31 AM CDT) PT 14.5(H) 9.7 - 13.0 sec INR 1.33(H) 0.90 - 1.20 [facility] Comment: Interpretive data Oral anticoagulant [...] ROSA ELENA Final Result Performing Organization Address [facility]/State/[place] [address] * Type and screen (10/02/2024 3:31 AM CDT) ABO Rh A Positive Perico, indirect Negative [facility] Blood 10/02/2024 3:31 AM CDT 10/02/2024 3:44 AM CDT Narrative [facility] - 10/02/2024 5:13 AM CDT Has the patient had Daratumumab or Isatuximab in the past 6 months?->Unknown Holli Lazar MD LAB BLOOD BANK TEST ORDERABLES Final Result Performing Organization Address [facility] [place] [address] * Uric acid (10/02/2024 3:31 AM CDT) [facility] Uric acid 4.5 3.0 - 8.0 mg/dL Blood 10/02/2024 3:31 AM CDT 10/02/2024 3:50 AM CDT Narrative [facility] - 10/02/2024 4:26 AM CDT Tuesday and only. Morning draw. . Holli Lazar MD LAB BLOOD ORDER ROSA ELENA Final Result [facility] [place] [address] * Phosphorus (10/02/2024 3:31 AM CDT) Phosphorus, pl 4.4 2.3 - 4.5 mg/dL Blood 10/02/2024 3:31 AM CDT 10/02/2024 3:50 AM CDT Holli Lazar MD LAB BLOOD ORDER ROSA ELENA Final Result Performing Organization Address [facility] Co de Phone Number [facility] [place] [address] * Magnesium (10/02/2024 3:31 AM CDT) [facility] Magnesium 2.3 1.4 - 2.5 mg/dL Blood 10/02/2024 3:31 AM CDT 10/02/2024 3:50 AM CDT Holli Lazar MD LAB BLOOD ORDER ROSA ELENA Final Result Performing Organization Address [facility] de Phone Number [facility] [place] [address] * Lactate dehydrogenase (LD) (10/02/2024 3:31 AM CDT) [facility] Lactate dehydrogenase (LDH) 154 100 - 250 Units/L Blood 10/02/2024 3:31 AM CDT 10/02/2024 3:50 AM CDT Narrative [facility] - 10/02/2024 4:26 AM CDT Tuesday and only. Morning draw. Holli Lazar MD LAB BLOOD ORDER ROSA ELENA Final Result Performing Organization Address [facility] Co de Phone Number [facility] [place] [address] * (ABNORMAL) Comprehensive metabolic panel (10/02/2024 3:31 AM CDT) [facility] Sodium 136 135 - 145 mmol/L Potassium, pl 4.6 3.3 - 4.9 mmol/L [facility] Comment:Repeated and Verifie d Chloride 96(L) 97 - 110 mmol/L [facility] CO2 32 22 - 32 mmol/L [facility] Anion gap 8 2 - 15 mmol/L [facility] BUN 20 6 - 25 mg/dL [facility] Creatinine 0.65(L) 0.80 - 1.30 mg/dL [facility] Glucose 160 70 - 199 mg/dL [facility] Comment: Interpretive Data Fasting glucose [...] 2022. Calcium 10.1 8.5 - 10.3 mg/dL [facility] Bilirubin, total 0.4 0.1 - 1.2 mg/dL [facility] Protein, pl 8.0 6.5 - 8.5 g/dL [facility] Albumin 3.7 3.5 - 5.0 g/dL [facility] Alk phos 72 40 - 130 Units/L [facility] Comment:Reviewed ALT 9 7 - 55 Units/L [facility] Comment:Reviewed AST 17 10 - 50 Units/L [facility] Blood 10/02/2024 3:31 AM CDT 10/02/2024 3:50 AM CDT Holli Lazar MD LAB BLOOD ORDER ROSA ELENA Final Result [facility] [place] [address] * Troponin I high-sensitivity 2-hour (10/01/2024 11:49 PM CDT) Trop I hs <4 <=35 ng/L Comment: Interpretive Data For further hscTnI resources including the diagnostic algorithm and an aid in interpretation, copy and paste this link: https://bjhlab.testcatalog.org/show/hsTrop-1 Current Interpretive Data last revised 2019. Trop I hs delta 0 ng/L [facility] Trop I hs interp Insignificant [facility] Blood 10/01/2024 11:4 9 PM CDT 10/02/2024 12:05 AM CDT us Christina Burnette MD LAB BLOOD ORDERABLES Fi nal Result Performing Organization Address City/[facility] Co de Phone Number [facility] [place] [address] * ECG 12-LEAD (10/01/2024 11:22 PM CDT) Narrative [facility] - 10/01/2024 11:22 PM CDT Nu Tejeda MD 10/01/2024 11:24 PM ECG [...] Burnette MD ECG ORDERABLES Final R esult Performing Organization Address [facility] Co de Phone Number [facility] * Check Sample (10/01/2024 10:55 PM CDT) ABO Rh A Positive [facility] HCLL OTHER 10/01/2024 10:5 5 PM CDT 10/01/2024 11:01 PM CDT Nu Tejeda MD LAB BLOOD ORDERABLES Fi nal Result Performing Organization Address [facility]/ZIP Co de Phone Number [facility] [place] [address] [facility] * aPTT (10/01/2024 10:55 PM CDT) aPTT [...] ORDERABLES Fi nal Result Performing Organization Address [facility] [place] [address] * (ABNORMAL) Protime-INR (10/01/2024 10:55 PM CDT) PT 14.5(H) 9.7 - 13.0 sec INR 1.33(H) 0.90 - 1.20 [facility] Comment: Interpretive data Oral anticoagulant [...] ORDERABLES Fi nal Result Performing Organization Address [facility] de Phone Number [facility] [place] [address] * Troponin I high-sensitivity series (baseline, 2hr, 4hr, 6hr) (10/01/2024 10:11 PM CDT) Trop I hs <4 <=35 ng/L Comment: Interpretive Data For further hscTnI resources including the diagnostic algorithm and an aid in interpretation, copy and paste this link: https://bjhlab.testcatalog.org/show/hsTrop-1 Current Interpretive Data last revised 2019. Blood 10/01/2024 10:1 1 PM CDT 10/01/2024 10:26 PM CDT Christina Burnette MD LAB BLOOD ORDERABLES Fi nal Result [facility] [place] [address] * eGFR (10/01/2024 10:11 PM CDT) eGFR >90 >=60 mL/min/1. 73 [...] 1 PM CDT 10/01/2024 10:23 PM CDT Christina Burnette MD LAB BLOOD ORDERABLES Fi nal Result [facility] [place] [address] * (ABNORMAL) Differential, auto (10/01/2024 10:11 PM CDT) Neutrophil abs 8.42(H) 1.50 - 6.50 K/cumm Imm gran abs 0.05 0.00 - 0.10 K/cumm [facility] Lymphocyte abs 0.35(L) 0.80 - 3.30 K/cumm [facility] Monocyte abs 0.06(L) 0.20 - 0.80 K/cumm [facility] Eosinophil abs 0.00 0.00 - 0.50 K/cumm [facility] Basophil abs 0.01 0.00 - 0.10 K/cumm [facility] Neutrophil pct 94.7 % [facility] Comment: Interpretive Data Percent cell count reference ranges are not reported, since discordance with absolute values may lead to misinterpretation of CBC data. Current Interpretive Data was last revised on 2017. Imm gran pct 0.6 % [facility] Comment: Interpretive Data Percent cell count reference ranges are not reported, since discordance with absolute values may lead to misinterpretation of CBC data. Current Interpretive Data was last revised on 2017. Lymphocyte pct 3.9 % [facility] Comment: Interpretive Data Percent cell count reference ranges are not reported, since discordance with absolute values may lead to misinterpretation of CBC data. Current Interpretive Data was last revised on 2017. Monocyte pct 0.7 % [facility] Comment: Interpretive Data Percent cell count reference ranges are not reported, since discordance with absolute values may lead to misinterpretation of CBC data. Current Interpretive Data was last revised on 2017. Eosinophil pct 0.0 % [facility] Comment: Interpretive Data Percent cell count reference ranges are not reported, since discordance with absolute values may lead to misinterpretation of CBC data. Current Interpretive Data was last revised on 2017. Basophil pct 0.1 % [facility] Comment: Interpretive Data Percent cell count reference ranges are not reported, since discordance with absolute values may lead to misinterpretation of CBC data. Current Interpretive Data was last revised on 2017. Blood 10/01/2024 10:1 1 PM CDT 10/01/2024 10:25 PM CDT Christina Burnette MD LAB BLOOD ORDERABLES Fi nal Result Performing Organization Address City/[facility]/ZIP Co de Phone Number [facility] [place] [address] * (ABNORMAL) CBC with auto differential (10/01/2024 10:11 PM CDT) Pathologist [facility] WBC 8.89 3.80 - 9.90 K/cumm Hgb 11.7(L) 13.0 - 17.5 g/dL [facility] Hct 34.5(L) 38.9 - 50.3 % [facility] Plt 400 150 - 400 K/cumm [facility] MPV 10.5 9.1 - 12.3 fL [facility] RBC 3.73(L) 4.30 - 5.80 M/cumm [facility] MCV 92.5 81.3 - 96.4 fL [facility] MCH 31.4 27.1 - 33.3 pg [facility] MCHC 33.9 32.3 - 35.7 g/dL [facility] RDW CV 13.5 11.1 - 14.9 % [facility] RDW SD 45.3 35.7 - 48.1 fL [facility] NRBC abs 0.00 0.00 - 0.01 K/cumm [facility] Blood 10/01/2024 10:1 1 PM CDT 10/01/2024 10:25 PM CDT Christina Burnette MD LAB BLOOD ORDERABLES Fi nal Result [facility] [place] [address] * Type and screen (10/01/2024 10:11 PM CDT) Pathologist [facility] Perico, indirect Negative Blood 10/01/2024 10:1 1 PM CDT 10/01/2024 10:32 PM CDT Narrative LAY VARELA - 10/02/2024 4:23 AM CDT Has the patient had Daratumumab or Isatuximab in the past 6 months?->Unknown Christina Burnette MD LAB BLOOD BANK TEST ORD ERABLES Final Result [facility] [place] [address] * (ABNORMAL) Comprehensive metabolic panel (10/01/2024 10:11 PM CDT) Pathologist [facility] Sodium 130(L) 135 - 145 mmol/L Potassium, pl See Comment 3.3 - 4.9 mmol/L [facility] Comment:Credited; Hemolyzed Specimen Chloride 93(L) 97 - 110 mmol/L [facility] CO2 30 22 - 32 mmol/L [facility] Comment:Hemolyzed; result ma y be falsely decreased Anion gap 7 2 - 15 mmol/L [facility] BUN 18 6 - 25 mg/dL [facility] Creatinine 0.54(L) 0.80 - 1.30 mg/dL [facility] Glucose 152 70 - 199 mg/dL [facility] Comment: Interpretive Data Fasting glucose [...] 2022. Calcium 9.8 8.5 - 10.3 mg/dL [facility] Bilirubin, total 0.3 0.1 - 1.2 mg/dL [facility] Protein, pl 8.3 6.5 - 8.5 g/dL [facility] Comment:Hemolyzed; result ma y be falsely elevated Albumin 3.5 3.5 - 5.0 g/dL [facility] Alk phos See Comment 40 - 130 Units/L [facility] Comment:Credited; Hemolyzed Specimen ALT See Comment 7 - 55 Units/L [facility] Comment:Credited; Hemolyzed Specimen AST See Comment 10 - 50 Units/L [facility] Comment:Credited; Hemolyzed Specimen Blood 10/01/2024 10:1 1 PM CDT 10/01/2024 10:23 PM CDT Christina Burnette MD LAB BLOOD ORDERABLES nal Result [facility] VAR[facility] [place] [address] * eGFR (08/29/2024 3:54 AM CDT) eGFR [...] of Race in Diagnosing Kidney Disease, JASN 2021). The CKD-EPI equation should not be used for patients with unstable renal function and has not been validated in children and those over 70. Current interpretive data was last reviewed 2021. Blood 08/29/2024 3:54 AM CDT 08/29/2024 5:46 AM CDT Katie Mckeon MD LAB BLOOD ORDERABLE S Final Result Performing Organization Address City/[facility]/ZIP Co de Phone Number LAY [address] [facility] [place], [place] [id number] * Phosphorus (08/29/2024 3:54 AM CDT) Phosphorus, pl 3.3 2.3 - 4.5 mg/dL Blood 08/29/2024 3:54 AM CDT 08/29/2024 5:46 AM CDT Daly Villela MD LAB BLOOD ORDERABLES F inal Result Performing Organization Address [facility] Co de Phone Number [place] [address] [place] [address] * Magnesium (08/29/2024 3:54 AM CDT) Pathologist [facility] Magnesium 2.4 1.4 - 2.5 mg/dL Blood 08/29/2024 3:54 AM CDT 08/29/2024 5:46 AM CDT Daly Villela MD LAB BLOOD ORDERABLES F inal Result Performing Organization Address [facility] Co de Phone Number LAY [address] [place] [address] * (ABNORMAL) Basic metabolic panel (08/29/2024 3:54 AM CDT) Sodium 134(L) 135 - 145 mmol/L Potassium, pl 4.1 3.3 - 4.9 mmol/L [facility] Chloride 95(L) 97 - 110 mmol/L [facility] CO2 31 22 - 32 mmol/L [facility] Anion gap 8 2 - 15 mmol/L [facility] BUN 15 6 - 25 mg/dL [facility] Creatinine 0.63(L) 0.80 - 1.30 mg/dL [facility] Glucose 112 70 - 199 mg/dL [facility] Comment: Interpretive Data Fasting glucose [...] BLOOD ORDERABLE S Final Result [facility] [address] [place] [address] * eGFR (08/28/2024 4:35 AM CDT) eGFR [...] BLOOD ORDERABLE S Final Result [facility] [address] [place] [address] * Phosphorus (08/28/2024 4:35 AM CDT) Phosphorus, pl 4.2 2.3 - 4.5 mg/dL Blood 08/28/2024 4:35 AM CDT 08/28/2024 4:59 AM CDT Daly Villela MD LAB BLOOD ORDERABLES F inal Result Performing Organization Address [facility] Co de Phone Number [facility] [place] [address] [place] [address] * Magnesium (08/28/2024 4:35 AM CDT) Magnesium 2.4 1.4 - 2.5 mg/dL Blood 08/28/2024 4:35 AM CDT 08/28/2024 4:59 AM CDT Daly Villela MD LAB BLOOD ORDERABLES F inal Result Performing Organization Address [facility] Co de Phone Number [facility] [place] [address] [place] [address] * (ABNORMAL) Basic metabolic panel (08/28/2024 4:35 [...] Calcium 9.6 8.5 - 10.3 mg/dL [facility] Blood 08/28/2024 4:35 AM CDT 08/28/2024 4:59 AM CDT us Katie Mckeon MD LAB BLOOD ORDERABLE S Final Result [facility]AY [address] [place] [address] * eGFR (08/27/2024 4:13 AM CDT) eGFR [...] LAB BLOOD ORDERABLES F inal Result [facility] [address] [place] [address] * (ABNORMAL) Differential, auto (08/27/2024 4:13 AM CDT) Pathologist [facility] Neutrophil abs 4.64 1.50 - 6.50 K/cumm Imm gran abs 0.01 0.00 - 0.10 K/cumm [facility] Lymphocyte abs 0.53(L) 0.80 - 3.30 K/cumm [facility] Monocyte abs 0.80 0.20 - 0.80 K/cumm [facility] Eosinophil abs 0.04 0.00 - 0.50 K/cumm [facility] Basophil abs 0.02 0.00 - 0.10 K/cumm [facility] Neutrophil pct 76.8 % [facility] Comment: Interpretive Data Percent cell count reference ranges are not reported, since discordance with absolute values may lead to misinterpretation of CBC data. Current Interpretive Data was last revised on 2017. Imm gran pct 0.2 % [facility] Comment: Interpretive Data Percent cell count reference ranges are not reported, since discordance with absolute values may lead to misinterpretation of CBC data. Current Interpretive Data was last revised on 2017. Lymphocyte pct 8.8 % [facility] Comment: Interpretive Data Percent cell count reference ranges are not reported, since discordance with absolute values may lead to misinterpretation of CBC data. Current Interpretive Data was last revised on 2017. Monocyte pct 13.2 % [facility] Comment: Interpretive Data Percent cell count reference ranges are not reported, since discordance with absolute values may lead to misinterpretation of CBC data. Current Interpretive Data was last revised on 2017. Eosinophil pct 0.7 % [facility] Comment: Interpretive Data Percent cell count reference ranges are not reported, since discordance with absolute values may lead to misinterpretation of CBC data. Current Interpretive Data was last revised on 2017. Basophil pct 0.3 % [facility] Comment: Interpretive Data Percent cell count reference ranges are not reported, since discordance with absolute values may lead to misinterpretation of CBC data. Current Interpretive Data was last revised on 2017. Blood 08/27/2024 4:13 AM CDT 08/27/2024 5:01 AM CDT Daly Villela MD LAB BLOOD ORDERABLES F inal Result Performing Organization Address [facility] Co de Phone Number [facility] [place] [address] [address] * (ABNORMAL) CBC with auto differential (08/27/2024 4:13 AM CDT) Pathologist [facility] WBC 6.04 3.80 - 9.90 K/cumm Hgb 12.3(L) 13.0 - 17.5 g/dL [facility] Hct 36.6(L) 38.9 - 50.3 % [facility] Plt 302 150 - 400 K/cumm [facility] MPV 10.2 9.1 - 12.3 fL [facility] RBC 3.86(L) 4.30 - 5.80 M/cumm [facility] MCV 94.8 81.3 - 96.4 fL [facility] MCH 31.9 27.1 - 33.3 pg [facility] MCHC 33.6 32.3 - 35.7 g/dL [facility] RDW CV 12.4 11.1 - 14.9 % [facility] RDW SD 42.9 35.7 - 48.1 fL [facility] NRBC abs 0.00 0.00 - 0.01 K/cumm [facility] Blood 08/27/2024 4:13 AM CDT 08/27/2024 5:01 AM CDT Daly Villela MD LAB BLOOD ORDERABLES F inal Result Performing Organization Address [facility] Co de Phone Number [facility] [address] [place] [address] * (ABNORMAL) Phosphorus (08/27/2024 4:13 AM CDT) Pathologist [facility] Phosphorus, pl 2.1(L) 2.3 - 4.5 mg/dL Blood 08/27/2024 4:13 AM CDT 08/27/2024 5:01 AM CDT Daly Villela MD LAB BLOOD ORDERABLES F inal Result Performing Organization Address City/[facility]/ZIP Co de Phone Number LAY [address] [place] [address] * Magnesium (08/27/2024 4:13 AM CDT) Pathologist [facility] Magnesium 2.3 1.4 - 2.5 mg/dL Blood 08/27/2024 4:13 AM CDT 08/27/2024 5:01 AM CDT Daly Villela MD LAB BLOOD ORDERABLES F inal Result Performing Organization Address [facility] de Phone Number LAY [address] [place] [address] * (ABNORMAL) Comprehensive metabolic panel (08/27/2024 4:13 AM CDT) Pathologist [facility] Sodium 136 135 - 145 mmol/L Potassium, pl 3.3 3.3 - 4.9 mmol/L [facility] Chloride 98 97 - 110 mmol/L [facility] CO2 30 22 - 32 mmol/L [facility] Anion gap 8 2 - 15 mmol/L [facility] BUN 11 6 - 25 mg/dL [facility] Creatinine 0.53(L) 0.80 - 1.30 mg/dL [facility] Glucose 153 70 - 199 mg/dL [facility] Comment: Interpretive Data Fasting glucose [...] ORDERABLES F inal Result Performing Organization Address City/[facility]/ZIP Co de Phone Number [facility] [address] [place] [address] * (ABNORMAL) Potassium (08/26/2024 1:12 PM CDT) Pathologist [facility] Potassium, pl 3.0(L) 3.3 - 4.9 mmol/L Blood 08/26/2024 1:12 PM CDT 08/26/2024 1:20 PM CDT Katie Mckeon MD LAB BLOOD ORDERABLE S Final Result [facility] [address] [place] [address] * eGFR (08/26/2024 4:14 AM CDT) Pathologist [facility] eGFR >90 >=60 mL/min/1. 73 [...] LAB BLOOD ORDERABLES F inal Result [facility] [address] [place] [address] * (ABNORMAL) Differential, auto (08/26/2024 4:14 AM CDT) Neutrophil abs 3.07 1.50 - 6.50 K/cumm Imm gran abs 0.02 0.00 - 0.10 K/cumm [facility] Lymphocyte abs 0.49(L) 0.80 - 3.30 K/cumm [facility] Monocyte abs 0.73 0.20 - 0.80 K/cumm [facility] Eosinophil abs 0.07 0.00 - 0.50 K/cumm [facility] Basophil abs 0.02 0.00 - 0.10 K/cumm [facility] Neutrophil pct 69.7 % [facility] Comment: Interpretive Data Percent cell count reference ranges are not reported, since discordance with absolute values may lead to misinterpretation of CBC data. Current Interpretive Data was last revised on 2017. Imm gran pct 0.5 % [facility] Comment: Interpretive Data Percent cell count reference ranges are not reported, since discordance with absolute values may lead to misinterpretation of CBC data. Current Interpretive Data was last revised on 2017. Lymphocyte pct 11.1 % [facility] Comment: Interpretive Data Percent cell count reference ranges are not reported, since discordance with absolute values may lead to misinterpretation of CBC data. Current Interpretive Data was last revised on 2017. Monocyte pct 16.6 % [facility] Comment: Interpretive Data Percent cell count reference ranges are not reported, since discordance with absolute values may lead to misinterpretation of CBC data. Current Interpretive Data was last revised on 2017. Eosinophil pct 1.6 % [facility] Comment: Interpretive Data Percent cell count reference ranges are not reported, since discordance with absolute values may lead to misinterpretation of CBC data. Current Interpretive Data was last revised on 2017. Basophil pct 0.5 % [facility] Comment: Interpretive Data Percent cell count reference ranges are not reported, since discordance with absolute values may lead to misinterpretation of CBC data. Current Interpretive Data was last revised on 2017. Blood 08/26/2024 4:14 AM CDT 08/26/2024 5:00 AM CDT us Daly Villela MD LAB BLOOD ORDERABLES F inal Result [facility] [address] [place] [address] * (ABNORMAL) CBC with auto differential (08/26/2024 4:14 AM CDT) WBC 4.40 3.80 - 9.90 K/cumm Hgb 11.9(L) 13.0 - 17.5 g/dL [facility] Hct 34.8(L) 38.9 - 50.3 % [facility] Plt 302 150 - 400 K/cumm [facility] MPV 10.2 9.1 - 12.3 fL [facility] RBC 3.75(L) 4.30 - 5.80 M/cumm [facility] MCV 92.8 81.3 - 96.4 fL [facility] MCH 31.7 27.1 - 33.3 pg [facility] MCHC 34.2 32.3 - 35.7 g/dL [facility] RDW CV 12.2 11.1 - 14.9 % [facility] RDW SD 41.8 35.7 - 48.1 fL [facility] NRBC abs 0.00 0.00 - 0.01 K/cumm [facility] Blood 08/26/2024 4:14 AM CDT 08/26/2024 5:00 AM CDT Daly Villela MD LAB BLOOD ORDERABLES F inal Result Performing Organization Address City/[facility] Co de Phone Number [facility] [address] [place] [address] * Phosphorus (08/26/2024 4:14 AM CDT) Phosphorus, pl 2.8 2.3 - 4.5 mg/dL Blood 08/26/2024 4:14 AM CDT 08/26/2024 5:02 AM CDT Daly Villela MD LAB BLOOD ORDERABLES F inal Result Performing Organization Address [facility] de Phone Number [facility] [address] [place] [address] * Magnesium (08/26/2024 4:14 AM CDT) Magnesium 2.1 1.4 - 2.5 mg/dL Blood 08/26/2024 4:14 AM CDT 08/26/2024 5:02 AM CDT Daly Villela MD LAB BLOOD ORDERABLES F inal Result Performing Organization Address [facility] Co de Phone Number [facility] [address] [place] [address] * (ABNORMAL) Comprehensive metabolic panel (08/26/2024 4:14 [...] LAB BLOOD ORDERABLES F inal Result [facility] [address] [place] [address] * (ABNORMAL) Potassium (08/25/2024 11:29 AM CDT) Pathologist [facility] Potassium, pl 3.1(L) 3.3 - 4.9 mmol/L Blood 08/25/2024 11:2 9 AM CDT 08/25/2024 12:06 PM CDT us Ginna Graves [employer] LAB BLOOD ORDERABLES Cathie l Result Performing Organization Address City/[facility] Co de Phone Number [facility] [address] [place] [address] * eGFR (08/25/2024 4:11 AM CDT) eGFR [...] ORDERABLES F inal Result Performing Organization Address City/[facility] Co de Phone Number [facility] [place] [address] [place] [address] * (ABNORMAL) Differential, auto (08/25/2024 4:11 AM CDT) Pathologist [facility] Neutrophil abs 4.49 1.50 - 6.50 K/cumm Imm gran abs 0.02 0.00 - 0.10 K/cumm [facility] Lymphocyte abs 0.63(L) 0.80 - 3.30 K/cumm [facility] Monocyte abs 0.87(H) 0.20 - 0.80 K/cumm [facility] Eosinophil abs 0.02 0.00 - 0.50 K/cumm [facility] Basophil abs 0.02 0.00 - 0.10 K/cumm [facility] Neutrophil pct 74.3 % [facility] Comment: Interpretive Data Percent cell count reference ranges are not reported, since discordance with absolute values may lead to misinterpretation of CBC data. Current Interpretive Data was last revised on 2017. Imm gran pct 0.3 % [facility] Comment: Interpretive Data Percent cell count reference ranges are not reported, since discordance with absolute values may lead to misinterpretation of CBC data. Current Interpretive Data was last revised on 2017. Lymphocyte pct 10.4 % [facility] Comment: Interpretive Data Percent cell count reference ranges are not reported, since discordance with absolute values may lead to misinterpretation of CBC data. Current Interpretive Data was last revised on 2017. Monocyte pct 14.4 % [facility] Comment: Interpretive Data Percent cell count reference ranges are not reported, since discordance with absolute values may lead to misinterpretation of CBC data. Current Interpretive Data was last revised on 2017. Eosinophil pct 0.3 % [facility] Comment: Interpretive Data Percent cell count reference ranges are not reported, since discordance with absolute values may lead to misinterpretation of CBC data. Current Interpretive Data was last revised on 2017. Basophil pct 0.3 % [facility] Comment: Interpretive Data Percent cell count reference ranges are not reported, since discordance with absolute values may lead to misinterpretation of CBC data. Current Interpretive Data was last revised on 2017. Blood 08/25/2024 4:11 AM CDT 08/25/2024 5:26 AM CDT Daly Villela MD LAB BLOOD ORDERABLES F inal Result [facility] [address] [place] [address] * (ABNORMAL) CBC with auto differential (08/25/2024 4:11 AM CDT) WBC 6.05 3.80 - 9.90 K/cumm Hgb 12.0(L) 13.0 - 17.5 g/dL [facility] Hct 35.0(L) 38.9 - 50.3 % [facility] Plt 299 150 - 400 K/cumm [facility] MPV 10.3 9.1 - 12.3 fL [facility] RBC 3.80(L) 4.30 - 5.80 M/cumm [facility] MCV 92.1 81.3 - 96.4 fL [facility] MCH 31.6 27.1 - 33.3 pg [facility] MCHC 34.3 32.3 - 35.7 g/dL [facility] RDW CV 12.2 11.1 - 14.9 % [facility] RDW SD 41.1 35.7 - 48.1 fL [facility] NRBC abs 0.00 0.00 - 0.01 K/cumm [facility] Blood 08/25/2024 4:11 AM CDT 08/25/2024 5:26 AM CDT Daly Villela MD LAB BLOOD ORDERABLES F inal Result [place]AY [address] [place] [address] * Phosphorus (08/25/2024 4:11 AM CDT) Pathologist [facility] Phosphorus, pl 3.0 2.3 - 4.5 mg/dL Blood 08/25/2024 4:11 AM CDT 08/25/2024 5:24 AM CDT Daly Villela MD LAB BLOOD ORDERABLES F inal Result [facility] [address] [facility] [place] [address] * Magnesium (08/25/2024 4:11 AM CDT) [facility] Magnesium 1.7 1.4 - 2.5 mg/dL Blood 08/25/2024 4:11 AM CDT 08/25/2024 5:24 AM CDT Daly Villela MD LAB BLOOD ORDERABLES F inal Result [facility] [address] [place] [address] * (ABNORMAL) Comprehensive metabolic panel (08/25/2024 4:11 [...] CH AST 19 10 - 50 Units/L [facility] Blood 08/25/2024 4:11 AM CDT 08/25/2024 5:24 AM CDT Daly Villela MD LAB BLOOD ORDERABLES F inal Result Performing Organization Address [facility] de Phone Number [facility]IG[facility] [address] Department [place], [place] [id number] * eGFR (08/24/2024 5:12 AM CDT) eGFR [...] ORDERABLES F inal Result Performing Organization Address [facility] Co de Phone Number [facility] [address] [place] [address] * (ABNORMAL) Differential, auto (08/24/2024 5:12 AM CDT) Neutrophil abs 3.00 1.50 - 6.50 K/cumm Imm gran abs 0.02 0.00 - 0.10 K/cumm [facility] Lymphocyte abs 0.61(L) 0.80 - 3.30 K/cumm [facility] Monocyte abs 0.76 0.20 - 0.80 K/cumm [facility] Eosinophil abs 0.04 0.00 - 0.50 K/cumm [facility] Basophil abs 0.02 0.00 - 0.10 K/cumm [facility] Neutrophil pct 67.5 % [facility] Comment: Interpretive Data Percent cell count reference ranges are not reported, since discordance with absolute values may lead to misinterpretation of CBC data. Current Interpretive Data was last revised on 2017. Imm gran pct 0.4 % [facility] Comment: Interpretive Data Percent cell count reference ranges are not reported, since discordance with absolute values may lead to misinterpretation of CBC data. Current Interpretive Data was last revised on 2017. Lymphocyte pct 13.7 % [facility] Comment: Interpretive Data Percent cell count reference ranges are not reported, since discordance with absolute values may lead to misinterpretation of CBC data. Current Interpretive Data was last revised on 2017. Monocyte pct 17.1 % [facility] Comment: Interpretive Data Percent cell count reference ranges are not reported, since discordance with absolute values may lead to misinterpretation of CBC data. Current Interpretive Data was last revised on 2017. Eosinophil pct 0.9 % [facility] Comment: Interpretive Data Percent cell count reference ranges are not reported, since discordance with absolute values may lead to misinterpretation of CBC data. Current Interpretive Data was last revised on 2017. Basophil pct 0.4 % [facility] Comment: Interpretive Data Percent cell count reference ranges are not reported, since discordance with absolute values may lead to misinterpretation of CBC data. Current Interpretive Data was last revised on 2017. Blood 08/24/2024 5:12 AM CDT 08/24/2024 5:50 AM CDT us Daly Villela MD LAB BLOOD ORDERABLES F inal Result LAY [address] [place] [place] [address] * (ABNORMAL) CBC with auto differential (08/24/2024 5:12 AM CDT) Pathologist [facility] WBC 4.45 3.80 - 9.90 K/cumm Hgb [...] - 0.01 K/cumm [facility] Blood 08/24/2024 5:12 AM CDT 08/24/2024 5:50 AM CDT us Daly Villela MD LAB BLOOD ORDERABLES F inal Result [facility] [address] [place] [address] * (ABNORMAL) Comprehensive metabolic panel (08/24/2024 5:12 AM CDT) Pathologist [facility] Sodium 138 135 - 145 mmol/L Potassium, pl 2.8(L) 3.3 - 4.9 mmol/L [facility] Chloride 97 97 - 110 mmol/L [facility] CH CO2 27 22 - 32 mmol/L [facility] CH Anion gap 14 2 - 15 mmol/L [facility] CH BUN 8 6 - 25 mg/dL [facility] Creatinine 0.52(L) 0.80 - 1.30 mg/dL [facility] CH Glucose 115 70 - 199 mg/dL [facility] Comment: Interpretive [...] LAB BLOOD ORDERABLES F inal Result LAY [address] [place] [address] * eGFR (08/23/2024 3:55 AM CDT) eGFR [...] ORDERABLES Final Re sult Performing Organization Address [facility] Co de Phone Number LAY [address] [place] [place] [address] * Phosphorus (08/23/2024 3:55 AM CDT) Phosphorus, pl 2.9 2.3 - 4.5 mg/dL Blood 08/23/2024 3:55 AM CDT 08/23/2024 5:35 AM CDT Wisam Huerta MD LAB BLOOD ORDERABLES Final Re sult Performing Organization Address [facility] Co de Phone Number LAY [address] [place] [address] * Magnesium (08/23/2024 3:55 AM CDT) Magnesium 1.8 1.4 - 2.5 mg/dL Blood 08/23/2024 3:55 AM CDT 08/23/2024 5:35 AM CDT Wisam Huerta MD LAB BLOOD ORDERABLES Final Re sult Performing Organization Address [facility] Co de Phone Number [place] [address] [place] [address] * (ABNORMAL) Basic metabolic panel (08/23/2024 3:55 AM CDT) Sodium 138 135 - 145 mmol/L Potassium, pl 3.4 3.3 - 4.9 mmol/L LAY VIGIL Chloride 97 97 - 110 mmol/L [facility] CH CO2 24 22 - 32 mmol/L [facility] CH Anion gap 17(H) 2 - 15 mmol/L [facility] CH BUN 11 6 - 25 mg/dL [facility] Creatinine 0.55(L) 0.80 - 1.30 mg/dL [facility] Glucose 86 70 - 199 mg/dL [facility] Comment: Interpretive Data Fasting glucose [...] Calcium 9.8 8.5 - 10.3 mg/dL [facility] Blood 08/23/2024 3:55 AM CDT 08/23/2024 5:35 AM CDT us Wisam Huerta MD LAB BLOOD ORDERABLES Final Re sult [facility] [address] [place] [address] * (ABNORMAL) Urinalysis reflex to microscopic and culture Urine (08/22/2024 9:45 PM CDT) Color, ur Yellow Yellow Clarity, ur Clear Clear [facility] Specific gravity, ur 1.012 1.003 - 1.030 [facility] pH, urine 5.5 [facility] Comment: Interpretive Data U rine pH is affected by diet, medications, systemic acid-base disturbances, and renal tubular function. pH may affect urinary stone formation. For example, urine pH below 6.0 may help reduce the tendency for calcium phosphate stones and pH greater than 6.0 may reduce the tendency for uric acid stone formation. Source: [facility] [place] Current Interpretive Data was last revised on [...] CDT 08/22/2024 10:09 PM CDT us Cristina Mroa MD LAB MICROBIOLOGY - GEN ERAL ORDERABLES Final Result LAY VIGIL [address] [place] [address] * XR ABD AP WATER SOLUBLE INJ [...] LAB BLOOD ORDERABLES Final Result LAY [place]IGIL [address] [place] [address] * (ABNORMAL) Differential, auto (08/22/2024 8:09 PM CDT) Neutrophil abs 5.80 1.50 - 6.50 K/cumm Imm gran abs 0.02 0.00 - 0.10 K/cumm [facility] Lymphocyte abs 0.59(L) 0.80 - 3.30 K/cumm [facility] Monocyte abs 0.81(H) 0.20 - 0.80 K/cumm [facility] Eosinophil abs 0.01 0.00 - 0.50 K/cumm [facility] Basophil abs 0.02 0.00 - 0.10 K/cumm [facility] Neutrophil pct 80.0 % [facility] Comment: Interpretive Data Percent cell count reference ranges are not reported, since discordance with absolute values may lead to misinterpretation of CBC data. Current Interpretive Data was last revised on 2017. Imm gran pct 0.3 % [facility] Comment: Interpretive Data Percent cell count reference ranges are not reported, since discordance with absolute values may lead to misinterpretation of CBC data. Current Interpretive Data was last revised on 2017. Lymphocyte pct 8.1 % [facility] Comment: Interpretive Data Percent cell count reference ranges are not reported, since discordance with absolute values may lead to misinterpretation of CBC data. Current Interpretive Data was last revised on 2017. Monocyte pct 11.2 % [facility] Comment: Interpretive Data Percent cell count reference ranges are not reported, since discordance with absolute values may lead to misinterpretation of CBC data. Current Interpretive Data was last revised on 2017. Eosinophil pct 0.1 % [facility] Comment: Interpretive Data Percent cell count reference ranges are not reported, since discordance with absolute values may lead to misinterpretation of CBC data. Current Interpretive Data was last revised on 2017. Basophil pct 0.3 % [facility] Comment: Interpretive Data Percent cell count reference ranges are not reported, since discordance with absolute values may lead to misinterpretation of CBC data. Current Interpretive Data was last revised on 2017. Blood 08/22/2024 8:09 PM CDT 08/22/2024 8:11 PM CDT Puneet CORNELL LAB BLOOD ORDERABLES Final Result LAY [address] [place] [address] * (ABNORMAL) CBC with auto differential (08/22/2024 8:09 PM CDT) [facility] WBC 7.25 3.80 - 9.90 K/cumm Hgb 13.3 13.0 - 17.5 g/dL [facility] Hct 39.0 38.9 - 50.3 % [facility] Plt 321 150 - 400 K/cumm [facility] MPV 10.2 9.1 - 12.3 fL [facility] RBC 4.20(L) 4.30 - 5.80 M/cumm [facility] MCV 92.9 81.3 - 96.4 fL [facility] MCH 31.7 27.1 - 33.3 pg [facility] MCHC 34.1 32.3 - 35.7 g/dL [facility] RDW CV 12.0 11.1 - 14.9 % [facility] RDW SD 41.1 35.7 - 48.1 fL [facility] NRBC abs 0.00 0.00 - 0.01 K/cumm [facility] Blood Venous blood specimen / Unknown 08/22/2024 8:09 PM CDT 08/22/2024 8:11 PM CDT Puneet CORNELL LAB BLOOD ORDERABLES Final Result Performing Organization Address City/[facility]/ZIP Co de Phone Number [facility] [address] [place] [phone] * Phosphorus (08/22/2024 8:09 PM CDT) [facility] Phosphorus, pl 3.0 2.3 - 4.5 mg/dL Blood 08/22/2024 8:09 PM CDT 08/22/2024 8:11 PM CDT Puneet CORNELL LAB BLOOD ORDERABLES Final Result Performing Organization Address City/[facility]/ZIP Co de Phone Number [facility] [address] [facility] [place] [address] * Magnesium (08/22/2024 8:09 PM CDT) [facility] Magnesium 1.9 1.4 - 2.5 mg/dL Blood 08/22/2024 8:09 PM CDT 08/22/2024 8:11 PM CDT Puneet CORNELL LAB BLOOD ORDERABLES Final Result Performing Organization Address City/[facility]/ZIP Co de Phone Number LAY VIGIL [address] [place] [address] * Lipase (08/22/2024 8:09 PM CDT) Lipase 14 10 - 99 Units/L Blood 08/22/2024 8:09 PM CDT 08/22/2024 8:11 PM CDT Puneet CORNELL LAB BLOOD ORDERABLES Final Result Performing Organization Address [facility] de Phone Number LAY [place]IGIL [address] [place] [address] * (ABNORMAL) Comprehensive metabolic panel (08/22/2024 8:09 PM CDT) Sodium 135 135 - 145 mmol/L Potassium, pl 3.3 3.3 - 4.9 mmol/L [facility] Chloride 88(L) 97 - 110 mmol/L [facility] CO2 26 22 - 32 mmol/L [facility] Anion gap 21(H) 2 - 15 mmol/L [facility] BUN 13 6 - 25 mg/dL [facility] Creatinine 0.64(L) 0.80 - 1.30 mg/dL [facility] Glucose 100 70 - 199 mg/dL [facility] Comment: Interpretive Data Fasting glucose [...] CORNELL LAB [place] [address] [address] [place] [address] * CT Chest W Contrast (08/21/2024 9:04 [...] nodes in the left level 2 [place] [place] [address] are noted without substantial internal necrosis. [...] LAB BLOOD ORDERA BLES Final Result LAY [place]IG[place] [address] [place] [address] * (ABNORMAL) Differential, auto (08/10/2024 5:58 PM CDT) Neutrophil abs 4.49 1.50 - 6.50 K/cumm Imm gran abs 0.02 0.00 - 0.10 K/cumm LAY VIGIL Lymphocyte abs 0.79(L) 0.80 - 3.30 K/cumm [facility] Monocyte abs 0.71 0.20 - 0.80 K/cumm [facility] Eosinophil abs 0.01 0.00 - 0.50 K/cumm [facility] Basophil abs 0.02 0.00 - 0.10 K/cumm [facility] Neutrophil pct 74.3 % [facility] Comment: Interpretive Data Percent cell count reference ranges are not reported, since discordance with absolute values may lead to misinterpretation of CBC data. Current Interpretive Data was last revised on 2017. Imm gran pct 0.3 % [facility] Comment: Interpretive Data Percent cell count reference ranges are not reported, since discordance with absolute values may lead to misinterpretation of CBC data. Current Interpretive Data was last revised on 2017. Lymphocyte pct 13.1 % [facility] Comment: Interpretive Data Percent cell count reference ranges are not reported, since discordance with absolute values may lead to misinterpretation of CBC data. Current Interpretive Data was last revised on 2017. Monocyte pct 11.8 % [facility] Comment: Interpretive Data Percent cell count reference ranges are not reported, since discordance with absolute values may lead to misinterpretation of CBC data. Current Interpretive Data was last revised on 2017. Eosinophil pct 0.2 % [facility] Comment: Interpretive Data Percent cell count reference ranges are not reported, since discordance with absolute values may lead to misinterpretation of CBC data. Current Interpretive Data was last revised on 2017. Basophil pct 0.3 % [facility] Comment: Interpretive Data Percent cell count reference ranges are not reported, since discordance with absolute values may lead to misinterpretation of CBC data. Current Interpretive Data was last revised on 2017. Blood 08/10/2024 5:58 PM CDT 08/10/2024 6:04 PM CDT Cm CORNELL LAB BLOOD ORDERA BLES Final Result LAY [address] [place] [address] * (ABNORMAL) CBC with auto differential (08/10/2024 5:58 PM CDT) Pathologist [facility] WBC 6.04 3.80 - 9.90 K/cumm Hgb [...] 0.00 - 0.01 K/cumm [facility] Blood Venous blood specimen / Unknown 08/10/2024 5:58 PM CDT 08/10/2024 6:04 PM CDT us Shahbaz Earl MD LAB BLOOD ORDERABLES Fin al Result [facility] [address] [place] [address] * (ABNORMAL) Comprehensive metabolic panel (08/10/2024 5:58 PM CDT) Pathologist [facility] Sodium 136 135 - 145 mmol/L Potassium, pl 3.8 3.3 - 4.9 mmol/L [facility] Chloride 93(L) 97 - 110 mmol/L [facility] CO2 32 22 - 32 mmol/L [facility] Anion gap 11 2 - 15 mmol/L [facility] BUN 21 6 - 25 mg/dL [facility] Creatinine 0.84 0.80 - 1.30 mg/dL [facility] Glucose 125 70 - 199 mg/dL [facility] Comment: Interpretive Data Fasting glucose [...] ORDERABLES Fin al Result Performing Organization Address City/[facility]/ZIP Co de Phone Number [facility] [address] [place] [address] * ECG 12 lead (08/10/2024 5:22 PM CDT) 08/10/2024 5:22 PM CDT Narrative [facility] - 08/12/2024 9:25 PM CDT Vent Rate: 116 bpm RR Interval: 514 msec NE Interval: 186 msec QRS Duration: 89 msec QT Interval: 324 msec QTC Interval: 393 msec P-R-T [place]: 78 - 63 - 54 degrees IMPRESSION: SINUS TACHYCARDIA WITH OCCASIONAL SUPRAVENTRICULAR PREMATURE COMPLEXES Electronically Signed By: Bill Terrazas MD, [facility] Shahbaz Earl MD ECG ORDERABLES Final Re sult Performing Organization Address City/[facility]/ZIP Co de Phone Number [facility] [place] [facility] * IR Change G Tube (07/23/2024 10:22 [...] skin and subcutaneous tissues were dilated to 22-Welsh. Over the guidewire, a new 18-Welsh gastrostomy tube was advanced into the stomach. [...] skin and subcutaneous tissues were dilated to 22-Welsh. Over the guidewire, a new 18-Welsh gastrostomy tube was advanced into the stomach. [...] LAB BLOOD ORDERABLES F inal Result LAY [address] [place] [address] * (ABNORMAL) Differential, auto (07/23/2024 3:47 AM CDT) Neutrophil abs 1.97 1.50 - 6.50 K/cumm Imm gran abs 0.01 0.00 - 0.10 K/cumm LAY Lymphocyte abs 0.66(L) 0.80 - 3.30 K/cumm [facility] Monocyte abs 0.64 0.20 - 0.80 K/cumm [facility] Eosinophil abs 0.09 0.00 - 0.50 K/cumm [facility] Basophil abs 0.02 0.00 - 0.10 K/cumm [facility] Neutrophil pct 58.0 % [facility] Comment: Interpretive Data Percent cell count reference ranges are not reported, since discordance with absolute values may lead to misinterpretation of CBC data. Current Interpretive Data was last revised on 2017. Imm gran pct 0.3 % [facility] Comment: Interpretive Data Percent cell count reference ranges are not reported, since discordance with absolute values may lead to misinterpretation of CBC data. Current Interpretive Data was last revised on 2017. Lymphocyte pct 19.5 % [facility] Comment: Interpretive Data Percent cell count reference ranges are not reported, since discordance with absolute values may lead to misinterpretation of CBC data. Current Interpretive Data was last revised on 2017. Monocyte pct 18.9 % [facility] Comment: Interpretive Data Percent cell count reference ranges are not reported, since discordance with absolute values may lead to misinterpretation of CBC data. Current Interpretive Data was last revised on 2017. Eosinophil pct 2.7 % [facility] Comment: Interpretive Data Percent cell count reference ranges are not reported, since discordance with absolute values may lead to misinterpretation of CBC data. Current Interpretive Data was last revised on 2017. Basophil pct 0.6 % [facility] Comment: Interpretive Data Percent cell count reference ranges are not reported, since discordance with absolute values may lead to misinterpretation of CBC data. Current Interpretive Data was last revised on 2017. Blood 07/23/2024 3:47 AM CDT 07/23/2024 5:13 AM CDT us Sushil Merritt MD LAB BLOOD ORDERABLES F inal Result LAY [address] [place] [address] * (ABNORMAL) CBC with auto differential (07/23/2024 3:47 AM CDT) WBC 3.39(L) 3.80 - 9.90 K/cumm Hgb 10.7(L) 13.0 - 17.5 g/dL [facility] Hct 34.0(L) 38.9 - 50.3 % [facility] Plt 294 150 - 400 K/cumm [facility] MPV 10.7 9.1 - 12.3 fL [facility] RBC 3.29(L) 4.30 - 5.80 M/cumm [facility] MCV 103.3(H) 81.3 - 96.4 fL [facility] MCH 32.5 27.1 - 33.3 pg [facility] MCHC 31.5(L) 32.3 - 35.7 g/dL [facility] RDW CV 12.9 11.1 - 14.9 % [facility] RDW SD 49.0(H) 35.7 - 48.1 fL [facility] NRBC abs 0.00 0.00 - 0.01 K/cumm [facility] Blood 07/23/2024 3:47 AM CDT 07/23/2024 5:13 AM CDT Sushil Merritt MD LAB BLOOD ORDERABLES F inal Result LAY [address] [place] [address] * (ABNORMAL) Protime-INR (07/23/2024 3:47 AM CDT) Pathologist [facility] PT 13.3(H) 9.7 - 13.0 sec INR 1.23(H) 0.90 - 1.20 [facility] Comment: Interpretive data Oral anticoagulant therapeutic ranges: Venous thromboembolism prophylaxis or treatment: 2.0-3.0 CARDIOLOGY Standard range: 2.0-3.0 High-intensity range: 2.5-3.5 Refer to indication-specific guidelines for appropriate target ranges for prosthetic heart valve replacement. Current interpretive data was last revised on 2019. Blood 07/23/2024 3:47 AM CDT 07/23/2024 5:14 AM CDT Henrik Collins MD LAB BLOOD ORDERABLES F inal Result LAY VIGIL [address] [place] [address] * (ABNORMAL) Basic metabolic panel (07/23/2024 3:47 [...] CH Glucose 93 70 - 199 mg/dL [facility] Comment: Interpretive Data Fasting glucose >/= [...] BLOOD ORDERABLES F inal Result LAY [place]IGIL [address] [place] [address] * Check Sample (07/22/2024 4:14 AM CDT) ABO Rh A Positive CH HCLL OTHER 07/22/2024 4:14 AM CDT 07/22/2024 4:48 AM CDT Sushil Merritt MD LAB BLOOD ORDERABLES F inal Result Performing Organization Address City/[facility]/ZIP Co de Phone Number [place] [address] [place] [address] CH * NE PERQ REPLACEMENT GTUBE NOT REQ REVJ GSTRST [...] to closure of the gastrostomy site Eber Duomnt MD IN CLINIC/BEDSIDE ORDERABL ES Final Result [...] ORDERA BLES Final Result Performing Organization Address City/[facility]/ZIP Co de Phone Number CHERPATRH VIGIL [address] [place] [address] * eGFR (07/21/2024 11:50 PM CDT) [facility] eGFR >90 >=60 mL/min/1. 73 m2 Comment: [...] MD LAB BLOOD ORDERABLES Final Result [facility] [address] [place] [address] * (ABNORMAL) Differential, auto (07/21/2024 11:50 PM CDT) [facility] Neutrophil abs 4.43 1.50 - 6.50 K/cumm Imm gran abs 0.03 0.00 - 0.10 K/cumm [facility] Lymphocyte abs 0.53(L) 0.80 - 3.30 K/cumm [facility] Monocyte abs 0.67 0.20 - 0.80 K/cumm [facility] Eosinophil abs 0.02 0.00 - 0.50 K/cumm [facility] Basophil abs 0.03 0.00 - 0.10 K/cumm [facility] Neutrophil pct 77.6 % [facility] Comment: Interpretive Data Percent cell [...] revised on 2017. Monocyte pct 11.7 % LAY Comment: Interpretive Data Percent cell count reference ranges are not reported, since discordance with absolute values may lead to misinterpretation of CBC data. Current Interpretive Data was last revised on 2017. Eosinophil pct 0.4 % LAY Comment: Interpretive Data Percent cell count reference ranges are not reported, since discordance with absolute values may lead to misinterpretation of CBC data. Current Interpretive Data was last revised on 2017. Basophil pct 0.5 % [facility]AY Comment: Interpretive Data Percent cell count reference ranges are not reported, since discordance with absolute values may lead to misinterpretation of CBC data. Current Interpretive Data was last revised on 2017. Blood 07/21/2024 11:5 0 PM CDT 07/21/2024 11:53 PM CDT us Eber Dumont MD LAB BLOOD ORDERABLES Final Result LAY [address] [place] [address] * (ABNORMAL) CBC with auto differential (07/21/2024 11:50 PM CDT) WBC 5.71 3.80 - 9.90 K/cumm Hgb 11.9(L) 13.0 - 17.5 g/dL LAY Hct 35.8(L) 38.9 - 50.3 % LAY Plt 309 150 - 400 K/cumm [facility] MPV 9.6 9.1 - 12.3 fL [facility] RBC 3.57(L) 4.30 - 5.80 M/cumm [facility] MCV 100.3(H) 81.3 - 96.4 fL [facility] MCH 33.3 27.1 - 33.3 pg [facility] MCHC 33.2 32.3 - 35.7 g/dL [facility] RDW CV 12.6 11.1 - 14.9 % [facility] RDW SD 46.8 35.7 - 48.1 fL [facility] NRBC abs 0.00 0.00 - 0.01 K/cumm [facility] Blood Venous blood specimen / Unknown 07/21/2024 11:50 PM CDT 07/21/2024 11:53 PM CDT Eber Dumont MD LAB BLOOD ORDERABLES Final Result Performing Organization Address [facility] Co de Phone Number [place] [address] [place] [address] * Protime-INR (07/21/2024 11:50 PM CDT) PT 12.1 9.7 - 13.0 sec INR 1.12 0.90 - 1.20 [facility] Comment: Interpretive data Oral anticoagulant [...] BLOOD ORDERABLES Final Result Performing Organization Address City/[facility] Co de Phone Number LAY YARITZA [address] [place], [place] [id number] * (ABNORMAL) Basic metabolic panel (07/21/2024 11:50 [...] Calcium 9.7 8.5 - 10.3 mg/dL [facility] Blood 07/21/2024 11:5 0 PM CDT 07/21/2024 11:53 PM CDT us Eber Dumont MD LAB BLOOD ORDERABLES Final Result [facility] [address] Department [place] [address] from Last 3 Months Insurance [place] For more information, please contact: [phone] * Full Code (Latest Code Status on File) Date Activated Date Inactivated Comments 10/02/2024 3:16 AM 10/03/2024 6:06 PM * Full Code Date Activated Date Inactivated Comments 08/22/2024 10:32 PM 08/29/2024 10:50 PM * Full Code Date Activated Date Inactivated Comments 07/22/2024 1:19 AM 07/23/2024 7:41 PM * Full Code Date Activated Date Inactivated Comments 05/24/2024 12:42 AM 06/11/2024 10:04 PM * Full Code Date Activated Date Inactivated Comments 05/14/2024 1:09 PM 05/18/2024 7:51 PM Care Teams Personal Protection Specialist Relationship Specialty Start Date End Date Gia Foss MD [address] [address] PCP - General Internal Medicine 06/12/24 Michelle Handy RN Nurse Navigator 02/09/24 Noemí Pitts LCSW Manager Field Services 02/10/24 Pro Gama MD [address] [facility] [address] [place] [address] Medical Oncologist/Gis Software Developer Medical Oncology 02/13/24 Francis Tuttle MD [address] [facility] [address] [place] [address] Consulting Physician Radiation Oncology 02/13/24 Wilma Groves MD [address] [facility] DEPT OTOLARYNGOLOGY, [address] [place] [id number] Surgeon Otolaryngology 02/13/24
--- OUTSIDE RECORDS SUMMARY | 2024-10-04 10:34 | XMS_ITS | Clinical Summary ---
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 CT 5/20 Marked interval decrease in size of infiltrative left supraglottic mass with near complete resolution of metastatic lymphadenopathy in the bilateral cervical nodes and left supraclavicular region. 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 CT 520 Marked interval decrease in size of infiltrative left supraglottic mass with near complete resolution of metastatic lymphadenopathy in the bilateral cervical nodes and left supraclavicular region. - Oncology follow-up Assessment & Plan (10/02/2024 1:14 AM CDT): MHx of [id number] p16+ SCC of the L oropharynx s/p [...] - 10/03/2024 2:01 PM CDT [facility] [address] [place] [address] Nu Tejeda MD Oppelt, MD Stephen Boswell, MD Nirali Montoya, MD Gurvinder Shortness of breath (Primary Dx); Voice hoarseness Discharge Disposition: Discharge to home or self care 10/01/2024 Telephone [facility] [address] [place] [address] 09/21/2024 Orders Only 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cology [address] [place] [phone] Shayna Valencia NP Oropharyngeal cancer (HCC) (Primary Dx) 09/17/2024 Orders Only 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; Dysphagia, unspecified type 09/17/2024 Documentation [facility] [address] [place] [address] [place] [address] 09/12/2024 8:30 AM CDT [address] [place] [address] Oropharyngeal cancer (HCC) (Primary Dx) 09/12/2024 Documentation [facility] [address] [place] [address] [place] [address] 09/12/2024 Orders Only [facility] [address] [place] [address] Homa Melendez, KRISTY 09/05/2024 10:00 AM CDT [address] [place] [address] Oropharyngeal cancer (HCC) (Primary Dx) 09/05/2024 Documentation [facility] [address] [place] [address] [place] [address] 09/05/2024 Orders Only [facility] [address] [place] [phone] Corbin Early MD PhD Nausea (Primary Dx); Oropharyngeal cancer (HCC); Severe protein-calorie malnutrition 09/05/2024 Telephone [facility] [address] [phone] Michelle Handy, experimental rocketsled mechanic Follow Up 2024 11:15 AM CDT Office Visit [facility] [address] [facility] [address] [place] [address] Pro Gama MD Oropharyngeal cancer (HCC) (Primary Dx) 09/03/2024 10:30 AM CDT [facility] at [address] [phone] Oropharyngeal cancer (HCC) (Primary Dx); Dehydration 09/03/2024 9:00 AM CDT Office Visit 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; Lymphedema; Odynophagia; Dysphagia, unspecified type 09/03/2024 Documentation [facility] [address] [place] [phone] 09/03/2024 Orders Only [facility] [address] [place] [phone] Shayna Valencia NP Dehydration (Primary Dx) 08/31/2024 Telephone [facility] [address] [place] [phone] 08/22/2024 6:58 PM CDT - 08/29/2024 6:50 PM CDT [facility] [address] [place] [address] Cristina Mora MD Brother, Michele, MD Hultgren, MD Mike Bowen Savitha Venkatkrishna, MD Intractable nausea and vomiting (Primary Dx); Dehydration; Hypokalemia; Primary hypertension; Hypophosphatemia; Severe malnutrition; Radiation esophagitis Discharge Disposition: Discharge to home or self care 08/22/2024 Telephone [facility] [place] [address] Leticia Queen, RD 08/21/2024 7:53 AM CDT - 08/21/2024 11:59 PM CDT Hospital [facility] [address] [place] [phone] Oropharyngeal cancer (HCC) Discharge Disposition: Discharge to home or self care 08/21/2024 Telephone [facility] [address] [place] [address] Homa Melendez RN 08/20/2024 Telephone [facility] [address] [place] [phone] Leticia Queena, RD 08/16/2024 Telephone [facility] [address] [place] [phone] Leticia Queen, RD 08/16/2024 Orders Only [facility] [address] [place] [phone] Francis Tuttle MD Personal history of irradiation (Primary Dx); Radiation esophagitis; Encounter for follow-up examination after completed treatment for malignant neoplasm; Severe protein-calorie malnutrition 08/15/2024 Telephone [facility] [address] [place] [phone] Leticia Queen, RD 08/14/2024 Telephone [facility] [address] [place] [phone] VismaudeineLeticiaa, RD 08/14/2024 Telephone [facility] [address] [place] [address] Homa Melendez, KRISTY Reschedule 08/13/2024 1:30 PM CDT Clinical Support [facility] at [address] [place] [address] Oropharyngeal cancer (HCC) (Primary Dx); Dehydration 08/13/2024 11:00 AM CDT Office Visit [facility] [address] [place] [phone] Francis Tuttle MD Oropharyngeal cancer (HCC) (Primary Dx); Personal history of irradiation; Cancer-related pain 08/13/2024 Documentation [facility] [address] [place], [place] [address] [address] 08/13/2024 Orders Only [facility] [address] [place], [place] [address] [address] Francis Tuttle MD 08/13/2024 Orders Only [facility] [address] [place], [place] [address] [address] Francis Tuttle MD Dehydration (Primary Dx); Intractable vomiting with nausea; Oropharyngeal cancer (HCC) 08/13/2024 Results Follow-Up [facility] Primary Care at [facility] - [address] [facility] [address] [place] [phone] Gia Foss MD CBC with auto differential, Comprehensive metabolic panel, Differential, auto, Additional followed-up results: 2 08/10/2024 5:39 PM CDT - 08/10/2024 9:35 PM CDT Emergency [facility] Emergency Department [address] [place] [address] Shahbaz Earl MD Nausea and vomiting, unspecified vomiting type (Primary Dx) Discharge Disposition: Discharge to home or self care 08/10/2024 Telephone [facility] [address] [place], [place] [address] [address] 08/09/2024 Telephone [facility] [address] [place] [phone] 08/08/2024 Telephone [facility] [address] [place] [address] Yamila Kam RN 07/31/2024 [facility] Post Discharge Follow up phone call [address] [address] Tiffany Hernandez, KRISTY 07/30/2024 [facility] Post Discharge Follow up phone call [address] [address] Tiffany Hernandez, KRISTY 07/26/2024 [facility] Post Discharge Follow up phone call [address] [address] Tiffany Hernandez, KRISTY 07/23/2024 Telephone [facility] Primary Care at [facility] - [address] [place] [phone] Gia Foss MD MARY Questions 07/22/2024 Results Follow-Up [facility] Primary Care at [facility] - [address] [place] [phone] Gia Foss MD CBC with auto differential, Basic metabolic panel, Type and screen, Additional followed-up results: 4 07/21/2024 10:36 PM CDT - 07/23/2024 3:35 PM CDT Hospital Encounter [address] [address] Eber Dumont MD [place], MD Karina Rosenberg, Henrik Aguirre MD Dislodged gastrostomy tube (Primary Dx) Discharge Disposition: Discharge to home or self care 07/13/2024 11:00 AM CDT Office Visit [facility] [address] [place] [phone] Renee Shipman NP Oropharyngeal cancer (HCC) (Primary Dx); Encounter for follow-up examination after completed treatment for malignant neoplasm; Personal history of irradiation 07/13/2024 Telephone [facility] [address] [facility] 7th Floor, [place] [address] Aditi Dougherty B.A. 07/11/2024 Telephone [facility] [address] [place] [address] 07/06/2024 Telephone [facility] [address] [place] [address] from Last 3 Months Immunizations Immunization Administration [...] e alcohol) [facility] Utilities Answer Date Recorded In the past 12 months has e [employer], gas, oil, or water [employer] threatened to shut off services in your [...] often do you attend chur ch or holiness services? Never 10/02/2024 Do you belong to any clubs o r organizations such as adventism groups, unions, fraternal or athletic groups, or [...] any time in the past 12 m [facility], were you homeless or living in a nursing home (including now)? 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 Not on [...] 10/02/2024 2:08 AM CDT Plan of Treatment Health Maintenance Due Date Last Done Comments Colon Cancer Screening-Colonoscopy 1960 Hepatitis C Screening 1960 Prostate Cancer Screening-PSA 1960 DTaP/Tdap/Td Vaccine (1 - Tdap) 09/05/1971 Hepatitis B Screening 1978 Pneumococcal vaccine <65 (1 of 2 - PCV) 09/05/1979 Zoster Vaccine (1 of 2) 09/05/1979 Covid-19 Vaccine (3 - Pfizer risk series) 09/21/2020 08/24/2020, 07/19/2020 Influenza Vaccine (#1) 2024 Regular Well Visit/Exam 18-64 06/22/2025 06/22/2024 Depression Screening 10/01/2025 10/01/2024, 06/22/2024, 02/14/2024 Procedures Procedure Name Priority Date/Time Associated Diagnosis [...] CHECK SAMPLE Routine 07/22/2024 4:14 AM CDT MN PERQ REPLACEMENT GTUBE NOT REQ REVJ GSTRST [...] LAB BLOOD ORDER ROSA ELENA Final Result [facility] [place] [address] * (ABNORMAL) Differential, auto (10/02/2024 3:31 AM CDT) Neutrophil abs 5.08 1.50 - 6.50 K/cumm Imm gran abs 0.03 0.00 - 0.10 K/cumm LAY [facility] Lymphocyte abs 0.36(L) 0.80 - 3.30 K/cumm [facility] Monocyte abs 0.05(L) 0.20 - 0.80 K/cumm [facility] Eosinophil abs 0.00 0.00 - 0.50 K/cumm [facility] Basophil abs 0.01 0.00 - 0.10 K/cumm [facility] Neutrophil pct 91.9 % [facility] Comment: Interpretive Data Percent cell count reference ranges are not reported, since discordance with absolute values may lead to misinterpretation of CBC data. Current Interpretive Data was last revised on 2017. Imm gran pct 0.5 % [facility] Comment: Interpretive Data Percent cell count reference ranges are not reported, since discordance with absolute values may lead to misinterpretation of CBC data. Current Interpretive Data was last revised on 2017. Lymphocyte pct 6.5 % [facility] Comment: Interpretive Data Percent cell count reference ranges are not reported, since discordance with absolute values may lead to misinterpretation of CBC data. Current Interpretive Data was last revised on 2017. Monocyte pct 0.9 % [facility] Comment: Interpretive Data Percent cell count reference ranges are not reported, since discordance with absolute values may lead to misinterpretation of CBC data. Current Interpretive Data was last revised on 2017. Eosinophil pct 0.0 % [facility] Comment: Interpretive Data Percent cell count reference ranges are not reported, since discordance with absolute values may lead to misinterpretation of CBC data. Current Interpretive Data was last revised on 2017. Basophil pct 0.2 % [facility] Comment: Interpretive Data Percent cell count reference ranges are not reported, since discordance with absolute values may lead to misinterpretation of CBC data. Current Interpretive Data was last revised on 2017. Blood 10/02/2024 3:31 AM CDT 10/02/2024 3:50 AM CDT us Holli Lazar MD LAB BLOOD ORDER ROSA ELENA Final Result [facility] [place] [address] * (ABNORMAL) CBC with auto differential (10/02/2024 3:31 AM CDT) [facility] WBC 5.53 3.80 - 9.90 K/cumm Hgb 11.2(L) 13.0 - 17.5 g/dL [facility] Hct 33.6(L) 38.9 - 50.3 % [facility] Plt 360 150 - 400 K/cumm [facility] MPV 9.9 9.1 - 12.3 fL [facility] RBC 3.56(L) 4.30 - 5.80 M/cumm [facility] MCV 94.4 81.3 - 96.4 fL [facility] MCH 31.5 27.1 - 33.3 pg [facility] MCHC 33.3 32.3 - 35.7 g/dL [facility] RDW CV 13.2 11.1 - 14.9 % [facility] RDW SD 45.0 35.7 - 48.1 fL [facility] NRBC abs 0.00 0.00 - 0.01 K/cumm [facility] Blood 10/02/2024 3:31 AM CDT 10/02/2024 3:50 AM CDT Holli Lazar MD LAB BLOOD ORDER ROSA ELENA Final Result [facility] [place] [address] * aPTT (10/02/2024 3:31 AM CDT) [facility] aPTT 29 28 - 38 sec Comment: Interpretive Data Heparin therapeutic range: 66.0 - 100.0 seconds. Range based on correlation with therapeutic heparin activity range of 0.3 - 0.7 Units/mL. Current interpretive data was last revised on 2022. Blood 10/02/2024 3:31 AM CDT 10/02/2024 3:45 AM CDT us Holli Lazar MD LAB BLOOD ORDER ROSA ELENA Final Result Performing Organization Address City/[facility]/ZIP Co de Phone Number [facility] [place] [address] * (ABNORMAL) Protime-INR (10/02/2024 3:31 AM CDT) PT 14.5(H) 9.7 - 13.0 sec INR 1.33(H) 0.90 - 1.20 [facility] Comment: Interpretive data Oral [...] ROSA ELENA Final Result Performing Organization Address [facility] Co de Phone Number [facility] [place] [address] * Type and screen (10/02/2024 3:31 AM CDT) ABO Rh A Positive Perico, indirect Negative [facility] Blood 10/02/2024 3:31 AM CDT 10/02/2024 3:44 AM CDT Narrative [facility] - 10/02/2024 5:13 AM CDT Has the patient had Daratumumab or Isatuximab in the past 6 months?->Unknown Holli Lazar MD LAB BLOOD BANK TEST ORDERABLES Final Result Performing Organization Address City/[facility] Co de Phone Number [facility] [place] [address] * Uric acid (10/02/2024 3:31 AM CDT) Uric acid 4.5 3.0 - 8.0 mg/dL Blood 10/02/2024 3:31 AM CDT 10/02/2024 3:50 AM CDT Narrative [facility] - 10/02/2024 4:26 AM CDT Tuesday and only. Morning draw. . Holli Lazar MD LAB BLOOD ORDER [place] [address] * Phosphorus (10/02/2024 3:31 AM CDT) Pathologist [facility] Phosphorus, pl 4.4 2.3 - 4.5 mg/dL Blood 10/02/2024 3:31 AM CDT 10/02/2024 3:50 AM CDT Result [facility] Holli Lazar MD LAB BLOOD ORDER ROSA ELENA Final Result [facility] [place] [address] * Magnesium (10/02/2024 3:31 AM CDT) [facility] Magnesium 2.3 1.4 - 2.5 mg/dL Blood 10/02/2024 3:31 AM CDT 10/02/2024 3:50 AM CDT Result [facility] Holli Lazar MD LAB BLOOD ORDER ROSA ELENA Final Result [facility] [place] [address] * Lactate dehydrogenase (LD) (10/02/2024 3:31 AM CDT) Lactate dehydrogenase (LDH) 154 100 - 250 Units/L Blood 10/02/2024 3:31 AM CDT 10/02/2024 3:50 AM CDT Narrative [facility] - 10/02/2024 4:26 AM CDT Tuesday and only. Morning draw. Holli Lazar MD LAB BLOOD ORDER ROSA ELENA Final Result [facility] [place] [address] * (ABNORMAL) Comprehensive metabolic panel (10/02/2024 3:31 AM CDT) Pathologist [facility] Sodium 136 135 - 145 mmol/L Potassium, pl 4.6 3.3 - 4.9 mmol/L [facility] Comment:Repeated and Verifie d Chloride 96(L) 97 - 110 mmol/L [facility] CO2 32 22 - 32 mmol/L [facility] Anion gap 8 2 - 15 mmol/L [facility] BUN 20 6 - 25 mg/dL [facility] Creatinine 0.65(L) 0.80 - 1.30 mg/dL [facility] Glucose 160 70 - 199 mg/dL [facility] Comment: Interpretive Data Fasting [...] 2022. Calcium 10.1 8.5 - 10.3 mg/dL [facility] Bilirubin, total 0.4 0.1 - 1.2 mg/dL [facility] Protein, pl 8.0 6.5 - 8.5 g/dL [facility] Albumin 3.7 3.5 - 5.0 g/dL [facility] Alk phos 72 40 - 130 Units/L [facility] Comment:Reviewed ALT 9 7 - 55 Units/L [facility] Comment:Reviewed AST 17 10 - 50 Units/L [facility] Blood 10/02/2024 3:31 AM CDT 10/02/2024 3:50 AM CDT Result [facility] Holli Lazar MD LAB BLOOD ORDER ROSA ELENA Final Result Performing Organization Address City/[facility]/ZIP Co de Phone Number [facility] Department [place] [address] * Troponin I high-sensitivity 2-hour (10/01/2024 11:49 PM CDT) Trop I hs <4 <=35 ng/L Comment: Interpretive Data For further hscTnI resources including the diagnostic algorithm and an aid in interpretation, copy and paste this link: https://bjhlab.testcatalog.org/show/hsTrop-1 Current Interpretive Data last revised 2019. Trop I hs delta 0 ng/L [facility] Trop I hs interp Insignificant [facility] Blood 10/01/2024 11:4 9 PM CDT 10/02/2024 12:05 AM CDT Christina Burnette MD LAB BLOOD ORDERABLES Fi nal Result [facility] [place] [address] * ECG 12-LEAD (10/01/2024 11:22 PM CDT) Narrative [facility] - 10/01/2024 11:22 PM CDT Nu [...] ORDERABLES Final R esult Performing Organization Address City/[facility] Co de Phone Number [facility] * Check Sample (10/01/2024 10:55 PM CDT) ABO Rh A Positive [facility] HCLL OTHER 10/01/2024 10:5 5 PM CDT 10/01/2024 11:01 PM CDT us Nu Tejeda MD LAB BLOOD ORDERABLES Fi nal Result Performing Organization Address [facility] de Phone Number [facility] Department [place] [address] [facility] * aPTT (10/01/2024 10:55 PM CDT) aPTT 28 28 - 38 sec Comment: Interpretive Data Heparin therapeutic range: 66.0 - 100.0 seconds. Range based on correlation with therapeutic heparin activity range of 0.3 - 0.7 Units/mL. Current interpretive data was last revised on 2022. Blood 10/01/2024 10:5 5 PM CDT 10/01/2024 11:10 PM CDT us Nu Tejeda MD LAB BLOOD ORDERABLES Fi nal Result Performing Organization Address [facility] de Phone Number [facility] [place] [address] * (ABNORMAL) Protime-INR (10/01/2024 10:55 PM CDT) PT 14.5(H) 9.7 - 13.0 sec INR 1.33(H) 0.90 - 1.20 [facility] Comment: Interpretive data Oral [...] ORDERABLES Fi nal Result Performing Organization Address City/[facility] [place] [address] * Troponin I high-sensitivity series (baseline, 2hr, 4hr, 6hr) (10/01/2024 10:11 PM CDT) Pathologist [facility] Trop I hs <4 <=35 ng/L Comment: Interpretive Data For further [facility] resources including the diagnostic algorithm and an aid in interpretation, copy and paste this link: https://bjhlab.testcatalog.org/show/hsTrop-[email or web address] Current Interpretive Data last revised 2019. Blood 10/01/2024 10:1 1 PM CDT 10/01/2024 10:26 PM CDT Christina Burnette MD LAB BLOOD ORDERABLES Fi nal Result Performing Organization Address City/[facility]/[place]IP [place] [address] * eGFR (10/01/2024 10:11 PM CDT) Pathologist [facility] eGFR >90 >=60 mL/min/1. 73 m2 Comment: [...] us Christina Burnette MD LAB BLOOD ORDERABLES nal Result [facility] [place] [address] * (ABNORMAL) Differential, auto (10/01/2024 10:11 PM CDT) [facility] Neutrophil abs 8.42(H) 1.50 - 6.50 K/cumm Imm gran abs 0.05 0.00 - 0.10 K/cumm [facility] Lymphocyte abs 0.35(L) 0.80 - 3.30 K/cumm [facility] Monocyte abs 0.06(L) 0.20 - 0.80 K/cumm [facility] Eosinophil abs 0.00 0.00 - 0.50 K/cumm [facility] Basophil abs 0.01 0.00 - 0.10 K/cumm [facility] Neutrophil pct 94.7 % [facility] Comment: Interpretive Data Percent cell count reference ranges are not reported, since discordance with absolute values may lead to misinterpretation of CBC data. Current Interpretive Data was last revised on 2017. Imm gran pct 0.6 % [facility] Comment: Interpretive Data Percent cell count reference ranges are not reported, since discordance with absolute values may lead to misinterpretation of CBC data. Current Interpretive Data was last revised on 2017. Lymphocyte pct 3.9 % [facility] Comment: Interpretive Data Percent cell count reference ranges are not reported, since discordance with absolute values may lead to misinterpretation of CBC data. Current Interpretive Data was last revised on 2017. Monocyte pct 0.7 % [facility] Comment: Interpretive Data Percent cell count reference ranges are not reported, since discordance with absolute values may lead to misinterpretation of CBC data. Current Interpretive Data was last revised on 2017. Eosinophil pct 0.0 % [facility] Comment: Interpretive Data Percent cell count reference ranges are not reported, since discordance with absolute values may lead to misinterpretation of CBC data. Current Interpretive Data was last revised on 2017. Basophil pct 0.1 % [facility] Comment: Interpretive Data Percent cell count reference ranges are not reported, since discordance with absolute values may lead to misinterpretation of CBC data. Current Interpretive Data was last revised on 2017. Blood 10/01/2024 10:1 1 PM CDT 10/01/2024 10:25 PM CDT Christina Burnette MD LAB BLOOD ORDERABLES Fi nal Result [facility] [place] [address] * (ABNORMAL) CBC with auto differential (10/01/2024 10:11 PM CDT) WBC 8.89 3.80 - 9.90 K/cumm Hgb 11.7(L) 13.0 - 17.5 g/dL [facility] Hct 34.5(L) 38.9 - 50.3 % [facility] Plt 400 150 - 400 K/cumm [facility] MPV 10.5 9.1 - 12.3 fL [facility] RBC 3.73(L) 4.30 - 5.80 M/cumm [facility] MCV 92.5 81.3 - 96.4 fL [facility] MCH 31.4 27.1 - 33.3 pg [facility] MCHC 33.9 32.3 - 35.7 g/dL [facility] RDW CV 13.5 11.1 - 14.9 % [facility] RDW SD 45.3 35.7 - 48.1 fL [facility] NRBC abs 0.00 0.00 - 0.01 K/cumm [facility] Blood 10/01/2024 10:1 1 PM CDT 10/01/2024 10:25 PM CDT Christina Burnette MD LAB BLOOD ORDERABLES Fi nal Result Performing Organization Address City/[facility]/ZIP Co de Phone Number [facility] [place] [address] * Type and screen (10/01/2024 10:11 PM CDT) Pathologist [facility] Perico, indirect Negative Blood 10/01/2024 10:1 1 PM CDT 10/01/2024 10:32 PM CDT Narrative [facility] - 10/02/2024 4:23 AM CDT Has the patient had Daratumumab or Isatuximab in the past 6 months?->Unknown Christina Burnette MD LAB BLOOD BANK TEST ORD ERABLES Final Result [facility] [place] [address] * (ABNORMAL) Comprehensive metabolic panel (10/01/2024 10:11 PM CDT) Pathologist [facility] Sodium 130(L) 135 - 145 mmol/L Potassium, pl See Comment 3.3 - 4.9 mmol/L [facility] Comment:Credited; Hemolyzed Specimen Chloride 93(L) 97 - 110 mmol/L [facility] CO2 30 22 - 32 mmol/L [facility] Comment:Hemolyzed; result ma y be falsely decreased Anion gap 7 2 - 15 mmol/L [facility] BUN 18 6 - 25 mg/dL [facility] Creatinine 0.54(L) 0.80 - 1.30 mg/dL [facility] Glucose 152 70 - 199 mg/dL [facility] Comment: Interpretive Data Fasting [...] 2022. Calcium 9.8 8.5 - 10.3 mg/dL [facility] Bilirubin, total 0.3 0.1 - 1.2 mg/dL [facility] Protein, pl 8.3 6.5 - 8.5 g/dL [facility] Comment:Hemolyzed; result ma y be falsely elevated Albumin 3.5 3.5 - 5.0 g/dL [facility] Alk phos See Comment 40 - 130 Units/L [facility] Comment:Credited; Hemolyzed Specimen ALT See Comment 7 - 55 Units/L [facility] Comment:Credited; Hemolyzed Specimen AST See Comment 10 - 50 Units/L [facility] Comment:Credited; Hemolyzed Specimen Blood 10/01/2024 10:1 1 PM CDT 10/01/2024 10:23 PM CDT us Christina Burnette MD LAB BLOOD ORDERABLES Fi nal Result [facility] [place] [address] * eGFR (08/29/2024 3:54 AM CDT) eGFR [...] ORDERABLE S Final Result Performing Organization Address City/[facility]/ZIP Co de Phone Number [facility] [address] [place] [address] * Phosphorus (08/29/2024 3:54 AM CDT) Phosphorus, pl 3.3 2.3 - 4.5 mg/dL Blood 08/29/2024 3:54 AM CDT 08/29/2024 5:46 AM CDT us Daly Villela MD LAB BLOOD ORDERAB[place] [address] [address] [place] [address] * Magnesium (08/29/2024 3:54 AM CDT) Magnesium 2.4 1.4 - 2.5 mg/dL Blood 08/29/2024 3:54 AM CDT 08/29/2024 5:46 AM CDT Daly Villela MD LAB BLOOD ORDERABLES F inal Result [facility] [address] [place] [address] * (ABNORMAL) Basic metabolic panel (08/29/2024 3:54 AM CDT) Sodium 134(L) 135 - 145 mmol/L Potassium, pl 4.1 3.3 - 4.9 mmol/L [facility] Chloride 95(L) 97 - 110 mmol/L [facility] CO2 31 22 - 32 mmol/L [facility] Anion gap 8 2 - 15 mmol/L [facility] BUN 15 6 - 25 mg/dL [facility] Creatinine 0.63(L) 0.80 - 1.30 mg/dL [facility] Glucose 112 70 - 199 mg/dL [facility] Comment: Interpretive Data Fasting glucose [...] 2022. Calcium 9.6 8.5 - 10.3 mg/dL [facility] Blood 08/29/2024 3:54 AM CDT 08/29/2024 5:46 AM CDT Katie Mckeon MD LAB BLOOD ORDERABLE S Final Result [facility] [address] [place] [address] * eGFR (08/28/2024 4:35 AM CDT) eGFR [...] ORDERABLE S Final Result Performing Organization Address [facility] Co de Phone Number [place] [address] [place] [address] * Phosphorus (08/28/2024 4:35 AM CDT) Phosphorus, pl 4.2 2.3 - 4.5 mg/dL Blood 08/28/2024 4:35 AM CDT 08/28/2024 4:59 AM CDT us Daly Villela MD LAB [place]LOOD [place] [address] [address] [place] [address] * Magnesium (08/28/2024 4:35 AM CDT) Magnesium 2.4 1.4 - 2.5 mg/dL Blood 08/28/2024 4:35 AM CDT 08/28/2024 4:59 AM CDT Daly Villela MD LAB BLOOD ORDERABLES F inal Result [facility] [address] Department [place] [address] * (ABNORMAL) Basic metabolic panel (08/28/2024 4:35 AM CDT) Sodium 137 135 - 145 mmol/L Potassium, pl 3.8 3.3 - 4.9 mmol/L [facility] Chloride 98 97 - 110 mmol/L [facility] CO2 31 22 - 32 mmol/L [facility] Anion gap 8 2 - 15 mmol/L [facility] BUN 14 6 - 25 mg/dL [facility] Creatinine 0.57(L) 0.80 - 1.30 mg/dL [facility] Glucose 137 70 - 199 mg/dL [facility] Comment: Interpretive Data Fasting glucose >/= 126 [...] 9.6 8.5 - 10.3 mg/dL [facility] Blood 08/28/2024 4:35 AM CDT 08/28/2024 4:59 AM CDT Katie Mckeon MD LAB BLOOD ORDERABLE S Final Result Performing Organization Address City/[facility] Co de Phone Number [facility] [place] [address] Department of Laboratories [place], [place] [id number] * eGFR (08/27/2024 4:13 AM CDT) eGFR [...] ORDERABLES F inal Result Performing Organization Address City/[facility] Co de Phone Number [facility] [place] [address] Department [place] [address] * (ABNORMAL) Differential, auto (08/27/2024 4:13 AM CDT) Neutrophil abs 4.64 1.50 - 6.50 K/cumm Imm gran abs 0.01 0.00 - 0.10 K/cumm [facility] Lymphocyte abs 0.53(L) 0.80 - 3.30 K/cumm [facility] Monocyte abs 0.80 0.20 - 0.80 K/cumm [facility] Eosinophil abs 0.04 0.00 - 0.50 K/cumm [facility] Basophil abs 0.02 0.00 - 0.10 K/cumm [facility] Neutrophil pct 76.8 % [facility] Comment: Interpretive Data Percent cell count reference ranges are not reported, since discordance with absolute values may lead to misinterpretation of CBC data. Current Interpretive Data was last revised on 2017. Imm gran pct 0.2 % [facility] Comment: Interpretive Data Percent cell count reference ranges are not reported, since discordance with absolute values may lead to misinterpretation of CBC data. Current Interpretive Data was last revised on 2017. Lymphocyte pct 8.8 % [facility] Comment: Interpretive Data Percent cell count reference ranges are not reported, since discordance with absolute values may lead to misinterpretation of CBC data. Current Interpretive Data was last revised on 2017. Monocyte pct 13.2 % [facility] Comment: Interpretive Data Percent cell count reference ranges are not reported, since discordance with absolute values may lead to misinterpretation of CBC data. Current Interpretive Data was last revised on 2017. Eosinophil pct 0.7 % [facility] Comment: Interpretive Data Percent cell count reference ranges are not reported, since discordance with absolute values may lead to misinterpretation of CBC data. Current Interpretive Data was last revised on 2017. Basophil pct 0.3 % [facility] Comment: Interpretive Data Percent cell count reference ranges are not reported, since discordance with absolute values may lead to misinterpretation of CBC data. Current Interpretive Data was last revised on 2017. Blood 08/27/2024 4:13 AM CDT 08/27/2024 5:01 AM CDT us Daly Villela MD LAB BLOOD ORDERABLES F inal Result [facility] [address] [place] [address] * (ABNORMAL) CBC with auto differential (08/27/2024 4:13 AM CDT) WBC 6.04 3.80 - 9.90 K/cumm Hgb 12.3(L) 13.0 - 17.5 g/dL [facility] Hct 36.6(L) 38.9 - 50.3 % [facility] Plt 302 150 - 400 K/cumm [facility] MPV 10.2 9.1 - 12.3 fL [facility] RBC 3.86(L) 4.30 - 5.80 M/cumm [facility] MCV 94.8 81.3 - 96.4 fL [facility] MCH 31.9 27.1 - 33.3 pg [facility] MCHC 33.6 32.3 - 35.7 g/dL [facility] RDW CV 12.4 11.1 - 14.9 % [facility] RDW SD 42.9 35.7 - 48.1 fL [facility] NRBC abs 0.00 0.00 - 0.01 K/cumm [facility] Blood 08/27/2024 4:13 AM CDT 08/27/2024 5:01 AM CDT Daly Villela MD LAB BLOOD ORDERABLES F inal Result [facility] [address] [place] [address] * (ABNORMAL) Phosphorus (08/27/2024 4:13 AM CDT) Pathologist [facility] Phosphorus, pl 2.1(L) 2.3 - 4.5 mg/dL Blood 08/27/2024 4:13 AM CDT 08/27/2024 5:01 AM CDT Daly Villela MD LAB BLOOD ORDERABLES F inal Result [facility] [address] [facility] [place] [address] * Magnesium (08/27/2024 4:13 AM CDT) Pathologist [facility] Magnesium 2.3 1.4 - 2.5 mg/dL Blood 08/27/2024 4:13 AM CDT 08/27/2024 5:01 AM CDT Daly Villela MD LAB BLOOD ORDERABLES F inal Result [facility] [address] Department [place] [address] * (ABNORMAL) Comprehensive metabolic panel (08/27/2024 4:13 [...] ORDERABLES F inal Result Performing Organization Address [facility]/[place] [address] [address] Department of [employer] [place], [place] [id number] * (ABNORMAL) Potassium (08/26/2024 1:12 PM CDT) Potassium, pl 3.0(L) 3.3 - 4.9 mmol/L Blood 08/26/2024 1:12 PM CDT 08/26/2024 1:20 PM CDT Katie Mckeon MD LAB BLOOD ORDERABLE S Final Result Performing Organization Address [facility] [place] [address] [address] [place] [address] * eGFR (08/26/2024 4:14 AM CDT) eGFR [...] MD LAB BLOOD ORDERABLES F inal Result [facility] [address] [place] [address] * (ABNORMAL) Differential, auto (08/26/2024 4:14 AM CDT) Neutrophil abs 3.07 1.50 - 6.50 K/cumm Imm gran abs 0.02 0.00 - 0.10 K/cumm [facility] Lymphocyte abs 0.49(L) 0.80 - 3.30 K/cumm [facility] Monocyte abs 0.73 0.20 - 0.80 K/cumm [facility] Eosinophil abs 0.07 0.00 - 0.50 K/cumm [facility] Basophil abs 0.02 0.00 - 0.10 K/cumm [facility] Neutrophil pct 69.7 % [facility] Comment: Interpretive Data Percent cell count reference ranges are not reported, since discordance with absolute values may lead to misinterpretation of CBC data. Current Interpretive Data was last revised on 2017. Imm gran pct 0.5 % [facility] Comment: Interpretive Data Percent cell count reference ranges are not reported, since discordance with absolute values may lead to misinterpretation of CBC data. Current Interpretive Data was last revised on 2017. Lymphocyte pct 11.1 % [facility] Comment: Interpretive Data Percent cell count reference ranges are not reported, since discordance with absolute values may lead to misinterpretation of CBC data. Current Interpretive Data was last revised on 2017. Monocyte pct 16.6 % [facility] Comment: Interpretive Data Percent cell count reference ranges are not reported, since discordance with absolute values may lead to misinterpretation of CBC data. Current Interpretive Data was last revised on 2017. Eosinophil pct 1.6 % [facility] Comment: Interpretive Data Percent cell count reference ranges are not reported, since discordance with absolute values may lead to misinterpretation of CBC data. Current Interpretive Data was last revised on 2017. Basophil pct 0.5 % [facility] Comment: Interpretive Data Percent cell count reference ranges are not reported, since discordance with absolute values may lead to misinterpretation of CBC data. Current Interpretive Data was last revised on 2017. Blood 08/26/2024 4:14 AM CDT 08/26/2024 5:00 AM CDT Daly Villela MD LAB BLOOD ORDERABLES F inal Result Performing Organization Address [facility]/ZIP Co de Phone Number [place] [place] [address] [place] [address] * (ABNORMAL) CBC with auto differential (08/26/2024 4:14 AM CDT) WBC 4.40 3.80 - 9.90 K/cumm Hgb 11.9(L) 13.0 - 17.5 g/dL [facility] Hct 34.8(L) 38.9 - 50.3 % [facility] Plt 302 150 - 400 K/cumm [facility] MPV 10.2 9.1 - 12.3 fL [facility] RBC 3.75(L) 4.30 - 5.80 M/cumm [facility] MCV 92.8 81.3 - 96.4 fL [facility] MCH 31.7 27.1 - 33.3 pg [facility] MCHC 34.2 32.3 - 35.7 g/dL [facility] RDW CV 12.2 11.1 - 14.9 % [facility] RDW SD 41.8 35.7 - 48.1 fL [facility] NRBC abs 0.00 0.00 - 0.01 K/cumm [facility] Blood 08/26/2024 4:14 AM CDT 08/26/2024 5:00 AM CDT Daly Villela MD LAB BLOOD ORDERABLES F inal Result Performing Organization Address City/[facility]/ZIP Co de Phone Number [place] [place] [address] [place] [address] * Phosphorus (08/26/2024 4:14 AM CDT) Phosphorus, pl 2.8 2.3 - 4.5 mg/dL Blood 08/26/2024 4:14 AM CDT 08/26/2024 5:02 AM CDT Daly Villela MD LAB BLOOD ORDERABLES F inal Result Performing Organization Address City/[facility] Co de Phone Number [facility] [place] [address] [facility] [place] [address] * Magnesium (08/26/2024 4:14 AM CDT) Pathologist [facility] Magnesium 2.1 1.4 - 2.5 mg/dL Blood 08/26/2024 4:14 AM CDT 08/26/2024 5:02 AM CDT Daly Villela MD LAB BLOOD ORDERABLES F inal Result Performing Organization Address [facility] de Phone Number [place] [address] [place] [address] * (ABNORMAL) Comprehensive metabolic panel (08/26/2024 4:14 AM CDT) Pathologist [facility] Sodium 138 135 - 145 mmol/L Potassium, pl 3.0(L) 3.3 - 4.9 mmol/L [facility] Chloride 97 97 - 110 mmol/L [facility] CO2 32 22 - 32 mmol/L [facility] Anion gap 9 2 - 15 mmol/L [facility] BUN 6 6 - 25 mg/dL [facility] Creatinine 0.52(L) 0.80 - 1.30 mg/dL [facility] Glucose 129 70 - 199 mg/dL [facility] Comment: Interpretive Data Fasting glucose [...] MD LAB BLOOD ORDERABLES F inal Result [facility] [address] [employer] [place], [place] [id number] * (ABNORMAL) Potassium (08/25/2024 11:29 AM CDT) Potassium, pl 3.1(L) 3.3 - 4.9 mmol/L Blood 08/25/2024 11:2 9 AM CDT 08/25/2024 12:06 PM CDT Ginna Graves NP LAB BLOOD ORDERABLES Cathie l Result Performing Organization Address City/[facility]/ZIP Co de Phone Number [facility] [address] [employer] [place], [place] [id number] * eGFR (08/25/2024 4:11 AM CDT) eGFR [...] MD LAB BLOOD ORDERABLES F inal Result [facility] [address] [place] [address] * (ABNORMAL) Differential, auto (08/25/2024 4:11 AM CDT) Neutrophil abs 4.49 1.50 - 6.50 K/cumm Imm gran abs 0.02 0.00 - 0.10 K/cumm [facility] Lymphocyte abs 0.63(L) 0.80 - 3.30 K/cumm [facility] Monocyte abs 0.87(H) 0.20 - 0.80 K/cumm [facility] Eosinophil abs 0.02 0.00 - 0.50 K/cumm [facility] Basophil abs 0.02 0.00 - 0.10 K/cumm [facility] Neutrophil pct 74.3 % [facility] Comment: Interpretive Data Percent cell [...] revised on 2017. Monocyte pct 14.4 % [facility] Comment: Interpretive Data Percent cell count reference ranges are not reported, since discordance with absolute values may lead to misinterpretation of CBC data. Current Interpretive Data was last revised on 2017. Eosinophil pct 0.3 % [facility] Comment: Interpretive Data Percent cell count reference ranges are not reported, since discordance with absolute values may lead to misinterpretation of CBC data. Current Interpretive Data was last revised on 2017. Basophil pct 0.3 % [facility] Comment: Interpretive Data Percent cell count reference ranges are not reported, since discordance with absolute values may lead to misinterpretation of CBC data. Current Interpretive Data was last revised on 2017. Blood 08/25/2024 4:11 AM CDT 08/25/2024 5:26 AM CDT us Daly Villela MD LAB BLOOD ORDERABLES F inal Result [facility] [address] [place] [address] * (ABNORMAL) CBC with auto differential (08/25/2024 4:11 AM CDT) WBC 6.05 3.80 - 9.90 K/cumm Hgb 12.0(L) 13.0 - 17.5 g/dL [facility] Hct 35.0(L) 38.9 - 50.3 % [facility] Plt 299 150 - 400 K/cumm [facility] MPV 10.3 9.1 - 12.3 fL [facility] RBC 3.80(L) 4.30 - 5.80 M/cumm [facility] MCV 92.1 81.3 - 96.4 fL [facility] MCH 31.6 27.1 - 33.3 pg [facility] MCHC 34.3 32.3 - 35.7 g/dL [facility] RDW CV 12.2 11.1 - 14.9 % [facility] RDW SD 41.1 35.7 - 48.1 fL [facility] NRBC abs 0.00 0.00 - 0.01 K/cumm [facility] Blood 08/25/2024 4:11 AM CDT 08/25/2024 5:26 AM CDT Daly Villela MD LAB BLOOD ORDERABLES F inal Result Performing Organization Address City/[facility] Co de Phone Number [place] [address] [address] [facility] [place] [address] * Phosphorus (08/25/2024 4:11 AM CDT) Pathologist [facility] Phosphorus, pl 3.0 2.3 - 4.5 mg/dL Blood 08/25/2024 4:11 AM CDT 08/25/2024 5:24 AM CDT Daly Villela MD LAB BLOOD ORDERABLES F inal Result Performing Organization Address [facility] de Phone Number [place] [address] [address] [facility] [place] [address] * Magnesium (08/25/2024 4:11 AM CDT) Pathologist [facility] Magnesium 1.7 1.4 - 2.5 mg/dL Blood 08/25/2024 4:11 AM CDT 08/25/2024 5:24 AM CDT Daly Villela MD LAB BLOOD ORDERABLES F inal Result Performing Organization Address [facility] Co de Phone Number [place] [address] [address] [facility] [place] [address] * (ABNORMAL) Comprehensive metabolic panel (08/25/2024 4:11 AM CDT) Sodium 137 135 - 145 mmol/L Potassium, pl 2.7(C) 3.3 - 4.9 mmol/L [facility] Comment:Critical Result call ed to and read back by rosey vazquez, DATE: 2024-08-25 06:27:08 BY: petty cerentano Chloride 93(L) 97 - 110 mmol/L [facility] CO2 29 22 - 32 mmol/L [facility] [...] MD LAB BLOOD ORDERABLES F inal Result [facility] [address] [place] [address] * eGFR (08/24/2024 5:12 AM CDT) eGFR [...] MD LAB BLOOD ORDERABLES F inal Result [facility] [address] [place] [address] * (ABNORMAL) Differential, auto (08/24/2024 5:12 AM CDT) Neutrophil abs 3.00 1.50 - 6.50 K/cumm Imm gran abs 0.02 0.00 - 0.10 K/cumm [facility] Lymphocyte abs 0.61(L) 0.80 - 3.30 K/cumm [facility] Monocyte abs 0.76 0.20 - 0.80 K/cumm [facility] Eosinophil abs 0.04 0.00 - 0.50 K/cumm [facility] Basophil abs 0.02 0.00 - 0.10 K/cumm [facility] Neutrophil pct 67.5 % [facility] Comment: Interpretive Data Percent cell count reference ranges are not reported, since discordance with absolute values may lead to misinterpretation of CBC data. Current Interpretive Data was last revised on 2017. Imm gran pct 0.4 % [facility] Comment: Interpretive Data Percent cell count reference ranges are not reported, since discordance with absolute values may lead to misinterpretation of CBC data. Current Interpretive Data was last revised on 2017. Lymphocyte pct 13.7 % [facility] Comment: Interpretive Data Percent cell count reference ranges are not reported, since discordance with absolute values may lead to misinterpretation of CBC data. Current Interpretive Data was last revised on 2017. Monocyte pct 17.1 % [facility] Comment: Interpretive Data Percent cell count reference ranges are not reported, since discordance with absolute values may lead to misinterpretation of CBC data. Current Interpretive Data was last revised on 2017. Eosinophil pct 0.9 % [facility] Comment: Interpretive Data Percent cell count reference ranges are not reported, since discordance with absolute values may lead to misinterpretation of CBC data. Current Interpretive Data was last revised on 2017. Basophil pct 0.4 % [facility] Comment: Interpretive Data Percent cell count reference ranges are not reported, since discordance with absolute values may lead to misinterpretation of CBC data. Current Interpretive Data was last revised on 2017. Blood 08/24/2024 5:12 AM CDT 08/24/2024 5:50 AM CDT us Daly Villela MD LAB BLOOD ORDERABLES F inal Result [facility] [address] [place] [address] * (ABNORMAL) CBC with auto differential (08/24/2024 5:12 AM CDT) WBC 4.45 3.80 - 9.90 K/cumm Hgb 11.3(L) 13.0 - 17.5 g/dL [facility] Hct 33.7(L) 38.9 - 50.3 % [facility] Plt 291 150 - 400 K/cumm [facility] MPV 10.3 9.1 - 12.3 fL [facility] RBC 3.58(L) 4.30 - 5.80 M/cumm [facility] MCV 94.1 81.3 - 96.4 fL [facility] MCH 31.6 27.1 - 33.3 pg [facility] MCHC 33.5 32.3 - 35.7 g/dL [facility] RDW CV 12.0 11.1 - 14.9 % [facility] RDW SD 41.8 35.7 - 48.1 fL [facility] NRBC abs 0.00 0.00 - 0.01 K/cumm [facility] Blood 08/24/2024 5:12 AM CDT 08/24/2024 5:50 AM CDT us Daly Villela MD LAB BLOOD [place] [address] [address] [place] [address] * (ABNORMAL) Comprehensive metabolic panel (08/24/2024 5:12 [...] CH AST 16 10 - 50 Units/L [facility] Blood 08/24/2024 5:12 AM CDT 08/24/2024 5:47 AM CDT Daly Villela MD LAB BLOOD ORDERABLES F inal Result Performing Organization Address [facility]/ZIP Co de Phone Number [place]AY [place] [address] [address] [place] [address] * eGFR (08/23/2024 3:55 AM CDT) eGFR [...] ORDERABLES Final Re sult Performing Organization Address City/[facility]/ZIP Co de Phone Number LAY [place]IGIL [address] [address] Department of [employer] [place], [place] [id number] * Phosphorus (08/23/2024 3:55 AM CDT) Phosphorus, pl 2.9 2.3 - 4.5 mg/dL Blood 08/23/2024 3:55 AM CDT 08/23/2024 5:35 AM CDT Wisam Huerta MD LAB BLOOD ORDERABLES Final Re sult Performing Organization Address City/[facility]/ZIP Co de Phone Number [place] [address] [place] [address] * Magnesium (08/23/2024 3:55 AM CDT) Magnesium 1.8 1.4 - 2.5 mg/dL Blood 08/23/2024 3:55 AM CDT 08/23/2024 5:35 AM CDT Wisam Huerta MD LAB BLOOD ORDERABLES Final Re sult Performing Organization Address [facility] de Phone Number [place]AY [place] [address] [address] [place] [address] * (ABNORMAL) Basic metabolic panel (08/23/2024 3:55 AM CDT) Sodium 138 135 - 145 mmol/L Potassium, pl 3.4 3.3 - 4.9 mmol/L [facility] Chloride 97 97 - 110 mmol/L [facility] CO2 24 22 - 32 mmol/L [facility] Anion gap 17(H) 2 - 15 mmol/L [facility] BUN 11 6 - 25 mg/dL [facility] Creatinine 0.55(L) 0.80 - 1.30 mg/dL [facility] Glucose 86 70 - 199 mg/dL [facility] Comment: Interpretive Data Fasting glucose [...] ORDERABLES Final Re sult Performing Organization Address [facility] Co de Phone Number LAY [address] [address] [place] [address] * (ABNORMAL) Urinalysis reflex to microscopic and [...] tendency for uric acid stone formation. Source: [facility] [employer] Current Interpretive Data was last revised on [...] MICROBIOLOGY - GEN ERAL ORDERABLES Final Result Performing Organization Address [facility]/ZIP Co de Phone Number LAY [address] [address] [place] [address] * XR ABD AP WATER SOLUBLE INJ [...] Puneet CORNELL LAB BLOOD ORDERABLES Final Result [facility] [address] [place] [address] * (ABNORMAL) Differential, auto (08/22/2024 8:09 PM CDT) Neutrophil abs 5.80 1.50 - 6.50 K/cumm Imm gran abs 0.02 0.00 - 0.10 K/cumm [facility] Lymphocyte abs 0.59(L) 0.80 - 3.30 K/cumm [facility] Monocyte abs 0.81(H) 0.20 - 0.80 K/cumm [facility] Eosinophil abs 0.01 0.00 - 0.50 K/cumm [facility] Basophil abs 0.02 0.00 - 0.10 K/cumm [facility] Neutrophil pct 80.0 % [facility] Comment: Interpretive Data Percent cell [...] revised on 2017. Lymphocyte pct 8.1 % [facility] Comment: Interpretive Data Percent cell count reference ranges are not reported, since discordance with absolute values may lead to misinterpretation of CBC data. Current Interpretive Data was last revised on 2017. Monocyte pct 11.2 % [facility] Comment: Interpretive Data Percent cell count reference ranges are not reported, since discordance with absolute values may lead to misinterpretation of CBC data. Current Interpretive Data was last revised on 2017. Eosinophil pct 0.1 % [facility] Comment: Interpretive Data Percent cell count reference ranges are not reported, since discordance with absolute values may lead to misinterpretation of CBC data. Current Interpretive Data was last revised on 2017. Basophil pct 0.3 % [facility] Comment: Interpretive Data Percent cell count reference ranges are not reported, since discordance with absolute values may lead to misinterpretation of CBC data. Current Interpretive Data was last revised on 2017. Blood 08/22/2024 8:09 PM CDT 08/22/2024 8:11 PM CDT Puneet CORNELL LAB BLOOD ORDERABLES Final Result [facility] [address] Department of Laboratories [place], [place] [id number] * (ABNORMAL) CBC with auto differential (08/22/2024 8:09 PM CDT) WBC 7.25 3.80 - 9.90 K/cumm Hgb 13.3 13.0 - 17.5 g/dL [facility] Hct 39.0 38.9 - 50.3 % [facility] Plt 321 150 - 400 K/cumm [facility] MPV 10.2 9.1 - 12.3 fL [facility] RBC 4.20(L) 4.30 - 5.80 M/cumm [facility] MCV 92.9 81.3 - 96.4 fL [facility] MCH 31.7 27.1 - 33.3 pg [facility] MCHC 34.1 32.3 - 35.7 g/dL [facility] RDW CV 12.0 11.1 - 14.9 % [facility] RDW SD 41.1 35.7 - 48.1 fL [facility] NRBC abs 0.00 0.00 - 0.01 K/cumm [facility] Blood Venous blood specimen / Unknown 08/22/2024 8:09 PM CDT 08/22/2024 8:11 PM CDT Puneet CORNELL LAB BLOOD ORDERABLES Final Result Performing Organization Address [facility] de Phone Number LAY [address] [address] [facility] [place] [address] * Phosphorus (08/22/2024 8:09 PM CDT) Phosphorus, pl 3.0 2.3 - 4.5 mg/dL Blood 08/22/2024 8:09 PM CDT 08/22/2024 8:11 PM CDT Puneet CORNELL LAB BLOOD ORDERABLES Final Result Performing Organization Address [facility] de Phone Number [place] [address] [address] [place] [address] * Magnesium (08/22/2024 8:09 PM CDT) Magnesium 1.9 1.4 - 2.5 mg/dL Blood 08/22/2024 8:09 PM CDT 08/22/2024 8:11 PM CDT Puneet CORNELL LAB BLOOD ORDERABLES Final Result Performing Organization Address [facility] de Phone Number LAY [address] [address] [facility] [place] [address] * Lipase (08/22/2024 8:09 PM CDT) Lipase 14 10 - 99 Units/L Blood 08/22/2024 8:09 PM CDT 08/22/2024 8:11 PM CDT Puneet CORNELL LAB BLOOD ORDERABLES Final Result Performing Organization Address [facility]/State/ZIP Co de Phone Number LAY [place] [address] Department of Laboratories [place], [place] [phone] * (ABNORMAL) Comprehensive metabolic panel (08/22/2024 8:09 [...] LAB BLOOD ORDERABLES Final Result [facility] [place] [address] [address] [place] [address] * CT Chest W Contrast [...] by: Sixto Torres M.D. Pro Gama MD [facility] CT PROCEDURES Final Res ult * CT [...] by: Jase Mcgee M.D. Shahbaz Earl MD [facility] CT PROCEDURES Final Result * eGFR (08/10/2024 [...] CORNELL LAB BLOOD ORDERA BLES Final Result [facility] [address] [place] [address] * (ABNORMAL) Differential, auto (08/10/2024 5:58 PM CDT) Neutrophil abs 4.49 1.50 - 6.50 K/cumm Imm gran abs 0.02 0.00 - 0.10 K/cumm [facility] Lymphocyte abs 0.79(L) 0.80 - 3.30 K/cumm [facility] Monocyte abs 0.71 0.20 - 0.80 K/cumm [facility] Eosinophil abs 0.01 0.00 - 0.50 K/cumm [facility] Basophil abs 0.02 0.00 - 0.10 K/cumm [facility] Neutrophil pct 74.3 % [facility] Comment: Interpretive Data Percent cell count reference ranges are not reported, since discordance with absolute values may lead to misinterpretation of CBC data. Current Interpretive Data was last revised on 2017. Imm gran pct 0.3 % [facility] Comment: Interpretive Data Percent cell count reference ranges are not reported, since discordance with absolute values may lead to misinterpretation of CBC data. Current Interpretive Data was last revised on 2017. Lymphocyte pct 13.1 % [facility] Comment: Interpretive Data Percent cell count reference ranges are not reported, since discordance with absolute values may lead to misinterpretation of CBC data. Current Interpretive Data was last revised on 2017. Monocyte pct 11.8 % [facility] Comment: Interpretive Data Percent cell count reference ranges are not reported, since discordance with absolute values may lead to misinterpretation of CBC data. Current Interpretive Data was last revised on 2017. Eosinophil pct 0.2 % [facility] Comment: Interpretive Data Percent cell count reference ranges are not reported, since discordance with absolute values may lead to misinterpretation of CBC data. Current Interpretive Data was last revised on 2017. Basophil pct 0.3 % [facility] Comment: Interpretive Data Percent cell count reference ranges are not reported, since discordance with absolute values may lead to misinterpretation of CBC data. Current Interpretive Data was last revised on 2017. Blood 08/10/2024 5:58 PM CDT 08/10/2024 6:04 PM CDT Cm CORNELL LAB BLOOD ORDERA BLES Final Result [facility] [address] [place] [address] * (ABNORMAL) CBC with auto differential (08/10/2024 5:58 PM CDT) WBC 6.04 3.80 - 9.90 K/cumm Hgb 13.8 13.0 - 17.5 g/dL [facility] Hct 41.6 38.9 - 50.3 % [facility] Plt 332 150 - 400 K/cumm [facility] MPV 9.8 9.1 - 12.3 fL [facility] RBC 4.31 4.30 - 5.80 M/cumm [facility] MCV 96.5(H) 81.3 - 96.4 fL [facility] MCH 32.0 27.1 - 33.3 pg [facility] MCHC 33.2 32.3 - 35.7 g/dL [facility] RDW CV 11.9 11.1 - 14.9 % [facility] RDW SD 42.6 35.7 - 48.1 fL [facility] NRBC abs 0.00 0.00 - 0.01 K/cumm [facility] Blood Venous blood specimen / Unknown 08/10/2024 5:58 PM CDT 08/10/2024 6:04 PM CDT us Shahbaz Earl MD LAB BLOOD ORDERABLES Fin al Result [facility] [address] [address] [place] [address] * (ABNORMAL) Comprehensive metabolic panel (08/10/2024 5:58 [...] 5:58 PM CDT 08/10/2024 6:04 PM CDT Result [facility] Shahbaz Earl MD LAB BLOOD ORDERABLES Fin al Result Performing Organization Address [facility] Co de Phone Number LAY [place]IG[place] [address] [address] [place] [address] * ECG 12 lead (08/10/2024 5:22 PM CDT) 08/10/2024 5:22 PM CDT Narrative [facility] - 08/12/2024 9:25 PM CDT Vent Rate: 116 bpm RR Interval: 514 msec MN Interval: 186 msec QRS Duration: 89 msec QT Interval: 324 msec QTC Interval: 393 msec P-R-T Entriken: 78 - 63 - 54 degrees IMPRESSION: SINUS TACHYCARDIA WITH OCCASIONAL SUPRAVENTRICULAR PREMATURE COMPLEXES Electronically Signed By: Bill Terrazas MD, [facility] Result [facility] Shahbaz Earl MD ECG ORDERABLES Final Re sult Performing Organization Address [facility] Phone Number [facility] * IR Change G Tube (07/23/2024 10:22 [...] skin and subcutaneous tissues were dilated to 22-Niuean. Over the guidewire, a new 18-Niuean gastrostomy tube was advanced into the stomach. [...] skin and subcutaneous tissues were dilated to 22-Niuean. Over the guidewire, a new 18-Niuean gastrostomy tube was advanced into the stomach. [...] by: Jase Mcgee M.D. Sushil Merritt MD IM IR PROCEDURES Cathie l Result * eGFR [...] MD LAB BLOOD ORDERABLES F inal Result [facility] [address] [address] [place] [address] * (ABNORMAL) Differential, auto (07/23/2024 3:47 AM CDT) Neutrophil abs 1.97 1.50 - 6.50 K/cumm Imm gran abs 0.01 0.00 - 0.10 K/cumm [facility] Lymphocyte abs 0.66(L) 0.80 - 3.30 K/cumm [facility] Monocyte abs 0.64 0.20 - 0.80 K/cumm [facility] Eosinophil abs 0.09 0.00 - 0.50 K/cumm [facility] Basophil abs 0.02 0.00 - 0.10 K/cumm [facility] Neutrophil pct 58.0 % [facility] Comment: Interpretive Data Percent cell [...] revised on 2017. Lymphocyte pct 19.5 % [facility] Comment: Interpretive Data Percent cell count reference ranges are not reported, since discordance with absolute values may lead to misinterpretation of CBC data. Current Interpretive Data was last revised on 2017. Monocyte pct 18.9 % [facility] Comment: Interpretive Data Percent cell count reference ranges are not reported, since discordance with absolute values may lead to misinterpretation of CBC data. Current Interpretive Data was last revised on 2017. Eosinophil pct 2.7 % [facility] Comment: Interpretive Data Percent cell count reference ranges are not reported, since discordance with absolute values may lead to misinterpretation of CBC data. Current Interpretive Data was last revised on 2017. Basophil pct 0.6 % [facility] Comment: Interpretive Data Percent cell count reference ranges are not reported, since discordance with absolute values may lead to misinterpretation of CBC data. Current Interpretive Data was last revised on 2017. Blood 07/23/2024 3:47 AM CDT 07/23/2024 5:13 AM CDT Sushil Merritt MD LAB BLOOD ORDERABLES F inal Result [facility] [address] [place] [address] * (ABNORMAL) CBC with auto differential (07/23/2024 3:47 AM CDT) WBC 3.39(L) 3.80 - 9.90 K/cumm Hgb 10.7(L) 13.0 - 17.5 g/dL [facility] Hct 34.0(L) 38.9 - 50.3 % [facility] Plt 294 150 - 400 K/cumm [facility] MPV 10.7 9.1 - 12.3 fL [facility] RBC 3.29(L) 4.30 - 5.80 M/cumm [facility] MCV 103.3(H) 81.3 - 96.4 fL [facility] MCH 32.5 27.1 - 33.3 pg [facility] MCHC 31.5(L) 32.3 - 35.7 g/dL [facility] RDW CV 12.9 11.1 - 14.9 % [facility] RDW SD 49.0(H) 35.7 - 48.1 fL [facility] NRBC abs 0.00 0.00 - 0.01 K/cumm [facility] Blood 07/23/2024 3:47 AM CDT 07/23/2024 5:13 AM CDT Sushil Merritt MD LAB BLOOD ORDERABLES F inal Result Performing Organization Address City/[facility] Co de Phone Number [facility] [address] [place] [address] * (ABNORMAL) Protime-INR (07/23/2024 3:47 AM CDT) PT 13.3(H) 9.7 - 13.0 sec INR 1.23(H) 0.90 - 1.20 [facility] Comment: Interpretive data Oral anticoagulant [...] ORDERABLES F inal Result Performing Organization Address City/[facility] Co de Phone Number [facility] [address] [place] [address] * (ABNORMAL) Basic metabolic panel (07/23/2024 3:47 AM CDT) Sodium 138 135 - 145 mmol/L Potassium, pl 4.1 3.3 - 4.9 mmol/L [facility] Chloride 102 97 - 110 mmol/L [facility] CO2 28 22 - 32 mmol/L [facility] Anion gap 8 2 - 15 mmol/L [facility] BUN 18 6 - 25 mg/dL [facility] Creatinine 0.76(L) 0.80 - 1.30 mg/dL [facility] Glucose 93 70 - 199 mg/dL [facility] Comment: Interpretive Data Fasting glucose [...] 2022. Calcium 9.5 8.5 - 10.3 mg/dL [facility] Blood 07/23/2024 3:47 AM CDT 07/23/2024 5:13 AM CDT Sushil Merritt MD LAB BLOOD ORDERABLES F inal Result Performing Organization Address [facility] de Phone Number [facility] [address] [place] [address] * Check Sample (07/22/2024 4:14 AM CDT) ABO Rh A Positive HCLL OTHER 07/22/2024 4:14 AM CDT 07/22/2024 4:48 AM CDT Sushil Merritt MD LAB BLOOD ORDERABLES F inal Result Performing Organization Address [facility] de Phone Number [facility] [address] [address] [place] [address] CH * [place] PERQ REPLACEMENT GTUBE NOT REQ REVJ GSTRST [...] BLOOD BANK TEST ORDERA BLES Final Result [facility] [address] Department of Laboratories [place] [phone] * eGFR (07/21/2024 11:50 PM CDT) eGFR [...] Dumont MD LAB BLOOD ORDERABLES Final Result [facility] [address] [place] [address] * (ABNORMAL) Differential, auto (07/21/2024 11:50 PM CDT) Neutrophil abs 4.43 1.50 - 6.50 K/cumm Imm gran abs 0.03 0.00 - 0.10 K/cumm [facility] Lymphocyte abs 0.53(L) 0.80 - 3.30 K/cumm [facility] Monocyte abs 0.67 0.20 - 0.80 K/cumm [facility] Eosinophil abs 0.02 0.00 - 0.50 K/cumm [facility] Basophil abs 0.03 0.00 - 0.10 K/cumm [facility] Neutrophil pct 77.6 % [facility] Comment: Interpretive Data Percent cell count reference ranges are not reported, since discordance with absolute values may lead to misinterpretation of CBC data. Current Interpretive Data was last revised on 2017. Imm gran pct 0.5 % [facility] Comment: Interpretive Data Percent cell count reference ranges are not reported, since discordance with absolute values may lead to misinterpretation of CBC data. Current Interpretive Data was last revised on 2017. Lymphocyte pct 9.3 % [facility] Comment: Interpretive Data Percent cell count reference ranges are not reported, since discordance with absolute values may lead to misinterpretation of CBC data. Current Interpretive Data was last revised on 2017. Monocyte pct 11.7 % [facility] Comment: Interpretive Data Percent cell count reference ranges are not reported, since discordance with absolute values may lead to misinterpretation of CBC data. Current Interpretive Data was last revised on 2017. Eosinophil pct 0.4 % [facility] Comment: Interpretive Data Percent cell count reference ranges are not reported, since discordance with absolute values may lead to misinterpretation of CBC data. Current Interpretive Data was last revised on 2017. Basophil pct 0.5 % [facility] Comment: Interpretive Data Percent cell count reference ranges are not reported, since discordance with absolute values may lead to misinterpretation of CBC data. Current Interpretive Data was last revised on 2017. Blood 07/21/2024 11:5 0 PM CDT 07/21/2024 11:53 PM CDT Eber Dumont MD LAB BLOOD ORDERABLES Final Result [facility] [address] [place] [address] * (ABNORMAL) CBC with auto differential (07/21/2024 11:50 PM CDT) WBC 5.71 3.80 - 9.90 K/cumm Hgb 11.9(L) 13.0 - 17.5 g/dL [facility] Hct 35.8(L) 38.9 - 50.3 % [facility] Plt 309 150 - 400 K/cumm [facility] MPV 9.6 9.1 - 12.3 fL [facility] RBC 3.57(L) 4.30 - 5.80 M/cumm [facility] MCV 100.3(H) 81.3 - 96.4 fL [facility] MCH 33.3 27.1 - 33.3 pg [facility] MCHC 33.2 32.3 - 35.7 g/dL [facility] RDW CV 12.6 11.1 - 14.9 % [facility] RDW SD 46.8 35.7 - 48.1 fL [facility] NRBC abs 0.00 0.00 - 0.01 K/cumm [facility] Blood Venous blood specimen / Unknown 07/21/2024 11:50 PM CDT 07/21/2024 11:53 PM CDT Eber Dumont MD LAB BLOOD ORDERABLES Final Result Performing Organization Address [facility] de Phone Number [facility] [address] [place] [address] * Protime-INR (07/21/2024 11:50 PM CDT) PT 12.1 9.7 - 13.0 sec INR 1.12 0.90 - 1.20 [facility] Comment: Interpretive data Oral anticoagulant [...] BLOOD ORDERABLES Final Result Performing Organization Address [facility] de Phone Number [facility] [place] [address] [place] [address] * (ABNORMAL) Basic metabolic panel (07/21/2024 11:50 PM CDT) Pathologist [facility] Sodium 136 135 - 145 mmol/L Potassium, pl 4.3 3.3 - 4.9 mmol/L [facility] Chloride 97 97 - 110 mmol/L [facility] CO2 31 22 - 32 mmol/L [facility] Anion gap 8 2 - 15 mmol/L [facility] BUN 18 6 - 25 mg/dL [facility] Creatinine 0.63(L) 0.80 - 1.30 mg/dL [facility] Glucose 117 70 - 199 mg/dL [facility] Comment: Interpretive Data Fasting glucose [...] 2022. Calcium 9.7 8.5 - 10.3 mg/dL [facility] Blood 07/21/2024 11:5 0 PM CDT 07/21/2024 11:53 PM CDT us Eber Dumont MD LAB BLOOD ORDERABLES Final Result [facility] [address] Department of Laboratories [place], [place] [phone] from Last 3 Months Insurance [place] For more information, please contact: [phone] * Full Code (Latest Code Status on [...] 1:09 PM 05/18/2024 7:51 PM Care Teams Samples And Repairs Preparer Relationship Specialty [place] [address] [place] [address] [id number] [place] [address] PCP - General Internal Medicine 06/12/24 Michelle Handy, RN Nurse Navigator 02/09/24 Noemí Pitts LCSW [employer] 02/10/24 Pro Gama MD [address] [facility] [address] [place] [address] Medical Oncologist/Document Preparer Microfilming Medical Oncology 02/13/24 Francis Tuttle MD [address] [facility] [address] [place] [address] Consulting Physician Radiation Oncology 02/13/24 Wilma Groves MD [facility] DEPT OTOLARYNGOLOGY, [address] [place] [address] [id number] Surgeon Otolaryngology 02/13/24
--- OUTSIDE RECORDS SUMMARY | 2024-10-04 10:34 | XMS_ITS | Patient Health Record ---
Author Organization [facility] Address [address] [place] [address] Care Team Providers Care Information Systems Auditor Name Role Phone [facility] Unavailable [phone] Reason For Referral No Information Plan Of Treatment No Information Insurance Providers Payer Name Payer Address Payer Phone Subscriber Number Group Number Insured Name Patient Relationship to Insured Coverage Start Date [facility]age End Date [facility] [address] [place] [id number] Jesus Dudley Self - patient is the insured
[2024-10-04 10:37] LABS: Magnesium 2.1 mg/dL (1.6-2.3)
[2024-10-04 10:41] LABS: NT Pro B Type Natriuretic Pept 790 pg/mL (19.9-100); Troponin I < 0.012 ng/mL (0.000-0.034)
[2024-10-04 10:54] LABS: Influenza A QL RT-PCR Negative (Negative); Influenza B QL RT-PCR Negative (Negative); RSV RNA, RT-PCR Negative (Negative); SARS-CoV-2 RNA PCR Negative (Negative)
[2024-10-04] MEDS: SODIUM CHLORIDE 0.9% IV 200 ML 999 ML IV CONT (11:04)
[2024-10-04 11:14] LABS: Add Urine Microscopic? NO; Appearance Urine Clear (Clear); Glucose Urine UA Negative (Negative); Leukocyte Esterase Ur Negative LEU/UL (Negative); Nitrate Urine Negative (Negative); Specific Grav Ur 1.039 (1.001-1.035)
[2024-10-04] MEDS: AZITHROMYCIN 500 MG/NS 250 ML 500 MG/250 ML BAG 250 MG IVPB (12:17)
--- NOTE | 2024-10-04 12:43 | PM.IMHP ---
H&P: HPI History of Present Illness Date/Time: 10/04/24 12:43 Chief Complaint: Shortness of breath Narrative: 64-year-old male past medical history of throat cancer status post treatment, G tube and hypertension presents the hospital with shortness of breath. patient states that he has had resection radiation and chemotherapy. His throat is raw from the treatments. He has completed his treatments. He is NPO with PEG tube so His through can heal. patient denies aspiration or vomiting. Patient states that he has progressively gotten short of breath over the last few days. When the EMS arrived he was 85% on room air. His placed on non-rebreather. Patient denies cough fevers nausea or vomiting. Lab work in the ED shows leukocytosis at 15.9, hemoglobin 11.8, and she approached 7.49, pCO2 43-100 maroon PO2 69.4, bicarb 32, BUN of 30, creatinine of 0.58, lactic acid of 2.1, proBNP was 790, troponin negative, UA negative for infection, influenza A/B, RSV, COVID negative. Chest x-ray shows Opacities in the bilateral lower lungs with appearance on prior CT most consistent with multifocal pneumonia. Chest CTA shows no PE, Diffuse multifocal pneumonia throughout both lungs most prominent in the left lower lobe. Blood cultures pending, EKG shows sinus tachycardia 127. Patient was given sepsis bolus and started on azithromycin and Rocephin. Review of Systems Review of Systems: 12 systems were reviewed and are negative except for as per HPI. [facility] Past Medical History Medical History Gastrojejunal tube present Throat cancer Hypertension Family History Family History Father Family history of gallbladder disease Family history of Alzheimer's disease Sibling Family history of gallbladder disease Mother Family history of heart disease in male family member before age 55 Social History Social History Smoking status: Never smoker Alcohol intake: former Substance use: never Do You Feel Safe in your Home?: Yes Lack of Transportation: No Lack of Food: Never True Current Housing: I Have Housing Concerned About Future Housing: No Difficulty Paying Gas/Electric Bills: No Difficulty Paying for Meds: No Currently Unemployed: No Education: High School Diploma/GED Difficulty w/ Childcare or Family Care: No Spiritual care concerns: No Meds Home Medications and Allergies Home Medications ?Medication ?Instructions ?Recorded ?Confirmed ?Type amlodipine 5 mg tablet 5 mg feeding tube DAILY 10/04/24 10/04/24 History hydrocodone 7.5 mg-acetaminophen 1 tablet feeding tube .q4hr PRN 10/04/24 10/04/24 History 325 mg tablet pain scopolamine base 1 mg over 3 days 1 patch transdermal PRN PRN motion 10/04/24 10/04/24 History transdermal patch sickness Allergies Allergy/AdvReac Type Severity Reaction Status Date / Time Penicillins Allergy Intermediate Rash Verified 10/04/24 09:50 Vital Signs Vital Signs - 24 hr 10/04/24 09:39 10/04/24 09:49 10/04/24 09:55 Temperature 98.6 F Pulse Rate 135 H 134 H Respiratory Rate 24 H 19 Blood Pressure 131/85 131/85 Pulse Oximetry 94 95 95 Oxygen Delivery Nasal Cannula Nasal Cannula Oxygen Flow Rate 6 6 10/04/24 10:05 10/04/24 10:05 10/04/24 10:16 Temperature Pulse Rate 133 H 120 H Respiratory Rate 20 Blood Pressure 91/68 L Pulse Oximetry 93 93 Oxygen Delivery Nasal Cannula Oxygen Flow Rate 6 10/04/24 10:24 10/04/24 10:30 10/04/24 11:04 Temperature Pulse Rate 116 H 116 H 121 H Respiratory Rate 18 19 23 H Blood Pressure 107/79 111/83 131/80 Pulse Oximetry 95 94 97 Oxygen Delivery Oxygen Flow Rate 10/04/24 11:21 10/04/24 11:30 10/04/24 11:43 Temperature Pulse Rate 118 H 116 H Respiratory Rate 23 H 17 Blood Pressure 146/89 H 133/87 Pulse Oximetry 100 100 98 Oxygen Delivery Nasal Cannula Oxygen Flow Rate 5 10/04/24 12:21 Temperature Pulse Rate Respiratory Rate Blood Pressure Pulse Oximetry 98 Oxygen Delivery Nasal Cannula Oxygen Flow Rate 4 Exam Narrative: General: well appearing, appears stated age. HEENT: normocephalic, atraumatic. Mucous membranes moist. EOMI, PERRLA, bilateral sclera anicteric, no conjunctival injection. Neck supple without JVD, lymphadenopathy, or bruit. Respiratory: clear to ascultation bilaterally. No rales/rhonic/wheezes. Cardiovascular: Regular rate and rhythm, normal S1-S2 upon ascultation. No murmurs, rubs, or clicks. PMI is nondisplaced, capillary refill less than 3 second. Abdomen: Soft, round, no pulsatile masses, nondistended and nontender. No rebound, no guarding. No CVA tenderness, no hepatosplenomegaly. Bowel sounds present to all four quadrants. No high pitch or tinkling sounds, resonant to percussion. G-tube Extremities: No cyanosis, clubbing, or edema present. Pulses are palpable 2/2. Active ROM to all four extremities. Neuro: Alert and orientated x 4. PERRLA. Cranial nerves 2-12 intact without focal deficit. Skin: Warm, dry, and intact, without rash, erythema, or lesion. Psych: pleasant, cooperative, normal speech, normal affect, no hallucinations, no dysarthia H&P: Results Labs Labs: Short CBC 10/04/24 Range/Units 10:09 WBC 15.9 H (4.5-10.0) K/mm3 Hgb 11.8 L (14.0-18.0) g/dL Hct 36.5 L (42.0-52.0) % Plt Count 381 H (150-375) k/mm3 BMP 10/04/24 10:09 Sodium 136 L Potassium 3.6 Chloride 95 L Carbon Dioxide 32 H BUN 30 H D Creatinine 0.58 L Glucose 134 H Calcium 9.8 Cardiac Enzymes 10/04/24 Range/Units 10:09 Troponin I < 0.012 (0.000-0.034) ng/mL Liver Function 10/04/24 Range/Units 10:09 Total Bilirubin 0.4 (0.2-1.3) mg/dL AST 32 (17-59) U/L ALT 23 (6-50) U/L Alkaline Phosphatase 72 (38-126) U/L Albumin 4.0 (3.5-5.1) g/dL Urine 10/04/24 Range/Units 11:08 Urine Color Yellow (Yellow) Urine Appearance Clear (Clear) Urine pH 8.0 (5.0-9.0) Ur Specific [place] 1.039 H (1.001-1.035) Urine Protein Negative (Negative) mg/dL Urine Glucose (UA) Negative (Negative) mg/dL Assessment and Plan Assessment and plan (1) Multifocal pneumonia: Code(s): J18.8 - Other pneumonia, unspecified organism Status: Acute Assessment and Plan: IV Rocephin and azithromycin Cough medicine (2) Acute hypoxic respiratory failure: Code(s): J96.01 - Acute respiratory failure with hypoxia Status: Acute Assessment and Plan: Secondary to above (3) Sepsis: Code(s): A41.9 - Sepsis, unspecified organism Status: Acute Assessment and Plan: Secondary to above Sepsis bolus given in the ED Antibiotic started Repeat lactic acid (4) Hypertension: Code(s): I10 - Essential (primary) hypertension Status: Acute (5) Anemia: Code(s): D64.9 - Anemia, unspecified Status: Acute Assessment and Plan: Anemia workup Quality VTE Prophylaxis VTE prophylaxis: mechanical ordered Hospitalist MIPS Advance Care Plan I have confirmed that the patient's Advanced Care Plan is present, code status is documented, or surrogate decision maker is listed in patient medical record.: Yes Medication Reconciliation I have utilized all available resources to obtain, update and review the patients current medications (includes all prescriptions, OTC, herbals, cannabis, and nutritional supplements).: Yes
--- NOTE | 2024-10-04 17:10 | ADMGEN ---
This patient, Jesus Dudley, was admitted to IMU Room 232-01 at 1405. Patient/family oriented to hospital policies and general routines including ID bracelet, bed and alarms, visiting hours, pain management, procedures, bathroom and other care routines, personal items, smoking policy, room service/diet, and visiting hours. Information on how to activate the Rapid Response Team has been discussed. Patient/Family are encouraged to report perceived risks to care and to ask questions if they do not understand what they are told or what they should do.
[2024-10-04] MEDS: SCOPOLAMINE 1 MG PATCH 1 PATCH TRANSDERM (18:12)
[2024-10-04] MEDS: Acetaminophen/HYDROcodone ELIXIR (*CRX) 7.5 MG/15 ML UDC 5 MG FEED TUBE ×2 (18:19→22:05)
[2024-10-05] VITALS (36 sets, daily range): BP systolic 121–177; BP diastolic 76–97; PULSE 67–135; RESP 18–32; TEMP 36.7–37.2; O2SAT 89–99; BMI 21.7
--- NOTE | 2024-10-05 00:25 | PC.NURSE ---
Spoke with Francheska Parra ANP per continued wheezing and pt c/o of SOB. Duonebs ordered q6 and albuterol q4 PRN.
[2024-10-05] MEDS: IPRATROPIUM 0.5 MG/ALBUTEROL SULFATE 2.5 MG AMPUL.NEB 3 ML INHALATION ×4 (00:47→20:33)
--- NOTE | 2024-10-05 02:25 | PC.NURSE ---
spoke with Francheska Parra about SOB and increase to 5L O2. Ok with CXR, PRN neb NOW, and 0.5mg ativan for anxiety.
[2024-10-05] MEDS: ALBUTEROL SULFATE NEB 2.5 MG/3 ML INH INHALATION (02:26)
[2024-10-05] MEDS: LORazepam INJ (*CRX) 2 MG/ML VIAL 0.5 MG IV PUSH (02:31)
--- NOTE | 2024-10-05 04:36 | P.PNCROSS_ITS ---
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 Patient's record was reviewed and it is noted that patient has throat cancer who is status post treatment with resection/chemo/radiation and he has current throat pain from that treatment and has a PEG tube for feeds. Patient was recently admitted to the hospital on October 04, 2024 after being diagnosed with pneumonia. 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 He continues to receive Rocephin and azithromycin for treatment of his pneumonia. Brief physical exam: General: Male patient appearing older than documented age lying supine in bed at this time. He appears anxious and having mild respiratory distress Cardiac: Regular rate and rhythm present. No murmur/rubs/gallop/heave. No displaced PMI or signs of peripheral edema. Respiratory: Lungs with diminished bases. Mild wheezing inspiratory present. No prolonged expiratory phase. No crackles. HEENT: Patient without crepitus in the neck. No obvious deviation of trachea. Dx: Dyspnea Plan: - Obtain CXR - Supplemental Oxygen increased from 3L to 5L. - DuoNeb ordered q.6 hours with initiation now followed by albuterol neb now - Ativan 0.5 mg IVP ordered x1 to help with pt's anxiety. Reassessment: Pt stated he had some improvement with the breathing treatments, however, he does still feel dyspneic. CXR as reviewed independently by this provider does not show any acute worsening as compared to the previous CXR on 10/04/24. Pt now tachycardic as he has received Duoneb and Albuterol. Decision made to attempt BiPap at low settings of 10/5 to provide pressure support for pt to improve the sensation that he is breathing. Pt initially not tolerable of the mask, but then decided to wear it. Jose Manuel discussion had at the bedside with pt regarding code status. Pt verbalizes that he did not want to be intubated, but that he wanted CPR and his life to be saved. It was explained to pt that in order to do that, we needed permission to have advanced airway if necessary, and he then changes his mind and states he wants to be a FULL CODE agreeable to intubation if needed. Pt resting quietly at this time. VS remain with tachycardia and mild tachypnea, but pt states the BiPap is helping.
[2024-10-05 04:50] LABS: Hematocrit 36.5 % (42.0-52.0); Hemoglobin 11.3 g/dL (14.0-18.0); Mean Corpuscular HGB Conc 31.0 g/dl (32-36); Mean Corpuscular Hemoglobin 31.5 pg (26-34); Mean Corpuscular Volume 101.7 fl (80-100); Platelet Count Result 332 k/mm3 (150-375); Red Blood Count 3.59 M/mm3 (4.6-6.20); White Blood Count 17.5 K/mm3 (4.5-10.0)
[2024-10-05 05:38] LABS: Thyroid Stimulating Hormone Reflex 0.583 uIU/mL (0.465-4.68)
[2024-10-05 05:45] LABS: Band Neutrophils Percent 6 % (0-6); Lymphocytes Absolute Manual 0.17 K/mm3 (1.1-4.5); Lymphocytes Percent Manual 1.0 % (18-44); Monocytes Absolute Manual 1.57 K/mm3 (0.1-0.90); Monocytes Percent Manual 9 % (3-9); Neutrophils Absolute Manual 15.75 K/mm3 (1.3-6.7); Neutrophils Percent Manual 84 % (46-73); Total Cells Counted 100
[2024-10-05 05:46] LABS: Anion Gap 8 mmol/L (4-12); Anisocytosis 1+; Blood Urea Nitrogen 17 mg/dL (9-20); Calcium 9.3 mg/dL (8.4-10.2); Carbon Dioxide 26 mmol/L (22-30); Chloride 99 mmol/L (98-107); Estimated CRCL calculation 130 ml/min; Estimated Glomerular Filt Rate > 60; Glucose 156 mg/dL (65-110); Potassium 4.0 mmol/L (3.4-5.0); Schistocytes None Seen; Sodium 133 mmol/L (137-145)
[2024-10-05 05:53] LABS: Iron 24 ug/dL (49-181)
[2024-10-05 06:02] LABS: Percent Iron Saturation 13 % (20-50)
[2024-10-05 06:25] LABS: Vitamin B12 679.0 pg/mL (239-931)
[2024-10-05 06:44] LABS: Ferritin 1130.00 ng/mL (11.1-264)
[2024-10-05] MEDS: ENOXAPARIN 40 MG/0.4 ML SYRINGE SUB-Q (09:05)
[2024-10-05] MEDS: MORPHINE SULFATE (*CRX) 2 MG/ML INJ IV PUSH ×4 (09:07→22:53)
[2024-10-05 10:25] LABS: MRSA (PCR) NOT DETECTED (NOT DETECTE)
[2024-10-05] MEDS: AZITHROMYCIN 500 MG/NS 250 ML 500 MG/250 ML BAG 250 MG IVPB (12:08)
--- NOTE | 2024-10-05 15:47 | PM.IMPN ---
Progress Note: A&P Assessment and Plan (1) Multifocal pneumonia: Code(s): J18.8 - Other pneumonia, unspecified organism Status: Acute Assessment and Plan: Patient presents with SOB. CT chest showing no PE but does show diffuse multifocal PNA t/o both lungs. Influenza, COVID and RSV PCR negaitve. MRSA nasal swab negative. Although he denies oral feedings, consider aspiration. IV Rocephin and azithromycin started. BCx NGTD WBC higher at 17.5K with 84% neutrophils Check urine Ag. Add guaifenesin. Continue abx. (2) Acute hypoxic respiratory failure: Code(s): J96.01 - Acute respiratory failure with hypoxia Status: Acute Assessment and Plan: Secondary to above. Feels better. Continue Duonebs. Pulmonary toilet. Wean O2 as tolatered (3) Sepsis: Qualifiers: Sepsis acute organ dysfunction status: unspecified Sepsis type: sepsis due to unspecified organism Qualified Code(s): A41.9 - Sepsis, unspecified organism Code(s): A41.9 - Sepsis, unspecified organism Status: Acute Assessment and Plan: Secondary to above. LA 2.1 -> 2 Appropriate fluid bolus given in the ED Continue antibiotic Follow up on cultures (4) Hypertension: Code(s): I10 - Essential (primary) hypertension Status: Acute Assessment and Plan: Patient's blood pressure was reviewed on 10/05 Blood pressure better controlled. Will continue to monitor (5) Anemia: Code(s): D64.9 - Anemia, unspecified Status: Acute Assessment and Plan: Mild anemia with Hgb 11 range Anemia workup showing ferritin 1180 but an acute phase reactant. B12, folate and TSH normal. Fe 24, TIBC 188 and ISat 13%. Check STR Plan Anxiety - patient has hx of anxiety and asking for Ativan. Will provide low dose prn. DVT Prophylaxis - Lovenox Code status - Full Subjective Date/time seen: 10/05/24 15:47 Interval history: 64yo male with hx of throat CA, dysphagia requiring GTube and HTN here for shortness of breath. Patient has shortness of breath is better. He is having some symptoms of anxiety. No chest pain or abdominal pain. He denies cough. He does not wear CPAP or home oxygen. He is 100% NPO. His only nutrition is through the G-tube. He states he has been compliant with this diet and has been taking nothing by mouth. Exam Narrative: Tm 100 99 128/76 102 18 96% ra Gen - NARD Chest - distant BS CV - RRR S1/S2. Telemetry showing sinus tachycardia Abd - Soft, NT/ND, Positive BS. G-tube site clean, dry and intact. Ext - No pedal edema Neuro - Alert and appropriate. Whispering voice. Psych - Nml mood and affect Skin - Warm and dry Objective Data Vital Signs Vital Signs: Vital Signs - 24 hr 10/04/24 16:00 10/04/24 16:00 10/04/24 16:00 Temperature 99.8 F H Pulse Rate 107 H 100 Respiratory Rate 26 H Blood Pressure 141/84 H Pulse Oximetry 96 97 Oxygen Delivery Nasal Cannula Oxygen Flow Rate 3 Fraction of Inspired Oxygen 10/04/24 18:00 10/04/24 20:00 10/04/24 20:00 Temperature 98.6 F Pulse Rate 104 H 102 H 101 H Respiratory Rate 26 H Blood Pressure 154/82 H Pulse Oximetry 95 Oxygen Delivery Oxygen Flow Rate Fraction of Inspired Oxygen 10/04/24 21:30 10/04/24 22:00 10/05/24 00:00 Temperature 98.5 F Pulse Rate 101 H 105 H Respiratory Rate 26 H Blood Pressure 165/81 H Pulse Oximetry 96 95 Oxygen Delivery Nasal Cannula Oxygen Flow Rate 3 Fraction of Inspired Oxygen 10/05/24 00:00 10/05/24 00:00 10/05/24 00:49 Temperature Pulse Rate 102 H Respiratory Rate Blood Pressure Pulse Oximetry 95 93 Oxygen Delivery Nasal Cannula Nasal Cannula Oxygen Flow Rate 3 3 Fraction of Inspired Oxygen 10/05/24 00:50 10/05/24 00:56 10/05/24 02:00 Temperature Pulse Rate 67 80 104 H Respiratory Rate 24 H 24 H Blood Pressure Pulse Oximetry Oxygen Delivery Oxygen Flow Rate Fraction of Inspired Oxygen 10/05/24 02:05 10/05/24 02:26 10/05/24 02:31 Temperature Pulse Rate 114 H 115 H 106 H Respiratory Rate 32 H 24 H 24 H Blood Pressure Pulse Oximetry 89 L Oxygen Delivery Nasal Cannula Oxygen Flow Rate 3 Fraction of Inspired Oxygen 10/05/24 02:46 10/05/24 03:28 10/05/24 04:00 Temperature 98.6 F Pulse Rate 119 H 135 H 129 H Respiratory Rate 28 H 29 H 30 H Blood Pressure Pulse Oximetry 99 92 94 Oxygen Delivery Nasal Cannula BiPAP Oxygen Flow Rate 5 Fraction of Inspired Oxygen 10/05/24 04:00 10/05/24 04:10 10/05/24 05:11 Temperature Pulse Rate 124 H Respiratory Rate Blood Pressure 177/97 H Pulse Oximetry 93 Oxygen Delivery BiPAP Oxygen Flow Rate Fraction of Inspired Oxygen 40 10/05/24 06:00 10/05/24 06:17 10/05/24 07:21 Temperature Pulse Rate 125 H 129 H Respiratory Rate 22 H Blood Pressure Pulse Oximetry 93 Oxygen Delivery Nasal Cannula Oxygen Flow Rate 4 Fraction of Inspired Oxygen 10/05/24 07:26 10/05/24 07:34 10/05/24 07:55 Temperature 98.1 F Pulse Rate 129 H 128 H 126 H Respiratory Rate 22 H 20 22 H Blood Pressure 139/88 Pulse Oximetry 90 93 Oxygen Delivery Nasal Cannula Oxygen Flow Rate 5 Fraction of Inspired Oxygen 10/05/24 08:00 10/05/24 08:00 10/05/24 10:00 Temperature Pulse Rate 123 H 118 H Respiratory Rate Blood Pressure Pulse Oximetry 92 Oxygen Delivery Nasal Cannula Oxygen Flow Rate 4 Fraction of Inspired Oxygen 10/05/24 12:00 10/05/24 12:00 10/05/24 12:07 Temperature 99.0 F Pulse Rate 111 H 122 H Respiratory Rate 24 H Blood Pressure 128/76 Pulse Oximetry 95 94 Oxygen Delivery Nasal Cannula Oxygen Flow Rate 4 Fraction of Inspired Oxygen 10/05/24 14:00 10/05/24 14:49 10/05/24 14:49 Temperature Pulse Rate 102 H 102 H 102 H Respiratory Rate 18 18 Blood Pressure Pulse Oximetry 97 Oxygen Delivery Nasal Cannula Oxygen Flow Rate 4 Fraction of Inspired Oxygen 10/05/24 15:02 10/05/24 15:03 Temperature Pulse Rate 106 H 102 H Respiratory Rate 18 18 Blood Pressure Pulse Oximetry 96 Oxygen Delivery Nasal Cannula Oxygen Flow Rate 3 Fraction of Inspired Oxygen Intake/Output Intake/Output: Intake & Output 10/02/24 10/03/24 10/04/24 10/05/24 23:59 23:59 23:59 23:59 Intake Total 4110 Output Total 750 700 Balance 3360 -700 Meds/Results Medications: Active Medications Generic Name Dose Route Start Last Admin Trade Name Freq PRN Reason Stop Dose Admin Acetaminophen 650 mg 10/04/24 16:18 Acetaminophen 325 Mg Tablet FEED TUBE Q4H PRN Mild Pain (1-3) or Fever Hydrocodone Bitart/Acetaminophen 5 mg 10/04/24 16:27 10/04/24 22:05 Acetaminophen/Hydrocodone Elixir (*Crx) 7.5 Mg/15 Ml Udc FEED TUBE 5 mg Q4H PRN Administration Moderate Pain (4-6) Albuterol 2.5 mg 10/05/24 00:24 10/05/24 02:26 Albuterol Sulfate Neb 2.5 Mg/3 Ml Inh INHALATION 2.5 mg Q4HRT PRN Administration Shortness Of Breath Albuterol/Ipratropium 3 ml 10/05/24 02:00 10/05/24 14:48 Ipratropium 0.5 Mg/Albuterol Sulfate 2.5 Mg Ampul.Neb 3 Ml INHALATION 3 ml Q6HRT [place] Administration Amlodipine Besylate 5 mg 10/05/24 09:00 10/05/24 09:04 Amlodipine Besylate 5 Mg Tablet FEED TUBE 5 mg DAILY [place] Administration Dextrose 12.5 gm 10/04/24 12:17 Dextrose 50% 25 Gm/50 Ml Syringe IV PUSH PRN PRN Hypoglycemia Protocol Enoxaparin Sodium 40 mg 10/05/24 09:00 10/05/24 09:05 Enoxaparin 40 Mg/0.4 Ml Syringe SUB-Q 40 mg DAILY [place] Administration Glucagon 1 mg 10/04/24 12:17 Glucagon For Inj 1 Mg Vial IM PRN PRN Hypoglycemia Protocol Glucose 15 gm 10/04/24 12:17 Glucose Oral Gel 15 Gm Of Glucse In 37.5 Gm Tube PO PRN PRN Hypoglycemia Protocol Ceftriaxone Sodium 1 gm in 50 mls @ 100 mls/hr 10/05/24 12:00 10/05/24 11:18 Rocephin 1 Gm/Ns 50 Ml IVPB 100 mls/hr Q24H [place] Administration Azithromycin 500 mg in 250 mls @ 250 mls/hr 10/05/24 13:00 10/05/24 12:08 Zithromax IVPB 250 mls/hr Q24H [place] Administration Dextrose 1,000 mls @ 100 mls/hr 10/04/24 12:17 Dextrose 5% 1,000 Ml IVPB PRN PRN Hypoglycemia Protocol Morphine Sulfate 2 mg 10/04/24 16:14 10/05/24 13:58 Morphine Sulfate (*Crx) 2 Mg/Ml Inj IV PUSH 2 mg Q4H PRN Administration Pain Rated 7-10 Ondansetron HCl 4 mg 10/04/24 12:17 Ondansetron Inj 4 Mg/2 Ml Vial IV PUSH Q4H PRN Nausea Scopolamine 1 patch 10/04/24 16:25 10/04/24 18:12 Scopolamine 1 Mg Patch TRANSDERM 1 patch Q72HR [place] Administration Radiology Results: ITS Impressions Chest CTA 10/04/24 11:11 IMPRESSION: 1. No pulmonary embolism. 2. Diffuse multifocal pneumonia throughout both lungs most prominent in the left lower lobe. Chest X-Ray 10/05/24 10:25 IMPRESSION: Cardiomegaly, without focal infiltrate or effusion. Labs Labs: Laboratory Results - last 24 hr 10/05/24 10/05/24 10/05/24 04:35 04:35 04:35 WBC 17.5 H RBC 3.59 L Hgb 11.3 L Hct 36.5 L MCV 101.7 H D MCH 31.5 MCHC 31.0 L RDW 13.5 Plt Count 332 MPV 10.0 Immature Gran % (Auto) Not Reportable Neut % (Auto) Not Reportable Lymph % (Auto) Not Reportable [place] % (Auto) Not Reportable Eos % (Auto) Not Reportable Baso % (Auto) Not Reportable Lymph # (Auto) Not Reportable [place] # (Auto) Not Reportable Eos # (Auto) Not Reportable Baso # (Auto) Not Reportable Abs Immat Gran (auto) Not Reportable Absolute Neuts (auto) Not Reportable Absolute Nucleated RBC Not Reportable Total Counted 100 Neutrophils % (Manual) 84 H Band Neutrophils % 6 Lymphocytes % (Manual) 1.0 L Monocytes % (Manual) 9 Nucleated RBC % Not Reportable Abs Neuts (Manual) 15.75 H Abs Lymphs (Manual) 0.17 L Abs Monocytes (Manual) 1.57 H Platelet Estimate Adequate Clumped Platelets Present Anisocytosis 1+ Schistocytes None seen Sodium 133 L Potassium 4.0 Chloride 99 Carbon Dioxide 26 Anion Gap 8 BUN 17 D Creatinine 0.49 L Estim Creat Clear Calc 130 Estimated GFR > 60 Glucose 156 H Calcium 9.3 Iron 24 L Cancelled TIBC 188 L Cancelled % Saturation 13 L Ferritin Vitamin B12 Folate TSH (Reflex) Nasal MRSA (PCR) 10/05/24 10/05/24 04:35 08:59 WBC RBC Hgb Hct MCV MCH MCHC RDW Plt Count MPV Immature Gran % (Auto) Neut % (Auto) Lymph % (Auto) [place] % (Auto) Eos % (Auto) Baso % (Auto) Lymph # (Auto) [place] # (Auto) Eos # (Auto) Baso # (Auto) Abs Immat Gran (auto) Absolute Neuts (auto) Absolute Nucleated RBC Total Counted Neutrophils % (Manual) Band Neutrophils % Lymphocytes % (Manual) Monocytes % (Manual) Nucleated RBC % Abs Neuts (Manual) Abs Lymphs (Manual) Abs Monocytes (Manual) Platelet Estimate Clumped Platelets Anisocytosis Schistocytes Sodium Potassium Chloride Carbon Dioxide Anion Gap BUN Creatinine Estim Creat Clear Calc Estimated GFR Glucose Calcium Iron TIBC % Saturation Cancelled Ferritin 1130.00 H Vitamin B12 679.0 Folate 14.0 TSH (Reflex) 0.583 Nasal MRSA (PCR) Not detected
[2024-10-06] VITALS (47 sets, daily range): BP systolic 89–135; BP diastolic 65–77; PULSE 74–138; RESP 14–30; TEMP 37.1–38; O2SAT 90–100
[2024-10-06] MEDS: IPRATROPIUM 0.5 MG/ALBUTEROL SULFATE 2.5 MG AMPUL.NEB 3 ML INHALATION ×4 (02:24→20:02)
[2024-10-06] MEDS: MORPHINE SULFATE (*CRX) 2 MG/ML INJ IV PUSH ×3 (03:26→12:24)
[2024-10-06 04:35] LABS: Hematocrit 31.5 % (42.0-52.0); Hemoglobin 9.7 g/dL (14.0-18.0); Immature Granulocyte Percent A 0.8 % (0-0.5); Lymphocytes Absolute Auto 0.30 K/mm3 (0.9-3.2); Mean Corpuscular HGB Conc 30.8 g/dl (32-36); Mean Corpuscular Hemoglobin 30.9 pg (26-34); Mean Corpuscular Volume 100.3 fl (80-100); Nucleated Red Blood Cells Absolute Auto 0.000 K/mm3 (0.0-0.012); Nucleated Red Blood Cells Perc 0.0 % (0.0-0.2); Platelet Count Result 285 k/mm3 (150-375); Red Blood Count 3.14 M/mm3 (4.6-6.20); White Blood Count 13.1 K/mm3 (4.5-10.0)
[2024-10-06 04:47] LABS: Albumin Level 3.2 g/dL (3.5-5.1); Anion Gap 5 mmol/L (4-12); Blood Urea Nitrogen 19 mg/dL (9-20); Calcium 9.6 mg/dL (8.4-10.2); Carbon Dioxide 32 mmol/L (22-30); Chloride 96 mmol/L (98-107); Estimated CRCL calculation 126 ml/min; Estimated Glomerular Filt Rate > 60; Glucose 187 mg/dL (65-110); Potassium 3.5 mmol/L (3.4-5.0); Sodium 133 mmol/L (137-145)
[2024-10-06] MEDS: ENOXAPARIN 40 MG/0.4 ML SYRINGE SUB-Q (08:47)
[2024-10-06] MEDS: LORazepam (*CRX) 0.5 MG TABLET FEED TUBE (08:47)
[2024-10-06] MEDS: LORazepam (*CRX) 0.5 MG TABLET PO (11:56)
[2024-10-06] MEDS: ALBUTEROL SULFATE NEB 2.5 MG/3 ML INH INHALATION (12:00)
[2024-10-06] MEDS: AZITHROMYCIN 500 MG/NS 250 ML 500 MG/250 ML BAG 250 MG IVPB (12:04)
--- NOTE | 2024-10-06 12:31 | ECG_ITS ---
Test Date: 2024-10-06 12:43:50 Measurements Intervals [place] Rate: 137 P: 85 [place]: 160 QRS: 72 QRSD: 94 T: 18 QT: 250 QTc: 379 Interpretive Statements SINUS TACHYCARDIA NONSPECIFIC T-WAVE ABNORMALITY ABNORMAL RHYTHM ECG INTERPRETATION BASED ON A DEFAULT AGE OF 40 YEARS Compared to ECG 10/04/2024 09:53:18 No significant changes Electronically Signed On 10-06-2024 14:10:50 CDT by Ryan Jacinto M.D.
--- NOTE | 2024-10-06 12:34 | PM.IMPN ---
Progress Note: A&P Assessment and Plan (1) Acute hypoxic respiratory failure: Code(s): J96.01 - Acute respiratory failure with hypoxia Status: Acute Assessment and Plan: [place] related to PNA. Patient was on 4L this morning but developed increased WOB. BiPAP 10/5, 40% FiO2 added. ABG and CXR pending. He is SOB but trying to concentrate on his breathing. Continue Duonebs. Pulmonary toilet. Wean BiPAP as tolerated. Follow up on CXR and ABG results. (2) Multifocal pneumonia: Code(s): J18.8 - Other pneumonia, unspecified organism Status: Acute Assessment and Plan: Patient presents with SOB. CT chest showing no PE but does show diffuse multifocal PNA t/o both lungs. Influenza, COVID and RSV PCR negaitve. MRSA nasal swab negative. Although he denies oral feedings, consider aspiration. IV Rocephin and azithromycin started. BCx NGTD WBC better at 13K s Continue mucinex. Continue abx. (3) Sepsis: Qualifiers: Sepsis acute organ dysfunction status: unspecified Sepsis type: sepsis due to unspecified organism Qualified Code(s): A41.9 - Sepsis, unspecified organism Code(s): A41.9 - Sepsis, unspecified organism Status: Acute Assessment and Plan: Secondary to above. LA 2.1 -> 2 Appropriate fluid bolus given in the ED Continue antibiotic Follow up on cultures (4) Hypertension: Code(s): I10 - Essential (primary) hypertension Status: Acute Assessment and Plan: Patient's blood pressure was reviewed on 10/06 Blood pressure better controlled. Will continue to monitor (5) Anemia: Code(s): D64.9 - Anemia, unspecified Status: Acute Assessment and Plan: Mild anemia with Hgb 11 range Anemia workup showing ferritin 1180 but an acute phase reactant. B12, folate and TSH normal. Fe 24, TIBC 188 and ISat 13%. Repeat Hgb now 9.7. No evidence of acute blood loss. Monitor Plan Anxiety - patient has hx of anxiety and asking for Ativan. We provided low dose prn. DVT Prophylaxis - Lovenox Code status - Full Subjective Date/time seen: 10/06/24 12:34 Interval history: 64yo male with hx of throat CA, dysphagia requiring GTube and HTN here for shortness of breath. Feels SOB that is better after neb treatments. No CP. No cough.No melena or hematochezia. He mentions that his hemoglobin fluctuates widely which is chronic for him. Ativan has helped his anxiety. Exam Narrative: AF 98.7 134/77 113 24 98% bipap Gen - NARD Chest - distant coarse BS CV - RRR S1/S2. Telemetry showing sinus tachycardia with one episode of probable atrial tach Abd - Soft, NT/ND, Positive BS. G-tube site clean, dry and intact. Ext - No pedal edema Neuro - Alert and appropriate. Whispering voice. Psych - Nml mood and affect Skin - Warm and dry Called back to the room for increased WOB so BiPAP placed. No CP. He did receive neb treatment. Lungs sound distant Objective Data Vital Signs Vital Signs: Vital Signs - 24 hr 10/05/24 14:00 10/05/24 14:49 10/05/24 14:49 Temperature Pulse Rate 102 H 102 H 102 H Respiratory Rate 18 18 Blood Pressure Pulse Oximetry 97 Oxygen Delivery Nasal Cannula Oxygen Flow Rate 4 10/05/24 15:02 10/05/24 15:03 10/05/24 16:00 Temperature Pulse Rate 106 H 102 H Respiratory Rate 18 18 Blood Pressure Pulse Oximetry 96 97 Oxygen Delivery Nasal Cannula Nasal Cannula Oxygen Flow Rate 3 3 10/05/24 16:00 10/05/24 16:14 10/05/24 18:00 Temperature 98.7 F Pulse Rate 96 104 H 109 H Respiratory Rate 22 H Blood Pressure 121/77 Pulse Oximetry 97 Oxygen Delivery Oxygen Flow Rate 10/05/24 19:08 10/05/24 20:00 10/05/24 20:34 Temperature 98.5 F Pulse Rate 112 H 105 H 108 H Respiratory Rate 22 H 20 Blood Pressure 131/82 Pulse Oximetry 97 Oxygen Delivery Oxygen Flow Rate 10/05/24 20:36 10/05/24 21:51 10/05/24 22:00 Temperature Pulse Rate 112 H 102 H Respiratory Rate 22 H Blood Pressure Pulse Oximetry 95 97 Oxygen Delivery Nasal Cannula Nasal Cannula Oxygen Flow Rate 3 4 10/06/24 00:00 10/06/24 00:00 10/06/24 00:48 Temperature 98.8 F Pulse Rate 118 H 103 H 118 H Respiratory Rate 20 20 Blood Pressure 135/76 Pulse Oximetry 95 95 Oxygen Delivery Nasal Cannula Oxygen Flow Rate 4 10/06/24 02:00 10/06/24 02:25 10/06/24 02:36 Temperature Pulse Rate 110 H 111 H 115 H Respiratory Rate 18 20 Blood Pressure Pulse Oximetry Oxygen Delivery Oxygen Flow Rate 10/06/24 04:00 10/06/24 04:00 10/06/24 04:30 Temperature 99.1 F Pulse Rate 108 H 110 H 108 H Respiratory Rate 18 18 Blood Pressure 129/76 Pulse Oximetry 97 97 Oxygen Delivery Nasal Cannula Oxygen Flow Rate 4 10/06/24 06:00 10/06/24 07:51 10/06/24 07:51 Temperature Pulse Rate 104 H 107 H Respiratory Rate 20 Blood Pressure Pulse Oximetry 100 Oxygen Delivery Nasal Cannula Oxygen Flow Rate 5 10/06/24 08:00 10/06/24 08:00 10/06/24 08:00 Temperature Pulse Rate 108 H 108 H Respiratory Rate 20 Blood Pressure Pulse Oximetry 99 Oxygen Delivery Nasal Cannula Oxygen Flow Rate 5 10/06/24 08:09 10/06/24 10:00 10/06/24 11:44 Temperature 98.7 F Pulse Rate 109 H 108 H 120 H Respiratory Rate 20 Blood Pressure 126/74 Pulse Oximetry 98 98 Oxygen Delivery BiPAP Oxygen Flow Rate 10/06/24 12:00 10/06/24 12:00 10/06/24 12:05 Temperature 98.7 F Pulse Rate 128 H 138 H 113 H Respiratory Rate 30 H 30 H 24 H Blood Pressure 134/77 Pulse Oximetry 98 98 Oxygen Delivery BiPAP Oxygen Flow Rate Intake/Output Intake/Output: Intake & Output 10/03/24 10/04/24 10/05/24 10/06/24 23:59 23:59 23:59 23:59 Intake Total 4110 1140 480 Output Total 750 1180 320 Balance 3360 -40 160 Meds/Results Medications: Active Medications Generic Name Dose Route Start Last Admin Trade Name Freq PRN Reason Stop Dose Admin Acetaminophen 650 mg 10/04/24 16:18 Acetaminophen 325 Mg Tablet FEED TUBE Q4H PRN Mild Pain (1-3) or Fever Hydrocodone Bitart/Acetaminophen 5 mg 10/04/24 16:27 10/04/24 22:05 Acetaminophen/Hydrocodone Elixir (*Crx) 7.5 Mg/15 Ml Udc FEED TUBE 5 mg Q4H PRN Administration Moderate Pain (4-6) Albuterol 2.5 mg 10/05/24 00:24 10/06/24 12:00 Albuterol Sulfate Neb 2.5 Mg/3 Ml Inh INHALATION 2.5 mg Q4HRT PRN Administration Shortness Of Breath Albuterol/Ipratropium 3 ml 10/05/24 02:00 10/06/24 07:51 Ipratropium 0.5 Mg/Albuterol Sulfate 2.5 Mg Ampul.Neb 3 Ml INHALATION 3 ml Q6HRT [place] Administration Amlodipine Besylate 5 mg 10/05/24 09:00 10/06/24 08:47 Amlodipine Besylate 5 Mg Tablet FEED TUBE 5 mg DAILY [place] Administration Dextrose 12.5 gm 10/04/24 12:17 Dextrose 50% 25 Gm/50 Ml Syringe IV PUSH PRN PRN Hypoglycemia Protocol Enoxaparin Sodium 40 mg 10/05/24 09:00 10/06/24 08:47 Enoxaparin 40 Mg/0.4 Ml Syringe SUB-Q 40 mg DAILY [place] Administration Glucagon 1 mg 10/04/24 12:17 Glucagon For Inj 1 Mg Vial IM PRN PRN Hypoglycemia Protocol Glucose 15 gm 10/04/24 12:17 Glucose Oral Gel 15 Gm Of Glucse In 37.5 Gm Tube PO PRN PRN Hypoglycemia Protocol Guaifenesin 200 mg 10/05/24 15:58 Guaifenesin 200 Mg/10 Ml Udc FEED TUBE Q4H PRN Cough Ceftriaxone Sodium 1 gm in 50 mls @ 100 mls/hr 10/05/24 12:00 10/06/24 12:04 Rocephin 1 Gm/Ns 50 Ml IVPB 100 mls/hr Q24H CIHQUIS Administration Azithromycin 500 mg in 250 mls @ 250 mls/hr 10/05/24 13:00 10/06/24 12:04 Zithromax IVPB 250 mls/hr Q24H [place] Administration Dextrose 1,000 mls @ 100 mls/hr 10/04/24 12:17 Dextrose 5% 1,000 Ml IVPB PRN PRN Hypoglycemia Protocol Lorazepam 0.5 mg 10/05/24 16:05 10/06/24 08:47 Lorazepam (*Crx) 0.5 Mg Tablet FEED TUBE 0.5 mg Q6H PRN Administration Anxiety Morphine Sulfate 2 mg 10/04/24 16:14 10/06/24 12:24 Morphine Sulfate (*Crx) 2 Mg/Ml Inj IV PUSH 2 mg Q4H PRN Administration Pain Rated 7-10 Ondansetron HCl 4 mg 10/04/24 12:17 Ondansetron Inj 4 Mg/2 Ml Vial IV PUSH Q4H PRN Nausea Scopolamine 1 patch 10/04/24 16:25 10/04/24 18:12 Scopolamine 1 Mg Patch TRANSDERM 1 patch Q72HR [place] Administration Radiology Results: ITS Impressions Chest CTA 10/04/24 11:11 IMPRESSION: 1. No pulmonary embolism. 2. Diffuse multifocal pneumonia throughout both lungs most prominent in the left lower lobe. Chest X-Ray 10/05/24 10:25 IMPRESSION: Cardiomegaly, without focal infiltrate or effusion. Labs Labs: Laboratory Results - last 24 hr 10/06/24 04:13 WBC 13.1 H RBC 3.14 L Hgb 9.7 L Hct 31.5 L MCV 100.3 H MCH 30.9 MCHC 30.8 L RDW 13.5 Plt Count 285 MPV 9.9 Immature Gran % (Auto) 0.8 H Neut % (Auto) 89.8 H Lymph % (Auto) 2.3 L [place] % (Auto) 6.8 Eos % (Auto) 0.1 Baso % (Auto) 0.2 Lymph # (Auto) 0.30 L [place] # (Auto) 0.9 H Eos # (Auto) 0.0 Baso # (Auto) 0.0 Abs Immat Gran (auto) 0.10 H Absolute Neuts (auto) 11.8 H Absolute Nucleated RBC 0.000 Nucleated RBC % 0.0 Sodium 133 L Potassium 3.5 Chloride 96 L Carbon Dioxide 32 H Anion Gap 5 BUN 19 Creatinine 0.51 L Estim Creat Clear Calc 126 Estimated GFR > 60 Glucose 187 H Calcium 9.6 Phosphorus 2.3 L Albumin 3.2 L
[2024-10-06 12:37] LABS: Alveolar/Arterial O2 Gradient 74.7 mmHg; Fractional Inspired Oxygen 40 %; HCO3 ABG 40.6 mEq/l (22.0-26.0); Oxygen Content ABG 15.5 %vol (16.0-22.0); PO2 ABG 70.1 mmHg (80.0-100.0); PO2 FiO2 Ratio Arterial Blood 1.75 %
[2024-10-06 12:45] LABS: Oxygen Saturation ABG 86.5 % (95.0-100.0); PCO2 ABG 122.1 mmHg (35.0-45.0)
[2024-10-06 12:46] LABS: Site Drawn LEFT RADIAL
[2024-10-06] MEDS: ETOMIDATE 20 MG/10 ML AMPUL IV PUSH (13:11)
[2024-10-06] MEDS: MIDAZOLAM HCL (*CRX) 2 MG/2 ML VIAL 4 MG IV PUSH (13:13)
[2024-10-06] MEDS: FENTANYL 2,500MCG/NS250ML(*CRX 2,500 MCG/250 ML BAG IV CONT (13:23)
--- NOTE | 2024-10-06 13:23 | WPDPROCEDUR ---
Procedures Intubation Intubation Date: 10/06/24 Intubation Time: 13:00 Consent: Consent was obtained from patient's sister who is patient's POA. Patient unresponsive and acute respiratory failure A pre-procedural Time-Out was completed immediately before starting the procedure and confirmed: Patient Identification, Site, Procedure, Patient Position and the Availability of Requisite Equipment: Yes Sedative: etomidate Mg given: 20 Laryngoscope: fiber optic video scope Assist device used: fiber optic device ET tube size: 7.5 Tube secured depth (cm): 25 Tube secured location: lips Tube placement confirmation: visualized tube passing through cords, equal breath sounds bilaterally, no breath sounds over epigastrium and confirmation by capnometry Patient tolerated procedure: well Intubation complications: none
--- NOTE | 2024-10-06 13:24 | WPDCNINT ---
Assessment and Plan Assessment and plan (1) Acute on chronic respiratory failure with hypoxia and hypercapnia: Code(s): J96.21 - Acute and chronic respiratory failure with hypoxia; J96.22 - Acute and chronic respiratory failure with hypercapnia Status: Acute Assessment and Plan: Acute on chronic hypoxic and hypercarbic respiratory failure secondary to multifocal pneumonia, airway obstruction 10/06 Patient transferred to ICU and emergently intubated Post intubation chest x-ray and ABG pending Continue Rocephin and azithromycin Continue bronchodilator Start Decadron Check soft tissue neck CT when patient is stabilized Obtain echocardiogram (2) Hypertension: Code(s): I10 - Essential (primary) hypertension Status: Acute Assessment and Plan: Hold blood pressure medications as patient is now sedated and blood pressures in controlled range (3) Sepsis: Qualifiers: Sepsis acute organ dysfunction status: unspecified Sepsis type: sepsis due to unspecified organism Qualified Code(s): A41.9 - Sepsis, unspecified organism Code(s): A41.9 - Sepsis, unspecified organism Status: Acute Assessment and Plan: Secondary to pneumonia Blood cultures ordered and negative current Continue Rocephin azithromycin (4) Multifocal pneumonia: Code(s): J18.8 - Other pneumonia, unspecified organism Status: Acute Plan DVT prophylaxis -Lovenox Stress ulcer prophylaxis -PPI Nutrition -resume Tube Feeds Code Status - Full Code I spoke to patient's sister who is patient's POA and a friend at bedside and updated them patient's status. I explained that the patient is he is to be intubated and placed on mechanical ventilation which they agreed to proceed. Case discussed with Dr. Frank for internal medicine Total Critical Care Time -45 minutes Due to a high probability of clinically significant, life threatening deterioration, the patient required my highest level of preparedness to intervene emergently and I personally spent this critical care time directly and personally managing the patient. This critical care time included obtaining a history; examining the patient; pulse oximetry; ordering and review of studies; arranging urgent treatment with development of a management plan; evaluation of patient's response to treatment; frequent reassessment; and discussions with other providers. It was exclusive of separately billable procedures and treating other patients and teaching time. 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 He was unable to eat or drink anything and complained of pain in his throat at the time of presentation. He also complained of shortness of breath which had been gradually getting worse over last few days. Patient was found to be hypoxic and was placed on non-rebreather. Workup in the ER showed elevated WBC count negative PCR viral panel. Chest CTA showed no PE but diffuse multifocal pneumonia. He was admitted started on IV antibiotics and blood cultures were done. His respiratory status gradually worsened while inpatient. Today patient was given placed on BiPAP. Patient was anxious and is given low-dose of Ativan. ABG was done which showed 7.14//122/70. I was asked to evaluate patient. During my evaluation patient had low tidal volumes on the BiPAP. He was unresponsive. Brief history was obtained due to emergent situation from patient's sister. Patient was transferred to ICU and emergently intubated. On 10/01 patient was seen in the ER and was transferred to [facility]. CT scan in the ER on that day showed Lobular soft tissue lesions posterior to the base of the tongue, with associated thickening and edema of the supraglottis airway and epiglottis. Mild airway narrowing at the level of the glottis. Subcutaneous stranding in the anterior neck and parapharyngeal spaces. These findings may represent a combination of primary tumor and treatment related change. Comparison to outside studies would be helpful. Minimal glottic and endotracheal fluid/debris. Review of Systems Review of Systems: ROS unobtainable: Yes unobtainable due to endotracheal tube, unobtainable due to medical condition and unobtainable due to mental status [facility] Past Medical History Medical History (Updated 10/06/24 @ 13:33 by Ab Bravo MD) Gastrojejunal tube present Throat cancer Hypertension Family History Family History Father Family history of gallbladder disease Family history of Alzheimer's disease Sibling Family history of gallbladder disease Mother Family history of heart disease in male family member before age 55 Social History Social History Smoking status: Never smoker Alcohol intake: former Substance use: never Do You Feel Safe in your Home?: Yes Lack of Transportation: No Lack of Food: Never True Current Housing: I Have Housing Concerned About Future Housing: No Difficulty Paying Gas/Electric Bills: No Difficulty Paying for Meds: No Currently Unemployed: No Education: High School Diploma/GED Difficulty w/ Childcare or Family Care: No Spiritual care concerns: No Meds Home Medications and Allergies Home Medications ?Medication ?Instructions ?Recorded ?Confirmed ?Type amlodipine 5 mg tablet 5 mg feeding tube DAILY 10/04/24 10/04/24 History hydrocodone 7.5 mg-acetaminophen 1 tablet feeding tube .q4hr PRN 10/04/24 10/04/24 History 325 mg tablet pain scopolamine base 1 mg over 3 days 1 patch transdermal PRN PRN motion 10/04/24 10/04/24 History transdermal patch sickness Allergies Allergy/AdvReac Type Severity Reaction Status Date / Time Penicillins Allergy Intermediate Rash Verified 10/04/24 09:50 Vital Signs Vital Signs - 24 hr 10/05/24 14:00 10/05/24 14:49 10/05/24 14:49 Temperature Pulse Rate 102 H 102 H 102 H Respiratory Rate 18 18 Blood Pressure Pulse Oximetry 97 Oxygen Delivery Nasal Cannula Oxygen Flow Rate 4 10/05/24 15:02 10/05/24 15:03 10/05/24 16:00 Temperature Pulse Rate 106 H 102 H Respiratory Rate 18 18 Blood Pressure Pulse Oximetry 96 97 Oxygen Delivery Nasal Cannula Nasal Cannula Oxygen Flow Rate 3 3 10/05/24 16:00 10/05/24 16:14 10/05/24 18:00 Temperature 37.1 C Pulse Rate 96 104 H 109 H Respiratory Rate 22 H Blood Pressure 121/77 Pulse Oximetry 97 Oxygen Delivery Oxygen Flow Rate 10/05/24 19:08 10/05/24 20:00 10/05/24 20:34 Temperature 36.9 C Pulse Rate 112 H 105 H 108 H Respiratory Rate 22 H 20 Blood Pressure 131/82 Pulse Oximetry 97 Oxygen Delivery Oxygen Flow Rate 10/05/24 20:36 10/05/24 21:51 10/05/24 22:00 Temperature Pulse Rate 112 H 102 H Respiratory Rate 22 H Blood Pressure Pulse Oximetry 95 97 Oxygen Delivery Nasal Cannula Nasal Cannula Oxygen Flow Rate 3 4 10/06/24 00:00 10/06/24 00:00 10/06/24 00:48 Temperature 37.1 C Pulse Rate 118 H 103 H 118 H Respiratory Rate 20 20 Blood Pressure 135/76 Pulse Oximetry 95 95 Oxygen Delivery Nasal Cannula Oxygen Flow Rate 4 10/06/24 02:00 10/06/24 02:25 10/06/24 02:36 Temperature Pulse Rate 110 H 111 H 115 H Respiratory Rate 18 20 Blood Pressure Pulse Oximetry Oxygen Delivery Oxygen Flow Rate 10/06/24 04:00 10/06/24 04:00 10/06/24 04:30 Temperature 37.3 C Pulse Rate 108 H 110 H 108 H Respiratory Rate 18 18 Blood Pressure 129/76 Pulse Oximetry 97 97 Oxygen Delivery Nasal Cannula Oxygen Flow Rate 4 10/06/24 06:00 10/06/24 07:51 10/06/24 07:51 Temperature Pulse Rate 104 H 107 H Respiratory Rate 20 Blood Pressure Pulse Oximetry 100 Oxygen Delivery Nasal Cannula Oxygen Flow Rate 5 10/06/24 08:00 10/06/24 08:00 10/06/24 08:00 Temperature Pulse Rate 108 H 108 H Respiratory Rate 20 Blood Pressure Pulse Oximetry 99 Oxygen Delivery Nasal Cannula Oxygen Flow Rate 5 10/06/24 08:09 10/06/24 10:00 10/06/24 11:44 Temperature 37.1 C Pulse Rate 109 H 108 H 120 H Respiratory Rate 20 Blood Pressure 126/74 Pulse Oximetry 98 98 Oxygen Delivery BiPAP Oxygen Flow Rate 10/06/24 12:00 10/06/24 12:00 10/06/24 12:05 Temperature 37.1 C Pulse Rate 128 H 138 H 113 H Respiratory Rate 30 H 30 H 24 H Blood Pressure 134/77 Pulse Oximetry 98 98 Oxygen Delivery BiPAP Oxygen Flow Rate Exam Narrative: General: On my initial exam patient was unresponsive on BiPAP with low tidal volumes. Patient is now intubated and sedated Lungs/Chest: Trachea central decreased breath sounds bilaterally, patient had stridor on his neck auscultation Cardiac: Tachycardia Normal S1 S2. No murmurs Circulation: Pedal pulses are intact and symmetrical. Abdomen: Decreased bowel sounds. Peg tube in place. Soft. NT. ND. Extremities: No clubbing, cyanosis or edema. Warm : Corbin in place Neurologic: Patient unresponsive to painful stimuli,PERRL Results Labs 10/06/24 04:13 10/06/24 04:13 Labs: Impressions Chest X-Ray 10/06/24 13:11 IMPRESSION: Bibasilar platelike atelectasis with mild pulmonary vascular congestion, an interval change. If clinical suspicion persists, cross-sectional imaging (noncontrast enhanced CT examination of the chest) is suggested for further evaluation. Short CBC 10/06/24 Range/Units 04:13 WBC 13.1 H (4.5-10.0) K/mm3 Hgb 9.7 L (14.0-18.0) g/dL Hct 31.5 L (42.0-52.0) % Plt Count 285 (150-375) k/mm3 BMP 10/06/24 04:13 Sodium 133 L Potassium 3.5 Chloride 96 L Carbon Dioxide 32 H BUN 19 Creatinine 0.51 L Glucose 187 H Calcium 9.6 Liver Function 10/06/24 Range/Units 04:13 Albumin 3.2 L (3.5-5.1) g/dL Quality VTE Prophylaxis VTE prophylaxis: pharmacologic ordered Hospitalist MIPS Advance Care Plan I have confirmed that the patient's Advanced Care Plan is present, code status is documented, or surrogate decision maker is listed in patient medical record.: Yes Medication Reconciliation I have utilized all available resources to obtain, update and review the patients current medications (includes all prescriptions, OTC, herbals, cannabis, and nutritional supplements).: Yes
[2024-10-06] MEDS: LACTATED RINGERS 1,000 ML 999 ML IV CONT (13:25)
[2024-10-06] MEDS: PROPOFOL IV EMULSION 100 ML 4.38 MG IV CONT (13:25)
[2024-10-06 13:38] LABS: Triglycerides 109 mg/dL (<150)
[2024-10-06 14:56] LABS: Alveolar/Arterial O2 Gradient 182.2 mmHg; Fractional Inspired Oxygen 60 %; HCO3 ABG 30.2 mEq/l (22.0-26.0); Oxygen Content ABG 14.1 %vol (16.0-22.0); Oxygen Saturation ABG 99.5 % (95.0-100.0); PCO2 ABG 40.8 mmHg (35.0-45.0); PO2 ABG 200.7 mmHg (80.0-100.0); PO2 FiO2 Ratio Arterial Blood 3.35 %
[2024-10-06 14:57] LABS: Arterial Blood Gas Ventilator rate 20 /MIN; Liters per Minute 0.0 LPM; Site Drawn LEFT BRACHIAL
[2024-10-06 14:58] LABS: Arterial Blood Gas Pressure Support 0 cmH2O; Arterial Blood Gas Tidal Volume 450 ml
--- NOTE | 2024-10-06 15:48 | PC.NURSE ---
This patient, Jesus Dudley, was received from [facility] on 10/06/24 at 1300. Patient/family oriented to unit policies and routines
[2024-10-06 16:03] LABS: MRSA (PCR) NOT DETECTED (NOT DETECTE)
[2024-10-06] MEDS: MINERAL OIL/WHITE PETROLATUM OINTMENT 1 APPLIC EACH EYE (20:43)
--- NOTE | 2024-10-06 23:57 | PC.NURSE ---
Peter performed with passive leg raise. SVI change of 75.6%.
[2024-10-07] VITALS (12 sets, daily range): BP systolic 94–108; BP diastolic 62–74; PULSE 61–97; RESP 14–16; TEMP 35.4–37.8; O2SAT 98–100
--- NOTE | 2024-10-07 00:06 | PC.NURSE ---
Spoke to Dr Phipps about SVI change, due to being so high, and order for 1L NS received, as well as potassium phosphate.
[2024-10-07] MEDS: SODIUM CHLORIDE 0.9% IV 1,000 ML 999 ML IV CONT (00:21)
[2024-10-07] MEDS: POTASSIUM PHOS,M-BASIC-D-BASIC 40 MMOL in SODIUM CHLORIDE 0.9% IV 250 ML 43.89 MMOL IVPB (00:21)
[2024-10-07] MEDS: IPRATROPIUM 0.5 MG/ALBUTEROL SULFATE 2.5 MG AMPUL.NEB 3 ML INHALATION ×2 (01:49→09:10)
[2024-10-07] MEDS: PROPOFOL IV EMULSION 100 ML 6.57 MG IV CONT (04:09)
[2024-10-07 04:13] LABS: Hematocrit 28.5 % (42.0-52.0); Hemoglobin 8.7 g/dL (14.0-18.0); Immature Platelet Fraction Pct 3.9 % (0.9-11.2); Mean Corpuscular HGB Conc 30.5 g/dl (32-36); Mean Corpuscular Hemoglobin 30.7 pg (26-34); Mean Corpuscular Volume 100.7 fl (80-100); Platelet Count Result 242 k/mm3 (150-375); Red Blood Count 2.83 M/mm3 (4.6-6.20); White Blood Count 6.6 K/mm3 (4.5-10.0)
[2024-10-07 04:24] LABS: Alanine Aminotransferase 21 U/L (6-50); Albumin Level 2.8 g/dL (3.5-5.1); Alkaline Phosphatase 64 U/L (38-126); Anion Gap 8 mmol/L (4-12); Aspartate Amino Transferase 26 U/L (17-59); Bilirubin,Total 0.3 mg/dL (0.2-1.3); Blood Urea Nitrogen 25 mg/dL (9-20); Calcium 9.0 mg/dL (8.4-10.2); Carbon Dioxide 25 mmol/L (22-30); Chloride 100 mmol/L (98-107); Estimated CRCL calculation 136 ml/min; Estimated Glomerular Filt Rate > 60; Glucose 173 mg/dL (65-110); Magnesium 2.3 mg/dL (1.6-2.3); Potassium 4.0 mmol/L (3.4-5.0); Sodium 133 mmol/L (137-145); Total Protein 6.0 g/dL (6.3-8.2)
[2024-10-07 04:40] LABS: Band Neutrophils Percent 5 % (0-6); Lymphocytes Absolute Manual 0.52 K/mm3 (1.1-4.5); Lymphocytes Percent Manual 8.0 % (18-44); Monocytes Absolute Manual 0.26 K/mm3 (0.1-0.90); Monocytes Percent Manual 4 % (3-9); Neutrophils Absolute Manual 5.80 K/mm3 (1.3-6.7); Neutrophils Percent Manual 83 % (46-73); Total Cells Counted 100
[2024-10-07 04:41] LABS: Schistocytes None Seen
[2024-10-07 04:42] LABS: Smudge Cells PRESENT
[2024-10-07 05:38] LABS: Alveolar/Arterial O2 Gradient 76.9 mmHg; Carboxyhemoglobin 0.6 % THb (0-2.0); Fractional Inspired Oxygen 40 %; HCO3 ABG 28.7 mEq/l (22.0-26.0); Methemoglobin ABG 0.2 %THb (0-1.5); Oxygen Content ABG 17.1 %vol (16.0-22.0); Oxygen Saturation ABG 99.2 % (95.0-100.0); PCO2 ABG 39.4 mmHg (35.0-45.0); PO2 ABG 163.0 mmHg (80.0-100.0); PO2 FiO2 Ratio Arterial Blood 4.07 %; Reduced Hemoglobin 0.5 %THb (0-5.0)
[2024-10-07 05:39] LABS: Modified Allen's Test Pass; Site Drawn RIGHT RADIAL
[2024-10-07 05:40] LABS: Arterial Blood Gas Ventilator rate 16 /MIN
[2024-10-07 05:41] LABS: Arterial Blood Gas Tidal Volume 450 ml
--- NOTE | 2024-10-07 08:59 | WPDINTPN ---
Progress Note: A&P Assessment and Plan (1) Acute on chronic respiratory failure with hypoxia and hypercapnia: Code(s): J96.21 - Acute and chronic respiratory failure with hypoxia; J96.22 - Acute and chronic respiratory failure with hypercapnia Status: Acute Assessment and Plan: Acute on chronic hypoxic and hypercarbic respiratory failure secondary to multifocal pneumonia, airway obstruction 10/06 Patient transferred to ICU and emergently intubated Post intubation chest x-ray and ABG reviewed Ventilator adjusted to CMV 420 rate of 16 tidal volume 40 peep of 5 Continue Rocephin and azithromycin. Add Flagyl to cover for aspiration and anaerobes Continue bronchodilator Continue Decadron 10/[address] done and showed IMPRESSION: Endotracheal tube is positioned within the airway, 3.4 cm above the clau. Collapse of the nasopharyngeal, oropharyngeal, and hypopharyngeal soft tissues about the endotracheal tube, making evaluation for masses difficult in this noncontrast examination. Right upper lobe groundglass nodules may represent hypersensitivity pneumonitis, respiratory bronchiolitis or infectious airways disease. Case discussed with ENT and ENT physician recommends transfer back to [facility] where patient is receiving treatment from ENT and Oncology team. I spoke to [facility] transfer line and ICU triage and discuss case with them. Patient has been accepted at [facility] medical ICU under care of Dr. Claros. Patient will be transferred once a bed is available. (2) Hypertension: Code(s): I10 - Essential (primary) hypertension Status: Acute Assessment and Plan: Hold blood pressure medications as patient is now sedated and blood pressures in controlled range (3) Sepsis: Qualifiers: Sepsis acute organ dysfunction status: unspecified Sepsis type: sepsis due to unspecified organism Qualified Code(s): A41.9 - Sepsis, unspecified organism Code(s): A41.9 - Sepsis, unspecified organism Status: Acute Assessment and Plan: Secondary to pneumonia Blood cultures ordered and negative current Continue Rocephin azithromycin and Flagyl (4) Multifocal pneumonia: Code(s): J18.8 - Other pneumonia, unspecified organism Status: Acute Assessment and Plan: See above Plan DVT prophylaxis -Lovenox Stress ulcer prophylaxis -PPI Nutrition -resume Tube Feeds Code Status - Full Code I spoke to patient's sister who is patient's POA and a friend at bedside and updated them patient's status including transfer. They verbalized understanding and agreed to proceed with transfer Case discussed with Dr. Frank for internal medicine Total Critical Care Time -35 minutes Due to a high probability of clinically significant, life threatening deterioration, the patient required my highest level of preparedness to intervene emergently and I personally spent this critical care time directly and personally managing the patient. This critical care time included obtaining a history; examining the patient; pulse oximetry; ordering and review of studies; arranging urgent treatment with development of a management plan; evaluation of patient's response to treatment; frequent reassessment; and discussions with other providers. It was exclusive of separately billable procedures and treating other patients and teaching time. Please see Assessment and Plan section and the rest of the note for further information on patient assessment and treatment Subjective Date/time seen: 10/07/24 Overnight events reviewed. Patient had low-grade fever. Other vitals and states. He received fluid bolus for low urine output. He also received potassium phosphate replacement Tolerating tube feeds Sinus rhythm on the monitor Sedated with propofol and fentanyl Interval history: 64yo male with hx of throat CA, dysphagia requiring GTube and HTN here for shortness of breath. Now intubated for respiratory failure Review of Systems Review of Systems: ROS unobtainable: Yes unobtainable due to endotracheal tube, unobtainable due to medical condition and unobtainable due to mental status Exam Narrative: General: On my initial exam patient was unresponsive on BiPAP with low tidal volumes. Patient is now intubated and sedated Lungs/Chest: Trachea central decreased breath sounds bilaterally, patient had stridor on his neck auscultation prior to intubation Cardiac: Tachycardia Normal S1 S2. No murmurs Circulation: Pedal pulses are intact and symmetrical. Abdomen: Decreased bowel sounds. Peg tube in place. Soft. NT. ND. Extremities: No clubbing, cyanosis or edema. Warm : [place] in place Neurologic: On holding sedation he follows commands with all 4 extremities and nodes is head appropriately to questions.PERRL Objective Data Vital Signs Vital Signs: Vital Signs - 24 hr 10/06/24 10:00 10/06/24 11:44 10/06/24 12:00 Temperature Pulse Rate 108 H 120 H 128 H Respiratory Rate 30 H Blood Pressure Pulse Oximetry 98 Oxygen Delivery BiPAP Fraction of Inspired Oxygen 10/06/24 12:00 10/06/24 12:00 10/06/24 12:00 Temperature Pulse Rate 138 H 122 H Respiratory Rate 30 H Blood Pressure Pulse Oximetry 98 90 Oxygen Delivery BiPAP BiPAP Fraction of Inspired Oxygen 40 10/06/24 12:05 10/06/24 13:11 10/06/24 13:23 Temperature 37.1 C Pulse Rate 113 H 125 H 127 H Respiratory Rate 24 H 19 Blood Pressure 134/77 Pulse Oximetry 98 100 Oxygen Delivery Mechanical Ventilation Fraction of Inspired Oxygen 60 10/06/24 13:25 10/06/24 13:27 10/06/24 13:33 Temperature 37.4 C Pulse Rate 127 H 112 H Respiratory Rate 19 18 Blood Pressure 99/74 L Pulse Oximetry 99 Oxygen Delivery Fraction of Inspired Oxygen 60 10/06/24 14:00 10/06/24 14:00 10/06/24 14:00 Temperature 37.7 C H Pulse Rate 99 85 99 Respiratory Rate 20 20 Blood Pressure 89/67 L Pulse Oximetry 100 Oxygen Delivery Fraction of Inspired Oxygen 10/06/24 14:00 10/06/24 14:21 10/06/24 14:40 Temperature Pulse Rate 99 96 96 Respiratory Rate 20 20 20 Blood Pressure Pulse Oximetry Oxygen Delivery Fraction of Inspired Oxygen 10/06/24 15:00 10/06/24 16:00 10/06/24 16:00 Temperature Pulse Rate 85 Respiratory Rate Blood Pressure Pulse Oximetry 100 Oxygen Delivery Mechanical Ventilation Mechanical Ventilation Fraction of Inspired Oxygen 40 40 10/06/24 16:00 10/06/24 16:00 10/06/24 16:00 Temperature 38.0 C H Pulse Rate 85 85 Respiratory Rate 16 16 Blood Pressure 92/67 L Pulse Oximetry 100 Oxygen Delivery Fraction of Inspired Oxygen 40 10/06/24 16:00 10/06/24 16:35 10/06/24 18:00 Temperature 38.0 C H Pulse Rate 85 87 81 Respiratory Rate 16 15 Blood Pressure Pulse Oximetry 99 98 Oxygen Delivery Mechanical Ventilation Fraction of Inspired Oxygen 40 10/06/24 18:00 10/06/24 18:00 10/06/24 18:00 Temperature Pulse Rate 82 82 82 Respiratory Rate 16 16 Blood Pressure Pulse Oximetry Oxygen Delivery Fraction of Inspired Oxygen 10/06/24 18:03 10/06/24 19:00 10/06/24 19:01 Temperature 37.9 C H 37.9 C H Pulse Rate 79 79 Respiratory Rate 16 16 Blood Pressure 95/68 L 91/65 L Pulse Oximetry 97 98 Oxygen Delivery Fraction of Inspired Oxygen 10/06/24 19:15 10/06/24 19:30 10/06/24 19:45 Temperature 37.9 C H 37.9 C H 37.8 C H Pulse Rate 78 80 75 Respiratory Rate 16 16 16 Blood Pressure Pulse Oximetry 98 98 97 Oxygen Delivery Fraction of Inspired Oxygen 10/06/24 20:00 10/06/24 20:00 10/06/24 20:00 Temperature 37.8 C H Pulse Rate 78 76 76 Respiratory Rate 16 16 16 Blood Pressure 93/65 L Pulse Oximetry 97 Oxygen Delivery Fraction of Inspired Oxygen 10/06/24 20:00 10/06/24 20:00 10/06/24 20:00 Temperature Pulse Rate 75 Respiratory Rate Blood Pressure Pulse Oximetry 98 Oxygen Delivery Mechanical Ventilation Fraction of Inspired Oxygen 40 40 10/06/24 20:00 10/06/24 20:01 10/06/24 20:03 Temperature 37.8 C H 37.8 C H Pulse Rate 76 74 75 Respiratory Rate 16 16 16 Blood Pressure 93/65 L Pulse Oximetry 95 98 Oxygen Delivery Fraction of Inspired Oxygen 10/06/24 20:07 10/06/24 20:15 10/06/24 20:30 Temperature 37.8 C H 37.8 C H Pulse Rate 81 80 83 Respiratory Rate 16 16 Blood Pressure Pulse Oximetry 97 97 96 Oxygen Delivery Mechanical Ventilation Fraction of Inspired Oxygen 40 10/06/24 20:45 10/06/24 21:00 10/06/24 21:01 Temperature 37.8 C H 37.7 C H 37.8 C H Pulse Rate 89 85 88 Respiratory Rate 16 16 14 Blood Pressure 104/70 Pulse Oximetry 99 90 98 Oxygen Delivery Fraction of Inspired Oxygen 10/06/24 21:15 10/06/24 21:30 10/06/24 21:44 Temperature 37.8 C H 37.8 C H 37.8 C H Pulse Rate 87 80 82 Respiratory Rate 16 16 16 Blood Pressure 99/67 L Pulse Oximetry 98 97 98 Oxygen Delivery Fraction of Inspired Oxygen 10/06/24 21:45 10/06/24 22:00 10/06/24 22:00 Temperature 37.8 C H Pulse Rate 82 77 77 Respiratory Rate 16 16 16 Blood Pressure Pulse Oximetry 97 Oxygen Delivery Fraction of Inspired Oxygen 10/06/24 22:00 10/06/24 22:00 10/06/24 22:40 Temperature Pulse Rate 77 78 78 Respiratory Rate 16 27 H Blood Pressure 97/68 L Pulse Oximetry 98 Oxygen Delivery Fraction of Inspired Oxygen 10/06/24 23:20 10/07/24 00:00 10/07/24 00:00 Temperature Pulse Rate 74 68 68 Respiratory Rate 16 16 Blood Pressure Pulse Oximetry 99 Oxygen Delivery Mechanical Ventilation Fraction of Inspired Oxygen 40 10/07/24 00:00 10/07/24 00:00 10/07/24 00:00 Temperature Pulse Rate 97 Respiratory Rate Blood Pressure Pulse Oximetry 99 Oxygen Delivery Mechanical Ventilation Fraction of Inspired Oxygen 40 40 10/07/24 00:00 10/07/24 01:50 10/07/24 01:51 Temperature 37.8 C H Pulse Rate 67 63 66 Respiratory Rate 16 16 Blood Pressure 94/62 L Pulse Oximetry 99 99 Oxygen Delivery Mechanical Ventilation Fraction of Inspired Oxygen 40 10/07/24 02:00 10/07/24 02:00 10/07/24 02:00 Temperature Pulse Rate 84 80 84 Respiratory Rate 16 16 Blood Pressure 104/74 Pulse Oximetry 99 Oxygen Delivery Fraction of Inspired Oxygen 10/07/24 04:00 10/07/24 04:00 10/07/24 04:00 Temperature Pulse Rate 75 Respiratory Rate Blood Pressure Pulse Oximetry 98 Oxygen Delivery Mechanical Ventilation Fraction of Inspired Oxygen 40 40 10/07/24 04:00 10/07/24 04:00 10/07/24 04:09 Temperature 37.4 C Pulse Rate 70 71 70 Respiratory Rate 14 16 16 Blood Pressure 102/68 Pulse Oximetry 98 Oxygen Delivery Fraction of Inspired Oxygen 10/07/24 04:09 10/07/24 05:27 10/07/24 06:00 Temperature Pulse Rate 70 66 62 Respiratory Rate 16 16 Blood Pressure 94/65 L Pulse Oximetry 99 98 Oxygen Delivery Mechanical Ventilation Fraction of Inspired Oxygen 40 10/07/24 06:00 10/07/24 06:00 10/07/24 06:00 Temperature Pulse Rate 63 63 63 Respiratory Rate 16 16 Blood Pressure Pulse Oximetry Oxygen Delivery Fraction of Inspired Oxygen 10/07/24 08:00 Temperature 37.0 C Pulse Rate 61 Respiratory Rate 16 Blood Pressure 106/66 Pulse Oximetry 98 Oxygen Delivery Fraction of Inspired Oxygen Intake/Output Intake/Output: Intake & Output 10/04/24 10/05/24 10/06/24/06/25 23:59 23:59 23:59 23:59 Intake Total 4110 1140 1863.8 1007.3 Output Total 750 1180 720 325 Balance 3360 -40 1143.8 682.3 Meds/Results Medications: Active Medications Generic Name Dose Route Start Last Admin Trade Name Freq PRN Reason Stop Dose Admin Acetaminophen 650 mg 10/04/24 16:18 Acetaminophen 325 Mg Tablet FEED TUBE Q4H PRN Mild Pain (1-3) or Fever Albuterol 2.5 mg 10/05/24 00:24 10/06/24 12:00 Albuterol Sulfate Neb 2.5 Mg/3 Ml Inh INHALATION 2.5 mg Q4HRT PRN Administration Shortness Of Breath Albuterol/Ipratropium 3 ml 10/05/24 02:00 10/07/24 01:49 Ipratropium 0.5 Mg/Albuterol Sulfate 2.5 Mg Ampul.Neb 3 Ml INHALATION 3 ml Q6HRT [facility] Administration Dexamethasone Sodium Phosphate 4 mg 10/06/24 13:35 10/06/24 20:42 Dexamethasone Sod Phos Inj 4 Mg/Ml Vial IV PUSH 4 mg Q12HR [facility] Administration Dextrose 12.5 gm 10/04/24 12:17 Dextrose 50% 25 Gm/50 Ml Syringe IV PUSH PRN PRN Hypoglycemia Protocol Dextrose 12.5 gm 10/06/24 13:34 Dextrose 50% 25 Gm/50 Ml Syringe IV PUSH PRN PRN Hypoglycemia Protocol Enoxaparin Sodium 40 mg 10/05/24 09:00 10/06/24 08:47 Enoxaparin 40 Mg/0.4 Ml Syringe SUB-Q 40 mg DAILY [facility] Administration Glucagon 1 mg 10/04/24 12:17 Glucagon For Inj 1 Mg Vial IM PRN PRN Hypoglycemia Protocol Glucagon 1 mg 10/06/24 13:34 Glucagon For Inj 1 Mg Vial IM PRN PRN Hypoglycemia Protocol Glucose 15 gm 10/04/24 12:17 Glucose Oral Gel 15 Gm Of Glucse In 37.5 Gm Tube PO PRN PRN Hypoglycemia Protocol Glucose 15 gm 10/06/24 13:34 Glucose Oral Gel 15 Gm Of Glucse In 37.5 Gm Tube PO PRN PRN Hypoglycemia Protocol Ceftriaxone Sodium 1 gm in 50 mls @ 100 mls/hr 10/05/24 12:00 10/06/24 17:08 Rocephin 1 Gm/Ns 50 Ml IVPB Infused Q24H [facility] Infusion Azithromycin 500 mg in 250 mls @ 250 mls/hr 10/05/24 13:00 10/06/24 17:08 Zithromax IVPB Infused Q24H [facility] Infusion Dextrose 1,000 mls @ 100 mls/hr 10/04/24 12:17 Dextrose 5% 1,000 Ml IVPB PRN PRN Hypoglycemia Protocol Fentanyl Citrate 2,500 mcg in 250 mls @ 5 mls/hr 10/06/24 13:15 10/07/24 06:00 Fentanyl 2,500 Mcg/Ns 250 Ml IV CONT 50 mcg/hr .Q50H [facility] 5 mls/hr Titration Protocol 50 MCG/HR Propofol 100 mls @ 6.57 mls/hr 10/06/24 13:15 10/07/24 06:00 Diprivan IV CONT 15 mcg/kg/min .[id number] [facility] 6.57 mls/hr Titration Protocol 15 MCG/KG/MIN Dextrose 1,000 mls @ 100 mls/hr 10/06/24 13:34 Dextrose 5% 1,000 Ml IVPB PRN PRN Hypoglycemia Protocol Metronidazole 500 mg in 100 mls @ 100 mls/hr 10/07/24 07:25 Flagyl 500 Mg/Iso Soln 100 Ml IVPB Q8HR [facility] Insulin Aspart 3 - 6 units 10/06/24 18:00 10/07/24 05:43 Insulin Aspart (*Bkc) 100 Units/Ml SUB-Q Not Given Q6HR [facility] Protocol Multi-Ingred Cream/Lotion/Oil/Oint 1 applic 10/06/24 21:00 10/06/24 20:43 Mineral Oil/White Petrolatum Ointment EACH EYE 1 applic Q12HR [facility] Administration Ondansetron HCl 4 mg 10/04/24 12:17 Ondansetron Inj 4 Mg/2 Ml Vial IV PUSH Q4H PRN Nausea Pantoprazole Sodium 40 mg 10/07/24 09:00 Pantoprazole Sodium Iv 40 Mg Vial IV PUSH QAM [facility] Scopolamine 1 patch 10/04/24 16:25 10/04/24 18:12 Scopolamine 1 Mg Patch TRANSDERM 1 patch Q72HR [facility] Administration Radiology Results: ITS Impressions Chest CTA 10/04/24 11:11 IMPRESSION: 1. No pulmonary embolism. 2. Diffuse multifocal pneumonia throughout both lungs most prominent in the left lower lobe. Soft Tissue Neck CT 10/06/24 16:47 IMPRESSION: Endotracheal tube is positioned within the airway, 3.4 cm above the clau. Collapse of the nasopharyngeal, oropharyngeal, and hypopharyngeal soft tissues about the endotracheal tube, making evaluation for masses difficult in this noncontrast examination. Right upper lobe groundglass nodules may represent hypersensitivity pneumonitis, respiratory bronchiolitis or infectious airways disease. Chest X-Ray 10/07/24 07:20 IMPRESSION: Left-sided pleural effusion with persistent patchy opacification of the bilateral lung nicole and dense opacification of the mid left diaphragm, for which a left basilar infiltrate is suspected. Endotracheal tube in good position. Percutaneous gastrostomy tube is likely not on suction. Labs Labs: Laboratory Results - last 24 hr 10/06/24 10/06/24 10/06/24 04:08 12:35 12:57 WBC RBC Hgb Hct MCV MCH MCHC RDW Plt Count MPV Immature Gran % (Auto) Neut % (Auto) Lymph % (Auto) [place] % (Auto) Eos % (Auto) Baso % (Auto) Lymph # (Auto) [place] # (Auto) Eos # (Auto) Baso # (Auto) Abs Immat Gran (auto) Absolute Neuts (auto) Absolute Nucleated RBC Total Counted Neutrophils % (Manual) Band Neutrophils % Lymphocytes % (Manual) Monocytes % (Manual) Nucleated RBC % Abs Neuts (Manual) Abs Lymphs (Manual) Abs Monocytes (Manual) Atypical Lymphocytes Smudge Cells Platelet Estimate Large Platelets % Immature Plt Fraction Schistocytes Puncture Site Left radial ABG pH 7.140 L* ABG pCO2 122.1 H* ABG pO2 70.1 L ABG PO2/FiO2 Ratio 1.75 ABG HCO3 40.6 H ABG O2 Saturation 86.5 L* ABG O2 Content 15.5 L ABG Base Excess 7.7 A-a Gradient 74.7 Oxyhemoglobin 89.1 L Carboxyhemoglobin Methemoglobin Reduced Hemoglobin Total Hemoglobin 12.3 O2 Delivery Device Bipap O2 Liters/Min Not Reportable Minute Volume Vent Rate Vent Mode FiO2 40 Expiratory Pressure 5 Tidal Volume PEEP Inspiratory Pressure 10 Peak Inspir Pressure Pressure Support Sodium Potassium Chloride Carbon Dioxide Anion Gap BUN Creatinine Estim Creat Clear Calc Estimated GFR Glucose POC Capillary Glucose 160 H Calcium Phosphorus Magnesium Total Bilirubin AST ALT Alkaline Phosphatase Total Protein Albumin Triglycerides 109 Nasal MRSA (PCR) 10/06/24 10/06/24 10/06/24 14:45 14:53 17:09 WBC RBC Hgb Hct MCV MCH MCHC RDW Plt Count MPV Immature Gran % (Auto) Neut % (Auto) Lymph % (Auto) [place] % (Auto) Eos % (Auto) Baso % (Auto) Lymph # (Auto) [place] # (Auto) Eos # (Auto) Baso # (Auto) Abs Immat Gran (auto) Absolute Neuts (auto) Absolute Nucleated RBC Total Counted Neutrophils % (Manual) Band Neutrophils % Lymphocytes % (Manual) Monocytes % (Manual) Nucleated RBC % Abs Neuts (Manual) Abs Lymphs (Manual) Abs Monocytes (Manual) Atypical Lymphocytes Smudge Cells Platelet Estimate Large Platelets % Immature Plt Fraction Schistocytes Puncture Site Left brachial ABG pH 7.487 H ABG pCO2 40.8 ABG pO2 200.7 H ABG PO2/FiO2 Ratio 3.35 ABG HCO3 30.2 H ABG O2 Saturation 99.5 ABG O2 Content 14.1 L ABG Base Excess 6.3 A-a Gradient 182.2 Oxyhemoglobin 99.0 Carboxyhemoglobin Methemoglobin Reduced Hemoglobin Total Hemoglobin 9.8 L O2 Delivery Device Ventilator O2 Liters/Min 0.0 Minute Volume Not Reportable Vent Rate 20 Vent Mode Cmv FiO2 60 Expiratory Pressure Tidal Volume 450 PEEP 5 Inspiratory Pressure Peak Inspir Pressure Not Reportable Pressure Support 0 Sodium Potassium Chloride Carbon Dioxide Anion Gap BUN Creatinine Estim Creat Clear Calc Estimated GFR Glucose POC Capillary Glucose 155 H Calcium Phosphorus Magnesium Total Bilirubin AST ALT Alkaline Phosphatase Total Protein Albumin Triglycerides Nasal MRSA (PCR) Not detected 10/06/24 10/07/24 10/07/24 23:59 04:06 05:21 WBC 6.6 RBC 2.83 L Hgb 8.7 L Hct 28.5 L MCV 100.7 H MCH 30.7 MCHC 30.5 L RDW 13.5 Plt Count 242 MPV 10.4 Immature Gran % (Auto) Not Reportable Neut % (Auto) Not Reportable Lymph % (Auto) Not Reportable [place] % (Auto) Not Reportable Eos % (Auto) Not Reportable Baso % (Auto) Not Reportable Lymph # (Auto) Not Reportable [place] # (Auto) Not Reportable Eos # (Auto) Not Reportable Baso # (Auto) Not Reportable Abs Immat Gran (auto) Not Reportable Absolute Neuts (auto) Not Reportable Absolute Nucleated RBC Not Reportable Total Counted 100 Neutrophils % (Manual) 83 H Band Neutrophils % 5 Lymphocytes % (Manual) 8.0 L Monocytes % (Manual) 4 Nucleated RBC % Not Reportable Abs Neuts (Manual) 5.80 Abs Lymphs (Manual) 0.52 L Abs Monocytes (Manual) 0.26 Atypical Lymphocytes Present Smudge Cells Present Platelet Estimate Slightly increased Large Platelets Present % Immature Plt Fraction 3.9 Schistocytes None seen Puncture Site Right radial ABG pH 7.480 H ABG pCO2 39.4 ABG pO2 163.0 H ABG PO2/FiO2 Ratio 4.07 ABG HCO3 28.7 H ABG O2 Saturation 99.2 ABG O2 Content 17.1 ABG Base Excess 4.9 A-a Gradient 76.9 Oxyhemoglobin 98.7 Carboxyhemoglobin 0.6 Methemoglobin 0.2 Reduced Hemoglobin 0.5 Total Hemoglobin 12.1 O2 Delivery Device Ventilator O2 Liters/Min Not Reportable Minute Volume Not Reportable Vent Rate 16 Vent Mode Cmv FiO2 40 Expiratory Pressure Tidal Volume 450 PEEP 5 Inspiratory Pressure Peak Inspir Pressure Not Reportable Pressure Support Not Reportable Sodium 133 L Potassium 4.0 Chloride 100 Carbon Dioxide 25 Anion Gap 8 BUN 25 H Creatinine 0.47 L Estim Creat Clear Calc 136 Estimated GFR > 60 Glucose 173 H POC Capillary Glucose 175 H Calcium 9.0 Phosphorus 4.7 H Magnesium 2.3 Total Bilirubin 0.3 AST 26 ALT 21 Alkaline Phosphatase 64 Total Protein 6.0 L Albumin 2.8 L Triglycerides Nasal MRSA (PCR) Quality VTE Prophylaxis VTE prophylaxis: pharmacologic ordered
[2024-10-07] MEDS: ENOXAPARIN 40 MG/0.4 ML SYRINGE SUB-Q (09:38)
[2024-10-07] MEDS: PANTOPRAZOLE SODIUM IV 40 MG VIAL IV PUSH (09:38)
[2024-10-07] MEDS: metroNIDAZOLE 500 MG/ISO 100ML 500 MG/100 ML BAG 100 MG IVPB (09:38)
[2024-10-07] MEDS: MINERAL OIL/WHITE PETROLATUM OINTMENT 1 APPLIC EACH EYE (09:38)
[2024-10-07] MEDS: SCOPOLAMINE 1 MG PATCH 1 PATCH TRANSDERM (09:39)
--- NOTE | 2024-10-07 10:17 | PC.NURSE ---
Report given to Gopi at [facility], [place] @ 1015 Pt will be flying via [employer] with a 15 minute ETA. Family updated on transfer status and location.
--- NOTE | 2024-10-07 18:25 | PM.TDS ---
Transfer Discharge Sum: Prov Provider Date of admission: 10/04/24 14:01 Primary care physician: Gia Foss, Admitting clinician: Pawel Carey MD Consults: 10/07/24 Consult to Physician Routine Comment: Spoke with provider 10/07 @ [id number] Consulting Provider: Ric Ferrer call center consultant/MD group to consult: ENT Reason for consultation: Airway swelling, Resp Failure Has provider been notified: Yes DS: Admitting Diagnosis Discharge Date 10/07/24 Admitting Diagnosis Shortness of breath DS: Discharge Diagnosis Discharge Diagnosis (1) Acute hypoxic respiratory failure: Code(s): J96.01 - Acute respiratory failure with hypoxia Status: Acute (2) Multifocal pneumonia: Code(s): J18.8 - Other pneumonia, unspecified organism Status: Acute (3) Sepsis: Qualifiers: Sepsis acute organ dysfunction status: unspecified Sepsis type: sepsis due to unspecified organism Qualified Code(s): A41.9 - Sepsis, unspecified organism Code(s): A41.9 - Sepsis, unspecified organism Status: Acute (4) Hypertension: Code(s): I10 - Essential (primary) hypertension Status: Acute (5) Anemia: Code(s): D64.9 - Anemia, unspecified Status: Acute Transfer Discharge Sum: Med Medications Active and Home Medications: Home Medications amlodipine 5 mg tablet 5 mg feeding tube DAILY 10/04/24 [History Confirmed 10/04/24] hydrocodone 7.5 mg-acetaminophen 325 mg tablet 1 tablet feeding tube .q4hr PRN pain 10/04/24 [History Confirmed 10/04/24] scopolamine base 1 mg over 3 days transdermal patch 1 patch transdermal PRN PRN motion sickness 10/04/24 [History Confirmed 10/04/24] Transfer Discharge Sum: Hosp Hospital Course Hospital course: Jesus Dudley is a 64yo male with hx of throat CA, dysphagia requiring GTube and HTN here for shortness of breath. Please see H&P for details. The following issues were addressed: (1) Acute hypoxic respiratory failure: Patient presented with SOB felt related to PNA. Patient was on 4L but developed increased WOB during his hospitalization. BiPAP 10/5, 40% FiO2 added but unable to obtain good TV. ABG showing 7.14/122/70 on bipap. Patient was moved to the ICU and was intubated on 10/06. CT neck soft tissue without contrast showing collapse of the nasopharyngeal, oropharyngeal and hypopharyngeal soft tissue about the ET tube so could not exclude a mass. Family states patient had a negative PET scan in early September. ENT called but they recommended patient be transferred to [place] for further management. (2) Multifocal pneumonia: Patient presents with SOB. CT chest showing no PE but does show diffuse multifocal PNA t/o both lungs. Influenza, COVID and RSV PCR negative. MRSA nasal swab negative. Although he denies oral feedings, consider aspiration. IV Rocephin and azithromycin started. BCx NGTD WBC trended down (3) Sepsis: Secondary to above. LA 2.1 -> 2 Appropriate fluid bolus given in the ED As above (4) Hypertension: Patient's blood pressure was monitored closely (5) Anemia: Mild anemia with Hgb 11 range Anemia workup showing ferritin 1180 but an acute phase reactant. B12, folate and TSH normal. Fe 24, TIBC 188 and ISat 13%. Repeat Hgb now 8-9 range. No evidence of acute blood loss. Patient was transferred in stable condition on 10/07/24. Patient Condition: Serious Time Spent with Patient Time attestation: Total time spent providing and/or coordinating transfer services: 35 minutes Total time spent: Greater than 30 minutes Exam Narrative: Tm 100.4 95.8 108/68 78 16 100% MV Gen - intubated and sedated HEENT - ETT secured. Chest - mildly coarse BS CV - RRR S1/S2. Telemetry showing one episode of irregular tachycardia, possibly AFib Abd - Soft, Positive BS. G-tube site clean, dry and intact. - Corbin secured draining clear yellow urine Ext - No pedal edema Neuro - responsive and follows commands Skin - Warm and dry DS: Data Data Completed and Pending Labs on day of discharge: Labs from last 24 hours 10/07/24 10/07/24 10/06/24 05:21 04:06 23:59 WBC 6.6 RBC 2.83 L Hgb 8.7 L Hct 28.5 L MCV 100.7 H MCH 30.7 MCHC 30.5 L RDW 13.5 Plt Count 242 MPV 10.4 Immature Gran % (Auto) Not Reportable Neut % (Auto) Not Reportable Lymph % (Auto) Not Reportable Dixie % (Auto) Not Reportable Eos % (Auto) Not Reportable Baso % (Auto) Not Reportable Lymph # (Auto) Not Reportable Dixie # (Auto) Not Reportable Eos # (Auto) Not Reportable Baso # (Auto) Not Reportable Abs Immat Gran (auto) Not Reportable Absolute Neuts (auto) Not Reportable Absolute Nucleated RBC Not Reportable Total Counted 100 Neutrophils % (Manual) 83 H Band Neutrophils % 5 Lymphocytes % (Manual) 8.0 L Monocytes % (Manual) 4 Nucleated RBC % Not Reportable Abs Neuts (Manual) 5.80 Abs Lymphs (Manual) 0.52 L Abs Monocytes (Manual) 0.26 Atypical Lymphocytes Present Smudge Cells Present Platelet Estimate Slightly increased Large Platelets Present % Immature Plt Fraction 3.9 Schistocytes None seen Puncture Site Right radial ABG pH 7.480 H ABG pCO2 39.4 ABG pO2 163.0 H ABG PO2/FiO2 Ratio 4.07 ABG HCO3 28.7 H ABG O2 Saturation 99.2 ABG O2 Content 17.1 ABG Base Excess 4.9 A-a Gradient 76.9 Oxyhemoglobin 98.7 Carboxyhemoglobin 0.6 Methemoglobin 0.2 Reduced Hemoglobin 0.5 Total Hemoglobin 12.1 O2 Delivery Device Ventilator O2 Liters/Min Not Reportable Minute Volume Not Reportable Vent Rate 16 Vent Mode Cmv FiO2 40 Tidal Volume 450 PEEP 5 Peak Inspir Pressure Not Reportable Pressure Support Not Reportable Sodium 133 L Potassium 4.0 Chloride 100 Carbon Dioxide 25 Anion Gap 8 BUN 25 H Creatinine 0.47 L Estim Creat Clear Calc 136 Estimated GFR > 60 Glucose 173 H POC Capillary Glucose 175 H Calcium 9.0 Phosphorus 4.7 H Magnesium 2.3 Total Bilirubin 0.3 AST 26 ALT 21 Alkaline Phosphatase 64 Total Protein 6.0 L Albumin 2.8 L Preliminary micro results at discharge 10/04/24 10:35 Blood Culture - Preliminary Blood 10/04/24 10:09 Blood Culture - Preliminary Blood
--- NOTE | 2024-10-08 08:58 | P.CDI_ITS ---
CDI Query Clarification Request BMI: 22.2 Nutritional Diagnostic Statement: Please refer to the comprehensive nutrition assessment for further information. If you agree with diagnosis of Moderate protein calorie malnutrition related to chronic disease state (throat cancer) as evidenced by pt report of significant weight loss of -35% x 9 months, NFPE findings for moderate subcutaneous fat loss (cheeks) and moderate muscle wasting (protestant, clavicle, calf). Please specify severity if known: * Mild * Moderate * Severe * Other/Unknown
[2024-10-09 11:49] LABS: Soluble Transferrin Receptor. 0.87 mg/L (0.76-1.76)
[2024-10-09 18:08] LABS: Mycoplasma IgM Antibody Titer. 50 U/mL
[2024-10-09 18:44] LABS: Pneumococcal Antigen Urine NOT DETECTED
[2024-10-10 16:58] LABS: Legionella pneumophila Ag Ur. NOT DETECTED
== END 2024-10-07 10:53 | disposition short-term general hospital (02) | DRG 871 ==
LOC: ANHED 13:19 → ANHIMU 13:42 → ANHICU 10-09 13:10
PROVIDERS: Emergency Medicine; Internal Medicine; Nurse Practitioner Gerontology; Admitting Provider Internal Medicine; Emergency Provider Physician Assistant; PCP Hospitalist; Visit Provider Internal Medicine
DX: A41.9 Sepsis, unspecified organism (principal); J18.8 Other pneumonia, unspecified organism; J96.21 Acute and chronic respiratory failure with hypoxia; J96.22 Acute and chronic respiratory failure with hypercapnia; I10 Essential (primary) hypertension; R13.10 Dysphagia, unspecified; J39.8 Other specified diseases of upper respiratory tract; D64.9 Anemia, unspecified; F41.9 Anxiety disorder, unspecified; Z20.822 Contact with and (suspected) exposure to COVID-19; R00.0 Tachycardia, unspecified; Z85.89 Personal history of malignant neoplasm of other organs and systems; Z93.1 Gastrostomy status; Z92.21 Personal history of antineoplastic chemotherapy
CPT/HCPCS: 31500; 36415; 36600; 70490; 71045; 71046; 71275; 80048; 80053; 80069; 81003; 82375; 82607; 82728; 82746; 82805; 82948; 83050; 83540; 83550; 83605; 83735; 83880; 84100; 84238; 84443; 84478; 84484; 85018; 85025; 85055; 85610; 85730; 86738; 87040; 87449; 87637; 87641; 87899; 93005; 94002; 94003; 94640; 96361; 96365; 96366; 96367; 96375; 99285; A9270; J0456; J0696; J1100; J1650; J1836; J2060; J2250; J2270; J2470; J2704; J3010; J7030; J7050; J7120; Q9967